=== PATIENT | female | born 1955 | race Two or more races ===

== ENCOUNTER 2017-09-07 16:00 | Inpatient (IN) | payer MEDICAID ==
[~2017-09-07] VITALS: Ht 165.1 cm; Wt 98.7 kg
[~2017-09-07 16:00] MED LIST: ALPR0.5T PO; ATOR20TA PO; FLUO10TA PO; FURO20TA PO; GABA300C PO; LEVE500T22 PO; LORA5SYP23 PO; MIRT45TA3 PO; MORP1TAB12 PO; OMEP20CA74 PO; OXYC10TA44 PO; PROP60CA8 PO; SPIR25TA88 PO
[2017-09-07 18:18] LABS: Basophils # (auto) 0.1 uL; Basophils % (auto) 1.1 % (0.0-2.0); Eosinophils # (auto) 0.1 uL; Eosinophils % (auto) 1.3 % (0.0-7.0); Hematocrit 41.8 % (36.0-46.0); Hemoglobin 14.4 g/dL (12.2-16.2); Lymphocytes # (auto) 1.6 uL; Lymphocytes % (auto) 29.2 % (10.0-50.0); Mean Corpuscular Hemoglobin 31.3 pg (28.0-32.0); Mean Corpuscular Hgb Conc. 34.5 g/dL (32.0-36.0); Mean Corpuscular Volume 90.6 fL (80.0-100.0); Monocytes # (auto) 0.4 uL; Neutrophils # (auto) 3.3 uL; Neutrophils % (auto) 60.4 % (37.0-80.0); Nucleated Red Blood Cells % 0.9 %; Platelet Count (auto) 67 10^3/uL (140-450); Red Blood Cells 4.61 10^6/uL (4.0-5.20); Red Cell Distribution Width 14.3 % (11.8-14.3); White Blood Cell 5.4 10^3/uL (4.4-10.8)
[2017-09-07 18:47] LABS: Alanine Aminotransferase 29 U/L (13-56); Albumin 3.7 g/dL (3.4-5.0); Alkaline Phosphatase 131 U/L (45-117); Anion Gap 9 (5-15); Aspartate Aminotransferase 47 U/L (15-37); BUN/Creatinine Ratio 11.3; Bilirubin, Total 1.6 mg/dL (0.2-1.0); Blood Urea Nitrogen 11 mg/dL (7-18); Calcium 8.7 mg/dL (8.5-10.1); Carbon Dioxide 28 mmol/L (21-32); Chloride 107 mmol/L (98-107); GFR African American 75 mL/min; GFR Non-African American 62 mL/min; Glucose 167 mg/dL (74-106); Potassium 3.8 mmol/L (3.5-5.1); Sodium 144 mmol/L (136-145); Total Protein 7.6 g/dL (6.4-8.2)
[2017-09-07] MEDS ORDERED: DEXTROSE (50%) 50ML SYRG IV PRN (21:30)
[2017-09-07] MEDS: InsuLIN REG 1unit/0.01ml Soln (100units/ml) SC SCH (22:00)
[2017-09-07] MEDS: GABAPENTIN 300 MG CAP PO SCH (22:00)
[2017-09-07] MEDS: ACCU-CHEK COMFORT CURVE STRIP VI SCH (22:00)
[2017-09-07 23:35] VITALS: BP 130/63
[2017-09-08] VITALS (8 sets, daily range): BP systolic 110–118; BP diastolic 63–75
[2017-09-08] MEDS: IPRATROPIUM BROM 0.5 MG/2.5ML INH SOL NEB SCH ×4 (00:27→19:15)
[2017-09-08] MEDS: ALBUTEROL SULF 2.5 MG/0.5ML(0.5%) NEB SOLN NEB SCH ×4 (00:27→19:15)
[2017-09-08] MEDS: MORPHINE SULFATE 10 MG/ML INJ 1ML SDV IV PRN ×6 (00:47→22:46)
[2017-09-08] MEDS: LORazepam 0.5 MG TAB PO PRN ×2 (01:44→16:07)
[2017-09-08] MEDS: ACCU-CHEK COMFORT CURVE STRIP VI SCH ×4 (06:16→22:04)
[2017-09-08] MEDS: InsuLIN REG 1unit/0.01ml Soln (100units/ml) SC SCH ×4 (06:17→22:03)
[2017-09-08 09:39] LABS: Basophils # (auto) 0 uL; Eosinophils # (auto) 0.1 uL; Hemoglobin 12.2 g/dL (12.2-16.2); Lymphocytes # (auto) 1.2 uL; Mean Corpuscular Hgb Conc. 34.9 g/dL (32.0-36.0); Monocytes # (auto) 0.3 uL; Neutrophils # (auto) 1.2 uL; Platelet Count (auto) 54 10^3/uL (140-450); Red Blood Cells 3.89 10^6/uL (4.0-5.20); Red Cell Distribution Width 14.2 % (11.8-14.3); White Blood Cell 2.8 10^3/uL (4.4-10.8)
[2017-09-08 09:43] LABS: Basophils % (auto) 0.5 % (0.0-2.0); Eosinophils % (auto) 2.8 % (0.0-7.0); Hematocrit 35.1 % (36.0-46.0); Lymphocytes % (auto) 43.2 % (10.0-50.0); Mean Corpuscular Hemoglobin 31.5 pg (28.0-32.0); Mean Corpuscular Volume 90.2 fL (80.0-100.0); Monocytes % (auto) 11.6 % (0.0-12.0); Neutrophils % (auto) 41.9 % (37.0-80.0); Nucleated Red Blood Cells % 0.5 %
[2017-09-08] MEDS: FLUoxetine HCL 20 MG CAP PO SCH (09:51)
[2017-09-08] MEDS: GABAPENTIN 300 MG CAP PO SCH ×2 (09:51→21:51)
[2017-09-08] MEDS: AZITHROMYCIN 500MG/ 250ML 250 ML IV SCH (09:52)
[2017-09-08 09:56] LABS: Albumin 2.9 g/dL (3.4-5.0); BUN/Creatinine Ratio 11.1; Calcium 7.8 mg/dL (8.5-10.1); Potassium 3.1 mmol/L (3.5-5.1)
[2017-09-08] MEDS ORDERED: FUROSEMIDE 20 MG TAB PO SCH (10:00)
[2017-09-08] MEDS ORDERED: FUROSEMIDE 40 MG/4 ML VIAL IV ONE (13:30)
[2017-09-08] MEDS ORDERED: POTASSIUM CHLORIDE 40 MEQ, LIDOCAINE 1% (LOCAL ANESTH.) 4 ML in SODIUM CHL 0.9% 100 ML IV ONE (13:30)
[2017-09-08 19:14] LABS: Urine Bacteria NONE SEEN /hpf (None Seen); Urine Blood Negative /uL (Negative); Urine Specific Gravity 1.007 (1.001-1.035); Urine WBC <1 /hpf (0 - 5)
[2017-09-08] MEDS: INSULIN DETEMIR(LEVEMIR) 1unit/0.01ml Soln (100units/ml) SC SCH (22:04)
[2017-09-09] VITALS (8 sets, daily range): BP systolic 111–155; BP diastolic 60–112
[2017-09-09] MEDS: IPRATROPIUM BROM 0.5 MG/2.5ML INH SOL NEB SCH ×4 (00:27→18:41)
[2017-09-09] MEDS: ALBUTEROL SULF 2.5 MG/0.5ML(0.5%) NEB SOLN NEB SCH ×4 (00:27→18:41)
[2017-09-09] MEDS: InsuLIN REG 1unit/0.01ml Soln (100units/ml) SC SCH ×4 (06:21→21:55)
[2017-09-09] MEDS: ACCU-CHEK COMFORT CURVE STRIP VI SCH ×4 (06:21→21:55)
[2017-09-09 09:02] LABS: Albumin 3.2 g/dL (3.4-5.0); BUN/Creatinine Ratio 13.4; Bilirubin, Total 1.1 mg/dL (0.2-1.0); Calcium 8.3 mg/dL (8.5-10.1); Potassium 3.7 mmol/L (3.5-5.1)
[2017-09-09 09:17] LABS: Basophils # (auto) 0.1 uL; Hemoglobin 14.1 g/dL (12.2-16.2); Platelet Count (auto) 64 10^3/uL (140-450); White Blood Cell 3.8 10^3/uL (4.4-10.8)
[2017-09-09 09:20] LABS: Basophils % (auto) 1.6 % (0.0-2.0); Eosinophils # (auto) 0.2 uL; Eosinophils % (auto) 4.5 % (0.0-7.0); Hematocrit 41.7 % (36.0-46.0); Lymphocytes # (auto) 1.2 uL; Lymphocytes % (auto) 30.4 % (10.0-50.0); Mean Corpuscular Hemoglobin 31.1 pg (28.0-32.0); Mean Corpuscular Hgb Conc. 33.9 g/dL (32.0-36.0); Mean Corpuscular Volume 91.7 fL (80.0-100.0); Monocytes # (auto) 0.4 uL; Monocytes % (auto) 9.7 % (0.0-12.0); Neutrophils # (auto) 2.1 uL; Neutrophils % (auto) 53.8 % (37.0-80.0); Nucleated Red Blood Cells % 1.6 %; Red Blood Cells 4.54 10^6/uL (4.0-5.20); Red Cell Distribution Width 14.4 % (11.8-14.3)
[2017-09-09] MEDS: MORPHINE SULFATE 10 MG/ML INJ 1ML SDV IV PRN ×3 (11:00→20:41)
[2017-09-09] MEDS: FLUoxetine HCL 20 MG CAP PO SCH (11:05)
[2017-09-09] MEDS: AZITHROMYCIN 500MG/ 250ML 250 ML IV SCH (11:06)
[2017-09-09] MEDS: GABAPENTIN 300 MG CAP PO SCH ×2 (11:06→21:40)
[2017-09-09] MEDS: FUROSEMIDE 40 MG/4 ML VIAL IV SCH (11:07)
[2017-09-09] MEDS: LORazepam 0.5 MG TAB PO PRN (19:54)
[2017-09-09] MEDS: INSULIN DETEMIR(LEVEMIR) 1unit/0.01ml Soln (100units/ml) SC SCH (21:55)
[2017-09-10] MEDS: IPRATROPIUM BROM 0.5 MG/2.5ML INH SOL NEB SCH ×3 (00:19→11:28)
[2017-09-10] MEDS: ALBUTEROL SULF 2.5 MG/0.5ML(0.5%) NEB SOLN NEB SCH ×3 (00:19→11:28)
[2017-09-10 05:00] VITALS: BP 99/57
[2017-09-10] MEDS: MORPHINE SULFATE 10 MG/ML INJ 1ML SDV IV PRN ×2 (06:30→11:46)
[2017-09-10] MEDS: InsuLIN REG 1unit/0.01ml Soln (100units/ml) SC SCH ×3 (06:53→17:00)
[2017-09-10] MEDS: ACCU-CHEK COMFORT CURVE STRIP VI SCH ×3 (06:54→17:17)
[2017-09-10 08:36] LABS: BUN/Creatinine Ratio 15.7; Calcium 8.6 mg/dL (8.5-10.1); Potassium 3.6 mmol/L (3.5-5.1)
[2017-09-10 09:00] VITALS: BP 119/67
[2017-09-10] MEDS: FLUoxetine HCL 20 MG CAP PO SCH (10:42)
[2017-09-10] MEDS: FUROSEMIDE 40 MG/4 ML VIAL IV SCH (10:42)
[2017-09-10] MEDS: GABAPENTIN 300 MG CAP PO SCH (10:42)
[2017-09-10] MEDS: AZITHROMYCIN 500MG/ 250ML 250 ML IV SCH (10:43)
[2017-09-10 13:00] VITALS: BP 110/71
[2017-09-10] MEDS ORDERED: ACETAMINOPHEN 325 MG TAB PO PRN (14:00)
[2017-09-10 16:39] VITALS: BP 119/67
[2017-09-11] MEDS ORDERED: AZITHROMYCIN 250 MG TAB PO SCH (10:00)
== END 2017-09-10 17:35 | disposition home or self-care (01) | DRG 133 ==
LOC: ER 16:00 → TELE 16:01 → TELE-EAST 23:35
PROVIDERS: ADMIT Nurse Practitioner Family; ATTEND Internal Medicine
PROC: 5A09357 Assistance with Respiratory Ventilation, Less than 24 Consecutive Hours, Continuous Positive Airway Pressure (ICD-10-PCS; principal; 2017-09-09)
DX: J96.21 Acute and chronic respiratory failure with hypoxia (principal); I50.33 Acute on chronic diastolic (congestive) heart failure; J18.9 Pneumonia, unspecified organism; I13.0 Hypertensive heart and chronic kidney disease with heart failure and stage 1 through stage 4 chronic kidney disease, or unspecified chronic kidney disease; E11.22 Type 2 diabetes mellitus with diabetic chronic kidney disease; E11.42 Type 2 diabetes mellitus with diabetic polyneuropathy; E44.1 Mild protein-calorie malnutrition; B19.20 Unspecified viral hepatitis C without hepatic coma; E66.01 Morbid (severe) obesity due to excess calories; E78.5 Hyperlipidemia, unspecified; G40.909 Epilepsy, unspecified, not intractable, without status epilepticus; J44.0 Chronic obstructive pulmonary disease with (acute) lower respiratory infection; M79.7 Fibromyalgia; N18.9 Chronic kidney disease, unspecified; Z79.899 Other long term (current) drug therapy; Z86.73 Personal history of transient ischemic attack (TIA), and cerebral infarction without residual deficits; Z90.710 Acquired absence of both cervix and uterus; Z68.36 Body mass index [BMI] 36.0-36.9, adult
CPT/HCPCS: 36415; 71046; 80048; 80053; 81001; 82962; 83036; 83735; 83880; 84484; 85025; 87400; 93005; 94640; 94660; 96365; 96367; 96372; 96375; J1642; J1815; J2001

== ENCOUNTER 2017-11-24 14:16 | Emergency (ER) | payer MEDICAID ==
[~2017-11-24] VITALS: Ht 165.1 cm; Wt 88.5 kg
[2017-11-24 14:31] VITALS: BP 142/68
[2017-11-24] MEDS ORDERED: IPRATROPIUM BROM 0.5 MG/2.5ML INH SOL NEB ONE (15:00)
[2017-11-24] MEDS ORDERED: ALBUTEROL SULF 2.5 MG/0.5ML(0.5%) NEB SOLN NEB ONE (15:00)
[2017-11-24] MEDS ORDERED: methylPREDNISolone SOD SUCC 125 MG/2 ML VL IM ONE (15:00)
[2017-11-24 15:19] LABS: Basophils # (auto) 0 uL; Eosinophils # (auto) 0.1 uL; Lymphocytes # (auto) 1.4 uL; Mean Corpuscular Hgb Conc. 34.1 g/dL (32.0-36.0); Monocytes # (auto) 0.4 uL; Neutrophils # (auto) 3.1 uL; Platelet Count (auto) 71 10^3/uL (140-450); Red Blood Cells 4.71 10^6/uL (4.0-5.20); White Blood Cell 5.1 10^3/uL (4.4-10.8)
[2017-11-24 15:27] LABS: Basophils % (auto) 0.9 % (0.0-2.0); Eosinophils % (auto) 2.1 % (0.0-7.0); Hematocrit 43.6 % (36.0-46.0); Hemoglobin 14.9 g/dL (12.2-16.2); Mean Corpuscular Hemoglobin 31.6 pg (28.0-32.0); Mean Corpuscular Volume 92.6 fL (80.0-100.0); Monocytes % (auto) 8.5 % (0.0-12.0); Neutrophils % (auto) 60.5 % (37.0-80.0); Nucleated Red Blood Cells % 0.1 %; Red Cell Distribution Width 14.1 % (11.8-14.3)
[2017-11-24 15:42] LABS: Alanine Aminotransferase 36 U/L (13-56); Albumin 3.4 g/dL (3.4-5.0); Alkaline Phosphatase 162 U/L (45-117); Anion Gap 3 (5-15); Aspartate Aminotransferase 54 U/L (15-37); BUN/Creatinine Ratio 13.2; Blood Urea Nitrogen 12 mg/dL (7-18); Calcium 8.7 mg/dL (8.5-10.1); Carbon Dioxide 30 mmol/L (21-32); Chloride 106 mmol/L (98-107); GFR African American 81 mL/min; GFR Non-African American 67 mL/min; Glucose 168 mg/dL (74-106); Potassium 4.1 mmol/L (3.5-5.1); Sodium 139 mmol/L (136-145); Total Protein 7.9 g/dL (6.4-8.2)
== END 2017-11-24 18:32 | disposition home or self-care (01) ==
LOC: ER 14:16
DX: J44.9 Chronic obstructive pulmonary disease, unspecified (principal); I13.0 Hypertensive heart and chronic kidney disease with heart failure and stage 1 through stage 4 chronic kidney disease, or unspecified chronic kidney disease; I50.9 Heart failure, unspecified; N18.9 Chronic kidney disease, unspecified; E11.22 Type 2 diabetes mellitus with diabetic chronic kidney disease; E78.5 Hyperlipidemia, unspecified; Z79.4 Long term (current) use of insulin; Z90.710 Acquired absence of both cervix and uterus; Z45.2 Encounter for adjustment and management of vascular access device; Z87.891 Personal history of nicotine dependence
CPT/HCPCS: 36415; 71046; 80053; 83735; 84484; 85025; 93005; 94640; 96372; 99285; J2930

== ENCOUNTER 2018-07-12 17:30 | Inpatient (IN) | payer MEDICAID ==
[~2018-07-12] VITALS: Ht 165.1 cm; Wt 107.0 kg
[~2018-07-12 17:30] MED LIST changes: -MIRT45TA3 PO; +MIRT45TA6 PO; +PROP60CA34 PO; -PROP60CA8 PO
[2018-07-12 18:04] LABS: Eosinophils # (auto) 0.1 uL; Lymphocytes # (auto) 0.7 uL; Lymphocytes % (auto) 2.8 % (10.0-50.0); Mean Corpuscular Volume 92.9 fL (80.0-100.0); Monocytes # (auto) 1.7 uL; Platelet Count (auto) 53 10^3/uL (140-450)
[2018-07-12 18:05] LABS: Basophils # (auto) 0.1 uL; Basophils % (auto) 0.3 % (0.0-2.0); Eosinophils % (auto) 0.5 % (0.0-7.0); Hematocrit 40.8 % (36.0-46.0); Hemoglobin 13.9 g/dL (12.2-16.2); Mean Corpuscular Hemoglobin 31.6 pg (28.0-32.0); Monocytes % (auto) 7.5 % (0.0-12.0); Neutrophils # (auto) 20.4 uL; Neutrophils % (auto) 88.9 % (37.0-80.0); Red Blood Cells 4.39 10^6/uL (4.0-5.20); White Blood Cell 22.9 10^3/uL (4.4-10.8)
[2018-07-12] MEDS ORDERED: DILTIAZEM HCL 25 MG/5 ML VIAL IV ONE (18:30)
[2018-07-12] MEDS ORDERED: LEVOFLOXACIN 750MG 150 ML IV ONE (18:30)
[2018-07-12 18:50] LABS: BUN/Creatinine Ratio 16.8; Calcium 7.8 mg/dL (8.5-10.1); Potassium 3.7 mmol/L (3.5-5.1)
[2018-07-12 18:51] LABS: Albumin 2.4 g/dL (3.4-5.0); Bilirubin, Total 4.8 mg/dL (0.2-1.0); Magnesium 1.8 mg/dL (1.6-2.6); Total Protein 6.9 g/dL (6.4-8.2)
[2018-07-12 19:11] LABS: Urine Bacteria MANY /hpf (None Seen); Urine Blood 1+ /uL (Negative); Urine Mucus FEW (None Seen); Urine Specific Gravity 1.017 (1.001-1.035); Urine WBC 140 /hpf (0 - 5)
[2018-07-12 19:19] LABS: Alcohol, Urine < 3.0 mg/dL (0-5); Amphetamine Screen, Urine NEGATIVE (NEGATIVE); Barbiturate Scree,Urine NEGATIVE (NEGATIVE); Benzodiazephine Screen, Urine POSITIVE (NEGATIVE); Cannabinoid Screen, Urine POSITIVE (NEGATIVE); Cocaine Screen, Urine NEGATIVE (NEGATIVE); Opiate Scree,Urine POSITIVE (NEGATIVE); Phencyclidine Screen, Urine NEGATIVE (NEGATIVE)
[2018-07-12 19:44] LABS: Lactic Acid w/Reflex 3.9 mmol/L (0.4-2.0)
[2018-07-12] MEDS ORDERED: VANCOMYCIN PER PHARMACY 0 MG IV SCH (21:30)
[2018-07-12] MEDS ORDERED: DEXTROSE (50%) 50ML SYRG IV PRN (21:30)
[2018-07-12] MEDS ORDERED: LORazepam 2MG/ML-1ML VIAL IV PRN (21:30)
[2018-07-12] MEDS ORDERED: VANCOMYCIN 1GM/250ML 250 ML IV ONE (22:45)
[2018-07-13] MEDS ORDERED: ACETAMINOPHEN 650 MG RECT SUPP PR ONE (04:30)
[2018-07-13] MEDS ORDERED: DIGOXIN (250MCG/ML) 2 ML AMPULE IV ONE (04:30)
[2018-07-13] MEDS ORDERED: ADENOSINE 6 MG/2 ML INJ IV ONE ×2 (05:00→06:15)
[2018-07-13] MEDS ORDERED: NOREPINEPHRINE 8 MG/250ML KIT 250 ML IV SCH (05:15)
[2018-07-13] MEDS ORDERED: LORazepam 2MG/ML-1ML VIAL IM ONE (05:30)
[2018-07-13 05:39] LABS: Anion Gap 13 (5-15); BUN/Creatinine Ratio 17.5; Blood Urea Nitrogen 29 mg/dL (7-18); Calcium 7.7 mg/dL (8.5-10.1); Carbon Dioxide 24 mmol/L (21-32); Chloride 99 mmol/L (98-107); GFR African American 40 mL/min; GFR Non-African American 33 mL/min; Glucose 166 mg/dL (74-106); Potassium 4.5 mmol/L (3.5-5.1); Sodium 136 mmol/L (136-145)
[2018-07-13 05:42] LABS: Lactic Acid w/Reflex 3.9 mmol/L (0.4-2.0)
[2018-07-13] MEDS: ACCU-CHEK COMFORT CURVE STRIP VI SCH ×5 (06:10→23:52)
[2018-07-13] MEDS: InsuLIN REG 1unit/0.01ml Soln (100units/ml) SC SCH ×5 (07:00→23:52)
[2018-07-13 07:01] LABS: Hemoglobin 13.7 g/dL (12.2-16.2); Mean Corpuscular Hemoglobin 32.6 pg (28.0-32.0)
[2018-07-13 07:03] LABS: Hematocrit 39.1 % (36.0-46.0); Mean Corpuscular Hgb Conc. 35.2 g/dL (32.0-36.0); Mean Corpuscular Volume 92.6 fL (80.0-100.0); Platelet Count (auto) 50 10^3/uL (140-450); Red Blood Cells 4.22 10^6/uL (4.0-5.20); White Blood Cell 20.4 10^3/uL (4.4-10.8)
[2018-07-13 07:16] LABS: Band Neutrophils % (manual) 0; Basophils % (manual) 0 (0.0-2.0); Eosinophils % (manual) 0 (0-7); Metamyelocytes % 0; Promyelocytes % 0; Reactive Lymphocytes 0
[2018-07-13] MEDS ORDERED: AMIODARONE HCL 150 MG in D5W 5% 100 ML IV ONE (08:15)
[2018-07-13] MEDS ORDERED: AMIODARONE HCL 900 MG in DEXTROSE 500 ML IV SCH (08:20)
[2018-07-13] MEDS ORDERED: cefTRIAXone 1GM/50ML D5W 50 ML IV SCH (09:00)
[2018-07-13] MEDS: FUROSEMIDE 40 MG/4 ML VIAL IV SCH (10:00)
[2018-07-13] MEDS ORDERED: LEVETIRACETAM 500 MG TAB PO SCH (10:00)
[2018-07-13] MEDS ORDERED: LACTULOSE 20Gm/30ML SOLN PO ONE (10:00)
[2018-07-13] MEDS ORDERED: cefTRIAXone 1GM/50ML D5W 50 ML IV ONE (10:45)
[2018-07-13] MEDS: LEVETIRACETAM INJ 500 MG in D5W 5% 100 ML IV SCH ×2 (11:47→22:05)
[2018-07-13] MEDS: PIPERACILLIN-TAZOB 2.25GM 50 ML IV SCH ×3 (12:09→23:52)
[2018-07-13] MEDS: VANCOMYCIN 1GM/250ML 250 ML IV SCH (13:00)
[2018-07-13 13:06] VITALS: BP 123/74
[2018-07-13] MEDS: AMIODARONE HCL 900 MG in DEXTROSE 500 ML IV SCH (14:20)
[2018-07-13 14:23] LABS: Blast Cells 1; Lymphocytes % (manual) 2 (10.0-50.0); Monocytes % (manual) 6 (0-12); Myelocytes % 1
[2018-07-13 15:54] VITALS: BP 118/70
[2018-07-13] MEDS ORDERED: LORazepam 2MG/ML-1ML VIAL IV PRN (19:30)
[2018-07-13 20:00] VITALS: BP 124/73
[2018-07-13] MEDS: ATORVASTATIN 20 MG TAB PO SCH (21:20)
[2018-07-13 21:38] VITALS: BP 124/73
[2018-07-14] VITALS: BP 138/82
[2018-07-14] MEDS: VANCOMYCIN 1GM/250ML 250 ML IV SCH (01:12)
[2018-07-14 04:00] VITALS: BP 119/74
[2018-07-14 05:39] LABS: Mean Corpuscular Hemoglobin 32.2 pg (28.0-32.0); Mean Corpuscular Hgb Conc. 34.8 g/dL (32.0-36.0)
[2018-07-14 05:42] LABS: Hematocrit 36.3 % (36.0-46.0); Hemoglobin 12.6 g/dL (12.2-16.2); Mean Corpuscular Volume 92.6 fL (80.0-100.0); Platelet Count (auto) 56 10^3/uL (140-450); Red Blood Cells 3.92 10^6/uL (4.0-5.20); White Blood Cell 18.4 10^3/uL (4.4-10.8)
[2018-07-14] MEDS: ACCU-CHEK COMFORT CURVE STRIP VI SCH ×4 (05:45→23:56)
[2018-07-14 05:51] LABS: Basophils % (manual) 0 (0.0-2.0); Blast Cells 0; Eosinophils % (manual) 0 (0-7); Metamyelocytes % 0; Myelocytes % 0; Promyelocytes % 0; Reactive Lymphocytes 0
[2018-07-14 05:55] LABS: Albumin 2.2 g/dL (3.4-5.0); Calcium 7.7 mg/dL (8.5-10.1); Potassium 3.5 mmol/L (3.5-5.1)
[2018-07-14 05:57] LABS: BUN/Creatinine Ratio 20.5; Total Protein 6.1 g/dL (6.4-8.2)
[2018-07-14] MEDS: InsuLIN REG 1unit/0.01ml Soln (100units/ml) SC SCH ×4 (06:13→23:56)
[2018-07-14] MEDS: PIPERACILLIN-TAZOB 2.25GM 50 ML IV SCH ×3 (06:14→18:24)
[2018-07-14 08:00] VITALS: BP 138/73
[2018-07-14 08:02] LABS: Band Neutrophils % (manual) 2; Lymphocytes % (manual) 7 (10.0-50.0); Monocytes % (manual) 8 (0-12)
[2018-07-14] MEDS: cefTRIAXone 1GM/50ML D5W 50 ML IV SCH (09:41)
[2018-07-14] MEDS ORDERED: CLOPIDOGREL BISULFATE 75 MG TAB PO SCH (10:00)
[2018-07-14] MEDS: LEVETIRACETAM INJ 500 MG in D5W 5% 100 ML IV SCH ×2 (10:29→22:54)
[2018-07-14] MEDS: FUROSEMIDE 40 MG/4 ML VIAL IV SCH (10:29)
[2018-07-14 11:50] VITALS: BP 131/78
[2018-07-14] MEDS: AMIODARONE HCL 900 MG in DEXTROSE 500 ML IV SCH (14:20)
[2018-07-14 15:51] VITALS: BP 139/81
[2018-07-14 19:51] VITALS: BP 121/76
[2018-07-14] MEDS: VANCOMYCIN 750 MG in SODIUM CHL 0.9% 250 ML IV SCH (21:01)
[2018-07-14] MEDS: CARVEDILOL 3.125 MG TAB PO SCH (21:22)
[2018-07-14] MEDS: ATORVASTATIN 20 MG TAB PO SCH (21:22)
[2018-07-14] MEDS: BUDESONIDE (INHALATION) 0.5 MG/2 ML NEB NEB SCH (22:40)
[2018-07-15] VITALS: BP 119/57
[2018-07-15] MEDS: PIPERACILLIN-TAZOB 2.25GM 50 ML IV SCH ×2 (00:09→05:15)
[2018-07-15 04:00] VITALS: BP 125/66
[2018-07-15] MEDS: InsuLIN REG 1unit/0.01ml Soln (100units/ml) SC SCH ×4 (05:16→23:43)
[2018-07-15] MEDS: ACCU-CHEK COMFORT CURVE STRIP VI SCH ×4 (05:16→23:44)
[2018-07-15 05:33] LABS: Hematocrit 38.3 % (36.0-46.0); Hemoglobin 13.4 g/dL (12.2-16.2); Mean Corpuscular Hgb Conc. 34.8 g/dL (32.0-36.0); Platelet Count (auto) 84 10^3/uL (140-450); Red Blood Cells 4.17 10^6/uL (4.0-5.20); White Blood Cell 18.9 10^3/uL (4.4-10.8)
[2018-07-15 05:59] LABS: Albumin 2.1 g/dL (3.4-5.0); BUN/Creatinine Ratio 17.6; Basophils % (manual) 0 (0.0-2.0); Blast Cells 0; Calcium 7.4 mg/dL (8.5-10.1); Eosinophils % (manual) 0 (0-7); Metamyelocytes % 0; Myelocytes % 0; Potassium 3.2 mmol/L (3.5-5.1); Promyelocytes % 0; Reactive Lymphocytes 0
[2018-07-15 06:03] LABS: Bilirubin, Total 2.9 mg/dL (0.2-1.0); Total Protein 6.1 g/dL (6.4-8.2)
[2018-07-15] MEDS: ALBUTEROL SULF 2.5 MG/0.5ML(0.5%) NEB SOLN NEB PRN ×2 (07:00→18:08)
[2018-07-15] MEDS: BUDESONIDE (INHALATION) 0.5 MG/2 ML NEB NEB SCH ×2 (07:00→18:09)
[2018-07-15 07:16] LABS: Band Neutrophils % (manual) 4; Lymphocytes % (manual) 8 (10.0-50.0); Monocytes % (manual) 5 (0-12)
[2018-07-15] MEDS ORDERED: HALOPERIDOL LACTATE 5 MG/ML INJ VIAL IM PRN (07:45)
[2018-07-15] MEDS: VANCOMYCIN 750 MG in SODIUM CHL 0.9% 250 ML IV SCH (08:55)
[2018-07-15] MEDS: cefTRIAXone 1GM/50ML D5W 50 ML IV SCH (09:56)
[2018-07-15] MEDS: CARVEDILOL 3.125 MG TAB PO SCH ×2 (10:00→22:20)
[2018-07-15] MEDS: FUROSEMIDE 40 MG/4 ML VIAL IV SCH (10:00)
[2018-07-15] MEDS ORDERED: POTASSIUM CHLORIDE 40 MEQ, LIDOCAINE 1% (LOCAL ANESTH.) 4 ML in SODIUM CHL 0.9% 100 ML IV ONE (10:15)
[2018-07-15] MEDS: LEVETIRACETAM INJ 500 MG in D5W 5% 100 ML IV SCH ×2 (11:47→22:18)
[2018-07-15 12:00] VITALS: BP 108/63
[2018-07-15 15:53] VITALS: BP 111/81
[2018-07-15] MEDS: ONDANSETRON HCL 4 MG/2 ML VIAL IV PRN (17:14)
[2018-07-15 19:59] VITALS: BP 122/72
[2018-07-15] MEDS: VANCOMYCIN 750 MG in D5W 5% 250 ML IV SCH (20:32)
[2018-07-15] MEDS: ATORVASTATIN 20 MG TAB PO SCH (22:18)
[2018-07-15] MEDS: APIXABAN 2.5 MG TAB PO SCH (22:19)
[2018-07-15] MEDS: DRONEDARONE HCL 400 MG TAB PO SCH (22:19)
[2018-07-16] VITALS (7 sets, daily range): BP systolic 96–124; BP diastolic 55–73
[2018-07-16] MEDS: BUDESONIDE (INHALATION) 0.5 MG/2 ML NEB NEB SCH ×2 (05:54→19:04)
[2018-07-16 06:16] LABS: Hemoglobin 13.5 g/dL (12.2-16.2); Mean Corpuscular Hemoglobin 31.9 pg (28.0-32.0); Mean Corpuscular Hgb Conc. 34.5 g/dL (32.0-36.0); Mean Corpuscular Volume 92.4 fL (80.0-100.0); Platelet Count (auto) 98 10^3/uL (140-450); Red Blood Cells 4.23 10^6/uL (4.0-5.20); Red Cell Distribution Width 14.4 % (11.8-14.3); White Blood Cell 22.2 10^3/uL (4.4-10.8)
[2018-07-16] MEDS: ACCU-CHEK COMFORT CURVE STRIP VI SCH ×4 (06:21→23:37)
[2018-07-16] MEDS: InsuLIN REG 1unit/0.01ml Soln (100units/ml) SC SCH ×4 (06:22→23:37)
[2018-07-16 06:38] LABS: Calcium 7.5 mg/dL (8.5-10.1); Potassium 3.9 mmol/L (3.5-5.1)
[2018-07-16 06:41] LABS: BUN/Creatinine Ratio 18.3; Bilirubin, Total 2.5 mg/dL (0.2-1.0)
[2018-07-16 06:42] LABS: Basophils % (manual) 0 (0.0-2.0); Blast Cells 0; Eosinophils % (manual) 0 (0-7); Myelocytes % 0; Promyelocytes % 0; Reactive Lymphocytes 0
[2018-07-16 07:45] LABS: Band Neutrophils % (manual) 3; Lymphocytes % (manual) 7 (10.0-50.0); Metamyelocytes % 2; Monocytes % (manual) 3 (0-12)
[2018-07-16] MEDS ORDERED: ADENOSINE 85 MG in GIVE UN-DILUTED 0 ML IV STA (08:14)
[2018-07-16] MEDS: cefTRIAXone 1GM/50ML D5W 50 ML IV SCH (10:15)
[2018-07-16] MEDS: FUROSEMIDE 40 MG/4 ML VIAL IV SCH (10:16)
[2018-07-16] MEDS: CARVEDILOL 3.125 MG TAB PO SCH ×2 (10:17→21:34)
[2018-07-16] MEDS: APIXABAN 2.5 MG TAB PO SCH ×2 (10:18→21:35)
[2018-07-16] MEDS ORDERED: cefTRIAXone 1GM/50ML D5W 50 ML IV ONE (10:30)
[2018-07-16] MEDS: VANCOMYCIN 750 MG in D5W 5% 250 ML IV SCH ×2 (12:03→20:16)
[2018-07-16] MEDS: LEVETIRACETAM INJ 500 MG in D5W 5% 100 ML IV SCH (12:03)
[2018-07-16] MEDS: DRONEDARONE HCL 400 MG TAB PO SCH ×2 (12:03→21:35)
[2018-07-16] MEDS: ACETAMINOPHEN 500 MG TAB PO PRN (13:13)
[2018-07-16] MEDS: LEVETIRACETAM 500 MG TAB PO SCH (21:35)
[2018-07-16] MEDS: ATORVASTATIN 20 MG TAB PO SCH (21:35)
[2018-07-17 05:02] VITALS: BP 97/53
[2018-07-17] MEDS: ACETAMINOPHEN 500 MG TAB PO PRN (05:12)
[2018-07-17] MEDS: InsuLIN REG 1unit/0.01ml Soln (100units/ml) SC SCH ×3 (05:36→18:00)
[2018-07-17] MEDS: ACCU-CHEK COMFORT CURVE STRIP VI SCH ×3 (05:37→18:16)
[2018-07-17 05:42] LABS: Hematocrit 39.4 % (36.0-46.0); Hemoglobin 13.7 g/dL (12.2-16.2); Mean Corpuscular Hemoglobin 31.8 pg (28.0-32.0); Mean Corpuscular Hgb Conc. 34.8 g/dL (32.0-36.0); Mean Corpuscular Volume 91.5 fL (80.0-100.0); Platelet Count (auto) 111 10^3/uL (140-450); Red Cell Distribution Width 14.5 % (11.8-14.3); White Blood Cell 24.4 10^3/uL (4.4-10.8)
[2018-07-17 05:49] LABS: Basophils % (manual) 0 (0.0-2.0); Blast Cells 0; Promyelocytes % 0; Reactive Lymphocytes 0
[2018-07-17] MEDS: BUDESONIDE (INHALATION) 0.5 MG/2 ML NEB NEB SCH ×2 (05:58→19:38)
[2018-07-17 06:01] LABS: Albumin 2.3 g/dL (3.4-5.0); Calcium 7.7 mg/dL (8.5-10.1)
[2018-07-17 06:05] LABS: Total Protein 6.5 g/dL (6.4-8.2)
[2018-07-17 06:06] LABS: BUN/Creatinine Ratio 18.3; Potassium 2.8 mmol/L (3.5-5.1)
[2018-07-17] MEDS ORDERED: POTASSIUM CHL 20 Meq TABLET PO ONE (08:00)
[2018-07-17 08:19] VITALS: BP 115/64
[2018-07-17] MEDS: cefTRIAXone 1GM/50ML D5W 50 ML IV SCH (08:19)
[2018-07-17] MEDS: VANCOMYCIN 750 MG in D5W 5% 250 ML IV SCH ×2 (08:19→20:10)
[2018-07-17 08:31] LABS: Band Neutrophils % (manual) 7; Eosinophils % (manual) 1 (0-7); Lymphocytes % (manual) 4 (10.0-50.0); Metamyelocytes % 2; Monocytes % (manual) 1 (0-12); Myelocytes % 2
[2018-07-17] MEDS ORDERED: cefTRIAXone 1GM/50ML D5W 50 ML IV SCH (09:30)
[2018-07-17] MEDS: LEVETIRACETAM 500 MG TAB PO SCH ×2 (10:00→21:49)
[2018-07-17] MEDS: DRONEDARONE HCL 400 MG TAB PO SCH ×2 (10:00→21:51)
[2018-07-17] MEDS ORDERED: ZOLPIDEM TARTRATE 5 MG TAB PO PRN (10:30)
[2018-07-17] MEDS ORDERED: cefTRIAXone 1GM/50ML D5W 50 ML IV ONE (10:30)
[2018-07-17] MEDS ORDERED: POTASSIUM CHLORIDE 40 MEQ, LIDOCAINE 1% (LOCAL ANESTH.) 4 ML in SODIUM CHL 0.9% 100 ML IV ONE (10:30)
[2018-07-17] MEDS: FUROSEMIDE 40 MG/4 ML VIAL IV SCH (11:10)
[2018-07-17] MEDS: APIXABAN 2.5 MG TAB PO SCH ×2 (11:10→21:49)
[2018-07-17] MEDS: metroNIDAZOLE 500 MG TAB PO SCH ×3 (12:44→23:47)
[2018-07-17 12:47] VITALS: BP 113/69
[2018-07-17] MEDS ORDERED: HYDROcodone-ACET 5/325MG TAB PO PRN (13:00)
[2018-07-17] MEDS: HYDROcodone-ACET 5/325MG TAB PO PRN ×2 (13:32→20:47)
[2018-07-17] MEDS ORDERED: metroNIDAZOLE 500MG/100ML 100 ML IV SCH (14:00)
[2018-07-17 16:19] VITALS: BP 98/58
[2018-07-17] MEDS: ONDANSETRON HCL 4 MG/2 ML VIAL IV PRN (16:24)
[2018-07-17] MEDS: CARVEDILOL 3.125 MG TAB PO SCH (21:49)
[2018-07-17] MEDS: ATORVASTATIN 20 MG TAB PO SCH (21:50)
[2018-07-17 21:54] VITALS: BP 129/71
[2018-07-18] MEDS: ACCU-CHEK COMFORT CURVE STRIP VI SCH ×4 (00:29→18:19)
[2018-07-18] MEDS: HYDROcodone-ACET 5/325MG TAB PO PRN ×4 (02:55→21:28)
[2018-07-18 04:32] VITALS: BP 91/52
[2018-07-18 05:58] LABS: Hematocrit 37.7 % (36.0-46.0); Hemoglobin 13.1 g/dL (12.2-16.2); Mean Corpuscular Hgb Conc. 34.8 g/dL (32.0-36.0); Mean Corpuscular Volume 91.8 fL (80.0-100.0); Platelet Count (auto) 98 10^3/uL (140-450); Red Cell Distribution Width 14.3 % (11.8-14.3); White Blood Cell 17.6 10^3/uL (4.4-10.8)
[2018-07-18] MEDS: InsuLIN REG 1unit/0.01ml Soln (100units/ml) SC SCH ×4 (06:00→18:19)
[2018-07-18 06:10] LABS: Albumin 2.1 g/dL (3.4-5.0); Calcium 7.3 mg/dL (8.5-10.1); Potassium 3.5 mmol/L (3.5-5.1)
[2018-07-18 06:13] LABS: Bilirubin, Total 2.6 mg/dL (0.2-1.0); Total Protein 6.4 g/dL (6.4-8.2)
[2018-07-18 06:14] LABS: Band Neutrophils % (manual) 0; Basophils % (manual) 0 (0.0-2.0); Blast Cells 0; Metamyelocytes % 0; Myelocytes % 0; Promyelocytes % 0; Reactive Lymphocytes 0
[2018-07-18] MEDS: metroNIDAZOLE 500 MG TAB PO SCH ×3 (06:44→18:19)
[2018-07-18 07:22] LABS: Eosinophils % (manual) 1 (0-7); Lymphocytes % (manual) 5 (10.0-50.0); Monocytes % (manual) 6 (0-12)
[2018-07-18] MEDS: VANCOMYCIN 750 MG in D5W 5% 250 ML IV SCH ×2 (08:00→21:34)
[2018-07-18 09:00] VITALS: BP 110/54
[2018-07-18] MEDS: CEFTRIAXONE SODIUM 2 GM in D5W 5% 50 ML IV SCH (10:00)
[2018-07-18] MEDS: BUDESONIDE (INHALATION) 0.5 MG/2 ML NEB NEB SCH ×2 (10:13→22:25)
[2018-07-18] MEDS: LEVETIRACETAM 500 MG TAB PO SCH (11:18)
[2018-07-18] MEDS: DRONEDARONE HCL 400 MG TAB PO SCH ×2 (11:18→22:02)
[2018-07-18] MEDS: FUROSEMIDE 40 MG/4 ML VIAL IV SCH (11:18)
[2018-07-18] MEDS: CARVEDILOL 3.125 MG TAB PO SCH ×2 (11:19→22:00)
[2018-07-18] MEDS: APIXABAN 2.5 MG TAB PO SCH ×2 (11:19→22:01)
[2018-07-18 13:00] VITALS: BP 116/58
[2018-07-18 17:00] VITALS: BP 120/61
[2018-07-18] MEDS: ONDANSETRON HCL 4 MG/2 ML VIAL IV PRN (18:32)
[2018-07-18 21:45] VITALS: BP 98/60
[2018-07-18] MEDS: ATORVASTATIN 20 MG TAB PO SCH (22:01)
[2018-07-18] MEDS: MIRTAZAPINE 30 MG TAB PO SCH (22:02)
[2018-07-19] MEDS: HYDROcodone-ACET 5/325MG TAB PO PRN ×4 (04:50→22:40)
[2018-07-19 05:38] VITALS: BP 114/73
[2018-07-19] MEDS: InsuLIN REG 1unit/0.01ml Soln (100units/ml) SC SCH ×4 (06:00→18:00)
[2018-07-19] MEDS: ACCU-CHEK COMFORT CURVE STRIP VI SCH ×5 (06:00→23:52)
[2018-07-19 06:31] LABS: Hematocrit 36.5 % (36.0-46.0); Mean Corpuscular Hemoglobin 32.5 pg (28.0-32.0); Mean Corpuscular Hgb Conc. 35.6 g/dL (32.0-36.0); Mean Corpuscular Volume 91.4 fL (80.0-100.0); Platelet Count (auto) 108 10^3/uL (140-450); Red Blood Cells 3.99 10^6/uL (4.0-5.20); Red Cell Distribution Width 14.5 % (11.8-14.3); White Blood Cell 17.4 10^3/uL (4.4-10.8)
[2018-07-19] MEDS: metroNIDAZOLE 500 MG TAB PO SCH ×5 (06:42→22:34)
[2018-07-19 07:00] LABS: Albumin 2.3 g/dL (3.4-5.0); Bilirubin, Total 2.5 mg/dL (0.2-1.0); Calcium 7.6 mg/dL (8.5-10.1); Total Protein 6.3 g/dL (6.4-8.2)
[2018-07-19 07:35] LABS: Basophils % (manual) 0 (0.0-2.0); Blast Cells 0; Metamyelocytes % 0; Myelocytes % 0; Promyelocytes % 0; Reactive Lymphocytes 0
[2018-07-19] MEDS: VANCOMYCIN 750 MG in D5W 5% 250 ML IV SCH ×2 (08:00→21:14)
[2018-07-19 08:51] LABS: Band Neutrophils % (manual) 3; Eosinophils % (manual) 5 (0-7); Lymphocytes % (manual) 4 (10.0-50.0); Monocytes % (manual) 1 (0-12)
[2018-07-19 09:19] VITALS: BP 105/48
[2018-07-19] MEDS ORDERED: POTASSIUM CHLORIDE 40 MEQ, LIDOCAINE 1% (LOCAL ANESTH.) 4 ML in SODIUM CHL 0.9% 100 ML IV ONE (09:30)
[2018-07-19] MEDS: CEFTRIAXONE SODIUM 2 GM in D5W 5% 50 ML IV SCH (10:00)
[2018-07-19] MEDS: ONDANSETRON HCL 4 MG/2 ML VIAL IV PRN ×2 (10:03→18:33)
[2018-07-19] MEDS: LEVETIRACETAM 500 MG TAB PO SCH (10:05)
[2018-07-19] MEDS: APIXABAN 2.5 MG TAB PO SCH ×2 (10:05→22:33)
[2018-07-19] MEDS: DRONEDARONE HCL 400 MG TAB PO SCH ×2 (10:05→22:34)
[2018-07-19] MEDS: CARVEDILOL 3.125 MG TAB PO SCH ×2 (10:05→22:00)
[2018-07-19] MEDS: FUROSEMIDE 40 MG/4 ML VIAL IV SCH (10:05)
[2018-07-19] MEDS: BUDESONIDE (INHALATION) 0.5 MG/2 ML NEB NEB SCH ×2 (10:30→22:00)
[2018-07-19] MEDS ORDERED: ADENOSINE 85 MG in GIVE UN-DILUTED 0 ML IV STA (11:56)
[2018-07-19 13:16] VITALS: BP 107/53
[2018-07-19] MEDS: FLUoxetine HCL 20 MG CAP PO SCH (15:44)
[2018-07-19 17:31] VITALS: BP 99/73
[2018-07-19 22:00] VITALS: BP 109/50
[2018-07-19] MEDS: MIRTAZAPINE 30 MG TAB PO SCH (22:25)
[2018-07-19] MEDS: ATORVASTATIN 20 MG TAB PO SCH (22:34)
[2018-07-20 03:16] VITALS: BP 109/50
[2018-07-20] MEDS: HYDROcodone-ACET 5/325MG TAB PO PRN (04:47)
[2018-07-20] MEDS: ONDANSETRON HCL 4 MG/2 ML VIAL IV PRN ×3 (04:47→20:38)
[2018-07-20 05:21] VITALS: BP 109/53
[2018-07-20] MEDS: metroNIDAZOLE 500 MG TAB PO SCH ×4 (05:41→23:23)
[2018-07-20] MEDS: InsuLIN REG 1unit/0.01ml Soln (100units/ml) SC SCH ×5 (06:00→23:06)
[2018-07-20] MEDS: ACCU-CHEK COMFORT CURVE STRIP VI SCH ×4 (06:24→23:06)
[2018-07-20 06:39] LABS: Hematocrit 36.4 % (36.0-46.0); Hemoglobin 12.8 g/dL (12.2-16.2); Mean Corpuscular Hemoglobin 32.1 pg (28.0-32.0); Mean Corpuscular Hgb Conc. 35.1 g/dL (32.0-36.0); Mean Corpuscular Volume 91.4 fL (80.0-100.0); Platelet Count (auto) 121 10^3/uL (140-450); Red Blood Cells 3.98 10^6/uL (4.0-5.20); White Blood Cell 15.8 10^3/uL (4.4-10.8)
[2018-07-20 06:47] LABS: Basophils % (manual) 0 (0.0-2.0); Blast Cells 0; Metamyelocytes % 0; Myelocytes % 0; Promyelocytes % 0; Reactive Lymphocytes 0
[2018-07-20 06:56] LABS: Albumin 2.3 g/dL (3.4-5.0); BUN/Creatinine Ratio 12.4; Calcium 7.6 mg/dL (8.5-10.1); Potassium 3.2 mmol/L (3.5-5.1)
[2018-07-20 07:00] LABS: Bilirubin, Total 2.5 mg/dL (0.2-1.0); Total Protein 6.7 g/dL (6.4-8.2)
[2018-07-20 07:38] LABS: Band Neutrophils % (manual) 1; Eosinophils % (manual) 2 (0-7); Lymphocytes % (manual) 9 (10.0-50.0); Monocytes % (manual) 9 (0-12)
[2018-07-20 08:00] VITALS: BP 118/53
[2018-07-20] MEDS ORDERED: OXYCODONE W/ ACETAMINOPHEN 5/325MG TABLET PO PRN (08:15)
[2018-07-20] MEDS: CARVEDILOL 3.125 MG TAB PO SCH ×2 (08:41→21:28)
[2018-07-20] MEDS: VANCOMYCIN 750 MG in D5W 5% 250 ML IV SCH ×2 (08:41→20:34)
[2018-07-20] MEDS: FLUoxetine HCL 20 MG CAP PO SCH (08:41)
[2018-07-20] MEDS: OXYCODONE W/ ACETAMINOPHEN 5/325MG TABLET PO PRN ×3 (08:42→21:29)
[2018-07-20] MEDS: APIXABAN 2.5 MG TAB PO SCH ×2 (08:49→21:28)
[2018-07-20] MEDS: BUDESONIDE (INHALATION) 0.5 MG/2 ML NEB NEB SCH ×2 (09:25→23:23)
[2018-07-20] MEDS: DRONEDARONE HCL 400 MG TAB PO SCH ×2 (10:00→21:29)
[2018-07-20] MEDS: FUROSEMIDE 40 MG/4 ML VIAL IV SCH (10:00)
[2018-07-20] MEDS: CEFTRIAXONE SODIUM 2 GM in D5W 5% 50 ML IV SCH (10:19)
[2018-07-20] MEDS ORDERED: POTASSIUM CHLORIDE 40 MEQ, LIDOCAINE 1% (LOCAL ANESTH.) 4 ML in SODIUM CHL 0.9% 100 ML IV ONE (10:45)
[2018-07-20] MEDS ORDERED: ZOLPIDEM TARTRATE 5 MG TAB PO PRN (11:15)
[2018-07-20 12:15] VITALS: BP 121/86
[2018-07-20 16:30] VITALS: BP 109/58
[2018-07-20] MEDS: ATORVASTATIN 20 MG TAB PO SCH (21:27)
[2018-07-20 21:53] VITALS: BP 130/71
[2018-07-20] MEDS: MIRTAZAPINE 30 MG TAB PO SCH (22:00)
[2018-07-21] MEDS: ONDANSETRON HCL 4 MG/2 ML VIAL IV PRN ×3 (02:53→15:56)
[2018-07-21] MEDS: OXYCODONE W/ ACETAMINOPHEN 5/325MG TABLET PO PRN ×2 (03:31→11:34)
[2018-07-21 04:57] VITALS: BP 95/48
[2018-07-21] MEDS: metroNIDAZOLE 500 MG TAB PO SCH ×2 (05:50→11:48)
[2018-07-21] MEDS: ACCU-CHEK COMFORT CURVE STRIP VI SCH ×2 (05:52→11:48)
[2018-07-21] MEDS: InsuLIN REG 1unit/0.01ml Soln (100units/ml) SC SCH ×2 (05:52→11:49)
[2018-07-21] MEDS: BUDESONIDE (INHALATION) 0.5 MG/2 ML NEB NEB SCH (06:28)
[2018-07-21 07:25] LABS: Basophils # (auto) 0.1 uL; Eosinophils # (auto) 0.1 uL; Eosinophils % (auto) 1.2 % (0.0-7.0); Hematocrit 34.5 % (36.0-46.0); Lymphocytes # (auto) 1.3 uL; Lymphocytes % (auto) 11.3 % (10.0-50.0); Mean Corpuscular Hgb Conc. 34.8 g/dL (32.0-36.0); Monocytes # (auto) 0.7 uL; Monocytes % (auto) 6.2 % (0.0-12.0); Neutrophils # (auto) 9.2 uL; Neutrophils % (auto) 80.3 % (37.0-80.0); Platelet Count (auto) 94 10^3/uL (140-450); Red Blood Cells 3.75 10^6/uL (4.0-5.20); Red Cell Distribution Width 14.3 % (11.8-14.3); White Blood Cell 11.5 10^3/uL (4.4-10.8)
[2018-07-21 07:38] LABS: Albumin 2.2 g/dL (3.4-5.0); BUN/Creatinine Ratio 13.3; Calcium 7.7 mg/dL (8.5-10.1); Potassium 3.6 mmol/L (3.5-5.1)
[2018-07-21 07:41] LABS: Bilirubin, Total 1.9 mg/dL (0.2-1.0); Total Protein 6.3 g/dL (6.4-8.2)
[2018-07-21] MEDS: APIXABAN 2.5 MG TAB PO SCH (07:49)
[2018-07-21] MEDS: VANCOMYCIN 750 MG in D5W 5% 250 ML IV SCH (08:06)
[2018-07-21 09:00] VITALS: BP 91/49
[2018-07-21] MEDS: FLUoxetine HCL 20 MG CAP PO SCH (10:00)
[2018-07-21] MEDS: FUROSEMIDE 40 MG/4 ML VIAL IV SCH (10:00)
[2018-07-21] MEDS: CARVEDILOL 3.125 MG TAB PO SCH (10:00)
[2018-07-21] MEDS: DRONEDARONE HCL 400 MG TAB PO SCH (10:00)
[2018-07-21] MEDS: CEFTRIAXONE SODIUM 2 GM in D5W 5% 50 ML IV SCH (10:28)
[2018-07-21 12:51] VITALS: BP 105/41
[2018-07-21 13:00] VITALS: BP 110/51
== END 2018-07-21 16:42 | disposition home or self-care (01) | DRG 720 ==
LOC: EDUNIT# 17:30 → ER 17:33 → TELE 21:40 → DOU IN ICU 07-13 09:48 → TELE-EAST 07-16 00:53
PROVIDERS: ADMIT Nurse Practitioner Family; ATTEND Internal Medicine
PROC: 02HV33Z Insertion of Infusion Device into Superior Vena Cava, Percutaneous Approach (ICD-10-PCS; principal; 2018-07-12)
DX: A41.9 Sepsis, unspecified organism (principal); G93.41 Metabolic encephalopathy; I50.23 Acute on chronic systolic (congestive) heart failure; E43 Unspecified severe protein-calorie malnutrition; E11.22 Type 2 diabetes mellitus with diabetic chronic kidney disease; I48.92 Unspecified atrial flutter; E66.01 Morbid (severe) obesity due to excess calories; J43.9 Emphysema, unspecified; M32.9 Systemic lupus erythematosus, unspecified; N30.00 Acute cystitis without hematuria; E78.5 Hyperlipidemia, unspecified; G40.909 Epilepsy, unspecified, not intractable, without status epilepticus; G47.33 Obstructive sleep apnea (adult) (pediatric); I44.7 Left bundle-branch block, unspecified; M79.7 Fibromyalgia; N18.9 Chronic kidney disease, unspecified; I13.0 Hypertensive heart and chronic kidney disease with heart failure and stage 1 through stage 4 chronic kidney disease, or unspecified chronic kidney disease; E87.6 Hypokalemia; F31.9 Bipolar disorder, unspecified; F40.240 Claustrophobia; G47.00 Insomnia, unspecified; G89.4 Chronic pain syndrome; I44.0 Atrioventricular block, first degree; Z79.899 Other long term (current) drug therapy; Z82.49 Family history of ischemic heart disease and other diseases of the circulatory system; Z83.3 Family history of diabetes mellitus; Z79.82 Long term (current) use of aspirin; Z86.73 Personal history of transient ischemic attack (TIA), and cerebral infarction without residual deficits; Z90.710 Acquired absence of both cervix and uterus; Z91.19 Patient's noncompliance with other medical treatment and regimen; Z88.5 Allergy status to narcotic agent; Z88.8 Allergy status to other drugs, medicaments and biological substances; Z68.39 Body mass index [BMI] 39.0-39.9, adult
CPT/HCPCS: 36415; 36600; 70450; 71045; 80048; 80053; 80202; 80307; 80320; 81001; 82140; 82805; 82962; 83036; 83605; 83735; 83880; 84484; 85007; 85025; 85027; 87040; 87077; 87081; 87086; 87088; 87186; 87493; 93005; 93306; 94640; 95819; 96365; 96372; 96375; 97110; 97116; 97163; 97530; A6257; G0378; J0153; J0696; J1815; J1956; J2001; J2405; J2543; J7060

== ENCOUNTER 2018-09-01 01:51 | Inpatient (IN) | payer MEDICAID ==
[~2018-09-01] VITALS: Ht 165.1 cm; Wt 91.1 kg
[2018-09-01] MEDS ORDERED: ONDANSETRON HCL 4 MG/2 ML VIAL ONE (02:41)
[2018-09-01] MEDS ORDERED: methylPREDNISolone SOD SUCC 125 MG/2 ML VL ONE (02:42)
[2018-09-01 02:49] LABS: Basophils # (auto) 0 uL; Eosinophils # (auto) 0 uL; Eosinophils % (auto) 0.8 % (0.0-7.0); Hematocrit 37.1 % (36.0-46.0); Hemoglobin 12.6 g/dL (12.2-16.2); Lymphocytes # (auto) 0.9 uL; Lymphocytes % (auto) 23.7 % (10.0-50.0); Mean Corpuscular Hemoglobin 32.5 pg (28.0-32.0); Mean Corpuscular Hgb Conc. 33.9 g/dL (32.0-36.0); Mean Corpuscular Volume 95.8 fL (80.0-100.0); Monocytes # (auto) 0.3 uL; Monocytes % (auto) 7.4 % (0.0-12.0); Neutrophils # (auto) 2.7 uL; Neutrophils % (auto) 67.1 % (37.0-80.0); Nucleated Red Blood Cells % 0.1 %; Platelet Count (auto) 54 10^3/uL (140-450); Red Blood Cells 3.88 10^6/uL (4.0-5.20); Red Cell Distribution Width 15.1 % (11.8-14.3)
[2018-09-01] MEDS ORDERED: ONDANSETRON HCL 4 MG/2 ML VIAL IV ONE (03:00)
[2018-09-01] MEDS ORDERED: SODIUM CHLORIDE 0.9% 250 ML IV ONE (03:00)
[2018-09-01] MEDS ORDERED: methylPREDNISolone SOD SUCC 125 MG/2 ML VL IV ONE (03:00)
[2018-09-01 03:10] LABS: Alanine Aminotransferase 17 U/L (13-56); Albumin 2.8 g/dL (3.4-5.0); Anion Gap 11 (5-15); Aspartate Aminotransferase 38 U/L (15-37); Blood Urea Nitrogen 5 mg/dL (7-18); Calcium 7.8 mg/dL (8.5-10.1); Carbon Dioxide 28 mmol/L (21-32); Chloride 103 mmol/L (98-107); GFR African American > 60 mL/min; GFR Non-African American 60 mL/min; Glucose 145 mg/dL (74-106); INR 1.38 (0.9-1.15); Magnesium 1.5 mg/dL (1.6-2.6); Partial Thromboplastin Time 28.2 sec (23.78-33.04); Prothrombin Time 14.5 sec (9.27-12.13); Sodium 142 mmol/L (136-145)
[2018-09-01 03:15] LABS: Alkaline Phosphatase 80 U/L (45-117); Bilirubin, Total 2.9 mg/dL (0.2-1.0); Potassium 2.4 mmol/L (3.5-5.1); Total Protein 7.5 g/dL (6.4-8.2)
[2018-09-01] MEDS ORDERED: POTASSIUM CHL 20MEQ/100ML 100 ML IV ONE (03:30)
[2018-09-01] MEDS ORDERED: POTASSIUM CHL 20 Meq TABLET PO ONE (03:30)
[2018-09-01] MEDS ORDERED: IOHEXOL 350 MG/ML 100ML IJ ONE (04:48)
[2018-09-01] MEDS: MAGNESIUM SULFATE 1GM/100ML 100 ML IV SCH ×2 (05:45→06:45)
[2018-09-01] MEDS ORDERED: ACETAMINOPHEN 325 MG TAB PO PRN (05:45)
[2018-09-01] MEDS ORDERED: TEMAZEPAM 15 MG CAP PO PRN (05:45)
[2018-09-01] MEDS ORDERED: HYDROcodone-ACET 5/325MG TAB PO PRN (05:45)
[2018-09-01] MEDS ORDERED: DEXTROSE (50%) 50ML SYRG IV PRN (05:45)
[2018-09-01] MEDS: InsuLIN REG 1unit/0.01ml Soln (100units/ml) SC SCH ×3 (06:00→18:00)
[2018-09-01] MEDS: ACCU-CHEK COMFORT CURVE STRIP VI SCH ×3 (06:00→18:01)
[2018-09-01] MEDS: MORPHINE SULFATE 10 MG/ML INJ 1ML SDV IV PRN (06:42)
[2018-09-01] MEDS: ONDANSETRON HCL 4 MG/2 ML VIAL IV PRN ×2 (06:43→20:35)
--- NOTE | 2018-09-01 09:00 | NUR ---
Telemetry admit from [facility] admitted to Telemetry unit after SBAR received. Patient oriented to Jennifer Bucio primary RN, unit, room, bed, and unit policies regarding patient care and visiting hours. Patient now on continuous telemetry monitoring, tele box # 45 and telemetry reading on arrival to unit is SR 66. Patient placed on bedside oxygen, weighed by bedscale and encouraged to call if they need something. All questions and concerns addressed, patient verbalized understanding.
[2018-09-01] MEDS: SPIRONOLACTONE 25 MG TAB PO SCH (09:58)
[2018-09-01] MEDS: LEVETIRACETAM 500 MG TAB PO SCH ×3 (09:58→22:00)
[2018-09-01] MEDS: FAMOTIDINE 20 MG TAB PO SCH ×2 (09:58→22:01)
[2018-09-01] MEDS: APIXABAN 2.5 MG TAB PO SCH ×2 (09:58→22:02)
[2018-09-01] MEDS: POTASSIUM CHL 10 Meq TABLET PO SCH (09:58)
[2018-09-01] MEDS: PROPRANOLOL HCL 20 MG TAB PO SCH (10:00)
[2018-09-01] MEDS ORDERED: POTASSIUM CHLORIDE 40 MEQ, LIDOCAINE 1% (LOCAL ANESTH.) 4 ML in SODIUM CHL 0.9% 100 ML IV ONE (10:00)
[2018-09-01] MEDS: FUROSEMIDE 40 MG TAB PO SCH (10:36)
[2018-09-01] MEDS ORDERED: MAGNESIUM SULFATE 1GM/100ML 100 ML IV SCH (11:00)
--- NOTE | 2018-09-01 11:30 | NUR ---
PAIN/ANXIETY PATIENT REQUESTING PAIN AND ANXIETY MEDICATION AND STATES SHE CANNOT TAKE NORCO. DR. CHAVARRIA PAGED. MESSAGE LEFT WITH OFFICE. WAITING FOR CALL BACK.
--- NOTE | 2018-09-01 12:15 | NUR ---
MD RETURNED CALL DR. CHAVARRIA RETURNED CALL REGARDING PATIENT'S PAIN AND ANXIETY. PER MD, PATIENT TO GET PERCOCET 5/325 PO Q6H, XANAX 0.25 PO Q6H, DC NORCO, AND OKAY TO ACCESS PORT-A-CATH. ORDERS READ BACK AND VERIFIED.
--- NOTE | 2018-09-01 12:30 | NUR ---
Telly Cath Insertion 22 gauge Telly Cath inserted using sterile technique in the left upper chest with occlusive dressing over menendez needle. Patient tolerated procedure well.
[2018-09-01] MEDS: OXYCODONE W/ ACETAMINOPHEN 5/325MG TABLET PO PRN ×2 (12:33→18:30)
[2018-09-01] MEDS: ALPRAZolam 0.25 MG TAB PO PRN (12:33)
[2018-09-01 16:50] VITALS: BP 107/41
--- NOTE | 2018-09-01 18:33 | NUR ---
END OF SHIFT PATIENT RESTING IN BED. NO S/S OF DISTRESS. INSTRUCTED PATIENT TO CALL PRN. BED IN LOWEST LOCKED POSITION, CALL LIGHT WITHIN REACH. ENDORSED CARE TO BOOM VENEGAS.
--- NOTE | 2018-09-01 19:18 | NUR ---
Opening Shift Note Assumed care of patient, awake and alert x4. No S/S of distress/SOB noted. Patient complains of pain (pain scale 10/10) on her back, legs, and hip. Will medicate patient as ordered. Instructed on plan of care and to call for assistance as needed. Bed is locked in lowest position, side rails x 2 are up, call light is within reach, and bed alarm is on. Seizure precaution in place.
--- NOTE | 2018-09-01 19:59 | NUR ---
PAGED ADELAIDA RE: PAIN MEDS Pageleidy Escalanteod regarding pain medications. Awaiting for call back.
--- NOTE | 2018-09-01 20:03 | NUR ---
MD CHAVARRIA RETURNED CALL RE: PAIN MEDS MD Chavarria returned call regarding pain medications. Received a one time order for Morphine IV 2mg PRN for tonight. MD Chavarria is requesting patient to bring bottles of pain medications she is taking at home. Will inform patient. Orders read back and verified. Will carry out orders as ordered.
[2018-09-01] MEDS ORDERED: MORPHINE SULFATE 10 MG/ML INJ 1ML SDV IV ONE (20:30)
[2018-09-01 22:00] VITALS: BP 104/56
[2018-09-01] MEDS: MIRTAZAPINE 30 MG TAB PO SCH (22:00)
[2018-09-01] MEDS: ATORVASTATIN 20 MG TAB PO SCH (22:01)
[2018-09-02] MEDS: ONDANSETRON HCL 4 MG/2 ML VIAL IV PRN ×2 (00:48→06:26)
[2018-09-02] MEDS: OXYCODONE W/ ACETAMINOPHEN 5/325MG TABLET PO PRN ×4 (00:48→19:54)
[2018-09-02] MEDS: NITROGLYCERIN 0.4 MG SL TAB SL PRN ×2 (01:34→01:51)
[2018-09-02] MEDS: ALPRAZolam 0.25 MG TAB PO PRN ×3 (02:06→18:00)
--- NOTE | 2018-09-02 02:11 | NUR ---
PATIENT COMPLAINS OF CHEST PAIN Patient complained of chest pain. Vital signs were performed: BP: 115/55, HR: 79, RR:18, O2: 95% on 3L nasal cannula. EKG was performed which showed normal sinus rhythm. Patient was given 2 doses of nitroglycerine sublingual. After the second dose of nitroglycerine sublingual patient stated her chest pain was subsiding. After the second nitroglycerine sublingual, patient stated that she thought it was "bad anxiety" versus true chest pain. Patient was given Xanax. Patient is laying in bed with symmetrical chest rise and fall. No signs/symptoms of distress/shortness of breath noted. Cardiology consult is in place. Will continue to monitor patient. Bed is locked in lowest position, side rails x 2 are up, call light is within reach, and bed alarm is on.
--- NOTE | 2018-09-02 02:22 | NUR ---
FOLLOW UP ON CHEST PAIN Upon walking into room, observed patient having a conversation with patient in B bed. Patient states she's "feeling a lot better." Bed is locked in lowest position, side rails x 2 are up, call light is within reach, and bed alarm is on.
--- NOTE | 2018-09-02 03:13 | NUR ---
ROUNDS Patient is sleeping in bed with symmetrical chest rise and fall. No signs/symptoms of distress/shortness of breath or pain noted. Patient is on 3L nasal cannula. Bed is locked in lowest position, side rails x 2 are up, call light is within reach, and bed alarm is on.
--- NOTE | 2018-09-02 04:12 | NUR ---
ROUNDS Patient sleeping with symmetrical chest rise and fall. No s/s of distress/shortness of breath or pain noted. Bed is locked in lowest position, side rails x 2 are up, call light is within reach, and bed alarm is on.
[2018-09-02 06:00] VITALS: BP 104/63
[2018-09-02] MEDS: InsuLIN REG 1unit/0.01ml Soln (100units/ml) SC SCH ×4 (06:00→18:00)
[2018-09-02] MEDS: ACCU-CHEK COMFORT CURVE STRIP VI SCH ×4 (06:27→18:00)
--- NOTE | 2018-09-02 06:34 | NUR ---
ROUNDS Patient is laying in bed with symmetrical chest rise and fall. No s/s of distress or shortness of breath noted. Patient does complain of pain on her left leg and back (pain scale 10/10). Patient denies chest pain at this time (pain scale 0/10). Will medicate patient as ordered. Bed is locked in lowest position, side rails x 2 are up, call light is within reach, and bed alarm is on.
[2018-09-02 06:46] LABS: Basophils # (auto) 0 uL; Eosinophils # (auto) 0 uL; Lymphocytes # (auto) 0.9 uL; White Blood Cell 6.6 10^3/uL (4.4-10.8)
[2018-09-02 06:51] LABS: Hematocrit 31.7 % (36.0-46.0); Hemoglobin 11.1 g/dL (12.2-16.2); Lymphocytes % (auto) 13.3 % (10.0-50.0); Mean Corpuscular Hemoglobin 33.4 pg (28.0-32.0); Mean Corpuscular Volume 95.4 fL (80.0-100.0); Monocytes # (auto) 0.3 uL; Monocytes % (auto) 5.2 % (0.0-12.0); Neutrophils # (auto) 5.4 uL; Neutrophils % (auto) 81.5 % (37.0-80.0); Platelet Count (auto) 51 10^3/uL (140-450); Red Blood Cells 3.33 10^6/uL (4.0-5.20); Red Cell Distribution Width 15.6 % (11.8-14.3)
--- NOTE | 2018-09-02 07:20 | NUR ---
CLOSING SHIFT NOTE Endorsed patient care to BOOM Mijares.
[2018-09-02 07:23] LABS: Chloride 105 mmol/L (98-107); Potassium 3.4 mmol/L (3.5-5.1); Sodium 142 mmol/L (136-145)
[2018-09-02 07:31] LABS: Alanine Aminotransferase 15 U/L (13-56); Albumin 2.7 g/dL (3.4-5.0); Alkaline Phosphatase 67 U/L (45-117); Anion Gap 4 (5-15); Aspartate Aminotransferase 28 U/L (15-37); BUN/Creatinine Ratio 7.5; Bilirubin, Total 1.9 mg/dL (0.2-1.0); Blood Urea Nitrogen 8 mg/dL (7-18); Calcium 7.7 mg/dL (8.5-10.1); Carbon Dioxide 33 mmol/L (21-32); GFR Non-African American 55 mL/min; Glucose 119 mg/dL (74-106); Total Protein 6.9 g/dL (6.4-8.2)
[2018-09-02 07:34] LABS: GFR African American > 60 mL/min
[2018-09-02 07:49] VITALS: BP 101/39
[2018-09-02] MEDS: PROPRANOLOL HCL 20 MG TAB PO SCH (10:00)
[2018-09-02] MEDS: LEVETIRACETAM 500 MG TAB PO SCH ×2 (10:00→21:44)
[2018-09-02] MEDS: APIXABAN 2.5 MG TAB PO SCH ×2 (10:28→21:42)
[2018-09-02] MEDS: FUROSEMIDE 40 MG TAB PO SCH (10:28)
[2018-09-02] MEDS: FAMOTIDINE 20 MG TAB PO SCH ×2 (10:28→21:43)
[2018-09-02] MEDS: POTASSIUM CHL 10 Meq TABLET PO SCH (10:28)
[2018-09-02] MEDS: SPIRONOLACTONE 25 MG TAB PO SCH (10:29)
[2018-09-02] MEDS ORDERED: POTASSIUM CHL 20 Meq TABLET PO ONE (11:00)
[2018-09-02 12:14] VITALS: BP 117/52
--- NOTE | 2018-09-02 14:59 | NUR ---
PAGED DR NELSON FOR 3 BEATS OF V TACH. PATIENT DENIES ANY CHEST PAIN OR SHORTNESS OF BREATH.
[2018-09-02 17:04] VITALS: BP 107/63
--- NOTE | 2018-09-02 20:00 | NUR ---
open note assumed care of pt, upon entering room for handoff, pt awake and alert. pt report pain 9/0-10 scale, of a generalized nature. pt denied any chest pain at this time. pt updated on plan of care. no s/s distress noted or expressed. will medicate pt per MD orders. call light in reach, no additional questions or concerns by patient at this time. will continue to monitor.
--- NOTE | 2018-09-02 20:15 | NUR ---
CONSTANZA called report run of [employer]. tele monitor at this time shows NSR 72bpm. upon entering room. pt awake and alert, sitting up in bed, denies any chest pain. no s/s distress expressed by pt or noted by nurse. will continue to monitor. Addendum: 09/03/18 at 0656 by MICHELLE HIGHTOWER RN RN pt o2 saturation 98% on room air.
[2018-09-02] MEDS: ATORVASTATIN 20 MG TAB PO SCH (21:42)
[2018-09-02] MEDS: MIRTAZAPINE 30 MG TAB PO SCH (21:44)
--- NOTE | 2018-09-02 21:49 | NUR ---
pt refused remeron stating "my doctor took me off of that, and put me on restoril instead". pt also refused Jordy stating "my doctor took me off of that a year ago". pt says she had only had seizures at the time of her stroke "2 years ago" and denied having any issue with seizures before her stroke or since her stroke. bed rails padded will continue to monitor.
[2018-09-02 22:00] VITALS: BP 116/72
[2018-09-03] MEDS: ACCU-CHEK COMFORT CURVE STRIP VI SCH ×5 (00:26→23:54)
[2018-09-03] MEDS: ALPRAZolam 0.25 MG TAB PO PRN ×3 (00:39→18:17)
--- NOTE | 2018-09-03 00:57 | NUR ---
pt refused to let nurse attempt IV start. pt educated on purpose behind need for IV as she has cardiolite stress test scheduled in the AM. however, pt refused. will attempt to educated pt further at later time.
[2018-09-03] MEDS: MORPHINE SULFATE 10 MG/ML INJ 1ML SDV IV PRN ×2 (01:49)
[2018-09-03 05:34] VITALS: BP 114/63
[2018-09-03] MEDS: InsuLIN REG 1unit/0.01ml Soln (100units/ml) SC SCH ×5 (06:00→23:54)
--- NOTE | 2018-09-03 06:41 | NUR ---
pt refused IV start. will endorse to day nurse
[2018-09-03 06:52] LABS: Anion Gap 1 (5-15); BUN/Creatinine Ratio 9.6; Blood Urea Nitrogen 11 mg/dL (7-18); Calcium 7.5 mg/dL (8.5-10.1); Carbon Dioxide 35 mmol/L (21-32); Chloride 105 mmol/L (98-107); GFR African American > 60 mL/min; GFR Non-African American 51 mL/min; Glucose 90 mg/dL (74-106); Sodium 141 mmol/L (136-145)
--- NOTE | 2018-09-03 07:38 | NUR ---
OPENING SHIFT NOTE ASSUMED CARE OF PATIENT. PATIENT RESTING COMFORTABLY IN BED AT THIS TIME. NO S/S OF DISTRESS OR SOB NOTED. RESPIRATIONS EVEN AND UNLABORED. BED IN LOWEST LOCKED POSITION, CALL LIGHT WITHIN REACH. CONTINUING TO MONITOR.
--- NOTE | 2018-09-03 08:01 | NUR ---
STRESS TEST REFUSAL ERLIN FROM STRESS LAB, CAME TO TALK TO PATIENT REGARDING STRESS TEST. PATIENT REFUSING AT THIS TIME. REINFORCED TEACHING, PATIENT CONTINUES TO REFUSE. WILL NOTIFY MD. CONTINUING TO MONITOR.
[2018-09-03 08:47] VITALS: BP 105/49
[2018-09-03] MEDS: OXYCODONE W/ ACETAMINOPHEN 5/325MG TABLET PO PRN ×3 (08:52→21:10)
--- NOTE | 2018-09-03 09:53 | NUR ---
STRESS TEST: PT refused cardiolite stress test.
[2018-09-03] MEDS: PROPRANOLOL HCL 20 MG TAB PO SCH (10:00)
[2018-09-03] MEDS: APIXABAN 2.5 MG TAB PO SCH ×2 (10:00→22:00)
[2018-09-03] MEDS: LEVETIRACETAM 500 MG TAB PO SCH ×2 (10:00→22:00)
[2018-09-03] MEDS: ONDANSETRON HCL 4 MG/2 ML VIAL IV PRN (10:39)
[2018-09-03] MEDS: POTASSIUM CHL 10 Meq TABLET PO SCH (10:40)
[2018-09-03] MEDS: FAMOTIDINE 20 MG TAB PO SCH ×2 (10:40→22:38)
[2018-09-03] MEDS: SPIRONOLACTONE 25 MG TAB PO SCH (10:40)
[2018-09-03] MEDS: FUROSEMIDE 40 MG TAB PO SCH (10:40)
[2018-09-03 11:47] VITALS: BP 106/60
[2018-09-03] MEDS ORDERED: POTASSIUM CHLORIDE 60 MEQ, LIDOCAINE 1% (LOCAL ANESTH.) 6 ML in SODIUM CHL 0.9% 500 ML IV ONE (14:00)
--- NOTE | 2018-09-03 14:19 | NUR ---
Nutrition Assessment Notes please see attached link for complete assessment Est. Needs ABW [id number] kcal (20-23 kcal/kgBW), 60-74 gms pro (0.8-1.0 gms/kgBW r/t elev RFT). Will continue to monitor pertinent labs and reassess nutrient need prn Addendum: 09/03/18 at [address] Amended: Links added.
[2018-09-03 16:34] VITALS: BP 116/54
--- NOTE | 2018-09-03 18:48 | NUR ---
END OF SHIFT NOTE PATIENT AWAKE AND ALERT SITTING UP IN BED. NO S/S OF DISTRESS OR SOB NOTED. BED IN LOWEST LOCKED POSITION, CALL LIGHT WITHIN REACH. WILL ENDORSE CARE TO NOC RN.
[2018-09-03 22:00] VITALS: BP 118/65
[2018-09-03] MEDS: MIRTAZAPINE 30 MG TAB PO SCH (22:00)
[2018-09-03] MEDS: ATORVASTATIN 20 MG TAB PO SCH (22:38)
[2018-09-04 05:00] VITALS: BP 105/69
[2018-09-04] MEDS: InsuLIN REG 1unit/0.01ml Soln (100units/ml) SC SCH ×4 (06:00→23:52)
[2018-09-04] MEDS: ACCU-CHEK COMFORT CURVE STRIP VI SCH ×4 (06:55→23:52)
--- NOTE | 2018-09-04 07:30 | NUR ---
OPENING SHIFT NOTE ASSUMED CARE OF PATIENT. PATIENT RESTING COMFORTABLY IN BED AT THIS TIME. NO S/S OF DISTRESS OR SOB NOTED. BED IN LOWEST LOCKED POSITION, CALL LIGHT WITHIN REACH. WILL CONTINUE TO MONITOR.
[2018-09-04] MEDS: OXYCODONE W/ ACETAMINOPHEN 5/325MG TABLET PO PRN ×3 (08:20→22:24)
[2018-09-04 08:55] LABS: Anion Gap 2 (5-15); BUN/Creatinine Ratio 8.5; Blood Urea Nitrogen 9 mg/dL (7-18); Calcium 7.4 mg/dL (8.5-10.1); Carbon Dioxide 34 mmol/L (21-32); Chloride 106 mmol/L (98-107); GFR Non-African American 56 mL/min; Glucose 93 mg/dL (74-106); Potassium 3.1 mmol/L (3.5-5.1); Sodium 142 mmol/L (136-145)
[2018-09-04 08:56] LABS: GFR African American > 60 mL/min
[2018-09-04 09:00] VITALS: BP 109/54
[2018-09-04] MEDS: ONDANSETRON HCL 4 MG/2 ML VIAL IV PRN (09:09)
[2018-09-04] MEDS: SPIRONOLACTONE 25 MG TAB PO SCH (09:11)
[2018-09-04] MEDS: APIXABAN 2.5 MG TAB PO SCH ×2 (09:11→22:00)
[2018-09-04] MEDS: PROPRANOLOL HCL 20 MG TAB PO SCH (09:11)
[2018-09-04] MEDS: LEVETIRACETAM 500 MG TAB PO SCH ×2 (09:12→22:00)
[2018-09-04] MEDS: FAMOTIDINE 20 MG TAB PO SCH ×2 (09:12→22:21)
[2018-09-04] MEDS: POTASSIUM CHL 10 Meq TABLET PO SCH (09:12)
[2018-09-04] MEDS ORDERED: POTASSIUM CHLORIDE 40 MEQ, LIDOCAINE 1% (LOCAL ANESTH.) 4 ML in SODIUM CHL 0.9% 100 ML IV ONE (10:00)
--- NOTE | 2018-09-04 10:00 | NUR ---
AT BEDSIDE DR CHAVARRIA AT BEDSIDE AT THIS TIME. NEW ORDERS RECEIVED. CONTINUING TO MONITOR.
[2018-09-04] MEDS: ALPRAZolam 0.25 MG TAB PO PRN ×2 (12:38→19:14)
[2018-09-04] MEDS: FUROSEMIDE 40 MG TAB PO SCH (12:39)
[2018-09-04 13:00] VITALS: BP 106/51
[2018-09-04 17:00] VITALS: BP 145/75
--- NOTE | 2018-09-04 19:45 | NUR ---
Opening Shift Note Assumed care of patient, awake and alert. No S/S of distress/SOB or pain. Instructed on POC and to call for assist PRN, will continue to monitor for changes Q1hr and PRN.
[2018-09-04 22:00] VITALS: BP 106/65
[2018-09-04] MEDS: MIRTAZAPINE 30 MG TAB PO SCH (22:00)
[2018-09-04] MEDS: ATORVASTATIN 20 MG TAB PO SCH (22:21)
[2018-09-04] MEDS: MORPHINE SULFATE 10 MG/ML INJ 1ML SDV IV PRN (23:51)
[2018-09-05 05:00] VITALS: BP 117/64
[2018-09-05] MEDS: InsuLIN REG 1unit/0.01ml Soln (100units/ml) SC SCH ×2 (06:00→12:00)
[2018-09-05] MEDS: ACCU-CHEK COMFORT CURVE STRIP VI SCH ×2 (06:22→12:26)
[2018-09-05] MEDS: OXYCODONE W/ ACETAMINOPHEN 5/325MG TABLET PO PRN (06:24)
--- NOTE | 2018-09-05 07:35 | NUR ---
OPENING SHIFT NOTE PATIENT RESTING COMFORTABLY IN BED AT THIS TIME, WITH EYES CLOSED. NO S/S OF DISTRESS OR SOB NOTED, RESPIRATIONS EVEN AND UNLABORED. BED IN LOWEST LOCKED POSITION, CALL LIGHT WITHIN REACH. CONTINUING TO MONITOR.
[2018-09-05 07:53] LABS: Anion Gap 3 (5-15); BUN/Creatinine Ratio 8.3; Blood Urea Nitrogen 9 mg/dL (7-18); Calcium 7.8 mg/dL (8.5-10.1); Carbon Dioxide 34 mmol/L (21-32); Chloride 103 mmol/L (98-107); GFR Non-African American 54 mL/min; Glucose 106 mg/dL (74-106); Potassium 3.6 mmol/L (3.5-5.1); Sodium 140 mmol/L (136-145)
[2018-09-05 07:59] LABS: GFR African American > 60 mL/min
[2018-09-05 09:00] VITALS: BP 121/70
[2018-09-05] MEDS: SPIRONOLACTONE 25 MG TAB PO SCH (09:22)
[2018-09-05] MEDS: FAMOTIDINE 20 MG TAB PO SCH (09:23)
[2018-09-05] MEDS: ALPRAZolam 0.25 MG TAB PO PRN (09:23)
[2018-09-05] MEDS: FUROSEMIDE 40 MG TAB PO SCH (09:23)
[2018-09-05] MEDS: LEVETIRACETAM 500 MG TAB PO SCH (09:24)
[2018-09-05] MEDS: PROPRANOLOL HCL 20 MG TAB PO SCH (09:24)
[2018-09-05] MEDS: APIXABAN 2.5 MG TAB PO SCH (09:24)
[2018-09-05] MEDS ORDERED: POTASSIUM CHL 10 Meq TABLET PO SCH (10:00)
--- NOTE | 2018-09-05 11:10 | NUR ---
AT BEDSIDE DR CHAVARRIA AT BEDSIDE AT THIS TIME. NEW ORDERS FOR DISCHARGE. WILL CARRY OUT ORDERS RECEIVED. CONTINUING TO MONITOR.
[2018-09-05 13:00] VITALS: BP 138/62
[2018-09-05 13:12] VITALS: BP 121/70
--- NOTE | 2018-09-05 15:00 | NUR ---
DISCHARGED PATIENT DISCHARGED HOME VIA WHEELCHAIR TO PRIVATE VEHICLE AFTER ALL DISCHARGE INSTRUCTIONS GIVEN AND ALL QUESTIONS AND CONCERNS ADDRESSED. TELE REMOVED, CLEANED AND RETURNED TO CONSTANZA. LOUISE CATH FLUSHED WITH NS AND HEPARIN AND REMOVED. PLACED GAUZE AND TEGADERM AT THIS TIME. PATIENT SHOWED NO S/S OF DISTRESS OR SOB NOTED UPON DISCHARGE.
== END 2018-09-05 15:00 | disposition home or self-care (01) | DRG 190 ==
LOC: EDBD 01:51 → ER 01:57 → TELE 05:49 → TELE-CENTR 08:42
PROVIDERS: ADMIT Nurse Practitioner; ATTEND Internal Medicine
DX: I21.9 Acute myocardial infarction, unspecified (principal); D68.9 Coagulation defect, unspecified; E11.65 Type 2 diabetes mellitus with hyperglycemia; E44.1 Mild protein-calorie malnutrition; E66.01 Morbid (severe) obesity due to excess calories; I25.10 Atherosclerotic heart disease of native coronary artery without angina pectoris; I50.9 Heart failure, unspecified; I11.0 Hypertensive heart disease with heart failure; E83.42 Hypomagnesemia; R18.8 Other ascites; E87.6 Hypokalemia; Z68.33 Body mass index [BMI] 33.0-33.9, adult; E78.00 Pure hypercholesterolemia, unspecified; E78.5 Hyperlipidemia, unspecified; F11.20 Opioid dependence, uncomplicated; F41.9 Anxiety disorder, unspecified; G40.909 Epilepsy, unspecified, not intractable, without status epilepticus; G47.33 Obstructive sleep apnea (adult) (pediatric); G89.4 Chronic pain syndrome; I08.0 Rheumatic disorders of both mitral and aortic valves; J44.9 Chronic obstructive pulmonary disease, unspecified; K82.8 Other specified diseases of gallbladder; Z82.49 Family history of ischemic heart disease and other diseases of the circulatory system; Z83.3 Family history of diabetes mellitus; Z86.73 Personal history of transient ischemic attack (TIA), and cerebral infarction without residual deficits; Z90.710 Acquired absence of both cervix and uterus; Z91.19 Patient's noncompliance with other medical treatment and regimen; Z88.8 Allergy status to other drugs, medicaments and biological substances; Z88.5 Allergy status to narcotic agent
CPT/HCPCS: 36415; 71045; 71275; 76705; 80048; 80053; 82962; 83735; 83880; 84443; 84484; 85025; 85379; 85610; 85730; 87081; 93005; 96361; 96374; 96375; A6257; G0378; J1642; J1815; J2001; J2405; J3480

== ENCOUNTER 2019-03-24 07:28 | Inpatient (IN) | payer MEDICAID ==
[~2019-03-24] VITALS: Ht 165.1 cm; Wt 76.4 kg
[~2019-03-24 07:28] MED LIST changes: +FURO1TAB33 PO; -FURO20TA PO; -LEVE500T22 PO; +MIRT1TAB40 PO; -MIRT45TA6 PO
[2019-03-24 09:20] LABS: Basophils # (auto) 0 uL; Eosinophils # (auto) 0 uL; Eosinophils % (auto) 0.1 % (0.0-7.0); Hemoglobin 12.9 g/dL (12.2-16.2); Lymphocytes # (auto) 1.1 uL
[2019-03-24 09:22] LABS: Basophils % (auto) 0.9 % (0.0-2.0); Hematocrit 36.6 % (36.0-46.0); Mean Corpuscular Hgb Conc. 35.2 g/dL (32.0-36.0); Mean Corpuscular Volume 96.7 fL (80.0-100.0); Monocytes # (auto) 0.5 uL; Monocytes % (auto) 8.4 % (0.0-12.0); Neutrophils # (auto) 3.8 uL; Neutrophils % (auto) 70.6 % (37.0-80.0); Nucleated Red Blood Cells % 0.1 %; Red Blood Cells 3.78 10^6/uL (4.0-5.20); White Blood Cell 5.4 10^3/uL (4.4-10.8)
[2019-03-24 09:35] LABS: Alanine Aminotransferase 24 U/L (13-56); Albumin 3.4 g/dL (3.4-5.0); Anion Gap 9 (5-15); Aspartate Aminotransferase 34 U/L (15-37); BUN/Creatinine Ratio 15.4; Blood Urea Nitrogen 14 mg/dL (7-18); Calcium 8.7 mg/dL (8.5-10.1); Carbon Dioxide 28 mmol/L (21-32); Chloride 105 mmol/L (98-107); GFR African American 81 mL/min; GFR Non-African American 67 mL/min; Glucose 117 mg/dL (74-106); Potassium 3.5 mmol/L (3.5-5.1); Sodium 142 mmol/L (136-145)
[2019-03-24 09:42] LABS: Alkaline Phosphatase 72 U/L (45-117); Bilirubin, Total 2.9 mg/dL (0.2-1.0); Total Protein 6.7 g/dL (6.4-8.2)
[2019-03-24 10:29] LABS: Platelet Count (auto) 60 10^3/uL (140-450)
[2019-03-24 14:17] LABS: Urine WBC None Seen /hpf (0 - 5)
[2019-03-24 14:41] LABS: Urine Bacteria NONE SEEN /hpf (None Seen); Urine Blood Negative /uL (Negative); Urine Specific Gravity 1.005 (1.001-1.035)
[2019-03-24 14:50] LABS: Alcohol, Urine < 3.0 mg/dL (0-5); Amphetamine Screen, Urine NEGATIVE (NEGATIVE); Barbiturate Scree,Urine NEGATIVE (NEGATIVE); Benzodiazephine Screen, Urine POSITIVE (NEGATIVE); Cocaine Screen, Urine NEGATIVE (NEGATIVE); Opiate Scree,Urine POSITIVE (NEGATIVE)
[2019-03-24 14:57] LABS: Cannabinoid Screen, Urine NEGATIVE (NEGATIVE); Phencyclidine Screen, Urine NEGATIVE (NEGATIVE)
[2019-03-24] MEDS ORDERED: LACTULOSE 20Gm/30ML SOLN PO ONE (18:15)
[2019-03-24] MEDS ORDERED: LABETALOL HCL 5 MG/ML ML 20ML VIAL IV PRN (19:15)
[2019-03-24] MEDS ORDERED: MORPHINE SULF INJ 2 MG/ML SYRINGE 1ML IV PRN (19:15)
[2019-03-24] MEDS ORDERED: traMADol HCL 50 MG TAB PO PRN (19:15)
[2019-03-24] MEDS ORDERED: LACTULOSE 20Gm/30ML SOLN PO PRN (19:15)
[2019-03-24] MEDS ORDERED: PROMETHAZINE HCL 25 MG/ML 1ML IV PRN (19:15)
[2019-03-24] MEDS ORDERED: DEXTROSE (50%) 50ML SYRG IV PRN (19:15)
[2019-03-24] MEDS ORDERED: NITROGLYCERIN 0.4 MG SL TAB SL PRN (19:15)
[2019-03-24] MEDS ORDERED: ACETAMINOPHEN 500 MG TAB PO PRN (19:15)
[2019-03-24] MEDS ORDERED: TEMAZEPAM 15 MG CAP PO PRN (19:15)
[2019-03-24 20:09] LABS: Amylase 45 U/L (25-115); Lipase 85 U/L (73-393)
[2019-03-24 20:12] LABS: Creatine Kinase IFCC 149 U/L (26-192)
[2019-03-24 20:22] VITALS: BP 139/89
[2019-03-24] MEDS ORDERED: OXYCODONE W/ ACETAMINOPHEN 5/325MG TABLET PO PRN (21:00)
[2019-03-24 21:14] VITALS: BP 139/89
[2019-03-24] MEDS: InsuLIN REG 1unit/0.01ml Soln (100units/ml) SC SCH (22:00)
[2019-03-24] MEDS: MIRTAZAPINE 30 MG TAB PO SCH (22:20)
[2019-03-24] MEDS: GABAPENTIN 300 MG CAP PO SCH (22:21)
[2019-03-24] MEDS: PROPRANOLOL HCL 20 MG TAB PO SCH (22:21)
[2019-03-24] MEDS: ALPRAZolam 0.5 MG TAB PO SCH (22:21)
[2019-03-24] MEDS: ATORVASTATIN 20 MG TAB PO SCH (22:21)
[2019-03-24] MEDS: MORPHINE SULF 15mg ER tab PO SCH (22:22)
[2019-03-24] MEDS: SODIUM CHLORIDE 0.9% 1,000 ML IV SCH (22:23)
[2019-03-25] VITALS (7 sets, daily range): BP systolic 116–136; BP diastolic 31–78
[2019-03-25] MEDS: ACCU-CHEK COMFORT CURVE STRIP VI SCH ×5 (00:27→22:28)
[2019-03-25] MEDS: PROPRANOLOL HCL 20 MG TAB PO SCH ×2 (06:00→22:00)
[2019-03-25] MEDS: ALPRAZolam 0.5 MG TAB PO SCH ×3 (06:00→22:00)
[2019-03-25] MEDS: GABAPENTIN 300 MG CAP PO SCH ×4 (06:00→22:49)
[2019-03-25] MEDS: InsuLIN REG 1unit/0.01ml Soln (100units/ml) SC SCH ×4 (07:00→22:00)
[2019-03-25 07:27] LABS: Basophils # (auto) 0 uL; Basophils % (auto) 0.7 % (0.0-2.0); Eosinophils # (auto) 0 uL; Eosinophils % (auto) 0.2 % (0.0-7.0); Hematocrit 33.6 % (36.0-46.0); Hemoglobin 12.1 g/dL (12.2-16.2); Lymphocytes # (auto) 1.4 uL; Lymphocytes % (auto) 32.3 % (10.0-50.0); Mean Corpuscular Hemoglobin 35.1 pg (28.0-32.0); Mean Corpuscular Hgb Conc. 35.9 g/dL (32.0-36.0); Mean Corpuscular Volume 97.8 fL (80.0-100.0); Monocytes # (auto) 0.4 uL; Monocytes % (auto) 8.8 % (0.0-12.0); Neutrophils # (auto) 2.5 uL; Nucleated Red Blood Cells % 0.1 %; Red Blood Cells 3.44 10^6/uL (4.0-5.20); Red Cell Distribution Width 15.1 % (11.8-14.3); White Blood Cell 4.2 10^3/uL (4.4-10.8)
[2019-03-25 07:46] LABS: Calcium 8.5 mg/dL (8.5-10.1); Potassium 3.5 mmol/L (3.5-5.1)
[2019-03-25 07:49] LABS: Bilirubin, Total 2.8 mg/dL (0.2-1.0); Total Protein 6.1 g/dL (6.4-8.2)
[2019-03-25] MEDS: SODIUM CHLORIDE 0.9% 1,000 ML IV SCH ×2 (07:51→20:06)
[2019-03-25 08:08] LABS: Platelet Count (auto) 40 10^3/uL (140-450)
[2019-03-25] MEDS: MORPHINE SULF 15mg ER tab PO SCH ×3 (10:00→22:49)
[2019-03-25] MEDS: PANTOPRAZOLE 40 MG TAB PO SCH (10:00)
[2019-03-25] MEDS: FLUoxetine HCL 10 MG CAP PO SCH (10:00)
[2019-03-25] MEDS: ASPirin 81 mg TAB PO SCH (10:00)
[2019-03-25] MEDS ORDERED: ASPirin 81 mg TAB PO SCH (10:00)
[2019-03-25] MEDS: ENOXAPARIN SOD 40 MG/0.4 ML SYRINGE SC SCH (10:00)
[2019-03-25] MEDS: MIRTAZAPINE 30 MG TAB PO SCH (22:00)
[2019-03-25] MEDS: ATORVASTATIN 20 MG TAB PO SCH (22:49)
[2019-03-26 05:17] VITALS: BP 91/33
[2019-03-26] MEDS: GABAPENTIN 300 MG CAP PO SCH (06:00)
[2019-03-26 06:07] LABS: Basophils # (auto) 0 uL; Basophils % (auto) 0.6 % (0.0-2.0); Eosinophils # (auto) 0 uL; Lymphocytes # (auto) 1.3 uL; Neutrophils % (auto) 54.8 % (37.0-80.0)
[2019-03-26 06:09] LABS: Eosinophils % (auto) 1.1 % (0.0-7.0); Hematocrit 33.2 % (36.0-46.0); Lymphocytes % (auto) 34.2 % (10.0-50.0); Mean Corpuscular Hemoglobin 35.2 pg (28.0-32.0); Mean Corpuscular Hgb Conc. 36.2 g/dL (32.0-36.0); Mean Corpuscular Volume 97.2 fL (80.0-100.0); Monocytes # (auto) 0.4 uL; Monocytes % (auto) 9.3 % (0.0-12.0); Neutrophils # (auto) 2.1 uL; Nucleated Red Blood Cells % 0.1 %; Red Blood Cells 3.42 10^6/uL (4.0-5.20); Red Cell Distribution Width 14.9 % (11.8-14.3); White Blood Cell 3.8 10^3/uL (4.4-10.8)
[2019-03-26 06:27] LABS: Albumin 2.9 g/dL (3.4-5.0); BUN/Creatinine Ratio 14.4; Calcium 8.5 mg/dL (8.5-10.1); Potassium 3.4 mmol/L (3.5-5.1)
[2019-03-26 06:30] LABS: Bilirubin, Total 2.3 mg/dL (0.2-1.0); Total Protein 5.9 g/dL (6.4-8.2)
[2019-03-26] MEDS: ALPRAZolam 0.5 MG TAB PO SCH (06:40)
[2019-03-26] MEDS: ACCU-CHEK COMFORT CURVE STRIP VI SCH ×2 (06:50→11:30)
[2019-03-26] MEDS: InsuLIN REG 1unit/0.01ml Soln (100units/ml) SC SCH ×2 (06:51→11:30)
[2019-03-26] MEDS: SODIUM CHLORIDE 0.9% 1,000 ML IV SCH (08:36)
[2019-03-26 08:44] LABS: Platelet Count (auto) 41 10^3/uL (140-450)
[2019-03-26 08:48] VITALS: BP 112/66
[2019-03-26] MEDS: PROPRANOLOL HCL 20 MG TAB PO SCH (10:00)
[2019-03-26] MEDS ORDERED: POTASSIUM CHL 20 Meq TABLET PO ONE (10:15)
[2019-03-26] MEDS: ASPirin 81 mg TAB PO SCH (10:40)
[2019-03-26] MEDS: FLUoxetine HCL 10 MG CAP PO SCH (10:40)
[2019-03-26] MEDS: PANTOPRAZOLE 40 MG TAB PO SCH (10:40)
[2019-03-26] MEDS: MORPHINE SULF 15mg ER tab PO SCH (10:41)
[2019-03-26] MEDS: ENOXAPARIN SOD 40 MG/0.4 ML SYRINGE SC SCH (10:42)
[2019-03-26 12:03] VITALS: BP 112/66
== END 2019-03-26 14:12 | disposition home or self-care (01) | DRG 279 ==
LOC: EDBD 07:28 → ER 07:30 → TELE 07:31 → TELE-WESTW 20:25
PROVIDERS: ADMIT Internal Medicine; ATTEND Internal Medicine
DX: K72.90 Hepatic failure, unspecified without coma (principal); D69.59 Other secondary thrombocytopenia; E11.22 Type 2 diabetes mellitus with diabetic chronic kidney disease; E44.0 Moderate protein-calorie malnutrition; E72.20 Disorder of urea cycle metabolism, unspecified; F20.9 Schizophrenia, unspecified; D69.6 Thrombocytopenia, unspecified; I50.9 Heart failure, unspecified; I13.0 Hypertensive heart and chronic kidney disease with heart failure and stage 1 through stage 4 chronic kidney disease, or unspecified chronic kidney disease; D64.9 Anemia, unspecified; M32.9 Systemic lupus erythematosus, unspecified; E87.6 Hypokalemia; I25.10 Atherosclerotic heart disease of native coronary artery without angina pectoris; J44.9 Chronic obstructive pulmonary disease, unspecified; N18.9 Chronic kidney disease, unspecified; B19.20 Unspecified viral hepatitis C without hepatic coma; D72.819 Decreased white blood cell count, unspecified; E78.00 Pure hypercholesterolemia, unspecified; K74.60 Unspecified cirrhosis of liver; E78.5 Hyperlipidemia, unspecified; R00.1 Bradycardia, unspecified; F31.9 Bipolar disorder, unspecified; F41.9 Anxiety disorder, unspecified; G40.909 Epilepsy, unspecified, not intractable, without status epilepticus; G89.4 Chronic pain syndrome; I25.2 Old myocardial infarction; Z90.710 Acquired absence of both cervix and uterus; Z86.73 Personal history of transient ischemic attack (TIA), and cerebral infarction without residual deficits; Z90.89 Acquired absence of other organs; Z81.1 Family history of alcohol abuse and dependence; Z82.49 Family history of ischemic heart disease and other diseases of the circulatory system; Z81.8 Family history of other mental and behavioral disorders; Z83.3 Family history of diabetes mellitus; Z84.89 Family history of other specified conditions; Z88.8 Allergy status to other drugs, medicaments and biological substances
CPT/HCPCS: 36415; 51702; 70450; 71045; 76705; 80053; 80307; 81001; 82140; 82150; 82550; 82962; 83036; 83690; 84484; 85025; 93005; 94761; G0378

== ENCOUNTER 2019-06-24 14:53 | Inpatient (IN) | payer MEDICAID ==
[~2019-06-24] VITALS: Ht 165.1 cm; Wt 72.9 kg
[2019-06-24 16:33] LABS: Basophils # (auto) 0.1 uL; Basophils % (auto) 0.7 % (0.0-2.0); Eosinophils # (auto) 0 uL; Eosinophils % (auto) 0.2 % (0.0-7.0); Hematocrit 37.8 % (36.0-46.0); Hemoglobin 13.3 g/dL (12.2-16.2); Lymphocytes # (auto) 0.9 uL; Lymphocytes % (auto) 10.5 % (10.0-50.0); Mean Corpuscular Hemoglobin 34.6 pg (28.0-32.0); Mean Corpuscular Hgb Conc. 35.2 g/dL (32.0-36.0); Mean Corpuscular Volume 98.3 fL (80.0-100.0); Monocytes # (auto) 0.5 uL; Monocytes % (auto) 6.1 % (0.0-12.0); Neutrophils # (auto) 6.7 uL; Neutrophils % (auto) 82.5 % (37.0-80.0); Nucleated Red Blood Cells % 0.1 %; Platelet Count (auto) 73 10^3/uL (140-450); Red Blood Cells 3.85 10^6/uL (4.0-5.20); Red Cell Distribution Width 18.4 % (11.8-14.3); White Blood Cell 8.1 10^3/uL (4.4-10.8)
[2019-06-24 16:41] LABS: INR 1.21 (0.9-1.15); Partial Thromboplastin Time 27.8 sec (23.64-32.05)
[2019-06-24 16:43] LABS: Albumin 2.8 g/dL (3.4-5.0); Anion Gap 10 (5-15); Blood Alcohol < 3.0 mg/dL (0-5); Blood Urea Nitrogen 6 mg/dL (7-18); Calcium 8.4 mg/dL (8.5-10.1); Carbon Dioxide 27 mmol/L (21-32); Chloride 106 mmol/L (98-107); Glucose 144 mg/dL (74-106); Sodium 143 mmol/L (136-145)
[2019-06-24 16:49] LABS: Alanine Aminotransferase 16 U/L (13-56); Alkaline Phosphatase 90 U/L (45-117); Aspartate Aminotransferase 21 U/L (15-37); BUN/Creatinine Ratio 7.1; Bilirubin, Total 3.9 mg/dL (0.2-1.0); GFR African American 87 mL/min; GFR Non-African American 72 mL/min; Total Protein 6.8 g/dL (6.4-8.2)
[2019-06-24 16:57] LABS: Potassium 2.3 mmol/L (3.5-5.1)
[2019-06-24] MEDS ORDERED: POTASSIUM CHLORIDE 40 MEQ, LIDOCAINE 1% (LOCAL ANESTH.) 4 ML in SODIUM CHL 0.9% 100 ML IV ONE (17:00)
[2019-06-24 17:05] LABS: Lactic Acid w/Reflex 3.8 mmol/L (0.4-2.0)
[2019-06-24] MEDS ORDERED: LACTULOSE 20Gm/30ML SOLN PO ONE (17:45)
[2019-06-24] MEDS ORDERED: PROMETHAZINE HCL 25 MG/ML 1ML IV ONE (17:45)
[2019-06-24] MEDS ORDERED: SODIUM CHLORIDE 0.9% 1,000 ML IV ONE (20:15)
[2019-06-24 20:57] LABS: Urine WBC None Seen /hpf (0 - 5)
[2019-06-24 21:10] LABS: Urine Bacteria FEW /hpf (None Seen); Urine Blood TRACE /uL (Negative); Urine Specific Gravity 1.009 (1.001-1.035)
[2019-06-24 21:21] LABS: Alcohol, Urine < 3.0 mg/dL (0-5); Amphetamine Screen, Urine NEGATIVE (NEGATIVE); Barbiturate Scree,Urine NEGATIVE (NEGATIVE); Benzodiazephine Screen, Urine POSITIVE (NEGATIVE); Cocaine Screen, Urine NEGATIVE (NEGATIVE); Phencyclidine Screen, Urine NEGATIVE (NEGATIVE)
[2019-06-24 21:29] LABS: Cannabinoid Screen, Urine POSITIVE (NEGATIVE); Opiate Scree,Urine POSITIVE (NEGATIVE)
[2019-06-24] MEDS ORDERED: VANCOMYCIN PER PHARMACY 1,000 MG IV SCH (21:30)
[2019-06-24] MEDS ORDERED: NITROGLYCERIN 0.4 MG SL TAB SL PRN (21:30)
[2019-06-24] MEDS ORDERED: SODIUM CHLORIDE 0.9% 2,450 ML IV ONE (21:30)
[2019-06-24] MEDS ORDERED: ACETAMINOPHEN 325 MG TAB PO PRN (21:30)
[2019-06-24] MEDS: VANCOMYCIN 1GM/250ML 250 ML IV SCH ×2 (23:00)
[2019-06-25] MEDS: PIPERACILLIN-TAZO 4.5GM 100 ML IV SCH ×3 (00:34→14:16)
[2019-06-25 00:36] LABS: Lactic Acid w/Reflex 2.8 mmol/L (0.4-2.0)
[2019-06-25 08:00] VITALS: BP 112/71
--- NOTE | 2019-06-25 08:00 | NUR ---
ASSESS- PT. LYING ON GURNEY IN ER CONSTANZA OVERFLOW, FATIGUED, AROUSABLE TO NAME. UNABLE TO STATE PLACE AND YEAR. DENIES ANY PAIN OR DISCOMFORT. LUNGS CLEAR ARABELLA. INSPIRATORY AND EXPIRATORY. NO SOB. O2 2L N/C. ABD. SOFT, LG., NON-TENDER. NO N/V. BOWEL SOUNDS ALL FOUR QUADRANTS. F/C TO GRAVITY WITH CLEAR LT. CHARAN URINE. RADIAL PULSES STRONG, PALPABLE ARABELLA. DORSALIS PEDAL PULSES STRONG, PALPABLE ARABELLA. NO EDEMA. MOVES ALL EXTREMITIES WITHOUT DIFFICULTY. ABLE TO TURN SELF IN BED. SKIN INTACT. PORTACATH LT. UPPER CHEST INTACT.
--- NOTE | 2019-06-25 10:45 | NUR ---
VISITOR AT THE BS.
--- NOTE | 2019-06-25 11:00 | NUR ---
PT. MORE AWAKE NOW, ALERT AND ORIENTED TIMES THREE NOW. FOLLOWS COMMANDS.
[2019-06-25 12:00] VITALS: BP 121/78
[2019-06-25] MEDS: MORPHINE SULF INJ 2 MG/ML SYRINGE 1ML IV PRN ×2 (12:17→17:51)
--- NOTE | 2019-06-25 12:17 | NUR ---
PT. REPORTING GENERALIZED PAIN AND CHEST SORENESS 10 ON A SCALE OF 0-10. MED. PT. WITH MORPHINE 2MG. IVP. SBP 120'S.
--- NOTE | 2019-06-25 12:30 | NUR ---
PT. HAD MOD. SIZE BROWN/YELLOW LIQUID STOOL. CHOLO CARE DONE AND LINENS CHANGED.
[2019-06-25] MEDS: VANCOMYCIN 1GM/250ML 250 ML IV SCH (12:39)
--- NOTE | 2019-06-25 12:45 | NUR ---
PAIN HAS DECREASED TO A 3, PT. SAID SHE IS MORE COMFORTABLE NOW.
--- NOTE | 2019-06-25 14:43 | NUR ---
Called/paged Dr. WESTBROOK, MACHINE PAINT MIXER called re:. Waiting for call back. Continue care.
--- NOTE | 2019-06-25 14:45 | NUR ---
returned call PIETRO,CHRISTINE returned call, updated on patient status and reason for call, orders received. Continue care.
[2019-06-25] MEDS: ALPRAZolam 0.25 MG TAB PO PRN ×2 (14:53→22:18)
--- NOTE | 2019-06-25 14:55 | NUR ---
PT. STATED SHE FEELS ANXIOUS, TAKES XANAX AT . ORDER RECEIVED AND MED. PT. WITH XANAX 0.25 MG. PO. PT. ALERT AND ORIENTED TIMES THREE. VSS.
[2019-06-25] MEDS ORDERED: PANTOPRAZOLE 40 MG TAB PO ONE (15:15)
--- NOTE | 2019-06-25 15:20 | NUR ---
CHRISTINE WESTBROKO Provider/Hospitalist at bedside. GAVE UPDATE ON PT. NEW ORDERS RECEIVED.
[2019-06-25] MEDS ORDERED: VANCOMYCIN PER PHARMACY 0 MG IV SCH (15:30)
[2019-06-25] MEDS ORDERED: DEXTROSE (50%) 50ML SYRG IV PRN (15:30)
--- NOTE | 2019-06-25 15:50 | NUR ---
PT. SAID SHE IS A LITTLE LESS ANXIOUS AFTER XANAX.
[2019-06-25 16:00] VITALS: BP 124/73
[2019-06-25 16:35] LABS: Basophils # (auto) 0.1 uL; Basophils % (auto) 0.6 % (0.0-2.0); Eosinophils # (auto) 0 uL; Eosinophils % (auto) 0.3 % (0.0-7.0); Hemoglobin 11.7 g/dL (12.2-16.2); Mean Corpuscular Hemoglobin 34.8 pg (28.0-32.0); Mean Corpuscular Hgb Conc. 35.3 g/dL (32.0-36.0); Mean Corpuscular Volume 98.6 fL (80.0-100.0); Monocytes # (auto) 0.7 uL; Monocytes % (auto) 5.4 % (0.0-12.0); Neutrophils # (auto) 10.7 uL; Neutrophils % (auto) 85.7 % (37.0-80.0); Platelet Count (auto) 52 10^3/uL (140-450); Red Blood Cells 3.35 10^6/uL (4.0-5.20); Red Cell Distribution Width 19.6 % (11.8-14.3); White Blood Cell 12.5 10^3/uL (4.4-10.8)
[2019-06-25 16:46] LABS: BUN/Creatinine Ratio 7.8
[2019-06-25] MEDS: ACCU-CHEK COMFORT CURVE STRIP VI SCH ×2 (16:57→22:19)
[2019-06-25] MEDS: InsuLIN REG 1unit/0.01ml Soln (100units/ml) SC SCH ×2 (16:57→22:19)
[2019-06-25 17:02] LABS: Potassium 2.5 mmol/L (3.5-5.1)
--- NOTE | 2019-06-25 17:05 | NUR ---
Called/paged CHRISTINE WESTBROOK called re:. Waiting for call back. Continue care.
--- NOTE | 2019-06-25 17:06 | NUR ---
returned call PIETRO, CHRISTINE returned call, updated on patient status and reason for call, orders received. Continue care.
[2019-06-25] MEDS ORDERED: POTASSIUM EFFERVESENT TAB 25 MEQ PO ONE (17:15)
--- NOTE | 2019-06-25 17:51 | NUR ---
PT. REPORTING CHEST SORENESS 10 ON A SCALE OF 0-10, NON-RADIATING. MED. PT. WITH MORPHINE 2MG. IVP.
[2019-06-25] MEDS ORDERED: LACTULOSE 20Gm/30ML SOLN PO SCH (18:00)
--- NOTE | 2019-06-25 18:20 | NUR ---
PT. NO LONGER HAVING ANY CHEST SORENESS OR DISCOMFORT.
[2019-06-25 20:00] VITALS: BP 134/69
[2019-06-25] MEDS ORDERED: cefTRIAXone 1GM/50ML D5W 50 ML IV SCH (20:00)
[2019-06-25] MEDS: PIPERACILLIN-TAZOB 3.375GM 100 ML IV SCH (20:23)
[2019-06-25 21:00] VITALS: BP 134/69
[2019-06-25] MEDS: GABAPENTIN 300 MG CAP PO SCH (22:00)
[2019-06-25] MEDS: ATORVASTATIN 20 MG TAB PO SCH (22:18)
--- NOTE | 2019-06-25 22:32 | NUR ---
Dr Connolly paged and new orders received for Morphine 15mg PO once.
[2019-06-25] MEDS ORDERED: MORPHINE SULF 15mg ER tab PO ONE (22:45)
[2019-06-26] MEDS ORDERED: VANCOMYCIN 1GM/250ML 250 ML IV ONE (01:13)
[2019-06-26] MEDS: PIPERACILLIN-TAZOB 3.375GM 100 ML IV SCH ×4 (01:16→20:31)
[2019-06-26] MEDS: VANCOMYCIN 1GM/250ML 250 ML IV SCH ×2 (01:16→15:52)
[2019-06-26 05:39] VITALS: BP 103/54
[2019-06-26] MEDS: GABAPENTIN 300 MG CAP PO SCH ×3 (06:21→22:20)
[2019-06-26] MEDS: InsuLIN REG 1unit/0.01ml Soln (100units/ml) SC SCH ×4 (06:22→22:00)
[2019-06-26] MEDS: ACCU-CHEK COMFORT CURVE STRIP VI SCH ×4 (06:22→22:20)
[2019-06-26 08:00] LABS: Basophils # (auto) 0 uL; Eosinophils # (auto) 0.1 uL; Hemoglobin 10.5 g/dL (12.2-16.2); Neutrophils # (auto) 5.9 uL; Nucleated Red Blood Cells % 0.1 %; White Blood Cell 7.9 10^3/uL (4.4-10.8)
[2019-06-26 08:03] LABS: Basophils % (auto) 0.4 % (0.0-2.0); Eosinophils % (auto) 1.4 % (0.0-7.0); Hematocrit 29.3 % (36.0-46.0); Lymphocytes # (auto) 1.4 uL; Lymphocytes % (auto) 17.4 % (10.0-50.0); Mean Corpuscular Hemoglobin 35.5 pg (28.0-32.0); Mean Corpuscular Volume 98.6 fL (80.0-100.0); Monocytes # (auto) 0.5 uL; Monocytes % (auto) 6.9 % (0.0-12.0); Neutrophils % (auto) 73.9 % (37.0-80.0); Red Blood Cells 2.97 10^6/uL (4.0-5.20); Red Cell Distribution Width 19.4 % (11.8-14.3)
[2019-06-26 08:13] LABS: Platelet Count (auto) 50 10^3/uL (140-450)
[2019-06-26 08:24] LABS: Calcium 7.7 mg/dL (8.5-10.1)
[2019-06-26 08:26] LABS: Potassium 2.6 mmol/L (3.5-5.1)
--- NOTE | 2019-06-26 08:33 | NUR ---
RECEIVED CRITICAL LAB VALUE PAGED HOSPITALIST
--- NOTE | 2019-06-26 08:35 | NUR ---
HOSPITALIST CALLED BACK FOR CRITICAL LAB VALUE JC GAVE TELEPHONE ORDERS FOR PO 40 MEQ POTASSIUM AND 40 MEQ K RIDER WELL 2G MAG AND STAT MAG LAB DRAW. ORDERED FOR MAG TO BE GIVEN FIRST. WILL CARRY OUT ORDERS ACCORDINGLY
[2019-06-26] MEDS ORDERED: POTASSIUM CHL 20 Meq TABLET PO ONE (08:45)
[2019-06-26] MEDS: PANTOPRAZOLE 40 MG TAB PO SCH (08:47)
[2019-06-26] MEDS: LACTULOSE 20Gm/30ML SOLN PO SCH (08:48)
[2019-06-26] MEDS: SPIRONOLACTONE 25 MG TAB PO SCH (08:48)
[2019-06-26 09:00] VITALS: BP 133/77
[2019-06-26] MEDS: MAGNESIUM SULFATE 1GM/100ML 100 ML IV SCH ×2 (09:57→11:14)
[2019-06-26] MEDS: FUROSEMIDE 20 MG TAB PO SCH (10:00)
[2019-06-26] MEDS ORDERED: OMEPRAZOLE 20MG/10ML ORAL SUSP PO SCH (10:00)
[2019-06-26] MEDS: POTASSIUM CHL 20MEQ/100ML 100 ML IV SCH ×2 (11:51→13:54)
[2019-06-26 13:00] VITALS: BP 137/76
[2019-06-26] MEDS ORDERED: POTASSIUM CHLORIDE 40 MEQ, LIDOCAINE 1% (LOCAL ANESTH.) 4 ML in SODIUM CHL 0.9% 100 ML IV ONE (14:00)
[2019-06-26] MEDS: ALPRAZolam 0.25 MG TAB PO PRN (14:19)
[2019-06-26 16:30] VITALS: BP 105/71
--- NOTE | 2019-06-26 18:50 | NUR ---
PATIENT BEGINNING TO GET MORE ANXIETY AND TRYING TO GET OUT OF BED. ASSISTED PATIENT BACK TO BED AND PUT ON BED ALARM. PATIENT ABLE TO VERBALIZED WHO SHE IS WHERE SHE IS AND THE SITUATION BUT CONFUSED ON DAY OF WEEK. WILL CONTINUE TO MONITOR
--- NOTE | 2019-06-26 19:15 | NUR ---
Opening Shift Note Assumed care of patient, awake and alert. No S/S of distress/SOB or pain. Safety measures in place bed in lowest position, side rails x2 up, and call light within reach. Instructed on POC and to call for assist PRN, will continue to monitor for changes Q1hr and PRN.
--- NOTE | 2019-06-26 20:00 | NUR ---
Patient unable to verify home medications.
[2019-06-26 21:39] VITALS: BP 108/64
[2019-06-26] MEDS: ATORVASTATIN 20 MG TAB PO SCH (22:20)
[2019-06-27] MEDS: VANCOMYCIN 1GM/250ML 250 ML IV SCH ×2 (01:00→13:10)
[2019-06-27] MEDS: PIPERACILLIN-TAZOB 3.375GM 100 ML IV SCH ×4 (02:00→20:10)
[2019-06-27 05:33] VITALS: BP 129/65
[2019-06-27] MEDS: GABAPENTIN 300 MG CAP PO SCH ×3 (06:00→22:22)
[2019-06-27] MEDS: ACCU-CHEK COMFORT CURVE STRIP VI SCH ×4 (06:36→22:00)
[2019-06-27] MEDS: InsuLIN REG 1unit/0.01ml Soln (100units/ml) SC SCH ×4 (06:36→22:00)
--- NOTE | 2019-06-27 07:35 | NUR ---
PT AWAKE, ORIENTED TO PERSON, PLACE, YEAR. PT MAKE RANDOM STATEMENTS, FOLLOWS SIMPLE COMMANDS BUT RETURNS TO RANDOM STATEMENTS. EFFORTLESS BREATHING ON ROOM AIR. HARRISON CATHETER IN PLACE, 100ML YELLOW URINE IN COLLECTING BAG. PORT A CATH PRESENT TO LEFT UPPER CHEST. IV PRESENT TO RIGHT HAND #20. BED ALARM ON, BED LOCKED AND IN LOWEST POSITION, CALL LIGHT WITHIN REACH/ PT RE-ORIENTED TO ROOM ENVIRONMENT. WILL CONTINUE TO MONITOR.
[2019-06-27 07:44] LABS: Basophils # (auto) 0 uL; Eosinophils # (auto) 0.1 uL; Monocytes # (auto) 0.3 uL; Neutrophils # (auto) 3.5 uL
[2019-06-27 07:46] LABS: Basophils % (auto) 0.4 % (0.0-2.0); Eosinophils % (auto) 2.7 % (0.0-7.0); Hematocrit 30.6 % (36.0-46.0); Lymphocytes % (auto) 19.9 % (10.0-50.0); Mean Corpuscular Hemoglobin 35.8 pg (28.0-32.0); Mean Corpuscular Hgb Conc. 36.1 g/dL (32.0-36.0); Mean Corpuscular Volume 99.1 fL (80.0-100.0); Monocytes % (auto) 6.7 % (0.0-12.0); Neutrophils % (auto) 70.3 % (37.0-80.0); Nucleated Red Blood Cells % 0.3 %; Platelet Count (auto) 54 10^3/uL (140-450); Red Blood Cells 3.09 10^6/uL (4.0-5.20)
[2019-06-27 08:07] LABS: Red Cell Distribution Width 20.5 % (11.8-14.3)
[2019-06-27 08:26] LABS: Albumin 2.3 g/dL (3.4-5.0); Calcium 7.9 mg/dL (8.5-10.1); Magnesium 1.9 mg/dL (1.6-2.6); Potassium 3.2 mmol/L (3.5-5.1)
[2019-06-27 08:29] LABS: BUN/Creatinine Ratio 5.8; Bilirubin, Total 2.7 mg/dL (0.2-1.0); Total Protein 5.6 g/dL (6.4-8.2)
[2019-06-27 09:00] VITALS: BP 133/71
[2019-06-27] MEDS: FUROSEMIDE 20 MG TAB PO SCH (10:16)
[2019-06-27] MEDS: SPIRONOLACTONE 25 MG TAB PO SCH (10:16)
[2019-06-27] MEDS: PANTOPRAZOLE 40 MG TAB PO SCH (10:16)
[2019-06-27] MEDS: LACTULOSE 20Gm/30ML SOLN PO SCH (10:16)
[2019-06-27] MEDS ORDERED: LORazepam 2MG/ML-1ML VIAL IV PRN (12:15)
[2019-06-27] MEDS ORDERED: POTASSIUM CHLORIDE 60 MEQ, LIDOCAINE 1% (LOCAL ANESTH.) 6 ML in SODIUM CHL 0.9% 500 ML IV ONE (12:15)
[2019-06-27 13:00] VITALS: BP 128/79
[2019-06-27] MEDS: LORazepam 2MG/ML-1ML VIAL IV PRN ×2 (13:11→21:02)
[2019-06-27 17:00] VITALS: BP 128/82
--- NOTE | 2019-06-27 19:32 | NUR ---
OPENING SHIFT NOTE PATIENT AROUSABLE TO NAME AND ORIENTED TO PLACE, UNABLE TO STATE SITUATION. DENIES ANY PAIN OR DISCOMFORT. LUNGS CLEAR ARABELLA. INSPIRATORY AND EXPIRATORY. NO SOB. O2 2L N/C. ABD. SOFT, LG., NON-TENDER. NO N/V. BOWEL SOUNDS ALL FOUR QUADRANTS. F/C TO GRAVITY WITH CLEAR LT. CHARAN URINE. MOVES ALL EXTREMITIES WITHOUT DIFFICULTY. ABLE TO TURN SELF IN BED. SKIN INTACT. BLANCHABLE REDNESS TO BUTTOCKS/SACRAL AREA. ZGUARD APPLIED, AND WILL TURN PATIENT Q2H PREVENTATIVE MEASURE. PORTACATH LT. UPPER CHEST INTACT. BED ALARM ON FOR SAFETY, CALL LIGHT WITHIN REACH.
--- NOTE | 2019-06-27 22:00 | NUR ---
PATIENT INCONTINENT OF BOWEL SEMI SOLID YELLOW/GREEN BOWEL MOVEMENT PATIENT PROMPTLY CLEANED AND COMPLETE GOWN AND LINEN CHANGE DONE. Z GUARD APPLIED
[2019-06-27] MEDS: ATORVASTATIN 20 MG TAB PO SCH (22:20)
[2019-06-27 22:34] VITALS: BP 109/72
--- NOTE | 2019-06-28 | NUR ---
PATIENT INCONTINENT OF BOWEL PATIENT PROMPTLY CLEANED AND LINEN CHANGE DONE. Z GUARD APPLIED
[2019-06-28] MEDS: VANCOMYCIN 1GM/250ML 250 ML IV SCH (01:04)
[2019-06-28] MEDS: PIPERACILLIN-TAZOB 3.375GM 100 ML IV SCH ×4 (02:20→20:56)
--- NOTE | 2019-06-28 04:06 | NUR ---
PATIENT INCONTINENT OF BOWEL PATIENT PROMPTLY CLEANED AND LINEN CHANGE DONE. Z GUARD APPLIED
[2019-06-28 05:03] VITALS: BP 114/87
--- NOTE | 2019-06-28 05:33 | NUR ---
A/OX2 PATIENT ORIENTED TO SELF AND PLACE, HOWEVER CONTINUES TO BE CONFUSED REGARDING SITUATION. PATIENT VERBALIZES UNDERSTANDING WHEN RE ORIENTED, HOWEVER GOES BACK TO SAME TOPIC, SUCH "I ALREADY AND WENT TO HELL, NOW IM BACK TO SAVE YOUR SOUL" "I NEED HELP, YOU NEED TO TELL ME WHY I AM HERE IN THIS LIFE?" "SOMEONE HAS BEEN TURNING OFF MY OXYGEN AND TRYING TO MESS WITH ME." WILL CONTINUE TO REORIENT
--- NOTE | 2019-06-28 06:04 | NUR ---
PATIENT INCONTINENT OF BOWEL PATIENT PROMPTLY CLEANED AND LINEN CHANGE DONE. Z GUARD APPLIED
[2019-06-28] MEDS: ACCU-CHEK COMFORT CURVE STRIP VI SCH ×4 (06:33→22:33)
[2019-06-28] MEDS: InsuLIN REG 1unit/0.01ml Soln (100units/ml) SC SCH ×4 (06:33→22:00)
[2019-06-28] MEDS: GABAPENTIN 300 MG CAP PO SCH ×3 (06:33→22:32)
--- NOTE | 2019-06-28 07:10 | NUR ---
Opening Shift Note Report received ,assumed care of patient, awake and alert. No S/S of distress/SOB,patient stated had generalized back pain. Instructed on POC and nursing routines,call light within reach reminded instructed to call for assistance.verbalized understanding. Pt noted to have flight of ideas, rambling speech, and delusions of grandeur.
[2019-06-28 08:39] LABS: Hemoglobin 13.5 g/dL (12.2-16.2); Mean Corpuscular Hemoglobin 35.3 pg (28.0-32.0); Red Cell Distribution Width 19.9 % (11.8-14.3)
[2019-06-28 08:40] LABS: Mean Corpuscular Hgb Conc. 35.5 g/dL (32.0-36.0); Mean Corpuscular Volume 99.4 fL (80.0-100.0); Platelet Count (auto) 86 10^3/uL (140-450); Red Blood Cells 3.82 10^6/uL (4.0-5.20); White Blood Cell 10.3 10^3/uL (4.4-10.8)
[2019-06-28 08:47] LABS: Basophils % (manual) 0 (0.0-2.0); Blast Cells 0; Metamyelocytes % 0; Myelocytes % 0; Promyelocytes % 0; Reactive Lymphocytes 0
[2019-06-28 08:49] LABS: Albumin 2.7 g/dL (3.4-5.0); Calcium 8.1 mg/dL (8.5-10.1)
[2019-06-28 08:53] LABS: BUN/Creatinine Ratio 6.1; Total Protein 6.2 g/dL (6.4-8.2)
[2019-06-28 09:05] LABS: Band Neutrophils % (manual) 2; Eosinophils % (manual) 2 (0-7); Lymphocytes % (manual) 12 (10.0-50.0); Monocytes % (manual) 4 (0-12)
[2019-06-28 09:30] VITALS: BP 145/82
--- NOTE | 2019-06-28 10:10 | NUR ---
AT BEDSIDE DR. CHAVARRIA AT BEDSIDE TO EXAMINE PT. NEW ORDERS RECEIVED, ORDERS NOTED IN THE CHART.
[2019-06-28] MEDS ORDERED: POTASSIUM CHLORIDE 40 MEQ, LIDOCAINE 1% (LOCAL ANESTH.) 4 ML in SODIUM CHL 0.9% 100 ML IV ONE (10:15)
[2019-06-28] MEDS: PANTOPRAZOLE 40 MG TAB PO SCH (10:34)
[2019-06-28] MEDS: ALPRAZolam 0.25 MG TAB PO PRN ×2 (10:34→22:35)
[2019-06-28] MEDS: LACTULOSE 20Gm/30ML SOLN PO SCH (10:34)
[2019-06-28] MEDS: SPIRONOLACTONE 25 MG TAB PO SCH (10:35)
[2019-06-28] MEDS: FUROSEMIDE 20 MG TAB PO SCH (10:35)
[2019-06-28] MEDS: MORPHINE SULF INJ 2 MG/ML SYRINGE 1ML IV PRN ×4 (11:29→21:03)
--- NOTE | 2019-06-28 12:58 | NUR ---
Nutrition Assessment Notes please see attached link for complete assessment Est. Needs BW 76 [id number] kcal (23-25kcal/kgBW), 45-61 gms pro (0.6-0.8 gms/kgBW d/t elev ammonia). Will continue to monitor pertinent labs and reassess nutrient need prn Addendum: 06/28/19 at [address] Amended: Links added.
--- NOTE | 2019-06-28 13:00 | NUR ---
FAMILY AT BEDSIDE SIGNIFICANT OTHER AT BEDSIDE WITH PATIENT.
[2019-06-28 13:04] VITALS: BP 133/86
--- NOTE | 2019-06-28 14:00 | NUR ---
PHYSICAL THERAPY AT BEDSIDE PT AMBULATED PATIENT THROUGH HALLWAY AND AROUND NURSES STATION. PT HEART RATE ELEVATED IN THE 150'S, NO SIGNS OR SYMPTOMS OF DISTRESS NOTED. BACK TO ROOM, TOLERATED ACTIVITY AND HEART RATE DECREASED UPON GETTING BACK INTO BED.
--- NOTE | 2019-06-28 15:53 | NUR ---
assessment Patient is a 63 year old female who is confused. Patients sea Jaimes is at bedside. Nirmal Jaimes patient lives home with him and family and patients tarun Flores is her caregiver. Sandra [phone]. Patients PCP is Dr Corona. Patient has a fww, 02, cane, and wheelchair for home use. Nirmal Jaimes patient does not have an advanced directive. Patient may benefit from home health for Safety on discharge. Theodore verbalized understanding and agreed to discharge plan home. Addendum: 06/28/19 at 1556 by Jalyn PICHARDO Amended: Links added.
[2019-06-28 16:35] VITALS: BP 117/86
--- NOTE | 2019-06-28 19:21 | NUR ---
Report given to incoming NOC shift RN,status unchanged,no distress, no discomfort.
--- NOTE | 2019-06-28 19:25 | NUR ---
Opening Shift Note Assumed care of patient, awake and alert. No S/S of distress/SOB. Patient states that she is in constant chronic pain. Patient rambles and is noted to have flight of ideas. Instructed on POC and to call for assist PRN, will continue to monitor for changes Q1hr and PRN.
--- NOTE | 2019-06-28 21:30 | NUR ---
PATIENT INCONTINENT OF BOWEL Patient had a bowel movement of semi solid yellow stool. Patient has been cleaned, given a new gown, and bed sheets have been changed.
[2019-06-28 21:49] VITALS: BP 138/89
--- NOTE | 2019-06-28 22:30 | NUR ---
MEDICATION REFUSAL The patient's glucose level is 137 but the patient refused insulin. She states that it is "okay" that she does not receive insulin at 137. Patient has been educated about the risks of refusing medication. The patient verbalized her understanding.
[2019-06-28] MEDS: ATORVASTATIN 20 MG TAB PO SCH (22:32)
[2019-06-28] MEDS: POTASSIUM CHL 20 Meq TABLET PO SCH (22:32)
[2019-06-29] MEDS: PIPERACILLIN-TAZOB 3.375GM 100 ML IV SCH ×2 (02:00→09:11)
[2019-06-29] MEDS: MORPHINE SULF INJ 2 MG/ML SYRINGE 1ML IV PRN ×2 (04:44→09:13)
[2019-06-29 05:24] LABS: Basophils # (auto) 0.1 uL; Basophils % (auto) 0.6 % (0.0-2.0); Eosinophils # (auto) 0.4 uL; Hemoglobin 11.4 g/dL (12.2-16.2); Lymphocytes # (auto) 2.2 uL; Nucleated Red Blood Cells % 0.2 %
[2019-06-29 05:27] LABS: Eosinophils % (auto) 3.8 % (0.0-7.0); Hematocrit 31.8 % (36.0-46.0); Mean Corpuscular Hemoglobin 35.9 pg (28.0-32.0); Mean Corpuscular Hgb Conc. 35.9 g/dL (32.0-36.0); Mean Corpuscular Volume 99.9 fL (80.0-100.0); Monocytes % (auto) 9.9 % (0.0-12.0); Neutrophils # (auto) 6.1 uL; Neutrophils % (auto) 62.7 % (37.0-80.0); Platelet Count (auto) 76 10^3/uL (140-450); Red Blood Cells 3.19 10^6/uL (4.0-5.20); Red Cell Distribution Width 19.9 % (11.8-14.3); White Blood Cell 9.8 10^3/uL (4.4-10.8)
[2019-06-29 05:46] LABS: Albumin 2.5 g/dL (3.4-5.0); Calcium 8.3 mg/dL (8.5-10.1); Potassium 3.7 mmol/L (3.5-5.1)
[2019-06-29 05:52] LABS: BUN/Creatinine Ratio 6.1; Bilirubin, Total 3.2 mg/dL (0.2-1.0); Total Protein 5.6 g/dL (6.4-8.2)
[2019-06-29 06:18] VITALS: BP 126/78
[2019-06-29] MEDS: ACCU-CHEK COMFORT CURVE STRIP VI SCH ×2 (06:31→11:30)
[2019-06-29] MEDS: InsuLIN REG 1unit/0.01ml Soln (100units/ml) SC SCH ×2 (06:31→12:48)
[2019-06-29] MEDS: GABAPENTIN 300 MG CAP PO SCH (06:31)
--- NOTE | 2019-06-29 07:45 | NUR ---
RECEIVED REPORT AND ASSUMED CARE OF PT. A/OX4. DENIED S/S ACUTE DISTRESS. UPDATE PT WITH POC. BED AT LOWEST POSITION. CALL LIGHT AND BELONGINGS WITHIN REACH. WILL CONT TO MONITOR.
[2019-06-29 08:19] VITALS: BP 126/68
[2019-06-29] MEDS: LACTULOSE 20Gm/30ML SOLN PO SCH (09:16)
[2019-06-29] MEDS: SPIRONOLACTONE 25 MG TAB PO SCH (09:17)
[2019-06-29] MEDS: FUROSEMIDE 20 MG TAB PO SCH (09:17)
[2019-06-29] MEDS: POTASSIUM CHL 20 Meq TABLET PO SCH (09:17)
[2019-06-29] MEDS: PANTOPRAZOLE 40 MG TAB PO SCH (09:18)
[2019-06-29 10:50] VITALS: BP 126/68
[2019-06-29 12:33] VITALS: BP 133/84
--- NOTE | 2019-06-29 14:06 | NUR ---
A/OX4. FAMILY AT BEDSIDE. DC INSTRUCTIONS GIVEN AND PT /FAMILY VERBALIZED UNDERSTANDING. LOUISE CATH DE-ACCESSED AND FLUSHED WITH HEPARIN. PT LEFT UNIT ACCOMPANIED BY FAMILY IN STABLE CONDITION.
== END 2019-06-29 13:32 | disposition home or self-care (01) | DRG 280 ==
LOC: ER 14:53 → TELE 14:54 → TELE-WESTW 06-25 20:50
PROVIDERS: ADMIT Hospitalist; ATTEND Internal Medicine
DX: K70.40 Alcoholic hepatic failure without coma (principal); E43 Unspecified severe protein-calorie malnutrition; D69.6 Thrombocytopenia, unspecified; I50.9 Heart failure, unspecified; I11.0 Hypertensive heart disease with heart failure; K74.60 Unspecified cirrhosis of liver; E87.6 Hypokalemia; E11.9 Type 2 diabetes mellitus without complications; I25.10 Atherosclerotic heart disease of native coronary artery without angina pectoris; E78.5 Hyperlipidemia, unspecified; G40.909 Epilepsy, unspecified, not intractable, without status epilepticus; Z86.73 Personal history of transient ischemic attack (TIA), and cerebral infarction without residual deficits; F41.9 Anxiety disorder, unspecified; F10.10 Alcohol abuse, uncomplicated; Z91.14 Patient's other noncompliance with medication regimen; Z91.19 Patient's noncompliance with other medical treatment and regimen; I25.2 Old myocardial infarction; Z90.710 Acquired absence of both cervix and uterus; Z79.899 Other long term (current) drug therapy; Z90.89 Acquired absence of other organs; Z68.26 Body mass index [BMI] 26.0-26.9, adult; Z83.3 Family history of diabetes mellitus; Z79.84 Long term (current) use of oral hypoglycemic drugs
CPT/HCPCS: 36415; 51702; 70450; 71045; 76705; 80048; 80053; 80202; 80307; 80320; 81001; 82140; 82565; 82962; 83036; 83605; 83735; 83880; 84484; 85007; 85025; 85027; 85610; 85730; 87040; 87077; 87186; 93971; 96365; 96366; 96375; 97110; 97116; 97530; 99291; G0378; J1642; J1815; J2001; J2543; J3480

== ENCOUNTER 2019-09-29 10:59 | Inpatient (IN) | payer SELFPAY ==
[~2019-09-29] VITALS: Ht 167.6 cm; Wt 69.6 kg
[2019-09-29 13:39] LABS: Basophils # (auto) 0 uL; Basophils % (auto) 0.7 % (0.0-2.0); Eosinophils # (auto) 0 uL; Lymphocytes # (auto) 1.7 uL; Monocytes # (auto) 0.4 uL; Nucleated Red Blood Cells % 0.3 %; Red Blood Cells 3.81 10^6/uL (4.0-5.20)
[2019-09-29 13:40] LABS: Eosinophils % (auto) 0.5 % (0.0-7.0); Hematocrit 36.1 % (36.0-46.0); Hemoglobin 12.7 g/dL (12.2-16.2); Lymphocytes % (auto) 30.5 % (10.0-50.0); Mean Corpuscular Hemoglobin 33.2 pg (28.0-32.0); Mean Corpuscular Hgb Conc. 35.1 g/dL (32.0-36.0); Mean Corpuscular Volume 94.7 fL (80.0-100.0); Monocytes % (auto) 7.7 % (0.0-12.0); Neutrophils # (auto) 3.3 uL; Neutrophils % (auto) 60.6 % (37.0-80.0); Platelet Count (auto) 64 10^3/uL (140-450); Red Cell Distribution Width 14.6 % (11.8-14.3); White Blood Cell 5.5 10^3/uL (4.4-10.8)
[2019-09-29 13:46] LABS: Urine Bacteria NONE SEEN /hpf (None Seen); Urine Blood Negative /uL (Negative); Urine Mucus FEW (None Seen); Urine Specific Gravity 1.021 (1.001-1.035); Urine WBC 6 /hpf (0 - 5)
[2019-09-29 13:51] LABS: Albumin 2.8 g/dL (3.4-5.0); Anion Gap 8 (5-15); Blood Alcohol < 3.0 mg/dL (0-5); Blood Urea Nitrogen 12 mg/dL (7-18); Calcium 8.3 mg/dL (8.5-10.1); Carbon Dioxide 26 mmol/L (21-32); Chloride 108 mmol/L (98-107); Glucose 113 mg/dL (74-106); Sodium 142 mmol/L (136-145)
[2019-09-29 13:56] LABS: Alanine Aminotransferase 24 U/L (13-56); Alkaline Phosphatase 120 U/L (45-117); Aspartate Aminotransferase 40 U/L (15-37); BUN/Creatinine Ratio 12.5; Bilirubin, Total 3.2 mg/dL (0.2-1.0); GFR African American 76 mL/min; GFR Non-African American 63 mL/min; Total Protein 6.4 g/dL (6.4-8.2)
[2019-09-29 14:00] LABS: Amphetamine Screen, Urine NEGATIVE (NEGATIVE); Barbiturate Scree,Urine NEGATIVE (NEGATIVE); Benzodiazephine Screen, Urine NEGATIVE (NEGATIVE); Cannabinoid Screen, Urine POSITIVE (NEGATIVE); Cocaine Screen, Urine NEGATIVE (NEGATIVE); Phencyclidine Screen, Urine NEGATIVE (NEGATIVE)
[2019-09-29 14:07] LABS: Opiate Scree,Urine POSITIVE (NEGATIVE)
[2019-09-29] MEDS ORDERED: SODIUM CHLORIDE 0.9% 1,000 ML IV SCH (15:33)
[2019-09-29] MEDS ORDERED: NITROGLYCERIN 0.4 MG SL TAB SL PRN (15:45)
[2019-09-29] MEDS ORDERED: POTASSIUM CHL 20MEQ/100ML 100 ML IV ONE (15:45)
[2019-09-29] MEDS ORDERED: ACETAMINOPHEN 500 MG TAB PO PRN (15:45)
[2019-09-29] MEDS ORDERED: cefTRIAXone 1GM/50ML D5W 50 ML IV ONE ×2 (15:45)
[2019-09-29] MEDS ORDERED: LACTULOSE 20Gm/30ML SOLN PO PRN (15:45)
[2019-09-29] MEDS ORDERED: DEXTROSE (50%) 50ML SYRG IV PRN (15:45)
[2019-09-29] MEDS ORDERED: MORPHINE SULF INJ 2 MG/ML SYRINGE 1ML IV PRN (15:45)
[2019-09-29] MEDS ORDERED: POTASSIUM EFFERVESENT TAB 25 MEQ PO ONE (16:00)
[2019-09-29] MEDS: SOD CHL 0.9%/ KCL 40MEQ 1,000 ML IV SCH (16:40)
[2019-09-29] MEDS: InsuLIN REG 1unit/0.01ml Soln (100units/ml) SC SCH ×2 (17:00→22:00)
[2019-09-29] MEDS: ACCU-CHEK COMFORT CURVE STRIP VI SCH ×2 (17:00→22:00)
[2019-09-29 18:15] VITALS: BP 125/68
[2019-09-29] MEDS: MIRTAZAPINE 30 MG TAB PO SCH (21:57)
[2019-09-29] MEDS: FAMOTIDINE 20 MG TAB PO SCH (21:59)
[2019-09-29] MEDS: ATORVASTATIN 20 MG TAB PO SCH (21:59)
[2019-09-29] MEDS: ALPRAZolam 0.5 MG TAB PO SCH (21:59)
[2019-09-29] MEDS: GABAPENTIN 300 MG CAP PO SCH (22:00)
[2019-09-29] MEDS ORDERED: MIRTAZAPINE 45 MG PO SCH (22:00)
[2019-09-29 22:04] VITALS: BP 136/79
[2019-09-30 05:11] VITALS: BP 131/63
[2019-09-30] MEDS: SOD CHL 0.9%/ KCL 40MEQ 1,000 ML IV SCH ×2 (05:25→18:19)
[2019-09-30] MEDS: GABAPENTIN 300 MG CAP PO SCH ×3 (06:00→21:46)
[2019-09-30] MEDS: ACCU-CHEK COMFORT CURVE STRIP VI SCH ×4 (06:10→22:06)
[2019-09-30] MEDS: ALPRAZolam 0.5 MG TAB PO SCH (06:10)
[2019-09-30] MEDS: InsuLIN REG 1unit/0.01ml Soln (100units/ml) SC SCH ×4 (06:10→22:00)
[2019-09-30 06:18] LABS: Basophils # (auto) 0 uL; Eosinophils # (auto) 0.1 uL; Hematocrit 31.9 % (36.0-46.0); Hemoglobin 11.3 g/dL (12.2-16.2); Monocytes # (auto) 0.2 uL; Neutrophils # (auto) 1.1 uL; Red Cell Distribution Width 14.5 % (11.8-14.3); White Blood Cell 2.5 10^3/uL (4.4-10.8)
[2019-09-30 06:20] LABS: Basophils % (auto) 1.3 % (0.0-2.0); Eosinophils % (auto) 2.3 % (0.0-7.0); Lymphocytes # (auto) 1.1 uL; Mean Corpuscular Hemoglobin 33.9 pg (28.0-32.0); Mean Corpuscular Hgb Conc. 35.5 g/dL (32.0-36.0); Mean Corpuscular Volume 95.5 fL (80.0-100.0); Monocytes % (auto) 8.1 % (0.0-12.0); Neutrophils % (auto) 43.3 % (37.0-80.0); Nucleated Red Blood Cells % 0.2 %; Platelet Count (auto) 40 10^3/uL (140-450); Red Blood Cells 3.34 10^6/uL (4.0-5.20)
[2019-09-30 06:34] LABS: Albumin 2.3 g/dL (3.4-5.0); Potassium 3.5 mmol/L (3.5-5.1)
[2019-09-30 06:37] LABS: BUN/Creatinine Ratio 12.5; Bilirubin, Total 2.4 mg/dL (0.2-1.0); Total Protein 5.5 g/dL (6.4-8.2)
[2019-09-30] MEDS: cefTRIAXone 1GM/50ML D5W 50 ML IV SCH (08:40)
[2019-09-30 09:00] VITALS: BP 108/51
[2019-09-30] MEDS: FAMOTIDINE 20 MG TAB PO SCH ×3 (09:41→21:47)
[2019-09-30] MEDS: SPIRONOLACTONE 25 MG TAB PO SCH ×2 (09:41→10:00)
[2019-09-30] MEDS: FLUoxetine HCL 10 MG CAP PO SCH ×2 (09:41→10:00)
[2019-09-30] MEDS: FUROSEMIDE 40 MG TAB PO SCH ×2 (09:41→10:00)
[2019-09-30 12:00] VITALS: BP 98/60
[2019-09-30] MEDS: LACTULOSE 20Gm/30ML SOLN PO SCH ×3 (15:20→21:46)
[2019-09-30 15:25] LABS: Folate (Folic Acid) 4.8 ng/mL (5.38-24)
[2019-09-30 16:32] LABS: INR 1.23 (0.9-1.15); Partial Thromboplastin Time 27.8 sec (23.64-32.05)
[2019-09-30 17:00] VITALS: BP 111/69
[2019-09-30 21:23] VITALS: BP 129/77
[2019-09-30] MEDS: ATORVASTATIN 20 MG TAB PO SCH (21:46)
[2019-09-30] MEDS: MIRTAZAPINE 30 MG TAB PO SCH (21:47)
[2019-09-30] MEDS: rifAXIMin 550 MG TAB PO SCH (22:05)
[2019-09-30] MEDS: PROMETHAZINE HCL 25 MG/ML 1ML IV PRN (22:06)
[2019-09-30] MEDS: LORazepam 0.5 MG TAB PO PRN (22:07)
[2019-09-30] MEDS: traMADol HCL 50 MG TAB PO PRN (22:58)
[2019-10-01] MEDS: LORazepam 2MG/ML-1ML VIAL IV PRN ×2 (00:01→10:32)
[2019-10-01] MEDS ORDERED: LORazepam 2MG/ML-1ML VIAL ONE (00:07)
[2019-10-01] MEDS: LACTULOSE 20Gm/30ML SOLN PO SCH ×6 (01:00→21:53)
[2019-10-01] MEDS ORDERED: LORazepam 2MG/ML-1ML VIAL IV PRN (01:00)
[2019-10-01 04:36] VITALS: BP 124/76
[2019-10-01] MEDS: GABAPENTIN 300 MG CAP PO SCH ×3 (05:54→21:53)
[2019-10-01] MEDS: ACCU-CHEK COMFORT CURVE STRIP VI SCH ×4 (06:24→22:36)
[2019-10-01] MEDS: InsuLIN REG 1unit/0.01ml Soln (100units/ml) SC SCH ×5 (06:24→22:00)
[2019-10-01 07:46] LABS: Hematocrit 36.4 % (36.0-46.0); Hemoglobin 12.6 g/dL (12.2-16.2); Mean Corpuscular Hemoglobin 33.2 pg (28.0-32.0); Mean Corpuscular Hgb Conc. 34.6 g/dL (32.0-36.0); Platelet Count (auto) 37 10^3/uL (140-450); Red Blood Cells 3.79 10^6/uL (4.0-5.20); Red Cell Distribution Width 14.9 % (11.8-14.3); White Blood Cell 5.3 10^3/uL (4.4-10.8)
[2019-10-01 07:50] LABS: Band Neutrophils % (manual) 0; Basophils % (manual) 0 (0.0-2.0); Blast Cells 0; Myelocytes % 0; Promyelocytes % 0; Reactive Lymphocytes 0
[2019-10-01 07:51] LABS: Alanine Aminotransferase 23 U/L (13-56); Albumin 2.4 g/dL (3.4-5.0); Anion Gap 6 (5-15); Aspartate Aminotransferase 43 U/L (15-37); BUN/Creatinine Ratio 7.7; Blood Urea Nitrogen 8 mg/dL (7-18); Calcium 7.8 mg/dL (8.5-10.1); Carbon Dioxide 23 mmol/L (21-32); Chloride 121 mmol/L (98-107); GFR African American 69 mL/min; GFR Non-African American 57 mL/min; Glucose 79 mg/dL (74-106); Sodium 150 mmol/L (136-145)
[2019-10-01 07:54] LABS: Alkaline Phosphatase 98 U/L (45-117); Bilirubin, Total 2.1 mg/dL (0.2-1.0); Total Protein 5.9 g/dL (6.4-8.2)
[2019-10-01] MEDS: SOD CHL 0.9%/ KCL 40MEQ 1,000 ML IV SCH (08:41)
[2019-10-01] MEDS: cefTRIAXone 1GM/50ML D5W 50 ML IV SCH (09:23)
[2019-10-01] MEDS: FAMOTIDINE 20 MG TAB PO SCH ×2 (10:00→21:53)
[2019-10-01] MEDS: rifAXIMin 550 MG TAB PO SCH ×2 (10:00→21:52)
[2019-10-01] MEDS ORDERED: MULTIPLE VITAMINS W/ MINERALS TAB PO ONE (10:15)
[2019-10-01] MEDS ORDERED: CYANOCOBALAMIN 500 MCG TAB PO ONE (10:15)
[2019-10-01] MEDS ORDERED: FOLIC ACID 1 MG TAB PO ONE (10:15)
[2019-10-01] MEDS: FLUoxetine HCL 10 MG CAP PO SCH (10:30)
[2019-10-01] MEDS: FUROSEMIDE 40 MG TAB PO SCH (10:31)
[2019-10-01] MEDS: SPIRONOLACTONE 25 MG TAB PO SCH (10:32)
[2019-10-01 13:00] VITALS: BP 138/81
[2019-10-01 13:09] LABS: Eosinophils % (manual) 2 (0-7); Lymphocytes % (manual) 22 (10.0-50.0); Monocytes % (manual) 10 (0-12)
[2019-10-01 13:10] LABS: Metamyelocytes % 3
[2019-10-01] MEDS: FREE WATER GT SCH ×3 (14:00→22:33)
[2019-10-01] MEDS: Propranolol 20 MG TAB PO SCH ×2 (14:00→21:52)
[2019-10-01 17:00] VITALS: BP 148/89
[2019-10-01] MEDS: PROMETHAZINE HCL 25 MG/ML 1ML IV PRN (19:52)
[2019-10-01] MEDS: traMADol HCL 50 MG TAB PO PRN (20:50)
[2019-10-01] MEDS: ATORVASTATIN 20 MG TAB PO SCH (21:52)
[2019-10-01] MEDS: MIRTAZAPINE 30 MG TAB PO SCH (21:53)
[2019-10-01 22:00] VITALS: BP 144/87
[2019-10-01] MEDS: LORazepam 0.5 MG TAB PO PRN (23:26)
[2019-10-02] VITALS (7 sets, daily range): BP systolic 117–155; BP diastolic 56–85
[2019-10-02] MEDS: LORazepam 2MG/ML-1ML VIAL IV PRN (01:52)
[2019-10-02] MEDS: FREE WATER GT SCH ×5 (02:00→17:46)
[2019-10-02] MEDS: LACTULOSE 20Gm/30ML SOLN PO SCH ×7 (02:00→21:14)
[2019-10-02] MEDS: Propranolol 20 MG TAB PO SCH ×4 (06:00→21:13)
[2019-10-02] MEDS: GABAPENTIN 300 MG CAP PO SCH ×4 (06:00→21:13)
[2019-10-02] MEDS: InsuLIN REG 1unit/0.01ml Soln (100units/ml) SC SCH ×4 (06:42→22:00)
[2019-10-02] MEDS: ACCU-CHEK COMFORT CURVE STRIP VI SCH ×3 (06:42→17:43)
[2019-10-02 06:58] LABS: Basophils # (auto) 0 uL; Basophils % (auto) 0.5 % (0.0-2.0); Eosinophils # (auto) 0 uL; Eosinophils % (auto) 0.1 % (0.0-7.0); Hemoglobin 13.6 g/dL (12.2-16.2); Lymphocytes # (auto) 1.1 uL; Lymphocytes % (auto) 12.2 % (10.0-50.0); Mean Corpuscular Hemoglobin 32.8 pg (28.0-32.0); Mean Corpuscular Hgb Conc. 34.1 g/dL (32.0-36.0); Mean Corpuscular Volume 96.3 fL (80.0-100.0); Monocytes # (auto) 0.4 uL; Monocytes % (auto) 4.5 % (0.0-12.0); Neutrophils # (auto) 7.5 uL; Neutrophils % (auto) 82.7 % (37.0-80.0); Nucleated Red Blood Cells % 0.2 %; Platelet Count (auto) 80 10^3/uL (140-450); Red Blood Cells 4.15 10^6/uL (4.0-5.20); Red Cell Distribution Width 15.2 % (11.8-14.3)
[2019-10-02 07:34] LABS: Potassium 3.5 mmol/L (3.5-5.1)
[2019-10-02 07:44] LABS: Albumin 2.8 g/dL (3.4-5.0); BUN/Creatinine Ratio 11.8; Bilirubin, Total 2.8 mg/dL (0.2-1.0); Calcium 8.6 mg/dL (8.5-10.1); Magnesium 2.2 mg/dL (1.6-2.6); Total Protein 6.6 g/dL (6.4-8.2)
[2019-10-02] MEDS ORDERED: D5W/SOD CHL 0.45% 1,000 ML IV ONE (09:15)
[2019-10-02] MEDS: FOLIC ACID 1 MG TAB PO SCH (10:00)
[2019-10-02] MEDS: FLUoxetine HCL 10 MG CAP PO SCH (10:00)
[2019-10-02] MEDS: SPIRONOLACTONE 25 MG TAB PO SCH (10:00)
[2019-10-02] MEDS: FUROSEMIDE 40 MG TAB PO SCH (10:00)
[2019-10-02] MEDS: CYANOCOBALAMIN 500 MCG TAB PO SCH (10:00)
[2019-10-02] MEDS: MULTIPLE VITAMINS W/ MINERALS TAB PO SCH (10:00)
[2019-10-02] MEDS: rifAXIMin 550 MG TAB PO SCH ×2 (10:00→21:12)
[2019-10-02] MEDS: cefTRIAXone 1GM/50ML D5W 50 ML IV SCH (11:36)
[2019-10-02] MEDS: FAMOTIDINE 20 MG TAB PO SCH ×2 (11:37→21:14)
[2019-10-02] MEDS ORDERED: HALOPERIDOL LACTATE 5 MG/ML INJ VIAL IM PRN (14:30)
[2019-10-02] MEDS: traMADol HCL 50 MG TAB PO PRN ×2 (15:28→21:13)
[2019-10-02] MEDS: MIRTAZAPINE 30 MG TAB PO SCH (21:12)
[2019-10-02] MEDS: ATORVASTATIN 20 MG TAB PO SCH (21:13)
[2019-10-03] MEDS: FREE WATER GT SCH ×7 (00:50→21:49)
[2019-10-03] MEDS: ACCU-CHEK COMFORT CURVE STRIP VI SCH ×5 (00:50→22:00)
[2019-10-03] MEDS: LACTULOSE 20Gm/30ML SOLN PO SCH ×6 (02:00→21:48)
[2019-10-03 06:00] VITALS: BP 83/48
[2019-10-03] MEDS: Propranolol 20 MG TAB PO SCH ×3 (06:00→22:39)
[2019-10-03 06:15] VITALS: BP 107/69
[2019-10-03] MEDS: GABAPENTIN 300 MG CAP PO SCH ×3 (06:27→22:40)
[2019-10-03] MEDS: traMADol HCL 50 MG TAB PO PRN ×2 (06:28→14:14)
[2019-10-03] MEDS: InsuLIN REG 1unit/0.01ml Soln (100units/ml) SC SCH ×4 (06:52→22:00)
[2019-10-03 07:05] LABS: INR 1.52 (0.9-1.15)
[2019-10-03 07:10] LABS: Calcium 6.7 mg/dL (8.5-10.1); Potassium 3.3 mmol/L (3.5-5.1)
[2019-10-03 07:16] LABS: BUN/Creatinine Ratio 12.7; Bilirubin, Total 2.4 mg/dL (0.2-1.0); Magnesium 1.6 mg/dL (1.6-2.6)
[2019-10-03] MEDS: cefTRIAXone 1GM/50ML D5W 50 ML IV SCH (08:37)
[2019-10-03 09:00] VITALS: BP 118/59
[2019-10-03] MEDS ORDERED: POTASSIUM CHLORIDE 60 MEQ, LIDOCAINE 1% (LOCAL ANESTH.) 6 ML in SODIUM CHL 0.9% 500 ML IV ONE (10:00)
[2019-10-03 10:18] LABS: Hepatitis B Surface Antibody Positive
[2019-10-03 10:50] LABS: Hepatitis A Total Antibody Positive
[2019-10-03] MEDS: D5W 5% 1,000 ML IV SCH (10:57)
[2019-10-03] MEDS: CYANOCOBALAMIN 500 MCG TAB PO SCH (10:59)
[2019-10-03] MEDS: rifAXIMin 550 MG TAB PO SCH ×2 (10:59→22:40)
[2019-10-03] MEDS: SPIRONOLACTONE 25 MG TAB PO SCH (11:00)
[2019-10-03] MEDS: FUROSEMIDE 40 MG TAB PO SCH (11:00)
[2019-10-03] MEDS: MULTIPLE VITAMINS W/ MINERALS TAB PO SCH (11:01)
[2019-10-03] MEDS: FAMOTIDINE 20 MG TAB PO SCH ×2 (11:01→22:40)
[2019-10-03] MEDS: FOLIC ACID 1 MG TAB PO SCH (11:09)
[2019-10-03] MEDS: FLUoxetine HCL 10 MG CAP PO SCH (11:09)
[2019-10-03 12:10] LABS: Hepatitis B Core Total AB Negative; Hepatitis B Surface Antigen Negative (Negative)
[2019-10-03 12:55] LABS: Hepatitis C Antibody Positive (Negative)
[2019-10-03 17:00] VITALS: BP 123/50
[2019-10-03 20:10] VITALS: BP 118/90
[2019-10-03 21:16] VITALS: BP 118/90
[2019-10-03] MEDS: ATORVASTATIN 20 MG TAB PO SCH (22:39)
[2019-10-03] MEDS: MIRTAZAPINE 30 MG TAB PO SCH (22:40)
[2019-10-04] MEDS: LACTULOSE 20Gm/30ML SOLN PO SCH ×4 (01:39→18:32)
[2019-10-04] MEDS: FREE WATER GT SCH ×6 (01:39→21:33)
[2019-10-04 05:22] VITALS: BP 110/67
[2019-10-04] MEDS: D5W 5% 1,000 ML IV SCH (06:03)
[2019-10-04] MEDS: Propranolol 20 MG TAB PO SCH ×3 (06:04→21:33)
[2019-10-04] MEDS: InsuLIN REG 1unit/0.01ml Soln (100units/ml) SC SCH ×4 (06:04→21:41)
[2019-10-04] MEDS: GABAPENTIN 300 MG CAP PO SCH ×3 (06:04→21:29)
[2019-10-04] MEDS: ACCU-CHEK COMFORT CURVE STRIP VI SCH ×4 (06:05→21:40)
[2019-10-04 07:24] LABS: Basophils # (auto) 0.1 uL; Basophils % (auto) 1.1 % (0.0-2.0); Eosinophils # (auto) 0.2 uL; Eosinophils % (auto) 2.2 % (0.0-7.0); Hematocrit 42.7 % (36.0-46.0); Lymphocytes # (auto) 2.8 uL; Lymphocytes % (auto) 26.9 % (10.0-50.0); Mean Corpuscular Hemoglobin 33.6 pg (28.0-32.0); Monocytes # (auto) 0.8 uL; Monocytes % (auto) 7.4 % (0.0-12.0); Neutrophils # (auto) 6.6 uL; Neutrophils % (auto) 62.4 % (37.0-80.0); Nucleated Red Blood Cells % 0.1 %; Platelet Count (auto) 96 10^3/uL (140-450); Red Blood Cells 4.45 10^6/uL (4.0-5.20); Red Cell Distribution Width 15.4 % (11.8-14.3); White Blood Cell 10.5 10^3/uL (4.4-10.8)
[2019-10-04 07:44] LABS: Albumin 2.8 g/dL (3.4-5.0); BUN/Creatinine Ratio 7.2; Calcium 8.2 mg/dL (8.5-10.1); Potassium 3.2 mmol/L (3.5-5.1)
[2019-10-04 07:47] LABS: Total Protein 6.8 g/dL (6.4-8.2)
[2019-10-04 09:00] VITALS: BP 105/68
[2019-10-04] MEDS ORDERED: POTASSIUM CHLORIDE 20 MEQ, LIDOCAINE 1% (LOCAL ANESTH.) 2 ML in SODIUM CHL 0.9% 100 ML IV ONE (09:45)
[2019-10-04] MEDS ORDERED: POTASSIUM EFFERVESENT TAB 25 MEQ PO ONE (09:45)
[2019-10-04] MEDS: cefTRIAXone 1GM/50ML D5W 50 ML IV SCH (10:02)
[2019-10-04] MEDS: CYANOCOBALAMIN 500 MCG TAB PO SCH (11:19)
[2019-10-04] MEDS: FAMOTIDINE 20 MG TAB PO SCH ×2 (11:25→21:33)
[2019-10-04] MEDS: rifAXIMin 550 MG TAB PO SCH ×2 (11:25→21:28)
[2019-10-04] MEDS: FLUoxetine HCL 10 MG CAP PO SCH (11:25)
[2019-10-04] MEDS: SPIRONOLACTONE 25 MG TAB PO SCH (11:25)
[2019-10-04] MEDS: FOLIC ACID 1 MG TAB PO SCH (11:25)
[2019-10-04] MEDS: MULTIPLE VITAMINS W/ MINERALS TAB PO SCH (11:25)
[2019-10-04] MEDS: FUROSEMIDE 40 MG TAB PO SCH (11:26)
[2019-10-04] MEDS: MAGNESIUM SULFATE 1GM/100ML 100 ML IV SCH ×3 (11:27→12:33)
[2019-10-04 13:00] VITALS: BP 93/55
[2019-10-04] MEDS: traMADol HCL 50 MG TAB PO PRN ×2 (15:30→21:29)
[2019-10-04] MEDS ORDERED: MAGNESIUM SULFATE 1GM/100ML 100 ML IV SCH (16:07)
[2019-10-04 17:00] VITALS: BP 110/59
[2019-10-04] MEDS: ATORVASTATIN 20 MG TAB PO SCH (21:29)
[2019-10-04 22:00] VITALS: BP 120/76
[2019-10-05] MEDS ORDERED: TEMAZEPAM 15 MG CAP PO ONE ×2 (00:30→22:45)
[2019-10-05] MEDS: FREE WATER GT SCH ×6 (02:00→21:49)
[2019-10-05 05:00] VITALS: BP 90/63
[2019-10-05] MEDS: Propranolol 20 MG TAB PO SCH ×3 (06:00→21:50)
[2019-10-05] MEDS: InsuLIN REG 1unit/0.01ml Soln (100units/ml) SC SCH ×4 (06:30→22:00)
[2019-10-05] MEDS: ACCU-CHEK COMFORT CURVE STRIP VI SCH ×4 (06:30→22:00)
[2019-10-05 07:05] LABS: BUN/Creatinine Ratio 8.2; Calcium 7.8 mg/dL (8.5-10.1); Magnesium 2.6 mg/dL (1.6-2.6); Potassium 3.5 mmol/L (3.5-5.1)
[2019-10-05] MEDS: LACTULOSE 20Gm/30ML SOLN PO SCH ×4 (07:17→18:00)
[2019-10-05] MEDS: traMADol HCL 50 MG TAB PO PRN (07:18)
[2019-10-05] MEDS: GABAPENTIN 300 MG CAP PO SCH ×3 (07:18→21:49)
[2019-10-05 08:26] VITALS: BP 120/73
[2019-10-05] MEDS: cefTRIAXone 1GM/50ML D5W 50 ML IV SCH (09:09)
[2019-10-05] MEDS: FOLIC ACID 1 MG TAB PO SCH (09:58)
[2019-10-05] MEDS: CYANOCOBALAMIN 500 MCG TAB PO SCH (09:59)
[2019-10-05] MEDS: FAMOTIDINE 20 MG TAB PO SCH ×2 (09:59→21:49)
[2019-10-05] MEDS: rifAXIMin 550 MG TAB PO SCH ×2 (09:59→21:50)
[2019-10-05] MEDS: FLUoxetine HCL 10 MG CAP PO SCH (09:59)
[2019-10-05] MEDS: MULTIPLE VITAMINS W/ MINERALS TAB PO SCH (09:59)
[2019-10-05] MEDS: FUROSEMIDE 40 MG TAB PO SCH (10:00)
[2019-10-05] MEDS: SPIRONOLACTONE 25 MG TAB PO SCH (10:00)
[2019-10-05 13:00] VITALS: BP 120/75
[2019-10-05] MEDS ORDERED: HYDROcodone-ACET 7.5/325MG TAB PO ONE (14:30)
[2019-10-05 17:00] VITALS: BP 120/72
[2019-10-05] MEDS: OXYCODONE W/ ACETAMINOPHEN 5/325MG TABLET PO PRN (18:09)
[2019-10-05 20:00] VITALS: BP 120/75
[2019-10-05] MEDS: ATORVASTATIN 20 MG TAB PO SCH (21:49)
[2019-10-05 22:00] VITALS: BP 108/73
[2019-10-06] MEDS: LACTULOSE 20Gm/30ML SOLN PO SCH ×4 (00:21→17:57)
[2019-10-06] MEDS: FREE WATER GT SCH ×5 (02:19→17:36)
[2019-10-06 05:16] VITALS: BP 95/74
[2019-10-06] MEDS: Propranolol 20 MG TAB PO SCH ×2 (05:46→14:54)
[2019-10-06] MEDS: GABAPENTIN 300 MG CAP PO SCH ×2 (05:51→14:53)
[2019-10-06] MEDS: ACCU-CHEK COMFORT CURVE STRIP VI SCH ×3 (05:52→17:57)
[2019-10-06] MEDS: InsuLIN REG 1unit/0.01ml Soln (100units/ml) SC SCH ×3 (06:08→17:00)
[2019-10-06] MEDS: OXYCODONE W/ ACETAMINOPHEN 5/325MG TABLET PO PRN ×3 (06:12→16:32)
[2019-10-06 08:35] VITALS: BP 122/73
[2019-10-06] MEDS: rifAXIMin 550 MG TAB PO SCH (10:00)
[2019-10-06] MEDS: FOLIC ACID 1 MG TAB PO SCH (10:21)
[2019-10-06] MEDS: MULTIPLE VITAMINS W/ MINERALS TAB PO SCH (10:21)
[2019-10-06] MEDS: FLUoxetine HCL 10 MG CAP PO SCH (10:21)
[2019-10-06] MEDS: FAMOTIDINE 20 MG TAB PO SCH (10:21)
[2019-10-06] MEDS: SPIRONOLACTONE 25 MG TAB PO SCH (10:24)
[2019-10-06] MEDS: FUROSEMIDE 40 MG TAB PO SCH (10:24)
[2019-10-06] MEDS: cefTRIAXone 1GM/50ML D5W 50 ML IV SCH (10:30)
[2019-10-06 13:01] VITALS: BP 113/65
[2019-10-06] MEDS: CYANOCOBALAMIN 500 MCG TAB PO SCH (14:54)
[2019-10-06 16:54] VITALS: BP 140/66
== END 2019-10-06 19:53 | disposition left against medical advice (07) | DRG 442 ==
LOC: ER 10:59 → TELE 11:00 → TELE-WESTW 18:00
PROVIDERS: ADMIT Internal Medicine; ATTEND Internal Medicine
DX: K72.90 Hepatic failure, unspecified without coma (principal); E87.0 Hyperosmolality and hypernatremia; I50.32 Chronic diastolic (congestive) heart failure; I13.0 Hypertensive heart and chronic kidney disease with heart failure and stage 1 through stage 4 chronic kidney disease, or unspecified chronic kidney disease; J96.10 Chronic respiratory failure, unspecified whether with hypoxia or hypercapnia; N39.0 Urinary tract infection, site not specified; D69.6 Thrombocytopenia, unspecified; E11.22 Type 2 diabetes mellitus with diabetic chronic kidney disease; E78.5 Hyperlipidemia, unspecified; E87.6 Hypokalemia; F41.9 Anxiety disorder, unspecified; F17.210 Nicotine dependence, cigarettes, uncomplicated; B19.20 Unspecified viral hepatitis C without hepatic coma; J44.9 Chronic obstructive pulmonary disease, unspecified; F32.9 Major depressive disorder, single episode, unspecified; K70.30 Alcoholic cirrhosis of liver without ascites; M79.7 Fibromyalgia; R56.9 Unspecified convulsions; N18.9 Chronic kidney disease, unspecified; Z80.9 Family history of malignant neoplasm, unspecified; Z82.49 Family history of ischemic heart disease and other diseases of the circulatory system; Z83.3 Family history of diabetes mellitus; Z86.73 Personal history of transient ischemic attack (TIA), and cerebral infarction without residual deficits; Z99.81 Dependence on supplemental oxygen; Z90.710 Acquired absence of both cervix and uterus; Z88.8 Allergy status to other drugs, medicaments and biological substances; Z53.29 Procedure and treatment not carried out because of patient's decision for other reasons
CPT/HCPCS: 36415; 71045; 80048; 80053; 80307; 80320; 81001; 82140; 82550; 82607; 82746; 82962; 83036; 83735; 83880; 84443; 84484; 85007; 85025; 85027; 85379; 85610; 85730; 86704; 86706; 86708; 86803; 87086; 87340; 93005; 93306; 96365; 96366; 96367; 99291; G0378; J0696; J2001; J3480; J7042

== ENCOUNTER → 2019-10-12 | Emergency (ER) | payer SELFPAY ==
[~2019-10-12] VITALS: Ht 165.1 cm; Wt 68.0 kg
[~2019-10-12] MED LIST changes: +MORPHINE SULFATE 4 MG/ML SYR/VIAL IV ONE; +ONDANSETRON HCL 4 MG/2 ML VIAL IV ONE; +metroNIDAZOLE 500MG/100ML 100 ML IV ONE
[2019-10-12 13:29] LABS: Basophils # (auto) 0 uL; Basophils % (auto) 0.6 % (0.0-2.0); Eosinophils # (auto) 0 uL; Eosinophils % (auto) 0.3 % (0.0-7.0); Hemoglobin 12.7 g/dL (12.2-16.2); Lymphocytes # (auto) 0.7 uL; Lymphocytes % (auto) 11.5 % (10.0-50.0); Mean Corpuscular Hgb Conc. 33.3 g/dL (32.0-36.0); Monocytes # (auto) 0.3 uL; Monocytes % (auto) 4.1 % (0.0-12.0); Neutrophils # (auto) 5.3 uL; Neutrophils % (auto) 83.5 % (37.0-80.0); Nucleated Red Blood Cells % 0.1 %; Platelet Count (auto) 71 10^3/uL (140-450); Red Blood Cells 3.84 10^6/uL (4.0-5.20); Red Cell Distribution Width 16.8 % (11.8-14.3); White Blood Cell 6.3 10^3/uL (4.4-10.8)
[2019-10-12 13:43] LABS: Albumin 2.8 g/dL (3.4-5.0); Calcium 9.5 mg/dL (8.5-10.1); Potassium 3.6 mmol/L (3.5-5.1)
[2019-10-12 13:47] LABS: Bilirubin, Total 2.3 mg/dL (0.2-1.0); Total Protein 6.6 g/dL (6.4-8.2)
[2019-10-12 14:16] LABS: Urine WBC None Seen /hpf (0 - 5)
[2019-10-12 14:27] LABS: Urine Bacteria NONE SEEN /hpf (None Seen); Urine Blood Negative /uL (Negative); Urine Mucus FEW (None Seen); Urine Specific Gravity 1.024 (1.001-1.035)
[2019-10-12 21:12] VITALS: BP 140/63
== END | disposition short-term general hospital (02) ==
LOC: ER 11:58
DX: K80.20 Calculus of gallbladder without cholecystitis without obstruction (principal); R74.8 Abnormal levels of other serum enzymes; I48.91 Unspecified atrial fibrillation; I13.0 Hypertensive heart and chronic kidney disease with heart failure and stage 1 through stage 4 chronic kidney disease, or unspecified chronic kidney disease; E11.22 Type 2 diabetes mellitus with diabetic chronic kidney disease; N18.9 Chronic kidney disease, unspecified; I50.9 Heart failure, unspecified; E78.5 Hyperlipidemia, unspecified; J44.9 Chronic obstructive pulmonary disease, unspecified; Z90.710 Acquired absence of both cervix and uterus; Z90.89 Acquired absence of other organs; Z79.899 Other long term (current) drug therapy; Z87.891 Personal history of nicotine dependence
CPT/HCPCS: 36415; 74176; 80053; 81001; 82140; 82150; 83690; 85025; 93005; 96365; 96375; 96376; 99285; J2270; J2405; J3490

== ENCOUNTER 2019-12-05 18:31 | Inpatient (IN) | payer MEDICAID ==
[~2019-12-05] VITALS: Ht 165.1 cm; Wt 65.1 kg
[~2019-12-05 18:31] MED LIST changes: +LACTULOSE 20Gm/30ML SOLN PO PRN; -MORPHINE SULFATE 4 MG/ML SYR/VIAL IV ONE; -ONDANSETRON HCL 4 MG/2 ML VIAL IV ONE; -metroNIDAZOLE 500MG/100ML 100 ML IV ONE
[2019-12-05 19:26] LABS: Basophils # (auto) 0.1 10 ^3/uL (0-0.2); Basophils % (auto) 1.2 % (0.0-2.0); Eosinophils # (auto) 0.2 10 ^3/uL (0-0.8); Hematocrit 40.5 % (36.0-46.0); Lymphocytes % (auto) 22.6 % (10.0-50.0); Mean Corpuscular Hemoglobin 31.5 pg (28.0-32.0); Mean Corpuscular Hgb Conc. 34.5 g/dL (32.0-36.0); Mean Corpuscular Volume 91.2 fL (80.0-100.0); Monocytes # (auto) 0.8 10 ^3/uL (0-1.3); Monocytes % (auto) 9.3 % (0.0-12.0); Neutrophils # (auto) 5.6 10 ^3/uL (1.6-8.6); Neutrophils % (auto) 64.9 % (37.0-80.0); Nucleated Red Blood Cells % 0.3 %; Platelet Count (auto) 74 10^3/uL (140-450); Red Blood Cells 4.44 10^6/uL (4.0-5.20); Red Cell Distribution Width 15.7 % (11.8-14.3); White Blood Cell 8.7 10^3/uL (4.4-10.8)
[2019-12-05 19:38] LABS: Albumin 2.7 g/dL (3.4-5.0); Calcium 8.2 mg/dL (8.5-10.1)
[2019-12-05 19:42] LABS: Bilirubin, Total 3.9 mg/dL (0.2-1.0); Total Protein 7.5 g/dL (6.4-8.2)
[2019-12-05 19:44] LABS: Potassium 2.5 mmol/L (3.5-5.1)
[2019-12-05] MEDS ORDERED: POTASSIUM CHL 20MEQ/100ML 100 ML IV ONE (19:45)
[2019-12-05] MEDS ORDERED: POTASSIUM EFFERVESENT TAB 25 MEQ PO ONE (19:45)
[2019-12-05] MEDS ORDERED: SODIUM CHLORIDE 0.9% 1,000 ML IV ONE (19:45)
[2019-12-05] MEDS ORDERED: NITROGLYCERIN 0.4 MG SL TAB SL PRN (20:15)
[2019-12-05] MEDS ORDERED: MAGNESIUM SULFATE 1GM/100ML 100 ML IV ONE (20:15)
[2019-12-05] MEDS: POTASSIUM CHL 20MEQ/100ML 100 ML IV SCH (20:15)
[2019-12-05] MEDS ORDERED: MORPHINE SULF INJ 2 MG/ML SYRINGE 1ML IV PRN (20:15)
[2019-12-05] MEDS ORDERED: LACTULOSE 20Gm/30ML SOLN PO PRN (20:30)
[2019-12-05] MEDS ORDERED: LACTULOSE 20Gm/30ML SOLN PR ONE (20:30)
[2019-12-05] MEDS ORDERED: LACTULOSE 20Gm/30ML SOLN PO ONE (20:30)
[2019-12-05] MEDS ORDERED: ZOLPIDEM TARTRATE 5 MG TAB PO PRN (20:45)
[2019-12-05 21:16] LABS: Urine Bacteria NONE SEEN /hpf (None Seen); Urine Blood 1+ /uL (Negative); Urine Specific Gravity 1.017 (1.001-1.035); Urine WBC 8 /hpf (0 - 5)
[2019-12-05 21:23] VITALS: BP 122/77
[2019-12-05] MEDS: ATORVASTATIN 20 MG TAB PO SCH (22:08)
[2019-12-05] MEDS: PROPRANOLOL HCL 20 MG TAB PO SCH (22:09)
[2019-12-05] MEDS: MIRTAZAPINE 30 MG TAB PO SCH (22:10)
[2019-12-05] MEDS: GABAPENTIN 300 MG CAP PO SCH (22:11)
[2019-12-06] MEDS: POTASSIUM CHL 20MEQ/100ML 100 ML IV SCH ×6 (02:54→21:12)
[2019-12-06 05:31] VITALS: BP 123/63
[2019-12-06] MEDS ORDERED: POTASSIUM CHL 20MEQ/100ML 100 ML IV ONE (05:55)
[2019-12-06] MEDS: GABAPENTIN 300 MG CAP PO SCH ×4 (06:48→21:25)
[2019-12-06 07:01] LABS: Basophils # (auto) 0 10 ^3/uL (0-0.2); Basophils % (auto) 0.8 % (0.0-2.0); Eosinophils # (auto) 0.1 10 ^3/uL (0-0.8); Hemoglobin 11.9 g/dL (12.2-16.2); Lymphocytes # (auto) 1.1 10 ^3/uL (0.4-5.4)
[2019-12-06 07:04] LABS: Eosinophils % (auto) 1.6 % (0.0-7.0); Hematocrit 34.5 % (36.0-46.0); Lymphocytes % (auto) 18.6 % (10.0-50.0); Mean Corpuscular Hemoglobin 32.1 pg (28.0-32.0); Mean Corpuscular Hgb Conc. 34.5 g/dL (32.0-36.0); Monocytes # (auto) 0.5 10 ^3/uL (0-1.3); Neutrophils # (auto) 4.2 10 ^3/uL (1.6-8.6); Nucleated Red Blood Cells % 0.2 %; Platelet Count (auto) 35 10^3/uL (140-450); Red Blood Cells 3.71 10^6/uL (4.0-5.20); Red Cell Distribution Width 15.4 % (11.8-14.3)
[2019-12-06 07:07] LABS: INR 1.33 (0.9-1.15); Partial Thromboplastin Time 28.5 sec (23.64-32.05)
[2019-12-06 07:26] LABS: Albumin 2.4 g/dL (3.4-5.0); Calcium 7.8 mg/dL (8.5-10.1); Magnesium 1.9 mg/dL (1.6-2.6); Uric Acid 4.7 mg/dL (2.6-6.0)
[2019-12-06 07:30] VITALS: BP 122/77
[2019-12-06 07:31] LABS: BUN/Creatinine Ratio 5.4; Bilirubin, Total 3.3 mg/dL (0.2-1.0); Phosphorus 2.9 mg/dL (2.5-4.90); Total Protein 6.1 g/dL (6.4-8.2)
[2019-12-06 07:42] LABS: Potassium 2.8 mmol/L (3.5-5.1)
[2019-12-06 08:00] VITALS: BP 110/59
[2019-12-06 08:25] LABS: Amphetamine Screen, Urine NEGATIVE (NEGATIVE); Barbiturate Scree,Urine NEGATIVE (NEGATIVE); Benzodiazephine Screen, Urine POSITIVE (NEGATIVE); Cannabinoid Screen, Urine POSITIVE (NEGATIVE); Cocaine Screen, Urine NEGATIVE (NEGATIVE); Opiate Scree,Urine POSITIVE (NEGATIVE); Phencyclidine Screen, Urine NEGATIVE (NEGATIVE)
[2019-12-06 09:28] LABS: Ferritin 160.8 ng/mL (10-322)
[2019-12-06] MEDS: SPIRONOLACTONE 25 MG TAB PO SCH (09:28)
[2019-12-06] MEDS: cefTRIAXone 1GM/50ML D5W 50 ML IV SCH (09:28)
[2019-12-06 09:29] LABS: Folate (Folic Acid) 4.98 ng/mL (5.38-24)
[2019-12-06] MEDS: DOCUSATE SOD 100 MG CAP PO SCH (09:29)
[2019-12-06] MEDS: FLUoxetine HCL 10 MG CAP PO SCH (09:30)
[2019-12-06] MEDS: PROPRANOLOL HCL 20 MG TAB PO SCH ×2 (09:30→21:25)
[2019-12-06] MEDS: AZITHROMYCIN 500MG/ 250ML 250 ML IV SCH (11:34)
[2019-12-06] MEDS: LACTULOSE 20Gm/30ML SOLN PO SCH ×3 (11:40→18:45)
[2019-12-06 12:00] VITALS: BP 150/78
[2019-12-06 16:41] VITALS: BP 138/71
[2019-12-06] MEDS: MIRTAZAPINE 30 MG TAB PO SCH (21:25)
[2019-12-06] MEDS: ATORVASTATIN 20 MG TAB PO SCH (21:25)
[2019-12-06 22:00] VITALS: BP 94/24
[2019-12-07 02:00] VITALS: BP 123/86
[2019-12-07 05:00] VITALS: BP 144/75
[2019-12-07] MEDS: LACTULOSE 20Gm/30ML SOLN PO SCH ×5 (05:24→23:51)
[2019-12-07] MEDS: GABAPENTIN 300 MG CAP PO SCH ×3 (05:24→21:40)
[2019-12-07 07:17] LABS: Albumin 2.8 g/dL (3.4-5.0); Calcium 8.3 mg/dL (8.5-10.1); Magnesium 1.9 mg/dL (1.6-2.6); Potassium 3.1 mmol/L (3.5-5.1)
[2019-12-07 07:21] LABS: BUN/Creatinine Ratio 4.3; Bilirubin, Total 3.6 mg/dL (0.2-1.0)
[2019-12-07 09:00] VITALS: BP 130/55
[2019-12-07] MEDS: cefTRIAXone 1GM/50ML D5W 50 ML IV SCH (09:52)
[2019-12-07] MEDS: AZITHROMYCIN 500MG/ 250ML 250 ML IV SCH (09:52)
[2019-12-07] MEDS ORDERED: VANCOMYCIN PER PHARMACY 0 MG IV SCH (10:30)
[2019-12-07] MEDS ORDERED: POTASSIUM CHLORIDE 60 MEQ, LIDOCAINE 1% (LOCAL ANESTH.) 6 ML in SODIUM CHL 0.9% 500 ML IV ONE (10:30)
[2019-12-07] MEDS: SPIRONOLACTONE 25 MG TAB PO SCH (11:01)
[2019-12-07] MEDS: FLUoxetine HCL 10 MG CAP PO SCH (11:02)
[2019-12-07] MEDS: DOCUSATE SOD 100 MG CAP PO SCH (11:03)
[2019-12-07] MEDS: PROPRANOLOL HCL 20 MG TAB PO SCH ×2 (11:03→21:40)
[2019-12-07] MEDS ORDERED: VANCOMYCIN 1GM/250ML 250 ML IV ONE (12:00)
[2019-12-07 12:53] LABS: Eosinophils # (auto) 0 10 ^3/uL (0-0.8); Eosinophils % (auto) 0.4 % (0.0-7.0); Monocytes # (auto) 0.5 10 ^3/uL (0-1.3); Red Blood Cells 3.89 10^6/uL (4.0-5.20)
[2019-12-07 12:54] LABS: Basophils # (auto) 0 10 ^3/uL (0-0.2); Basophils % (auto) 0.7 % (0.0-2.0); Hematocrit 36.2 % (36.0-46.0); Hemoglobin 12.5 g/dL (12.2-16.2); Lymphocytes # (auto) 1.1 10 ^3/uL (0.4-5.4); Lymphocytes % (auto) 18.8 % (10.0-50.0); Mean Corpuscular Hemoglobin 32.2 pg (28.0-32.0); Mean Corpuscular Hgb Conc. 34.6 g/dL (32.0-36.0); Mean Corpuscular Volume 93.2 fL (80.0-100.0); Neutrophils # (auto) 4.3 10 ^3/uL (1.6-8.6); Neutrophils % (auto) 72.1 % (37.0-80.0); Nucleated Red Blood Cells % 0.1 %; Platelet Count (auto) 44 10^3/uL (140-450); Red Cell Distribution Width 15.7 % (11.8-14.3)
[2019-12-07 17:40] VITALS: BP 134/65
[2019-12-07] MEDS: FAMOTIDINE (10MG/ML) 2ML VL IV SCH (21:38)
[2019-12-07] MEDS: ONDANSETRON HCL 4 MG/2 ML VIAL IV PRN (21:38)
[2019-12-07] MEDS: ATORVASTATIN 20 MG TAB PO SCH (21:39)
[2019-12-07] MEDS: MIRTAZAPINE 30 MG TAB PO SCH (21:40)
[2019-12-07] MEDS: MORPHINE SULF INJ 2 MG/ML SYRINGE 1ML IV PRN (21:47)
[2019-12-07 22:00] VITALS: BP 147/67
[2019-12-08] MEDS: ONDANSETRON HCL 4 MG/2 ML VIAL IV PRN ×3 (01:51→23:08)
[2019-12-08] MEDS: MORPHINE SULF INJ 2 MG/ML SYRINGE 1ML IV PRN ×3 (01:51→23:08)
[2019-12-08] MEDS: VANCOMYCIN 1GM/250ML 250 ML IV SCH ×2 (03:59→19:29)
[2019-12-08 06:00] VITALS: BP_SYST 137; BP_SYST 147; BP_DIAS 61; BP_DIAS 67
[2019-12-08] MEDS: GABAPENTIN 300 MG CAP PO SCH ×3 (06:26→21:35)
[2019-12-08] MEDS: LACTULOSE 20Gm/30ML SOLN PO SCH ×3 (06:26→21:35)
[2019-12-08 06:51] LABS: Eosinophils # (auto) 0 10 ^3/uL (0-0.8); Hemoglobin 13.3 g/dL (12.2-16.2); White Blood Cell 10.8 10^3/uL (4.4-10.8)
[2019-12-08 06:54] LABS: Basophils # (auto) 0 10 ^3/uL (0-0.2); Basophils % (auto) 0.4 % (0.0-2.0); Eosinophils % (auto) 0.1 % (0.0-7.0); Hematocrit 38.3 % (36.0-46.0); Lymphocytes # (auto) 1.9 10 ^3/uL (0.4-5.4); Lymphocytes % (auto) 17.5 % (10.0-50.0); Mean Corpuscular Hemoglobin 32.4 pg (28.0-32.0); Mean Corpuscular Hgb Conc. 34.7 g/dL (32.0-36.0); Mean Corpuscular Volume 93.6 fL (80.0-100.0); Monocytes # (auto) 0.9 10 ^3/uL (0-1.3); Monocytes % (auto) 8.4 % (0.0-12.0); Neutrophils % (auto) 73.6 % (37.0-80.0); Nucleated Red Blood Cells % 0.4 %; Platelet Count (auto) 55 10^3/uL (140-450); Red Blood Cells 4.09 10^6/uL (4.0-5.20); Red Cell Distribution Width 16.5 % (11.8-14.3)
[2019-12-08 07:09] LABS: Calcium 8.5 mg/dL (8.5-10.1); Potassium 3.1 mmol/L (3.5-5.1)
[2019-12-08 07:15] LABS: Albumin 2.6 g/dL (3.4-5.0); BUN/Creatinine Ratio 8.3; Bilirubin, Total 3.3 mg/dL (0.2-1.0); Total Protein 6.6 g/dL (6.4-8.2)
[2019-12-08 09:12] VITALS: BP 135/66
[2019-12-08] MEDS: DOCUSATE SOD 100 MG CAP PO SCH (09:25)
[2019-12-08] MEDS: FAMOTIDINE (10MG/ML) 2ML VL IV SCH ×2 (09:25→21:35)
[2019-12-08] MEDS: levoFLOXacin 500MG 100 ML IV SCH (09:25)
[2019-12-08] MEDS ORDERED: POTASSIUM CHLORIDE 60 MEQ, LIDOCAINE 1% (LOCAL ANESTH.) 6 ML in SODIUM CHL 0.9% 500 ML IV ONE (09:30)
[2019-12-08] MEDS: FLUoxetine HCL 10 MG CAP PO SCH (09:31)
[2019-12-08] MEDS: PROPRANOLOL HCL 20 MG TAB PO SCH ×2 (09:32→21:36)
[2019-12-08] MEDS: SPIRONOLACTONE 25 MG TAB PO SCH (09:32)
[2019-12-08] MEDS: POTASSIUM CHL 20 Meq TABLET PO SCH ×2 (10:56→21:35)
[2019-12-08 13:59] VITALS: BP 136/91
[2019-12-08 17:02] VITALS: BP 141/77
[2019-12-08] MEDS: MIRTAZAPINE 30 MG TAB PO SCH (21:36)
[2019-12-08] MEDS: ATORVASTATIN 20 MG TAB PO SCH (21:36)
[2019-12-08 22:08] VITALS: BP 124/72
[2019-12-09] MEDS: ONDANSETRON HCL 4 MG/2 ML VIAL IV PRN (03:48)
[2019-12-09] MEDS: MORPHINE SULF INJ 2 MG/ML SYRINGE 1ML IV PRN (03:49)
[2019-12-09 05:54] VITALS: BP 107/75
[2019-12-09] MEDS: GABAPENTIN 300 MG CAP PO SCH ×4 (06:11→22:03)
[2019-12-09 07:53] LABS: Mean Corpuscular Hgb Conc. 33.9 g/dL (32.0-36.0); Monocytes # (auto) 0.8 10 ^3/uL (0-1.3)
[2019-12-09 07:55] LABS: Basophils # (auto) 0.1 10 ^3/uL (0-0.2); Basophils % (auto) 0.7 % (0.0-2.0); Eosinophils # (auto) 0.1 10 ^3/uL (0-0.8); Eosinophils % (auto) 0.7 % (0.0-7.0); Hematocrit 39.3 % (36.0-46.0); Hemoglobin 13.3 g/dL (12.2-16.2); Lymphocytes # (auto) 1.9 10 ^3/uL (0.4-5.4); Lymphocytes % (auto) 21.5 % (10.0-50.0); Mean Corpuscular Volume 94.3 fL (80.0-100.0); Monocytes % (auto) 9.2 % (0.0-12.0); Neutrophils # (auto) 6.1 10 ^3/uL (1.6-8.6); Neutrophils % (auto) 67.9 % (37.0-80.0); Nucleated Red Blood Cells % 0.5 %; Platelet Count (auto) 55 10^3/uL (140-450); Red Blood Cells 4.17 10^6/uL (4.0-5.20); Red Cell Distribution Width 17.7 % (11.8-14.3)
[2019-12-09 08:15] LABS: Potassium 3.7 mmol/L (3.5-5.1)
[2019-12-09 08:21] LABS: Albumin 2.6 g/dL (3.4-5.0); BUN/Creatinine Ratio 9.1; Bilirubin, Total 2.9 mg/dL (0.2-1.0); Calcium 8.6 mg/dL (8.5-10.1); Magnesium 2.1 mg/dL (1.6-2.6); Total Protein 6.9 g/dL (6.4-8.2)
[2019-12-09 08:38] VITALS: BP 121/52
[2019-12-09] MEDS: PROPRANOLOL HCL 20 MG TAB PO SCH ×2 (10:00→22:03)
[2019-12-09] MEDS: levoFLOXacin 500MG 100 ML IV SCH (10:29)
[2019-12-09] MEDS: POTASSIUM CHL 20 Meq TABLET PO SCH ×2 (10:29→22:04)
[2019-12-09] MEDS: DOCUSATE SOD 100 MG CAP PO SCH (10:29)
[2019-12-09] MEDS: FLUoxetine HCL 10 MG CAP PO SCH (10:29)
[2019-12-09] MEDS: LACTULOSE 20Gm/30ML SOLN PO SCH ×2 (10:29→22:02)
[2019-12-09] MEDS: FAMOTIDINE (10MG/ML) 2ML VL IV SCH ×2 (10:31→22:02)
[2019-12-09] MEDS: SPIRONOLACTONE 25 MG TAB PO SCH (10:31)
[2019-12-09] MEDS: VANCOMYCIN 1GM/250ML 250 ML IV SCH (12:20)
[2019-12-09 13:00] VITALS: BP 130/70
[2019-12-09 17:39] VITALS: BP 146/62
[2019-12-09 22:00] VITALS: BP 142/73
[2019-12-09] MEDS: ATORVASTATIN 20 MG TAB PO SCH (22:03)
[2019-12-09] MEDS: MIRTAZAPINE 30 MG TAB PO SCH (22:04)
[2019-12-10] MEDS: MORPHINE SULF INJ 2 MG/ML SYRINGE 1ML IV PRN ×3 (01:31→10:01)
[2019-12-10] MEDS: VANCOMYCIN 1GM/250ML 250 ML IV SCH ×2 (01:31→16:00)
[2019-12-10 04:44] VITALS: BP 143/76
[2019-12-10] MEDS: GABAPENTIN 300 MG CAP PO SCH ×2 (05:56→14:00)
[2019-12-10 09:00] VITALS: BP 125/75
[2019-12-10] MEDS: SPIRONOLACTONE 25 MG TAB PO SCH (09:59)
[2019-12-10] MEDS: DOCUSATE SOD 100 MG CAP PO SCH (10:00)
[2019-12-10] MEDS: levoFLOXacin 500MG 100 ML IV SCH (10:00)
[2019-12-10] MEDS: FLUoxetine HCL 10 MG CAP PO SCH (10:00)
[2019-12-10] MEDS: PROPRANOLOL HCL 20 MG TAB PO SCH (10:00)
[2019-12-10] MEDS: LACTULOSE 20Gm/30ML SOLN PO SCH (10:00)
[2019-12-10] MEDS: FAMOTIDINE (10MG/ML) 2ML VL IV SCH (10:00)
[2019-12-10] MEDS: POTASSIUM CHL 20 Meq TABLET PO SCH (10:00)
[2019-12-10 11:26] LABS: Albumin 2.8 g/dL (3.4-5.0); Calcium 8.7 mg/dL (8.5-10.1); Magnesium 2.1 mg/dL (1.6-2.6); Potassium 4.7 mmol/L (3.5-5.1)
[2019-12-10 11:29] LABS: BUN/Creatinine Ratio 9.9; Bilirubin, Total 2.5 mg/dL (0.2-1.0); Total Protein 7.4 g/dL (6.4-8.2)
[2019-12-10 14:00] VITALS: BP 114/60
[2019-12-10 14:49] VITALS: BP 125/75
== END 2019-12-10 16:35 | disposition home or self-care (01) | DRG 279 ==
LOC: ER 18:31 → TELE 18:32 → TELE-WESTW 21:23
PROVIDERS: ADMIT Hospitalist; ATTEND Internal Medicine
DX: K72.90 Hepatic failure, unspecified without coma (principal); E43 Unspecified severe protein-calorie malnutrition; J18.9 Pneumonia, unspecified organism; D69.59 Other secondary thrombocytopenia; E11.22 Type 2 diabetes mellitus with diabetic chronic kidney disease; I13.0 Hypertensive heart and chronic kidney disease with heart failure and stage 1 through stage 4 chronic kidney disease, or unspecified chronic kidney disease; N20.9 Urinary calculus, unspecified; K74.60 Unspecified cirrhosis of liver; K76.6 Portal hypertension; I50.42 Chronic combined systolic (congestive) and diastolic (congestive) heart failure; E87.6 Hypokalemia; N39.0 Urinary tract infection, site not specified; K80.20 Calculus of gallbladder without cholecystitis without obstruction; F32.9 Major depressive disorder, single episode, unspecified; F41.9 Anxiety disorder, unspecified; M54.5 Low back pain; B19.20 Unspecified viral hepatitis C without hepatic coma; N18.9 Chronic kidney disease, unspecified; E86.0 Dehydration; E78.5 Hyperlipidemia, unspecified; Z90.710 Acquired absence of both cervix and uterus; Z80.8 Family history of malignant neoplasm of other organs or systems; Z91.19 Patient's noncompliance with other medical treatment and regimen; Z87.891 Personal history of nicotine dependence; Z79.899 Other long term (current) drug therapy; Z81.1 Family history of alcohol abuse and dependence; Z82.49 Family history of ischemic heart disease and other diseases of the circulatory system; Z81.8 Family history of other mental and behavioral disorders; Z83.42 Family history of familial hypercholesterolemia; Z86.73 Personal history of transient ischemic attack (TIA), and cerebral infarction without residual deficits; Z68.23 Body mass index [BMI] 23.0-23.9, adult
CPT/HCPCS: 36415; 70450; 71045; 74176; 80053; 80061; 80202; 80307; 81001; 82140; 82550; 82607; 82728; 82746; 82962; 83036; 83605; 83735; 83880; 84100; 84443; 84484; 84550; 85025; 85045; 85610; 85730; 87040; 87077; 87081; 87186; 93005; 99291; G0378; J0696; J1642; J1956; J2001; J2405; J3480; J3490

== ENCOUNTER 2020-01-06 17:48 | Inpatient (IN) | payer MEDICAID ==
[~2020-01-06] VITALS: Ht 165.1 cm; Wt 73.9 kg
[~2020-01-06 17:48] MED LIST changes: -LACTULOSE 20Gm/30ML SOLN PO PRN
[2020-01-06 19:35] LABS: Basophils # (auto) 0 10 ^3/uL (0-0.2); Basophils % (auto) 0.7 % (0.0-2.0); Eosinophils # (auto) 0.1 10 ^3/uL (0-0.8); Eosinophils % (auto) 0.9 % (0.0-7.0); Hematocrit 38.5 % (36.0-46.0); Hemoglobin 12.9 g/dL (12.2-16.2); Lymphocytes # (auto) 1.2 10 ^3/uL (0.4-5.4); Lymphocytes % (auto) 18.4 % (10.0-50.0); Mean Corpuscular Hemoglobin 31.9 pg (28.0-32.0); Mean Corpuscular Hgb Conc. 33.5 g/dL (32.0-36.0); Mean Corpuscular Volume 95.1 fL (80.0-100.0); Monocytes # (auto) 0.5 10 ^3/uL (0-1.3); Monocytes % (auto) 7.8 % (0.0-12.0); Neutrophils # (auto) 4.6 10 ^3/uL (1.6-8.6); Neutrophils % (auto) 72.2 % (37.0-80.0); Nucleated Red Blood Cells % 0.1 %; Platelet Count (auto) 91 10^3/uL (140-450); Red Blood Cells 4.05 10^6/uL (4.0-5.20); White Blood Cell 6.4 10^3/uL (4.4-10.8)
[2020-01-06 19:59] LABS: INR 1.2 (0.9-1.15); Partial Thromboplastin Time 26.9 sec (23.64-32.05)
[2020-01-06 20:02] LABS: Albumin 2.6 g/dL (3.4-5.0); Anion Gap 5 (5-15); Blood Urea Nitrogen 11 mg/dL (7-18); Calcium 8.5 mg/dL (8.5-10.1); Carbon Dioxide 26 mmol/L (21-32); Chloride 111 mmol/L (98-107); Glucose 172 mg/dL (74-106); Potassium 3.2 mmol/L (3.5-5.1); Sodium 142 mmol/L (136-145)
[2020-01-06 20:18] LABS: Alanine Aminotransferase 29 U/L (13-56); Alkaline Phosphatase 140 U/L (45-117); Aspartate Aminotransferase 36 U/L (15-37); BUN/Creatinine Ratio 11.7; Bilirubin, Total 1.9 mg/dL (0.2-1.0); Blood Alcohol < 3.0 mg/dL (0-5); GFR African American 77 mL/min; GFR Non-African American 64 mL/min; Total Protein 7.1 g/dL (6.4-8.2)
[2020-01-06] MEDS ORDERED: SODIUM CHLORIDE 0.9% 500 ML IV ONE (20:30)
[2020-01-06] MEDS ORDERED: LACTULOSE 20Gm/30ML SOLN PO ONE (20:30)
[2020-01-06] MEDS ORDERED: ONDANSETRON HCL 4 MG/2 ML VIAL IV PRN (22:45)
[2020-01-06] MEDS ORDERED: NITROGLYCERIN 0.4 MG SL TAB SL PRN (22:45)
[2020-01-06] MEDS ORDERED: hydrALAZINE HCL 20 MG/ML VL IV PRN (23:33)
[2020-01-07] VITALS (7 sets, daily range): BP systolic 136–158; BP diastolic 60–98
[2020-01-07] MEDS ORDERED: ACETAMINOPHEN 500 MG TAB PO PRN
[2020-01-07] MEDS: FLUoxetine HCL 20 MG CAP PO SCH ×2 (02:10→10:52)
[2020-01-07] MEDS: ATORVASTATIN 20 MG TAB PO SCH ×2 (02:10→10:50)
[2020-01-07] MEDS: PROPRANOLOL HCL 20 MG TAB PO SCH ×2 (02:11→10:52)
[2020-01-07] MEDS: SPIRONOLACTONE 25 MG TAB PO SCH ×2 (02:12→10:50)
[2020-01-07] MEDS: MIRTAZAPINE 30 MG TAB PO SCH ×3 (02:12→23:29)
[2020-01-07 06:11] LABS: Eosinophils # (auto) 0.1 10 ^3/uL (0-0.8); Hematocrit 35.7 % (36.0-46.0); Lymphocytes # (auto) 1.1 10 ^3/uL (0.4-5.4); White Blood Cell 6.4 10^3/uL (4.4-10.8)
[2020-01-07 06:13] LABS: Basophils # (auto) 0.1 10 ^3/uL (0-0.2); Basophils % (auto) 1.1 % (0.0-2.0); Eosinophils % (auto) 1.4 % (0.0-7.0); Lymphocytes % (auto) 17.9 % (10.0-50.0); Mean Corpuscular Hemoglobin 32.1 pg (28.0-32.0); Mean Corpuscular Hgb Conc. 33.6 g/dL (32.0-36.0); Mean Corpuscular Volume 95.8 fL (80.0-100.0); Monocytes # (auto) 0.5 10 ^3/uL (0-1.3); Monocytes % (auto) 8.6 % (0.0-12.0); Neutrophils # (auto) 4.5 10 ^3/uL (1.6-8.6); Nucleated Red Blood Cells % 0.1 %; Platelet Count (auto) 57 10^3/uL (140-450); Red Blood Cells 3.72 10^6/uL (4.0-5.20); Red Cell Distribution Width 16.1 % (11.8-14.3)
[2020-01-07 06:24] LABS: Albumin 2.4 g/dL (3.4-5.0); Calcium 7.9 mg/dL (8.5-10.1); Potassium 3.2 mmol/L (3.5-5.1)
[2020-01-07 06:28] LABS: BUN/Creatinine Ratio 14.8; Bilirubin, Total 1.6 mg/dL (0.2-1.0); Total Protein 6.6 g/dL (6.4-8.2)
[2020-01-07] MEDS: MORPHINE SULF INJ 2 MG/ML SYRINGE 1ML IV PRN ×3 (11:36→22:28)
[2020-01-07] MEDS ORDERED: LORazepam 2MG/ML-1ML VIAL IV PRN ×2 (16:45)
[2020-01-07] MEDS ORDERED: VANCOMYCIN PER PHARMACY 0 MG IV SCH (17:15)
[2020-01-07] MEDS: VANCOMYCIN 1GM/250ML 250 ML IV SCH (17:58)
[2020-01-08 05:00] VITALS: BP 138/78
[2020-01-08] MEDS: VANCOMYCIN 1GM/250ML 250 ML IV SCH ×2 (06:18→17:50)
[2020-01-08 08:44] VITALS: BP 154/60
[2020-01-08] MEDS: ATORVASTATIN 20 MG TAB PO SCH (09:32)
[2020-01-08] MEDS: SPIRONOLACTONE 25 MG TAB PO SCH (09:32)
[2020-01-08] MEDS: PROPRANOLOL HCL 20 MG TAB PO SCH (09:32)
[2020-01-08] MEDS: FLUoxetine HCL 20 MG CAP PO SCH (09:33)
[2020-01-08] MEDS: MORPHINE SULF INJ 2 MG/ML SYRINGE 1ML IV PRN ×3 (12:35→21:41)
[2020-01-08 12:37] VITALS: BP 147/63
[2020-01-08 16:54] VITALS: BP 147/70
[2020-01-08] MEDS: MIRTAZAPINE 30 MG TAB PO SCH (21:27)
[2020-01-08 21:48] VITALS: BP 129/64
[2020-01-09] MEDS: MORPHINE SULF INJ 2 MG/ML SYRINGE 1ML IV PRN ×5 (04:54→23:41)
[2020-01-09 05:00] VITALS: BP 136/58
[2020-01-09 05:37] LABS: Basophils # (auto) 0 10 ^3/uL (0-0.2); Basophils % (auto) 0.5 % (0.0-2.0); Eosinophils # (auto) 0.1 10 ^3/uL (0-0.8); Eosinophils % (auto) 1.7 % (0.0-7.0); Hematocrit 38.9 % (36.0-46.0); Lymphocytes # (auto) 1.6 10 ^3/uL (0.4-5.4); Lymphocytes % (auto) 21.3 % (10.0-50.0); Mean Corpuscular Hemoglobin 32.3 pg (28.0-32.0); Mean Corpuscular Hgb Conc. 33.5 g/dL (32.0-36.0); Mean Corpuscular Volume 96.4 fL (80.0-100.0); Monocytes # (auto) 0.8 10 ^3/uL (0-1.3); Monocytes % (auto) 10.3 % (0.0-12.0); Neutrophils # (auto) 4.9 10 ^3/uL (1.6-8.6); Neutrophils % (auto) 66.2 % (37.0-80.0); Nucleated Red Blood Cells % 0.1 %; Platelet Count (auto) 75 10^3/uL (140-450); Red Blood Cells 4.04 10^6/uL (4.0-5.20); Red Cell Distribution Width 15.8 % (11.8-14.3); White Blood Cell 7.4 10^3/uL (4.4-10.8)
[2020-01-09] MEDS: VANCOMYCIN 1GM/250ML 250 ML IV SCH ×2 (06:33→17:43)
[2020-01-09 07:36] LABS: Anion Gap 6 (5-15); BUN/Creatinine Ratio 14.4; Blood Urea Nitrogen 14 mg/dL (7-18); Carbon Dioxide 23 mmol/L (21-32); Chloride 116 mmol/L (98-107); GFR African American 75 mL/min; GFR Non-African American 62 mL/min; Glucose 128 mg/dL (74-106); Potassium 3.3 mmol/L (3.5-5.1); Sodium 145 mmol/L (136-145)
[2020-01-09 07:38] LABS: Calcium 8.3 mg/dL (8.5-10.1)
[2020-01-09 09:00] VITALS: BP 140/73
[2020-01-09] MEDS: ATORVASTATIN 20 MG TAB PO SCH (10:23)
[2020-01-09] MEDS: FLUoxetine HCL 20 MG CAP PO SCH (10:23)
[2020-01-09] MEDS: PROPRANOLOL HCL 20 MG TAB PO SCH (10:23)
[2020-01-09] MEDS: SPIRONOLACTONE 25 MG TAB PO SCH (10:23)
[2020-01-09 13:00] VITALS: BP 143/77
[2020-01-09 16:51] VITALS: BP 152/84
[2020-01-09 20:00] VITALS: BP 127/57
[2020-01-09] MEDS: MIRTAZAPINE 30 MG TAB PO SCH (21:43)
[2020-01-09 22:00] VITALS: BP 127/57
[2020-01-09] MEDS: LORazepam 0.5 MG TAB PO PRN (22:32)
[2020-01-10 05:00] VITALS: BP 137/60
[2020-01-10] MEDS: MORPHINE SULF INJ 2 MG/ML SYRINGE 1ML IV PRN ×3 (06:01→15:34)
[2020-01-10] MEDS: VANCOMYCIN 1GM/250ML 250 ML IV SCH ×2 (06:01→17:44)
[2020-01-10 08:49] VITALS: BP 153/76
[2020-01-10] MEDS: FLUoxetine HCL 20 MG CAP PO SCH (09:46)
[2020-01-10] MEDS: SPIRONOLACTONE 25 MG TAB PO SCH (09:46)
[2020-01-10] MEDS: ATORVASTATIN 20 MG TAB PO SCH (09:46)
[2020-01-10] MEDS: PROPRANOLOL HCL 20 MG TAB PO SCH (09:47)
[2020-01-10 12:38] VITALS: BP 143/75
[2020-01-10] MEDS: LORazepam 0.5 MG TAB PO PRN (15:34)
[2020-01-10 16:40] VITALS: BP 143/74
[2020-01-10 18:03] VITALS: BP 153/76
== END 2020-01-10 20:12 | disposition home or self-care (01) | DRG 45 ==
LOC: ER 17:48 → TELE-WESTW 17:49
PROVIDERS: ADMIT Internal Medicine; ATTEND Internal Medicine
DX: I63.9 Cerebral infarction, unspecified (principal); G93.41 Metabolic encephalopathy; E11.22 Type 2 diabetes mellitus with diabetic chronic kidney disease; I13.0 Hypertensive heart and chronic kidney disease with heart failure and stage 1 through stage 4 chronic kidney disease, or unspecified chronic kidney disease; I50.22 Chronic systolic (congestive) heart failure; Z99.81 Dependence on supplemental oxygen; H57.02 Anisocoria; G40.909 Epilepsy, unspecified, not intractable, without status epilepticus; J44.9 Chronic obstructive pulmonary disease, unspecified; K74.60 Unspecified cirrhosis of liver; B19.20 Unspecified viral hepatitis C without hepatic coma; N18.9 Chronic kidney disease, unspecified; E78.5 Hyperlipidemia, unspecified; F41.9 Anxiety disorder, unspecified; F32.9 Major depressive disorder, single episode, unspecified; G47.30 Sleep apnea, unspecified; E78.00 Pure hypercholesterolemia, unspecified; F17.200 Nicotine dependence, unspecified, uncomplicated; G83.84 Todd's paralysis (postepileptic); H54.3 Unqualified visual loss, both eyes; I25.10 Atherosclerotic heart disease of native coronary artery without angina pectoris; K72.90 Hepatic failure, unspecified without coma; E66.9 Obesity, unspecified; M79.7 Fibromyalgia; Z79.899 Other long term (current) drug therapy; Z80.9 Family history of malignant neoplasm, unspecified; Z83.3 Family history of diabetes mellitus; Z82.49 Family history of ischemic heart disease and other diseases of the circulatory system; Z90.710 Acquired absence of both cervix and uterus; Z88.8 Allergy status to other drugs, medicaments and biological substances; Z68.26 Body mass index [BMI] 26.0-26.9, adult
CPT/HCPCS: 36415; 70450; 70551; 71045; 80048; 80053; 80202; 80320; 82140; 83605; 83735; 83880; 84443; 84484; 85025; 85610; 85730; 87040; 87077; 87186; 93005; 95819; 96360; 97110; 97116; 97163; 97530; 99291; G0378; J1642

== ENCOUNTER 2020-01-14 14:24 | Inpatient (IN) | payer MEDICAID ==
[~2020-01-14] VITALS: Ht 160 cm; Wt 72.4 kg
[2020-01-14 16:10] LABS: Basophils # (auto) 0 10 ^3/uL (0-0.2); Basophils % (auto) 0.3 % (0.0-2.0); Eosinophils # (auto) 0 10 ^3/uL (0-0.8); Eosinophils % (auto) 0.1 % (0.0-7.0); Hematocrit 36.7 % (36.0-46.0); Hemoglobin 12.5 g/dL (12.2-16.2); Lymphocytes # (auto) 1.2 10 ^3/uL (0.4-5.4); Lymphocytes % (auto) 12.6 % (10.0-50.0); Mean Corpuscular Hemoglobin 32.2 pg (28.0-32.0); Mean Corpuscular Volume 94.8 fL (80.0-100.0); Monocytes # (auto) 0.7 10 ^3/uL (0-1.3); Monocytes % (auto) 7.2 % (0.0-12.0); Neutrophils # (auto) 7.7 10 ^3/uL (1.6-8.6); Neutrophils % (auto) 79.8 % (37.0-80.0); Nucleated Red Blood Cells % 0.1 %; Platelet Count (auto) 68 10^3/uL (140-450); Red Blood Cells 3.87 10^6/uL (4.0-5.20); Red Cell Distribution Width 15.6 % (11.8-14.3); White Blood Cell 9.7 10^3/uL (4.4-10.8)
[2020-01-14 16:22] LABS: Chloride 114 mmol/L (98-107); Potassium 3.4 mmol/L (3.5-5.1); Sodium 147 mmol/L (136-145)
[2020-01-14 16:25] LABS: Lactic Acid w/Reflex 4.1 mmol/L (0.4-2.0)
[2020-01-14 16:25] LABS: Urine Bacteria NONE SEEN /hpf (None Seen); Urine Blood TRACE /uL (Negative); Urine Mucus FEW (None Seen); Urine Specific Gravity 1.021 (1.001-1.035); Urine WBC 3 /hpf (0 - 5)
[2020-01-14 16:31] LABS: Alanine Aminotransferase 29 U/L (13-56); Albumin 2.6 g/dL (3.4-5.0); Alkaline Phosphatase 107 U/L (45-117); Anion Gap 9 (5-15); Aspartate Aminotransferase 53 U/L (15-37); BUN/Creatinine Ratio 23.8; Bilirubin, Total 1.9 mg/dL (0.2-1.0); Blood Alcohol < 3.0 mg/dL (0-5); Blood Urea Nitrogen 24 mg/dL (7-18); Calcium 8.6 mg/dL (8.5-10.1); Carbon Dioxide 24 mmol/L (21-32); GFR African American 71 mL/min; GFR Non-African American 59 mL/min; Glucose 120 mg/dL (74-106); Magnesium 2.2 mg/dL (1.6-2.6); Total Protein 7.1 g/dL (6.4-8.2)
[2020-01-14 16:38] LABS: Alcohol, Urine < 3.0 mg/dL (0-10); Amphetamine Screen, Urine NEGATIVE (NEGATIVE); Barbiturate Scree,Urine NEGATIVE (NEGATIVE); Benzodiazephine Screen, Urine NEGATIVE (NEGATIVE); Cannabinoid Screen, Urine POSITIVE (NEGATIVE); Cocaine Screen, Urine NEGATIVE (NEGATIVE); Opiate Scree,Urine POSITIVE (NEGATIVE); Phencyclidine Screen, Urine NEGATIVE (NEGATIVE)
[2020-01-14 16:39] LABS: INR 1.17 (0.9-1.15); Partial Thromboplastin Time 26.9 sec (23.64-32.05)
[2020-01-14] MEDS ORDERED: LACTULOSE 20Gm/30ML SOLN PO ONE ×2 (19:15→20:00)
[2020-01-14] MEDS ORDERED: NITROGLYCERIN 0.4 MG SL TAB SL PRN (20:00)
[2020-01-14] MEDS ORDERED: ONDANSETRON HCL 4 MG/2 ML VIAL IV PRN (20:00)
[2020-01-14 22:28] LABS: Basophils # (auto) 0 10 ^3/uL (0-0.2); Basophils % (auto) 0.2 % (0.0-2.0); Eosinophils # (auto) 0 10 ^3/uL (0-0.8); Eosinophils % (auto) 0.4 % (0.0-7.0); Hematocrit 37.5 % (36.0-46.0); Hemoglobin 12.4 g/dL (12.2-16.2); Lymphocytes % (auto) 12.9 % (10.0-50.0); Mean Corpuscular Hgb Conc. 33.2 g/dL (32.0-36.0); Mean Corpuscular Volume 96.5 fL (80.0-100.0); Monocytes # (auto) 0.7 10 ^3/uL (0-1.3); Monocytes % (auto) 8.7 % (0.0-12.0); Neutrophils # (auto) 6.2 10 ^3/uL (1.6-8.6); Neutrophils % (auto) 77.8 % (37.0-80.0); Nucleated Red Blood Cells % 0.1 %; Platelet Count (auto) 71 10^3/uL (140-450); Red Blood Cells 3.89 10^6/uL (4.0-5.20); Red Cell Distribution Width 15.6 % (11.8-14.3)
[2020-01-14 22:37] LABS: BUN/Creatinine Ratio 16.7; Calcium 8.9 mg/dL (8.5-10.1); Potassium 3.3 mmol/L (3.5-5.1)
[2020-01-14] MEDS ORDERED: LORazepam 0.5 MG TAB PO ONE (22:45)
[2020-01-15] MEDS ORDERED: LORazepam 2MG/ML-1ML VIAL IV STA (00:18)
[2020-01-15 01:26] VITALS: BP 101/70
[2020-01-15 05:00] VITALS: BP 145/71
[2020-01-15] MEDS ORDERED: MORP30TA PO (06:04)
[2020-01-15] MEDS ORDERED: FLUO60TA7 PO (06:04)
[2020-01-15] MEDS ORDERED: MIRT30TA PO (06:04)
[2020-01-15 09:00] VITALS: BP 138/74
[2020-01-15] MEDS: PROPRANOLOL HCL 20 MG TAB PO SCH (10:00)
[2020-01-15] MEDS: FUROSEMIDE 40 MG TAB PO SCH (10:00)
[2020-01-15] MEDS: OMEPRAZOLE 20MG/10ML ORAL SUSP PO SCH (10:00)
[2020-01-15] MEDS: FLUoxetine HCL 10 MG CAP PO SCH (10:38)
[2020-01-15] MEDS: SPIRONOLACTONE 25 MG TAB PO SCH (10:38)
[2020-01-15 14:39] VITALS: BP 139/84
[2020-01-15] MEDS: ALPRAZolam 0.25 MG TAB PO PRN (15:45)
[2020-01-15 16:40] VITALS: BP 131/64
[2020-01-15 22:00] VITALS: BP 113/86
[2020-01-15] MEDS ORDERED: MORP1TAB12 PO (23:20)
[2020-01-15] MEDS: MIRTAZAPINE 30 MG TAB PO SCH (23:56)
[2020-01-15] MEDS: MORPHINE SULF 15mg ER tab PO SCH (23:56)
[2020-01-16] MEDS ORDERED: LORazepam 2MG/ML-1ML VIAL IV ONE (01:45)
[2020-01-16 05:00] VITALS: BP 124/71
[2020-01-16 09:00] VITALS: BP 118/59
[2020-01-16] MEDS ORDERED: MORPHINE SULF 15mg ER tab PO SCH (10:00)
[2020-01-16] MEDS: OMEPRAZOLE 20MG/10ML ORAL SUSP PO SCH (10:00)
[2020-01-16] MEDS: SPIRONOLACTONE 25 MG TAB PO SCH (10:16)
[2020-01-16] MEDS: FUROSEMIDE 40 MG TAB PO SCH (10:17)
[2020-01-16] MEDS: PROPRANOLOL HCL 20 MG TAB PO SCH (10:18)
[2020-01-16] MEDS: MORPHINE SULF 15mg ER tab PO SCH ×2 (10:19→21:38)
[2020-01-16] MEDS: FLUoxetine HCL 10 MG CAP PO SCH (10:19)
[2020-01-16 13:00] VITALS: BP 122/74
[2020-01-16] MEDS: ALPRAZolam 0.25 MG TAB PO PRN (13:53)
[2020-01-16 16:33] VITALS: BP 120/66
[2020-01-16] MEDS ORDERED: MIRTAZAPINE 30 MG TAB PO SCH (18:00)
[2020-01-16 20:33] VITALS: BP 115/62
[2020-01-16] MEDS: MIRTAZAPINE 30 MG TAB PO SCH (21:38)
[2020-01-17] MEDS: ALPRAZolam 0.25 MG TAB PO PRN (03:16)
[2020-01-17 05:08] VITALS: BP 111/62
[2020-01-17] MEDS ORDERED: LACTULOSE 20Gm/30ML SOLN PO ONE (09:00)
[2020-01-17] MEDS ORDERED: MIRTAZAPINE 30 MG TAB PO SCH ×2 (09:00→22:00)
[2020-01-17] MEDS ORDERED: FLUoxetine HCL 20 MG CAP PO SCH ×2 (09:15)
[2020-01-17] MEDS ORDERED: FLUoxetine HCL 20 MG CAP PO ONE (09:15)
[2020-01-17] MEDS: LACTULOSE 20Gm/30ML SOLN PO SCH ×4 (09:34→21:31)
[2020-01-17] MEDS: PANTOPRAZOLE 40 MG TAB PO SCH (09:34)
[2020-01-17] MEDS: SPIRONOLACTONE 25 MG TAB PO SCH (09:34)
[2020-01-17] MEDS: FUROSEMIDE 40 MG TAB PO SCH (09:35)
[2020-01-17] MEDS: PROPRANOLOL HCL 20 MG TAB PO SCH (09:36)
[2020-01-17] MEDS: MORPHINE SULF 15mg ER tab PO SCH ×2 (09:36→21:30)
[2020-01-17 09:45] VITALS: BP 106/59
[2020-01-17 12:44] VITALS: BP 118/67
[2020-01-17 17:23] VITALS: BP 122/66
[2020-01-17] MEDS: hydrOXYzine 25 MG TAB or CAP PO PRN (20:09)
[2020-01-17 21:52] VITALS: BP 102/50
[2020-01-18] MEDS: LACTULOSE 20Gm/30ML SOLN PO SCH ×6 (02:00→21:34)
[2020-01-18 05:00] VITALS: BP_SYST 102; BP_SYST 125; BP_DIAS 50; BP_DIAS 66
[2020-01-18] MEDS: hydrOXYzine 25 MG TAB or CAP PO PRN (05:54)
[2020-01-18 09:00] VITALS: BP 116/62
[2020-01-18] MEDS: MIRTAZAPINE 30 MG TAB PO SCH ×2 (09:00→21:34)
[2020-01-18] MEDS ORDERED: FLUoxetine HCL 20 MG CAP PO SCH (10:00)
[2020-01-18] MEDS: MORPHINE SULF 15mg ER tab PO SCH ×2 (10:24→21:34)
[2020-01-18] MEDS: FUROSEMIDE 40 MG TAB PO SCH (10:25)
[2020-01-18] MEDS: SPIRONOLACTONE 25 MG TAB PO SCH (10:25)
[2020-01-18] MEDS: PANTOPRAZOLE 40 MG TAB PO SCH (10:25)
[2020-01-18] MEDS: FLUoxetine HCL 20 MG CAP PO SCH (10:25)
[2020-01-18] MEDS: PROPRANOLOL HCL 20 MG TAB PO SCH (10:26)
[2020-01-18 13:00] VITALS: BP 107/59
[2020-01-18 17:00] VITALS: BP 115/65
[2020-01-18 22:00] VITALS: BP 100/60
[2020-01-18] MEDS: ALPRAZolam 0.25 MG TAB PO PRN (23:13)
[2020-01-19] MEDS: LACTULOSE 20Gm/30ML SOLN PO SCH ×4 (02:00→14:00)
[2020-01-19 05:00] VITALS: BP 121/68
[2020-01-19 09:00] VITALS: BP 127/88
[2020-01-19] MEDS: SPIRONOLACTONE 25 MG TAB PO SCH (09:45)
[2020-01-19] MEDS: PROPRANOLOL HCL 20 MG TAB PO SCH (09:46)
[2020-01-19] MEDS: FUROSEMIDE 40 MG TAB PO SCH (09:46)
[2020-01-19] MEDS: MORPHINE SULF 15mg ER tab PO SCH (09:46)
[2020-01-19] MEDS: PANTOPRAZOLE 40 MG TAB PO SCH (09:47)
[2020-01-19] MEDS: FLUoxetine HCL 20 MG CAP PO SCH (09:47)
[2020-01-19 11:02] VITALS: BP 121/52
[2020-01-19 13:00] VITALS: BP 142/68
== END 2020-01-19 15:30 | disposition home or self-care (01) | DRG 279 ==
LOC: EDBD 14:24 → ER 14:24 → TELE 14:25 → TELE-WESTW 01-15 00:47
PROVIDERS: ADMIT Internal Medicine; ATTEND Internal Medicine
DX: K72.90 Hepatic failure, unspecified without coma (principal); G93.41 Metabolic encephalopathy; D69.6 Thrombocytopenia, unspecified; E11.22 Type 2 diabetes mellitus with diabetic chronic kidney disease; I50.9 Heart failure, unspecified; F11.20 Opioid dependence, uncomplicated; I13.0 Hypertensive heart and chronic kidney disease with heart failure and stage 1 through stage 4 chronic kidney disease, or unspecified chronic kidney disease; N39.0 Urinary tract infection, site not specified; K74.60 Unspecified cirrhosis of liver; B19.20 Unspecified viral hepatitis C without hepatic coma; F10.20 Alcohol dependence, uncomplicated; F19.10 Other psychoactive substance abuse, uncomplicated; G47.00 Insomnia, unspecified; F32.9 Major depressive disorder, single episode, unspecified; F41.9 Anxiety disorder, unspecified; N18.9 Chronic kidney disease, unspecified; J44.9 Chronic obstructive pulmonary disease, unspecified; E78.5 Hyperlipidemia, unspecified; Z86.73 Personal history of transient ischemic attack (TIA), and cerebral infarction without residual deficits; Z88.8 Allergy status to other drugs, medicaments and biological substances; Z79.899 Other long term (current) drug therapy; Z90.710 Acquired absence of both cervix and uterus; Z81.1 Family history of alcohol abuse and dependence; Z81.8 Family history of other mental and behavioral disorders; Z82.49 Family history of ischemic heart disease and other diseases of the circulatory system; Z83.3 Family history of diabetes mellitus; Z83.42 Family history of familial hypercholesterolemia; Z87.891 Personal history of nicotine dependence; Z11.59 Encounter for screening for other viral diseases
CPT/HCPCS: 36415; 51702; 70450; 71045; 80048; 80053; 80307; 80320; 81001; 82140; 83605; 83735; 84484; 85025; 85610; 85730; 87040; 87081; 93005; 95819; 96374; 97163; G0378; J2405

== ENCOUNTER 2020-04-07 21:28 | Inpatient (IN) | payer MEDICAID ==
[~2020-04-07] VITALS: Ht 165.1 cm; Wt 75.5 kg
[~2020-04-07 21:28] MED LIST changes: -ALPR0.5T PO; -FLUO10TA PO; +FLUO60TA7 PO; -FURO1TAB33 PO; -GABA300C PO; -MIRT1TAB40 PO; +MIRT30TA PO; -OXYC10TA44 PO
[2020-04-07 22:20] LABS: Basophils # (auto) 0.1 10 ^3/uL (0-0.2); Basophils % (auto) 0.9 % (0.0-2.0); Eosinophils # (auto) 0.1 10 ^3/uL (0-0.8); Eosinophils % (auto) 1.3 % (0.0-7.0); Hematocrit 33.7 % (36.0-46.0); Hemoglobin 11.4 g/dL (12.2-16.2); Lymphocytes # (auto) 0.7 10 ^3/uL (0.4-5.4); Lymphocytes % (auto) 9.3 % (10.0-50.0); Mean Corpuscular Hemoglobin 31.2 pg (28.0-32.0); Mean Corpuscular Hgb Conc. 33.7 g/dL (32.0-36.0); Mean Corpuscular Volume 92.5 fL (80.0-100.0); Monocytes # (auto) 0.5 10 ^3/uL (0-1.3); Monocytes % (auto) 6.5 % (0.0-12.0); Neutrophils # (auto) 6.1 10 ^3/uL (1.6-8.6); Platelet Count (auto) 87 10^3/uL (140-450); Red Blood Cells 3.65 10^6/uL (4.0-5.20); Red Cell Distribution Width 16.1 % (11.8-14.3); White Blood Cell 7.4 10^3/uL (4.4-10.8)
[2020-04-07 22:41] LABS: Alanine Aminotransferase 17 U/L (13-56); Albumin 2.1 g/dL (3.4-5.0); Anion Gap 3 (5-15); Blood Urea Nitrogen 11 mg/dL (7-18); Calcium 7.5 mg/dL (8.5-10.1); Carbon Dioxide 29 mmol/L (21-32); Chloride 106 mmol/L (98-107); Glucose 133 mg/dL (74-106); Magnesium 1.7 mg/dL (1.6-2.6); Potassium 3.6 mmol/L (3.5-5.1); Sodium 138 mmol/L (136-145)
[2020-04-07 22:45] LABS: INR 1.16 (0.9-1.15)
[2020-04-07 22:46] LABS: Alkaline Phosphatase 183 U/L (45-117); Aspartate Aminotransferase 28 U/L (15-37); BUN/Creatinine Ratio 12.9; Bilirubin, Total 1.2 mg/dL (0.2-1.0); GFR African American 87 mL/min; GFR Non-African American 72 mL/min; Total Protein 6.7 g/dL (6.4-8.2)
[2020-04-07 23:00] LABS: Partial Thromboplastin Time 73.7 sec (23.0-31.2)
[2020-04-07 23:25] LABS: Urine Bacteria FEW /hpf (None Seen); Urine Blood Negative /uL (Negative); Urine Specific Gravity 1.013 (1.001-1.035); Urine WBC 1 /hpf (0 - 5)
[2020-04-07 23:52] LABS: Alcohol, Urine < 3.0 mg/dL (0-10); Amphetamine Screen, Urine NEGATIVE (NEGATIVE); Barbiturate Scree,Urine NEGATIVE (NEGATIVE); Benzodiazephine Screen, Urine NEGATIVE (NEGATIVE); Cannabinoid Screen, Urine NEGATIVE (NEGATIVE); Cocaine Screen, Urine NEGATIVE (NEGATIVE); Opiate Scree,Urine POSITIVE (NEGATIVE); Phencyclidine Screen, Urine NEGATIVE (NEGATIVE)
[2020-04-08] MEDS ORDERED: ACETAMINOPHEN 325 MG TAB PO ONE (03:00)
[2020-04-08] MEDS ORDERED: MORPHINE SULF INJ 2 MG/ML SYRINGE 1ML IV ONE (09:30)
[2020-04-08] MEDS ORDERED: ONDANSETRON HCL 4 MG/2 ML VIAL IV ONE (09:30)
[2020-04-08] MEDS ORDERED: OXYCODONE W/ ACETAMINOPHEN 5/325MG TABLET PO ONE (15:30)
[2020-04-08] MEDS ORDERED: cefTRIAXone 1GM/50ML D5W 50 ML IV ONE (17:00)
[2020-04-08] MEDS ORDERED: MORPHINE SULF INJ 2 MG/ML SYRINGE 1ML IV PRN (17:15)
[2020-04-08] MEDS ORDERED: NITROGLYCERIN 0.4 MG SL TAB SL PRN (17:15)
[2020-04-08] MEDS ORDERED: ONDANSETRON HCL 4 MG/2 ML VIAL IV PRN (17:15)
[2020-04-08] MEDS: AZITHROMYCIN 500MG/ 250ML 250 ML IV SCH (17:54)
[2020-04-08] MEDS: MORPHINE SULF INJ 2 MG/ML SYRINGE 1ML IV PRN (20:00)
[2020-04-08] MEDS: methylPREDNISolone SOD SUCC 40 MG/ML VL IV SCH (22:08)
[2020-04-08] MEDS: ATORVASTATIN 20 MG TAB PO SCH (22:08)
[2020-04-08 23:16] VITALS: BP 105/45
--- NOTE | 2020-04-08 23:16 | NUR ---
Telemetry admit from [facility] admitted to Telemetry unit. Patient oriented to FRAN WILLOUGHBY RN primary RN, unit, room, bed, and unit policies regarding patient care and visiting hours. Patient now on continuous telemetry monitoring, tele box #19 and telemetry reading on arrival to unit is 67. Patient placed on bedside oxygen 3L via nasal cannula and encouraged to call if they need something. All questions and concerns addressed, patient verbalized understanding. Will continue to monitor.
[2020-04-09 05:00] VITALS: BP 93/43
[2020-04-09] MEDS: MORPHINE SULF INJ 2 MG/ML SYRINGE 1ML IV PRN ×2 (06:52→21:30)
--- NOTE | 2020-04-09 06:52 | NUR ---
Pain Medication Administration Patient complaining of generalized pain 10/10. Will administer pain medication per MD order. Will continue to monitor and will endorse pain level reassessment to AM nurse.
[2020-04-09 07:20] LABS: Hemoglobin 11.4 g/dL (12.2-16.2); Mean Corpuscular Volume 93.3 fL (80.0-100.0); Platelet Count (auto) 42 10^3/uL (140-450); White Blood Cell 6.3 10^3/uL (4.4-10.8)
[2020-04-09 07:22] LABS: Hematocrit 34.5 % (36.0-46.0); Mean Corpuscular Hemoglobin 30.8 pg (28.0-32.0); Mean Corpuscular Hgb Conc. 33.1 g/dL (32.0-36.0); Red Blood Cells 3.69 10^6/uL (4.0-5.20); Red Cell Distribution Width 15.9 % (11.8-14.3)
[2020-04-09 07:31] LABS: Band Neutrophils % (manual) 0; Basophils % (manual) 0 (0.0-2.0); Blast Cells 0; Metamyelocytes % 0; Myelocytes % 0; Promyelocytes % 0; Reactive Lymphocytes 0
[2020-04-09 07:39] LABS: BUN/Creatinine Ratio 18.5; Calcium 8.3 mg/dL (8.5-10.1); Potassium 4.3 mmol/L (3.5-5.1)
[2020-04-09 08:06] LABS: Eosinophils % (manual) 1 (0-7); Lymphocytes % (manual) 6 (10.0-50.0); Monocytes % (manual) 1 (0-12)
[2020-04-09 09:00] VITALS: BP 123/59
[2020-04-09] MEDS: LACTULOSE 20Gm/30ML SOLN PO SCH (10:00)
[2020-04-09] MEDS: LORATADINE 10 MG TAB PO SCH (11:30)
[2020-04-09] MEDS: cefTRIAXone 1GM/50ML D5W 50 ML IV SCH (12:17)
[2020-04-09] MEDS: methylPREDNISolone SOD SUCC 40 MG/ML VL IV SCH ×2 (12:17→21:30)
[2020-04-09] MEDS: AZITHROMYCIN 500MG/ 250ML 250 ML IV SCH (12:18)
[2020-04-09] MEDS: OMEPRAZOLE 20MG/10ML ORAL SUSP PO SCH (12:18)
[2020-04-09] MEDS: SPIRONOLACTONE 25 MG TAB PO SCH (12:18)
[2020-04-09 13:00] VITALS: BP 106/54
[2020-04-09 17:00] VITALS: BP 125/73
--- NOTE | 2020-04-09 19:55 | NUR ---
Opening Shift Note Assumed care of patient, awake and alert. No S/S of distress/SOB or pain. Instructed on POC and to call for assist PRN, will continue to monitor for changes Q1hr and PRN.
[2020-04-09 20:00] VITALS: BP 100/57
[2020-04-09 21:00] VITALS: BP 100/57
[2020-04-09] MEDS: ATORVASTATIN 20 MG TAB PO SCH (21:30)
--- NOTE | 2020-04-10 02:50 | NUR ---
Report Given Report/SBAR given to NOC BOOM Brownlee.
--- NOTE | 2020-04-10 02:52 | NUR ---
Received report from Cathleen, patient is to be transferred from room 244-6 to room 289 bed A.
--- NOTE | 2020-04-10 03:15 | NUR ---
Transferred Patient transferred via wheelchair. No pain or sign of distress. Patient transferred to room 289A. NOC BOOM Brownlee.
--- NOTE | 2020-04-10 03:18 | NUR ---
Patient is now resting in bed. No S/S of pain, SOB, or distress. Call light is within reach, bed alarm is on, instructed patient to call if she needs to use the restroom, will continue to monitor.
[2020-04-10 03:50] VITALS: BP 115/71
--- NOTE | 2020-04-10 08:35 | NUR ---
Material called regarding a brace, will deliver soon.
[2020-04-10 08:56] VITALS: BP 125/72
[2020-04-10] MEDS: MORPHINE SULF INJ 2 MG/ML SYRINGE 1ML IV PRN (09:04)
[2020-04-10] MEDS: LORATADINE 10 MG TAB PO SCH (09:20)
[2020-04-10] MEDS: SPIRONOLACTONE 25 MG TAB PO SCH (09:20)
[2020-04-10] MEDS: FLUoxetine HCL 20 MG CAP PO SCH ×2 (09:20→10:00)
[2020-04-10] MEDS: methylPREDNISolone SOD SUCC 40 MG/ML VL IV SCH (09:20)
[2020-04-10] MEDS: cefTRIAXone 1GM/50ML D5W 50 ML IV SCH (09:21)
[2020-04-10] MEDS: LACTULOSE 20Gm/30ML SOLN PO SCH (09:23)
[2020-04-10] MEDS: AZITHROMYCIN 500MG/ 250ML 250 ML IV SCH (10:06)
[2020-04-10] MEDS: OMEPRAZOLE 20MG/10ML ORAL SUSP PO SCH (10:06)
--- NOTE | 2020-04-10 11:18 | NUR ---
assessment Patient is a 64 year old female who is alert and oriented. Patients cognitive abilities are intact. Prior to admission patient lived home alone and functioned with assistance. Per patient she will return home to her prior living arrangements post discharge and will need transport home. Patient informed me she has a fww, bedside commode, and home oxygen for home use. Patients PCP is Dr Corona. Patient informed me her nirashaun Flores is still her caregiver. Patient informed me she feels safe returning home on discharge. Patient has no post discharge needs identified at this time. I informed patient she has a right to speak to a social science manager regarding all care. I informed patient she has a right to participate in any and all discharge planning. Patient does not have a POA and advanced directive. I have offered patient information on POA and advanced directives. I informed the patient the advantages and benefits of having an Advanced Directive. Patient verbalized understanding and agreed to discharge plan. Addendum: 04/10/20 at 1137 by Jalyn PICHARDO Amended: Links added.
--- NOTE | 2020-04-10 11:23 | NUR ---
Attempted to call [phone] regarding no one deliver a brace, nobody grape picker the phone, will try later.
[2020-04-10 11:47] VITALS: BP 125/72
--- NOTE | 2020-04-10 11:50 | NUR ---
Brace delivered at beside.
[2020-04-10 12:46] VITALS: BP 108/59
--- NOTE | 2020-04-10 13:00 | NUR ---
Brace placed to the right hand.
--- NOTE | 2020-04-10 14:38 | NUR ---
D/C Planning Regarding social service consult for transportation. Faxed clinical information to [facility] requesting for a 15:30 via gurney with oxygen. Per Anabel with [facility] the next available time [employer] transportation is able to transport patient is at 19:00 via gurney with oxygen . Informed BOOM Larsen.
--- NOTE | 2020-04-10 15:57 | NUR ---
Patient requires oxygen while transport home. However, transportation was set up at 7 PM. Patient refused to wait and willing to go home without oxygen. Risks and benefits explained, patient verbalized understanding. CN notified. Taxi Voucher given.
--- NOTE | 2020-04-10 16:35 | NUR ---
Discharge instructions given as ordered. Encourage to follow up with PMD (Follow up with Dr. Corona in 05/02/20 At 12.00 Address : [address], [phone]) as instructed. All questions and concerns addressed. Patient verbalized understanding. Medication reconciliation form completed and copy given to patient. IV removed with catheter intact, pressure dressing applied. Telemetry unit returned to ICU. Patient taken to vehicle via wheelchair with all personal belongings, accompanied by staff and family member. No distress noted at time of departure.
[2020-04-10 16:51] VITALS: BP 107/62
== END 2020-04-10 16:35 | disposition home or self-care (01) | DRG 139 ==
LOC: EDBD 21:28 → ER 21:28 → TELE 21:29 → TELE-E-ADS 04-08 23:21 → TELE-WESTW 04-10 03:10
PROVIDERS: ADMIT Internal Medicine; ATTEND Internal Medicine
DX: J18.9 Pneumonia, unspecified organism (principal); J96.01 Acute respiratory failure with hypoxia; J44.1 Chronic obstructive pulmonary disease with (acute) exacerbation; E11.9 Type 2 diabetes mellitus without complications; G89.29 Other chronic pain; I10 Essential (primary) hypertension; J44.0 Chronic obstructive pulmonary disease with (acute) lower respiratory infection; S62.390A Other fracture of second metacarpal bone, right hand, initial encounter for closed fracture; F17.210 Nicotine dependence, cigarettes, uncomplicated; K74.60 Unspecified cirrhosis of liver; K76.6 Portal hypertension; Z20.828 Contact with and (suspected) exposure to other viral communicable diseases; Z79.4 Long term (current) use of insulin; Z79.899 Other long term (current) drug therapy; Z82.49 Family history of ischemic heart disease and other diseases of the circulatory system; Z83.3 Family history of diabetes mellitus; Z90.710 Acquired absence of both cervix and uterus; Z81.8 Family history of other mental and behavioral disorders; W18.30XA Fall on same level, unspecified, initial encounter; Y93.89 Activity, other specified; Y92.89 Other specified places as the place of occurrence of the external cause; Y99.0 Civilian activity done for income or pay; Z71.6 Tobacco abuse counseling; K80.20 Calculus of gallbladder without cholecystitis without obstruction; E78.5 Hyperlipidemia, unspecified; Z99.81 Dependence on supplemental oxygen; Z90.89 Acquired absence of other organs; Z88.5 Allergy status to narcotic agent; Z88.8 Allergy status to other drugs, medicaments and biological substances
CPT/HCPCS: 36415; 71045; 71275; 73130; 80048; 80053; 80307; 80320; 81001; 82140; 83735; 83880; 84484; 85007; 85025; 85027; 85379; 85610; 85730; 87040; 87077; 87186; 87426; 94762; 96365; 96375; G0378; J0696; J2405

== ENCOUNTER 2020-07-11 19:44 | Emergency (ER) | payer MEDICAID ==
[~2020-07-11] VITALS: Ht 165.1 cm; Wt 68.0 kg
[2020-07-11 23:00] LABS: Basophils # (auto) 0 10 ^3/uL (0-0.2); Basophils % (auto) 0.2 % (0.0-2.0); Eosinophils # (auto) 0 10 ^3/uL (0-0.8); Eosinophils % (auto) 0.1 % (0.0-7.0); Mean Corpuscular Volume 90.5 fL (80.0-100.0)
[2020-07-11 23:03] LABS: Hematocrit 36.3 % (36.0-46.0); Hemoglobin 12.2 g/dL (12.2-16.2); Lymphocytes # (auto) 0.5 10 ^3/uL (0.4-5.4); Lymphocytes % (auto) 5.7 % (10.0-50.0); Mean Corpuscular Hemoglobin 30.5 pg (28.0-32.0); Mean Corpuscular Hgb Conc. 33.7 g/dL (32.0-36.0); Monocytes # (auto) 0.4 10 ^3/uL (0-1.3); Monocytes % (auto) 3.8 % (0.0-12.0); Neutrophils # (auto) 8.6 10 ^3/uL (1.6-8.6); Neutrophils % (auto) 90.2 % (37.0-80.0); Platelet Count (auto) 62 10^3/uL (140-450); Red Blood Cells 4.01 10^6/uL (4.0-5.20); Red Cell Distribution Width 15.2 % (11.8-14.3); White Blood Cell 9.6 10^3/uL (4.4-10.8)
[2020-07-11 23:23] LABS: Albumin 2.2 g/dL (3.4-5.0); Anion Gap 4 (5-15); Blood Urea Nitrogen 10 mg/dL (7-18); Calcium 7.9 mg/dL (8.5-10.1); Carbon Dioxide 28 mmol/L (21-32); Chloride 104 mmol/L (98-107); Glucose 148 mg/dL (74-106); Potassium 3.2 mmol/L (3.5-5.1); Sodium 136 mmol/L (136-145)
[2020-07-11 23:26] LABS: Alanine Aminotransferase 25 U/L (13-56); BUN/Creatinine Ratio 9.5; Blood Alcohol < 3.0 mg/dL (0-5); GFR African American 68 mL/min; GFR Non-African American 56 mL/min
[2020-07-11 23:40] LABS: Alkaline Phosphatase 127 U/L (45-117); Aspartate Aminotransferase 41 U/L (15-37); Bilirubin, Total 2.8 mg/dL (0.2-1.0); Total Protein 7.2 g/dL (6.4-8.2)
[2020-07-12 04:06] VITALS: BP 109/64
== END 2020-07-12 05:24 | disposition home or self-care (01) ==
LOC: EDBD 19:44 → EDUNIT# 19:44 → ER 19:44
DX: R41.82 Altered mental status, unspecified (principal); F41.9 Anxiety disorder, unspecified; I12.9 Hypertensive chronic kidney disease with stage 1 through stage 4 chronic kidney disease, or unspecified chronic kidney disease; N18.9 Chronic kidney disease, unspecified; J44.9 Chronic obstructive pulmonary disease, unspecified; E78.5 Hyperlipidemia, unspecified; Z90.710 Acquired absence of both cervix and uterus; Z79.899 Other long term (current) drug therapy; Z88.8 Allergy status to other drugs, medicaments and biological substances
CPT/HCPCS: 36415; 71045; 80053; 80320; 84484; 85025; 93005; 99285; J7030

== ENCOUNTER 2020-07-16 04:16 | Observation (INO) | payer MEDICAID ==
[~2020-07-16] VITALS: Ht 165.1 cm; Wt 80.7 kg
[~2020-07-16 04:16] MED LIST changes: +MIRT-66 PO; -MIRT30TA PO; +SPIR25TA PO; -SPIR25TA88 PO
[2020-07-16 08:14] LABS: Urine Amorphous Crystal FEW /hpf (None Seen); Urine Bacteria FEW /hpf (None Seen); Urine Blood 3+ /uL (Negative); Urine Specific Gravity 1.008 (1.001-1.035); Urine WBC 2 /hpf (0 - 5)
[2020-07-16 09:01] LABS: Basophils # (auto) 0.1 10 ^3/uL (0-0.2); Basophils % (auto) 0.8 % (0.0-2.0); Eosinophils # (auto) 0.1 10 ^3/uL (0-0.8); Eosinophils % (auto) 1.8 % (0.0-7.0); Hematocrit 37.4 % (36.0-46.0); Hemoglobin 12.2 g/dL (12.2-16.2); Lymphocytes # (auto) 0.5 10 ^3/uL (0.4-5.4); Lymphocytes % (auto) 7.7 % (10.0-50.0); Mean Corpuscular Hemoglobin 30.3 pg (28.0-32.0); Mean Corpuscular Hgb Conc. 32.8 g/dL (32.0-36.0); Mean Corpuscular Volume 92.3 fL (80.0-100.0); Monocytes # (auto) 0.4 10 ^3/uL (0-1.3); Monocytes % (auto) 5.3 % (0.0-12.0); Neutrophils # (auto) 5.8 10 ^3/uL (1.6-8.6); Neutrophils % (auto) 84.4 % (37.0-80.0); Nucleated Red Blood Cells % 0.2 %; Platelet Count (auto) 74 10^3/uL (140-450); Red Blood Cells 4.05 10^6/uL (4.0-5.20); Red Cell Distribution Width 15.7 % (11.8-14.3); White Blood Cell 6.8 10^3/uL (4.4-10.8)
[2020-07-16 09:20] LABS: Alanine Aminotransferase 28 U/L (13-56); Albumin 2.2 g/dL (3.4-5.0); Anion Gap 5 (5-15); Aspartate Aminotransferase 37 U/L (15-37); BUN/Creatinine Ratio 5.6; Blood Urea Nitrogen 6 mg/dL (7-18); Calcium 7.8 mg/dL (8.5-10.1); Carbon Dioxide 29 mmol/L (21-32); Chloride 107 mmol/L (98-107); GFR African American 66 mL/min; GFR Non-African American 54 mL/min; Glucose 99 mg/dL (74-106); Potassium 3.3 mmol/L (3.5-5.1); Sodium 141 mmol/L (136-145)
[2020-07-16 09:25] LABS: Alkaline Phosphatase 128 U/L (45-117); Bilirubin, Total 2.6 mg/dL (0.2-1.0); Total Protein 7.3 g/dL (6.4-8.2)
[2020-07-16] MEDS ORDERED: MORPHINE SULF INJ 2 MG/ML SYRINGE 1ML IV PRN (11:45)
[2020-07-16] MEDS ORDERED: IPRATROPIUM BROM 0.5 MG/2.5ML INH SOL NEB ONE (11:45)
[2020-07-16] MEDS ORDERED: NITROGLYCERIN 0.4 MG SL TAB SL PRN (11:45)
[2020-07-16] MEDS ORDERED: ALBUTEROL SULF 2.5 MG/0.5ML(0.5%) NEB SOLN NEB ONE (11:45)
[2020-07-16] MEDS ORDERED: ACETAMINOPHEN 325 MG TAB PO ONE (12:23)
[2020-07-16] MEDS ORDERED: ACETAMINOPHEN 325 MG TAB PO PRN (12:30)
[2020-07-16] MEDS: AZITHROMYCIN 500MG/ 250ML 250 ML IV SCH (12:31)
[2020-07-16] MEDS: MIRTAZAPINE 30 MG TAB PO SCH (19:45)
[2020-07-16] MEDS: cefTRIAXone 1GM/50ML D5W 50 ML IV SCH (21:30)
[2020-07-16] MEDS ORDERED: SODIUM CHLORIDE 0.9% 500 ML IV ONE (21:30)
[2020-07-16] MEDS ORDERED: ALBUMIN 25% 50 ML IV ONE (21:30)
[2020-07-16] MEDS: PROPRANOLOL HCL 20 MG TAB PO SCH (22:15)
[2020-07-16] MEDS: ATORVASTATIN 20 MG TAB PO SCH (22:15)
[2020-07-16] MEDS: MORPHINE SULF 15mg ER tab PO SCH (22:15)
[2020-07-17] MEDS ORDERED: ALBUMIN 5% 250 ML IV ONE (01:15)
[2020-07-17 09:13] LABS: Basophils # (auto) 0 10 ^3/uL (0-0.2); Eosinophils # (auto) 0.1 10 ^3/uL (0-0.8); Lymphocytes # (auto) 0.9 10 ^3/uL (0.4-5.4); Neutrophils # (auto) 5.2 10 ^3/uL (1.6-8.6); Nucleated Red Blood Cells % 0.1 %; Platelet Count (auto) 37 10^3/uL (140-450)
[2020-07-17 09:16] LABS: Basophils % (auto) 0.3 % (0.0-2.0); Eosinophils % (auto) 1.1 % (0.0-7.0); Hematocrit 29.4 % (36.0-46.0); Lymphocytes % (auto) 14.3 % (10.0-50.0); Mean Corpuscular Hemoglobin 30.8 pg (28.0-32.0); Mean Corpuscular Volume 90.5 fL (80.0-100.0); Monocytes # (auto) 0.4 10 ^3/uL (0-1.3); Monocytes % (auto) 6.6 % (0.0-12.0); Neutrophils % (auto) 77.7 % (37.0-80.0); Red Blood Cells 3.25 10^6/uL (4.0-5.20); Red Cell Distribution Width 15.6 % (11.8-14.3); White Blood Cell 6.6 10^3/uL (4.4-10.8)
[2020-07-17 09:33] LABS: Potassium 3.4 mmol/L (3.5-5.1)
[2020-07-17 09:40] LABS: Albumin 2.1 g/dL (3.4-5.0); BUN/Creatinine Ratio 12.4; Bilirubin, Total 1.3 mg/dL (0.2-1.0); Calcium 7.8 mg/dL (8.5-10.1)
[2020-07-17] MEDS: methylPREDNISolone SOD SUCC 40 MG/ML VL IV SCH ×2 (09:41→21:43)
[2020-07-17] MEDS: AZITHROMYCIN 500MG/ 250ML 250 ML IV SCH (09:41)
[2020-07-17] MEDS: ALBUMIN 25% 100 ML IV SCH ×3 (09:41→23:53)
[2020-07-17] MEDS: cefTRIAXone 1GM/50ML D5W 50 ML IV SCH (09:41)
[2020-07-17] MEDS: POTASSIUM CHL 20 Meq TABLET PO SCH (09:42)
[2020-07-17] MEDS: LORATADINE 10 MG TAB PO SCH (09:42)
[2020-07-17] MEDS: PROPRANOLOL HCL 20 MG TAB PO SCH ×2 (09:42→22:00)
[2020-07-17] MEDS: SPIRONOLACTONE 25 MG TAB PO SCH (09:42)
[2020-07-17] MEDS: MORPHINE SULF 15mg ER tab PO SCH ×2 (09:43→22:00)
[2020-07-17] MEDS: FLUoxetine HCL 20 MG CAP PO SCH ×2 (09:43→21:43)
[2020-07-17] MEDS: PANTOPRAZOLE 40 MG TAB PO SCH (09:43)
[2020-07-17] MEDS: ALBUTEROL SULF 2.5 MG/0.5ML(0.5%) NEB SOLN NEB SCH ×2 (12:00→19:51)
[2020-07-17] MEDS: IPRATROPIUM BROM 0.5 MG/2.5ML INH SOL NEB SCH ×2 (12:00→19:51)
[2020-07-17] MEDS: MORPHINE SULF INJ 2 MG/ML SYRINGE 1ML IV PRN ×3 (12:29→21:44)
[2020-07-17 16:25] VITALS: BP 117/65
[2020-07-17] MEDS: MIRTAZAPINE 30 MG TAB PO SCH (16:56)
[2020-07-17 17:30] VITALS: BP 117/65
[2020-07-17 21:00] VITALS: BP 130/75
[2020-07-17] MEDS: ATORVASTATIN 20 MG TAB PO SCH (21:43)
[2020-07-18 05:00] VITALS: BP 112/95
[2020-07-18] MEDS: MORPHINE SULF INJ 2 MG/ML SYRINGE 1ML IV PRN (05:29)
[2020-07-18] MEDS: ALBUTEROL SULF 2.5 MG/0.5ML(0.5%) NEB SOLN NEB SCH ×2 (07:15→13:42)
[2020-07-18] MEDS: IPRATROPIUM BROM 0.5 MG/2.5ML INH SOL NEB SCH ×2 (07:15→13:42)
[2020-07-18 09:00] VITALS: BP 146/78
[2020-07-18] MEDS: methylPREDNISolone SOD SUCC 40 MG/ML VL IV SCH (09:22)
[2020-07-18] MEDS: cefTRIAXone 1GM/50ML D5W 50 ML IV SCH (09:23)
[2020-07-18] MEDS: AZITHROMYCIN 500MG/ 250ML 250 ML IV SCH (09:23)
[2020-07-18] MEDS: PANTOPRAZOLE 40 MG TAB PO SCH (09:23)
[2020-07-18] MEDS: POTASSIUM CHL 20 Meq TABLET PO SCH (09:23)
[2020-07-18] MEDS: MORPHINE SULF 15mg ER tab PO SCH (09:23)
[2020-07-18] MEDS: PROPRANOLOL HCL 20 MG TAB PO SCH (09:24)
[2020-07-18] MEDS: FLUoxetine HCL 20 MG CAP PO SCH (09:24)
[2020-07-18] MEDS: LORATADINE 10 MG TAB PO SCH (09:24)
[2020-07-18] MEDS: SPIRONOLACTONE 25 MG TAB PO SCH (10:00)
[2020-07-18 12:32] VITALS: BP 147/78
== END 2020-07-18 15:34 | disposition home or self-care (01) ==
LOC: EDBD 04:16 → EDUNIT# 04:16 → ER 04:23 → TELE 04:24 → TELE-WESTW 07-17 15:40
PROVIDERS: ADMIT Nurse Practitioner; ATTEND Nurse Practitioner
DX: J44.1 Chronic obstructive pulmonary disease with (acute) exacerbation (principal); Z20.828 Contact with and (suspected) exposure to other viral communicable diseases; J96.11 Chronic respiratory failure with hypoxia; I50.43 Acute on chronic combined systolic (congestive) and diastolic (congestive) heart failure; J44.9 Chronic obstructive pulmonary disease, unspecified; K74.60 Unspecified cirrhosis of liver; E78.5 Hyperlipidemia, unspecified; E11.22 Type 2 diabetes mellitus with diabetic chronic kidney disease; E66.9 Obesity, unspecified; E87.6 Hypokalemia; F17.210 Nicotine dependence, cigarettes, uncomplicated; F41.9 Anxiety disorder, unspecified; M79.7 Fibromyalgia; N18.9 Chronic kidney disease, unspecified; Z68.30 Body mass index [BMI] 30.0-30.9, adult; Z79.899 Other long term (current) drug therapy
CPT/HCPCS: 36415; 71045; 80053; 81001; 83735; 83880; 84100; 84484; 85025; 85379; 87040; 87086; 87426; 94640; 96365; 96366; 96367; 96368; 96375; 96376; 97110; 97116; 97163; 97530; 99291; G0378; J0456; J0696; J1642; J2270; J2920; J7644; P9045; P9047; U0003

== ENCOUNTER 2020-10-02 17:24 | Emergency (ER) | payer MEDICAID ==
[~2020-10-02] VITALS: Ht 152.4 cm; Wt 63.5 kg
[2020-10-02 19:10] VITALS: BP 126/69
== END 2020-10-02 20:04 | disposition home or self-care (01) ==
LOC: EDBD 17:24 → ER 17:24
DX: T20.00XA Burn of unspecified degree of head, face, and neck, unspecified site, initial encounter (principal); J44.9 Chronic obstructive pulmonary disease, unspecified; F41.9 Anxiety disorder, unspecified; I12.9 Hypertensive chronic kidney disease with stage 1 through stage 4 chronic kidney disease, or unspecified chronic kidney disease; N18.9 Chronic kidney disease, unspecified; E78.5 Hyperlipidemia, unspecified; F17.210 Nicotine dependence, cigarettes, uncomplicated; Z79.899 Other long term (current) drug therapy; Z88.8 Allergy status to other drugs, medicaments and biological substances; X08.8XXA Exposure to other specified smoke, fire and flames, initial encounter; Y93.89 Activity, other specified; Y92.89 Other specified places as the place of occurrence of the external cause; Y99.8 Other external cause status
CPT/HCPCS: 71045; 93005

== ENCOUNTER 2021-01-24 13:27 | Inpatient (IN) | payer MEDICAID ==
[~2021-01-24] VITALS: Ht 165.1 cm; Wt 67.2 kg
[2021-01-24] MEDS ORDERED: MORPHINE SULFATE 4 MG/ML SYR/VIAL IV ONE (14:00)
[2021-01-24] MEDS ORDERED: ONDANSETRON HCL 4 MG/2 ML VIAL IV ONE (14:00)
[2021-01-24 16:04] LABS: Urine Bacteria MANY /hpf (None Seen); Urine Blood Negative /uL (Negative); Urine WBC 3 /hpf (0 - 5)
[2021-01-24 16:47] LABS: Basophils # (auto) 0.1 10 ^3/uL (0-0.2); Basophils % (auto) 1.3 % (0.0-2.0); Eosinophils # (auto) 0.1 10 ^3/uL (0-0.8); Eosinophils % (auto) 1.9 % (0.0-7.0); Hematocrit 33.1 % (36.0-46.0); Hemoglobin 11.8 g/dL (12.2-16.2); Mean Corpuscular Hemoglobin 33.8 pg (28.0-32.0); Mean Corpuscular Hgb Conc. 35.6 g/dL (32.0-36.0); Mean Corpuscular Volume 94.9 fL (80.0-100.0); Monocytes # (auto) 0.3 10 ^3/uL (0-1.3); Monocytes % (auto) 7.1 % (0.0-12.0); Neutrophils % (auto) 66.7 % (37.0-80.0); Nucleated Red Blood Cells % 0.1 %; Red Blood Cells 3.49 10^6/uL (4.0-5.20); Red Cell Distribution Width 13.2 % (11.8-14.3); White Blood Cell 4.5 10^3/uL (4.4-10.8)
[2021-01-24 17:04] LABS: Alanine Aminotransferase 22 U/L (13-56); Albumin 2.7 g/dL (3.4-5.0); Anion Gap 5 (5-15); Aspartate Aminotransferase 28 U/L (15-37); Blood Urea Nitrogen 13 mg/dL (7-18); Calcium 8.2 mg/dL (8.5-10.1); Carbon Dioxide 31 mmol/L (21-32); Chloride 107 mmol/L (98-107); GFR African American 92 mL/min; GFR Non-African American 76 mL/min; Glucose 113 mg/dL (74-106); Magnesium 1.6 mg/dL (1.6-2.6); Sodium 143 mmol/L (136-145)
[2021-01-24 17:09] LABS: Alkaline Phosphatase 90 U/L (45-117); Bilirubin, Total 2.4 mg/dL (0.2-1.0); Total Protein 6.2 g/dL (6.4-8.2)
[2021-01-24 17:25] LABS: Potassium 2.7 mmol/L (3.5-5.1)
[2021-01-24] MEDS ORDERED: NITROGLYCERIN 0.4 MG SL TAB SL PRN (18:30)
[2021-01-24] MEDS ORDERED: POTASSIUM CHLORIDE 20 MEQ, LIDOCAINE 1% (LOCAL ANESTH.) 2 ML in SODIUM CHL 0.9% 100 ML IV ONE (18:30)
[2021-01-24] MEDS ORDERED: hydrALAZINE HCL 20 MG/ML VL IV PRN (18:30)
[2021-01-24] MEDS ORDERED: MORPHINE SULFATE INJECTION 2 MG/ML SYRG IV PRN (18:30)
[2021-01-24] MEDS: POTASSIUM CHL 20 Meq TABLET PO SCH ×2 (21:07→22:48)
[2021-01-24] MEDS ORDERED: TEMA30CA5 PO (22:32)
[2021-01-24 23:01] VITALS: BP 156/77
[2021-01-24] MEDS ORDERED: TEMA15CA PO (23:04)
[2021-01-24] MEDS: TEMAZEPAM 15 MG CAP PO PRN (23:16)
[2021-01-24 23:22] VITALS: BP 156/77
[2021-01-25] MEDS: POTASSIUM CHL 20 Meq TABLET PO SCH ×4 (02:00→13:58)
[2021-01-25] MEDS: MORPHINE SULFATE INJECTION 2 MG/ML SYRG IV PRN ×4 (04:41→20:09)
[2021-01-25 05:17] VITALS: BP 127/78
[2021-01-25 06:28] LABS: Basophils # (auto) 0 10 ^3/uL (0-0.2); Eosinophils # (auto) 0.1 10 ^3/uL (0-0.8); Eosinophils % (auto) 2.3 % (0.0-7.0); Lymphocytes # (auto) 0.4 10 ^3/uL (0.4-5.4); Mean Corpuscular Hgb Conc. 36.1 g/dL (32.0-36.0); Monocytes # (auto) 0.3 10 ^3/uL (0-1.3); Neutrophils # (auto) 2.5 10 ^3/uL (1.6-8.6); Neutrophils % (auto) 76.7 % (37.0-80.0); White Blood Cell 3.3 10^3/uL (4.4-10.8)
[2021-01-25 06:31] LABS: Basophils % (auto) 0.2 % (0.0-2.0); Hemoglobin 11.5 g/dL (12.2-16.2); Lymphocytes % (auto) 12.1 % (10.0-50.0); Mean Corpuscular Hemoglobin 34.4 pg (28.0-32.0); Mean Corpuscular Volume 95.4 fL (80.0-100.0); Monocytes % (auto) 8.7 % (0.0-12.0); Nucleated Red Blood Cells % 0.5 %; Red Blood Cells 3.35 10^6/uL (4.0-5.20); Red Cell Distribution Width 13.5 % (11.8-14.3)
[2021-01-25 06:44] LABS: Potassium 3.9 mmol/L (3.5-5.1)
[2021-01-25 06:51] LABS: Albumin 2.6 g/dL (3.4-5.0); Bilirubin, Total 2.2 mg/dL (0.2-1.0); Calcium 7.8 mg/dL (8.5-10.1)
[2021-01-25 09:00] VITALS: BP 114/62
[2021-01-25] MEDS ORDERED: ADENOSINE 55 MG in GIVE UN-DILUTED 0 ML IV STA (10:16)
[2021-01-25 13:00] VITALS: BP 136/90
[2021-01-25 17:00] VITALS: BP 148/89
[2021-01-25] MEDS: LACTULOSE 20Gm/30ML SOLN PO SCH (18:01)
[2021-01-25 22:00] VITALS: BP 123/78
[2021-01-25] MEDS: TEMAZEPAM 15 MG CAP PO PRN (22:10)
[2021-01-26] MEDS: LACTULOSE 20Gm/30ML SOLN PO SCH ×3 (00:05→10:44)
[2021-01-26] MEDS: MORPHINE SULFATE INJECTION 2 MG/ML SYRG IV PRN ×3 (00:06→21:04)
[2021-01-26 05:00] VITALS: BP 141/86
[2021-01-26] MEDS ORDERED: OMNIPAQUE ORAL SOLN 500ml 12mg/ml PO ONE (07:23)
[2021-01-26 08:08] LABS: Basophils # (auto) 0 10 ^3/uL (0-0.2); Eosinophils # (auto) 0.1 10 ^3/uL (0-0.8); Lymphocytes # (auto) 0.7 10 ^3/uL (0.4-5.4); Monocytes # (auto) 0.4 10 ^3/uL (0-1.3); Red Cell Distribution Width 13.4 % (11.8-14.3)
[2021-01-26 08:12] LABS: Basophils % (auto) 0.9 % (0.0-2.0); Eosinophils % (auto) 4.2 % (0.0-7.0); Hematocrit 32.5 % (36.0-46.0); Hemoglobin 11.5 g/dL (12.2-16.2); Lymphocytes % (auto) 21.4 % (10.0-50.0); Mean Corpuscular Hemoglobin 33.9 pg (28.0-32.0); Mean Corpuscular Hgb Conc. 35.4 g/dL (32.0-36.0); Mean Corpuscular Volume 95.6 fL (80.0-100.0); Monocytes % (auto) 11.6 % (0.0-12.0); Neutrophils % (auto) 61.9 % (37.0-80.0); Nucleated Red Blood Cells % 0.4 %; White Blood Cell 3.2 10^3/uL (4.4-10.8)
[2021-01-26 08:45] LABS: Albumin 2.7 g/dL (3.4-5.0); Calcium 8.3 mg/dL (8.5-10.1); INR 1.15 (0.9-1.15); Potassium 3.9 mmol/L (3.5-5.1)
[2021-01-26] MEDS ORDERED: LORazepam 2MG/ML-1ML VIAL IV ONE (08:45)
[2021-01-26 08:48] LABS: BUN/Creatinine Ratio 11.1; Bilirubin, Total 1.8 mg/dL (0.2-1.0); Total Protein 6.2 g/dL (6.4-8.2)
[2021-01-26 09:00] VITALS: BP 148/74
[2021-01-26 13:00] VITALS: BP 132/67
[2021-01-26 16:42] VITALS: BP 129/73
[2021-01-26] MEDS: VANCOMYCIN HCL 125MG/5ML ORAL SOL PO SCH (17:46)
[2021-01-26] MEDS: ONDANSETRON HCL 4 MG/2 ML VIAL IV PRN (21:15)
[2021-01-26 22:00] VITALS: BP 144/73
[2021-01-27] MEDS: TEMAZEPAM 15 MG CAP PO PRN ×2 (00:04→21:05)
[2021-01-27] MEDS: VANCOMYCIN HCL 125MG/5ML ORAL SOL PO SCH ×5 (00:04→23:54)
[2021-01-27 05:00] VITALS: BP 149/80
[2021-01-27] MEDS: MORPHINE SULFATE INJECTION 2 MG/ML SYRG IV PRN ×4 (05:04→23:05)
[2021-01-27] MEDS: ONDANSETRON HCL 4 MG/2 ML VIAL IV PRN ×3 (05:05→17:29)
[2021-01-27 05:56] LABS: Basophils # (auto) 0 10 ^3/uL (0-0.2); Eosinophils # (auto) 0.1 10 ^3/uL (0-0.8); Hemoglobin 11.4 g/dL (12.2-16.2); Lymphocytes # (auto) 0.8 10 ^3/uL (0.4-5.4); Monocytes # (auto) 0.4 10 ^3/uL (0-1.3); Nucleated Red Blood Cells % 0.1 %; White Blood Cell 3.5 10^3/uL (4.4-10.8)
[2021-01-27 05:59] LABS: Basophils % (auto) 0.7 % (0.0-2.0); Eosinophils % (auto) 3.6 % (0.0-7.0); Hematocrit 31.6 % (36.0-46.0); Lymphocytes % (auto) 22.7 % (10.0-50.0); Mean Corpuscular Hemoglobin 34.5 pg (28.0-32.0); Mean Corpuscular Hgb Conc. 36.1 g/dL (32.0-36.0); Mean Corpuscular Volume 95.6 fL (80.0-100.0); Monocytes % (auto) 11.9 % (0.0-12.0); Neutrophils # (auto) 2.1 10 ^3/uL (1.6-8.6); Neutrophils % (auto) 61.1 % (37.0-80.0); Red Blood Cells 3.31 10^6/uL (4.0-5.20); Red Cell Distribution Width 13.3 % (11.8-14.3)
[2021-01-27 06:09] LABS: Albumin 2.5 g/dL (3.4-5.0); Calcium 7.9 mg/dL (8.5-10.1); Potassium 3.6 mmol/L (3.5-5.1)
[2021-01-27 06:13] LABS: BUN/Creatinine Ratio 8.6; Bilirubin, Total 1.4 mg/dL (0.2-1.0); Total Protein 5.8 g/dL (6.4-8.2)
[2021-01-27 09:00] VITALS: BP 124/78
[2021-01-27] MEDS: LACTULOSE 20Gm/30ML SOLN PO SCH (09:34)
[2021-01-27] MEDS ORDERED: LISINOPRIL 20 MG TAB PO ONE (11:15)
[2021-01-27 13:00] VITALS: BP 132/55
[2021-01-27] MEDS: FLORASTOR (S. BOULARDII) 250 MG CAP PO SCH (14:09)
[2021-01-27 17:00] VITALS: BP 124/62
[2021-01-27 22:00] VITALS: BP 130/75
[2021-01-28 05:00] VITALS: BP 118/65
[2021-01-28 05:29] LABS: Basophils # (auto) 0 10 ^3/uL (0-0.2); Basophils % (auto) 0.9 % (0.0-2.0); Eosinophils # (auto) 0.1 10 ^3/uL (0-0.8); Eosinophils % (auto) 4.1 % (0.0-7.0); Hemoglobin 11.5 g/dL (12.2-16.2); Monocytes # (auto) 0.3 10 ^3/uL (0-1.3)
[2021-01-28 05:31] LABS: Hematocrit 32.5 % (36.0-46.0); Lymphocytes # (auto) 0.7 10 ^3/uL (0.4-5.4); Lymphocytes % (auto) 22.6 % (10.0-50.0); Mean Corpuscular Hemoglobin 34.1 pg (28.0-32.0); Mean Corpuscular Hgb Conc. 35.4 g/dL (32.0-36.0); Mean Corpuscular Volume 96.5 fL (80.0-100.0); Monocytes % (auto) 9.6 % (0.0-12.0); Neutrophils % (auto) 62.8 % (37.0-80.0); Nucleated Red Blood Cells % 0.2 %; Red Blood Cells 3.37 10^6/uL (4.0-5.20); Red Cell Distribution Width 13.4 % (11.8-14.3); White Blood Cell 3.2 10^3/uL (4.4-10.8)
[2021-01-28 05:45] LABS: Albumin 2.5 g/dL (3.4-5.0); Calcium 7.8 mg/dL (8.5-10.1); Potassium 4.1 mmol/L (3.5-5.1)
[2021-01-28 05:50] LABS: BUN/Creatinine Ratio 12.3; Bilirubin, Total 1.1 mg/dL (0.2-1.0); Total Protein 5.8 g/dL (6.4-8.2)
[2021-01-28] MEDS: VANCOMYCIN HCL 125MG/5ML ORAL SOL PO SCH ×2 (06:01→11:40)
[2021-01-28] MEDS: MORPHINE SULFATE INJECTION 2 MG/ML SYRG IV PRN (06:13)
[2021-01-28 09:00] VITALS: BP 139/87
[2021-01-28] MEDS ORDERED: LISINOPRIL 20 MG TAB PO SCH (10:00)
[2021-01-28] MEDS: FLORASTOR (S. BOULARDII) 250 MG CAP PO SCH (10:15)
[2021-01-28 11:36] VITALS: BP 139/87
[2021-01-28 13:08] VITALS: BP 131/82
== END 2021-01-28 17:25 | disposition home or self-care (01) | DRG 199 ==
LOC: ER 13:27 → EDBD 13:27 → TELE 18:30 → TELE-CENTR 21:50
PROVIDERS: ADMIT Internal Medicine; ATTEND Internal Medicine
DX: I16.9 Hypertensive crisis, unspecified (principal); J96.20 Acute and chronic respiratory failure, unspecified whether with hypoxia or hypercapnia; A04.72 Enterocolitis due to Clostridium difficile, not specified as recurrent; E44.0 Moderate protein-calorie malnutrition; I50.32 Chronic diastolic (congestive) heart failure; I11.0 Hypertensive heart disease with heart failure; M32.9 Systemic lupus erythematosus, unspecified; K72.90 Hepatic failure, unspecified without coma; E11.9 Type 2 diabetes mellitus without complications; E78.00 Pure hypercholesterolemia, unspecified; E78.5 Hyperlipidemia, unspecified; F17.210 Nicotine dependence, cigarettes, uncomplicated; F41.9 Anxiety disorder, unspecified; K43.9 Ventral hernia without obstruction or gangrene; K74.60 Unspecified cirrhosis of liver; I25.10 Atherosclerotic heart disease of native coronary artery without angina pectoris; E87.6 Hypokalemia; J98.11 Atelectasis; K21.9 Gastro-esophageal reflux disease without esophagitis; K80.20 Calculus of gallbladder without cholecystitis without obstruction; M79.7 Fibromyalgia; Z68.24 Body mass index [BMI] 24.0-24.9, adult; Z88.8 Allergy status to other drugs, medicaments and biological substances; Z86.73 Personal history of transient ischemic attack (TIA), and cerebral infarction without residual deficits; Z90.710 Acquired absence of both cervix and uterus; J44.9 Chronic obstructive pulmonary disease, unspecified; Z95.5 Presence of coronary angioplasty implant and graft; Z99.81 Dependence on supplemental oxygen
CPT/HCPCS: 36415; 71045; 74176; 78452; 80053; 81001; 82105; 82140; 82270; 82962; 83735; 83880; 84484; 85025; 85048; 85610; 87045; 87426; 87427; 87493; 93017; 93306; G0378; J0153; J1642; J2001; J2405

== ENCOUNTER 2021-09-21 09:48 | Inpatient (IN) | payer MEDICAID ==
[~2021-09-21] VITALS: Ht 165.1 cm; Wt 66.8 kg
[~2021-09-21 09:48] MED LIST changes: -ATOR20TA PO; -LORA5SYP23 PO; -SPIR25TA PO; +TEMA15CA PO
[2021-09-21 11:25] LABS: Hematocrit 29.2 % (36.0-46.0); Hemoglobin 9.9 g/dL (12.2-16.2); Mean Corpuscular Hemoglobin 31.7 pg (28.0-32.0); Mean Corpuscular Hgb Conc. 34.1 g/dL (32.0-36.0); Mean Corpuscular Volume 92.9 fL (80.0-100.0); Red Blood Cells 3.14 10^6/uL (4.0-5.20); Red Cell Distribution Width 15.2 % (11.8-14.3); White Blood Cell 14.7 10^3/uL (4.4-10.8)
[2021-09-21 11:38] LABS: Albumin 2.3 g/dL (3.4-5.0); BUN/Creatinine Ratio 10.2; Calcium 8.3 mg/dL (8.5-10.1)
[2021-09-21 11:41] LABS: Bilirubin, Total 1.9 mg/dL (0.2-1.0); Total Protein 6.6 g/dL (6.4-8.2)
[2021-09-21] MEDS ORDERED: SODIUM CHLORIDE 0.9% 500 ML IVB ONE (11:45)
[2021-09-21] MEDS ORDERED: ONDANSETRON HCL 4 MG/2 ML VIAL IV ONE (11:45)
[2021-09-21] MEDS ORDERED: MORPHINE SULFATE 4 MG/ML SYR/VIAL IV ONE (11:45)
[2021-09-21] MEDS ORDERED: FAMOTIDINE (10MG/ML) 2ML VL IV ONE (11:45)
[2021-09-21 11:52] LABS: Potassium 2.9 mmol/L (3.5-5.1)
[2021-09-21 11:56] LABS: Basophils % (manual) 0 (0.0-2.0); Blast Cells 0; Eosinophils % (manual) 0 (0-7); Myelocytes % 0; Promyelocytes % 0; Reactive Lymphocytes 0
[2021-09-21] MEDS ORDERED: IOHEXOL 300 MG/ML 100ML BOTTLE IJ ONE (12:15)
[2021-09-21] MEDS: POTASSIUM CHL 10MEQ/50ML 50 ML IV SCH ×4 (12:23→16:34)
[2021-09-21 13:46] LABS: Alcohol, Urine < 3.0 mg/dL (0-10); Amphetamine Screen, Urine NEGATIVE (NEGATIVE); Barbiturate Scree,Urine NEGATIVE (NEGATIVE); Cannabinoid Screen, Urine POSITIVE (NEGATIVE); Cocaine Screen, Urine NEGATIVE (NEGATIVE); Opiate Scree,Urine NEGATIVE (NEGATIVE); Phencyclidine Screen, Urine NEGATIVE (NEGATIVE)
[2021-09-21 13:54] LABS: Benzodiazephine Screen, Urine NEGATIVE (NEGATIVE)
[2021-09-21 13:58] LABS: Band Neutrophils % (manual) 2; Lymphocytes % (manual) 6 (10.0-50.0); Metamyelocytes % 1; Monocytes % (manual) 3 (0-12)
[2021-09-21 14:10] LABS: Urine Bacteria FEW /hpf (None Seen); Urine Blood 3+ /uL (Negative); Urine Specific Gravity 1.008 (1.001-1.035); Urine WBC 73 /hpf (0 - 5)
[2021-09-21] MEDS ORDERED: MORPHINE SULFATE INJECTION 2 MG/ML SYRG IV PRN (17:15)
[2021-09-21] MEDS ORDERED: DOCUSATE SOD 100 MG CAP PO PRN (17:15)
[2021-09-21] MEDS ORDERED: NITROGLYCERIN 0.4 MG SL TAB SL PRN (17:15)
[2021-09-21] MEDS: MORPHINE SULFATE INJECTION 2 MG/ML SYRG IV PRN (18:12)
[2021-09-21 22:00] VITALS: BP 115/60
[2021-09-21 23:54] VITALS: BP 115/60
[2021-09-22] MEDS ORDERED: MONT-8 PO (01:34)
[2021-09-22] MEDS ORDERED: MAGN241.4 PO (01:34)
[2021-09-22] MEDS ORDERED: ATOR20TA50 PO (01:34)
[2021-09-22] MEDS ORDERED: CHOL1CAP21 PO (01:34)
[2021-09-22] MEDS: HYDROcodone-ACET 5/325MG TAB PO PRN ×3 (02:40→20:31)
[2021-09-22] MEDS ORDERED: ASPI1TAB20 PO (05:03)
[2021-09-22 05:28] VITALS: BP 109/58
[2021-09-22 07:53] LABS: Basophils # (auto) 0 10 ^3/uL (0-0.2); Eosinophils # (auto) 0.1 10 ^3/uL (0-0.8); Hemoglobin 8.8 g/dL (12.2-16.2); Lymphocytes # (auto) 0.6 10 ^3/uL (0.4-5.4); Lymphocytes % (auto) 6.5 % (10.0-50.0); Monocytes # (auto) 0.7 10 ^3/uL (0-1.3)
[2021-09-22 08:00] LABS: Basophils % (auto) 0.4 % (0.0-2.0); Eosinophils % (auto) 1.2 % (0.0-7.0); Hematocrit 25.1 % (36.0-46.0); Mean Corpuscular Hemoglobin 32.6 pg (28.0-32.0); Mean Corpuscular Volume 93.1 fL (80.0-100.0); Monocytes % (auto) 7.3 % (0.0-12.0); Neutrophils # (auto) 7.9 10 ^3/uL (1.6-8.6); Neutrophils % (auto) 84.6 % (37.0-80.0); Nucleated Red Blood Cells % 0.1 %; White Blood Cell 9.3 10^3/uL (4.4-10.8)
[2021-09-22 08:09] LABS: Potassium 3.6 mmol/L (3.5-5.1)
[2021-09-22 08:31] LABS: Albumin 2.1 g/dL (3.4-5.0); BUN/Creatinine Ratio 9.8; Bilirubin, Total 1.7 mg/dL (0.2-1.0); Calcium 8.2 mg/dL (8.5-10.1); Total Protein 6.2 g/dL (6.4-8.2)
[2021-09-22 09:00] VITALS: BP 103/56
[2021-09-22 13:00] VITALS: BP 101/64
[2021-09-22] MEDS: metroNIDAZOLE 500MG/100ML 100 ML IV SCH ×2 (14:29→20:32)
[2021-09-22 17:00] VITALS: BP 100/56
[2021-09-22 20:20] VITALS: BP 117/66
[2021-09-22] MEDS: TEMAZEPAM 15 MG CAP PO PRN (20:31)
[2021-09-22 22:00] VITALS: BP 102/49
[2021-09-23 05:00] VITALS: BP 102/52
[2021-09-23] MEDS: metroNIDAZOLE 500MG/100ML 100 ML IV SCH ×3 (05:17→21:01)
[2021-09-23 06:08] LABS: Basophils # (auto) 0 10 ^3/uL (0-0.2); Basophils % (auto) 0.8 % (0.0-2.0); Eosinophils # (auto) 0.1 10 ^3/uL (0-0.8); Lymphocytes # (auto) 0.5 10 ^3/uL (0.4-5.4); Mean Corpuscular Hgb Conc. 34.5 g/dL (32.0-36.0); Monocytes # (auto) 0.4 10 ^3/uL (0-1.3); Neutrophils # (auto) 3.7 10 ^3/uL (1.6-8.6); Red Cell Distribution Width 16.3 % (11.8-14.3)
[2021-09-23 06:10] LABS: Eosinophils % (auto) 2.7 % (0.0-7.0); Hemoglobin 8.6 g/dL (12.2-16.2); Lymphocytes % (auto) 10.1 % (10.0-50.0); Mean Corpuscular Hemoglobin 32.3 pg (28.0-32.0); Mean Corpuscular Volume 93.6 fL (80.0-100.0); Monocytes % (auto) 7.6 % (0.0-12.0); Neutrophils % (auto) 78.8 % (37.0-80.0); Nucleated Red Blood Cells % 0.1 %; Red Blood Cells 2.67 10^6/uL (4.0-5.20); White Blood Cell 4.7 10^3/uL (4.4-10.8)
[2021-09-23 06:17] LABS: INR 1.21 (0.9-1.15)
[2021-09-23 06:27] LABS: Albumin 1.9 g/dL (3.4-5.0); BUN/Creatinine Ratio 10.6; Calcium 8.5 mg/dL (8.5-10.1); Potassium 3.5 mmol/L (3.5-5.1)
[2021-09-23 06:30] LABS: Bilirubin, Total 1.3 mg/dL (0.2-1.0); Total Protein 5.8 g/dL (6.4-8.2)
[2021-09-23 09:00] VITALS: BP 121/58
[2021-09-23] MEDS: PANTOPRAZOLE 40 MG TAB PO SCH (10:00)
[2021-09-23] MEDS: levoFLOXacin 250MG 50 ML IV SCH (10:00)
[2021-09-23] MEDS: MORPHINE SULFATE INJECTION 2 MG/ML SYRG IV PRN ×2 (11:01→16:15)
[2021-09-23 11:13] LABS: Hepatitis B Surface Antibody Positive (Negative)
[2021-09-23 11:41] LABS: Hepatitis A Total Antibody Positive (Negative)
[2021-09-23 13:00] VITALS: BP 129/68
[2021-09-23] MEDS: HYDROcodone-ACET 5/325MG TAB PO PRN ×2 (13:33→19:47)
[2021-09-23 13:49] LABS: Hepatitis C Antibody Positive (Negative)
[2021-09-23 17:00] VITALS: BP 134/63
[2021-09-23] MEDS ORDERED: MORPHINE SULFATE 4 MG/ML SYR/VIAL IV PRN (19:15)
[2021-09-23 20:00] VITALS: BP 136/70
[2021-09-23] MEDS: TEMAZEPAM 15 MG CAP PO PRN (21:01)
[2021-09-24] VITALS (9 sets, daily range): BP systolic 108–127; BP diastolic 49–73
[2021-09-24] MEDS: metroNIDAZOLE 500MG/100ML 100 ML IV SCH ×3 (05:18→21:13)
[2021-09-24 05:54] LABS: INR 1.25 (0.9-1.15); Partial Thromboplastin Time 29.1 sec (23.6-33.0)
[2021-09-24 05:55] LABS: Basophils # (auto) 0 10 ^3/uL (0-0.2); Eosinophils # (auto) 0.1 10 ^3/uL (0-0.8); Lymphocytes # (auto) 0.4 10 ^3/uL (0.4-5.4); Monocytes # (auto) 0.3 10 ^3/uL (0-1.3); Neutrophils # (auto) 2.6 10 ^3/uL (1.6-8.6); White Blood Cell 3.4 10^3/uL (4.4-10.8)
[2021-09-24 05:58] LABS: Basophils % (auto) 0.6 % (0.0-2.0); Eosinophils % (auto) 3.6 % (0.0-7.0); Hematocrit 24.5 % (36.0-46.0); Hemoglobin 8.5 g/dL (12.2-16.2); Lymphocytes % (auto) 11.3 % (10.0-50.0); Mean Corpuscular Hemoglobin 32.4 pg (28.0-32.0); Mean Corpuscular Hgb Conc. 34.9 g/dL (32.0-36.0); Monocytes % (auto) 8.4 % (0.0-12.0); Neutrophils % (auto) 76.1 % (37.0-80.0); Nucleated Red Blood Cells % 0.8 %; Red Blood Cells 2.63 10^6/uL (4.0-5.20); Red Cell Distribution Width 15.8 % (11.8-14.3)
[2021-09-24 06:05] LABS: Calcium 8.7 mg/dL (8.5-10.1); Potassium 3.4 mmol/L (3.5-5.1)
[2021-09-24 06:09] LABS: BUN/Creatinine Ratio 9.1
[2021-09-24 06:11] LABS: Bilirubin, Total 1.2 mg/dL (0.2-1.0); Total Protein 5.9 g/dL (6.4-8.2)
[2021-09-24] MEDS: HYDROcodone-ACET 5/325MG TAB PO PRN ×2 (11:00→21:15)
[2021-09-24] MEDS: PANTOPRAZOLE 40 MG TAB PO SCH (11:00)
[2021-09-24] MEDS: levoFLOXacin 250MG 50 ML IV SCH (11:00)
[2021-09-24] MEDS: TEMAZEPAM 15 MG CAP PO PRN (21:15)
[2021-09-25 05:07] VITALS: BP 134/69
[2021-09-25] MEDS: metroNIDAZOLE 500MG/100ML 100 ML IV SCH ×2 (05:11→14:00)
[2021-09-25 09:00] VITALS: BP 122/57
[2021-09-25] MEDS: PANTOPRAZOLE 40 MG TAB PO SCH (12:07)
[2021-09-25] MEDS: HYDROcodone-ACET 5/325MG TAB PO PRN (12:08)
[2021-09-25] MEDS: levoFLOXacin 250MG 50 ML IV SCH (12:08)
[2021-09-25] MEDS ORDERED: LEVO500T31 PO (12:29)
[2021-09-25] MEDS ORDERED: METR500T PO (12:29)
[2021-09-25] MEDS ORDERED: FURO1TAB33 PO (12:29)
[2021-09-25 12:45] VITALS: BP 147/67
[2021-09-25 16:50] VITALS: BP 130/59
[2021-09-25 21:00] VITALS: BP 137/68
== END 2021-09-25 21:20 | disposition home health service (06) ==
LOC: ER 09:48 → EDBD 09:48 → TELE 17:10 → TELE-WESTW 22:35
PROVIDERS: ADMIT Internal Medicine; ATTEND Internal Medicine
PROC: 0W9G3ZZ Drainage of Peritoneal Cavity, Percutaneous Approach (ICD-10-PCS; principal; 2021-09-24)
PROC: 30233R1 Transfusion of Nonautologous Platelets into Peripheral Vein, Percutaneous Approach (ICD-10-PCS; 2021-09-24)
DX: K74.69 Other cirrhosis of liver (principal); K72.90 Hepatic failure, unspecified without coma; E43 Unspecified severe protein-calorie malnutrition; D69.6 Thrombocytopenia, unspecified; K76.6 Portal hypertension; R18.8 Other ascites; K80.20 Calculus of gallbladder without cholecystitis without obstruction; K43.9 Ventral hernia without obstruction or gangrene; J44.9 Chronic obstructive pulmonary disease, unspecified; K52.9 Noninfective gastroenteritis and colitis, unspecified; F17.210 Nicotine dependence, cigarettes, uncomplicated; F41.9 Anxiety disorder, unspecified; I50.9 Heart failure, unspecified; I11.0 Hypertensive heart disease with heart failure; K29.70 Gastritis, unspecified, without bleeding; K50.90 Crohn's disease, unspecified, without complications; F41.8 Other specified anxiety disorders; Z20.822 Contact with and (suspected) exposure to COVID-19; M54.16 Radiculopathy, lumbar region; K57.30 Diverticulosis of large intestine without perforation or abscess without bleeding; R53.81 Other malaise; G47.30 Sleep apnea, unspecified; Z82.49 Family history of ischemic heart disease and other diseases of the circulatory system; Z83.3 Family history of diabetes mellitus; Z86.73 Personal history of transient ischemic attack (TIA), and cerebral infarction without residual deficits; Z90.710 Acquired absence of both cervix and uterus; Z68.24 Body mass index [BMI] 24.0-24.9, adult
CPT/HCPCS: 36415; 74176; 76705; 76942; 80053; 80307; 81001; 82140; 83605; 83690; 85007; 85025; 85027; 85048; 85610; 85730; 86704; 86706; 86708; 86803; 86850; 86900; 86901; 87205; 87340; 87426; 89051; 93005; 96361; 96374; 96375; G0378; J1642; J2405; J3490

== ENCOUNTER 2021-10-06 16:35 | Emergency (ER) | payer MEDICAID ==
[~2021-10-06] VITALS: Ht 165.1 cm; Wt 64.4 kg
[2021-10-06 16:35] VITALS: BP 147/74
[~2021-10-06 16:35] MED LIST changes: +ASPI1TAB20 PO; +ATOR20TA50 PO; +CHOL1CAP21 PO; +FURO1TAB33 PO; +LEVO500T31 PO; +MAGN241.4 PO; +METR500T PO; +MONT-8 PO; -MORP1TAB12 PO
== END 2021-10-06 17:17 | disposition left against medical advice (07) ==
LOC: ER 16:35 → EDBD 16:35 → ER 17:17
DX: R41.9 Unspecified symptoms and signs involving cognitive functions and awareness (principal); K74.60 Unspecified cirrhosis of liver; F17.210 Nicotine dependence, cigarettes, uncomplicated; F12.10 Cannabis abuse, uncomplicated; I12.9 Hypertensive chronic kidney disease with stage 1 through stage 4 chronic kidney disease, or unspecified chronic kidney disease; N18.9 Chronic kidney disease, unspecified; J44.9 Chronic obstructive pulmonary disease, unspecified; E78.5 Hyperlipidemia, unspecified; Z90.710 Acquired absence of both cervix and uterus

== ENCOUNTER 2021-10-07 18:52 | Emergency (ER) | payer MEDICAID ==
[~2021-10-07] VITALS: Ht 157.5 cm; Wt 77.1 kg
[2021-10-07] MEDS ORDERED: diphenhdrAMINE HCL 50 MG/1 ML VL IM ONE (20:00)
[2021-10-07] MEDS ORDERED: HALOPERIDOL LACTATE 5 MG/ML INJ VIAL IM ONE (20:00)
[2021-10-07] MEDS ORDERED: LORazepam 2MG/ML-1ML VIAL IM ONE (20:00)
[2021-10-07 20:40] LABS: Acetaminophen < 2.0 ug/mL (10-30); Salicylate < 1.7 mg/dL (2.8-20.0)
[2021-10-07 20:42] LABS: Albumin 2.6 g/dL (3.4-5.0); Calcium 8.6 mg/dL (8.5-10.1)
[2021-10-07 20:46] LABS: BUN/Creatinine Ratio 9.3; Total Protein 7.4 g/dL (6.4-8.2)
[2021-10-07 21:58] LABS: Basophils # (auto) 0.1 10 ^3/uL (0-0.2); Basophils % (auto) 0.9 % (0.0-2.0); Eosinophils # (auto) 0.1 10 ^3/uL (0-0.8); Eosinophils % (auto) 0.7 % (0.0-7.0); Hematocrit 34.4 % (36.0-46.0); Hemoglobin 11.7 g/dL (12.2-16.2); Lymphocytes # (auto) 0.9 10 ^3/uL (0.4-5.4); Lymphocytes % (auto) 10.6 % (10.0-50.0); Mean Corpuscular Hemoglobin 32.4 pg (28.0-32.0); Mean Corpuscular Volume 95.2 fL (80.0-100.0); Monocytes # (auto) 0.6 10 ^3/uL (0-1.3); Monocytes % (auto) 7.1 % (0.0-12.0); Neutrophils % (auto) 80.7 % (37.0-80.0); Nucleated Red Blood Cells % 0.4 %; Red Blood Cells 3.62 10^6/uL (4.0-5.20); Red Cell Distribution Width 17.6 % (11.8-14.3); White Blood Cell 8.7 10^3/uL (4.4-10.8)
[2021-10-08] MEDS ORDERED: LACTULOSE 20Gm/30ML SOLN PO ONE (06:15)
[2021-10-08 06:47] LABS: Urine Bacteria NONE SEEN /hpf (None Seen); Urine Blood 3+ /uL (Negative); Urine Hyaline Cast FEW /lpf (0 - 2); Urine Specific Gravity 1.007 (1.001-1.035); Urine WBC 2 /hpf (0 - 5)
[2021-10-08 07:18] LABS: Alcohol, Urine < 3.0 mg/dL (0-10); Amphetamine Screen, Urine NEGATIVE (NEGATIVE); Barbiturate Scree,Urine NEGATIVE (NEGATIVE); Benzodiazephine Screen, Urine NEGATIVE (NEGATIVE); Cannabinoid Screen, Urine POSITIVE (NEGATIVE); Cocaine Screen, Urine NEGATIVE (NEGATIVE); Opiate Scree,Urine NEGATIVE (NEGATIVE); Phencyclidine Screen, Urine NEGATIVE (NEGATIVE)
[2021-10-08 07:49] VITALS: BP 100/56
== END 2021-10-08 09:17 | disposition home or self-care (01) ==
LOC: EDBD 18:52 → ER 18:54
DX: F29 Unspecified psychosis not due to a substance or known physiological condition (principal); F20.9 Schizophrenia, unspecified; J44.9 Chronic obstructive pulmonary disease, unspecified; I25.2 Old myocardial infarction; E78.5 Hyperlipidemia, unspecified; I12.9 Hypertensive chronic kidney disease with stage 1 through stage 4 chronic kidney disease, or unspecified chronic kidney disease; N18.9 Chronic kidney disease, unspecified; F17.210 Nicotine dependence, cigarettes, uncomplicated; Z90.710 Acquired absence of both cervix and uterus; Z90.89 Acquired absence of other organs; Z20.822 Contact with and (suspected) exposure to COVID-19
CPT/HCPCS: 36415; 80053; 80307; 80329; 81001; 82140; 87426; 96372; 99285; J1200; J1630; J2060

== ENCOUNTER 2021-10-20 10:06 | Inpatient (IN) | payer MEDICAID ==
[~2021-10-20] VITALS: Ht 165.1 cm; Wt 66.7 kg
[2021-10-20] MEDS ORDERED: LORazepam 2MG/ML-1ML VIAL IV ONE (10:30)
[2021-10-20] MEDS ORDERED: ONDANSETRON HCL 4 MG/2 ML VIAL IV ONE (10:30)
[2021-10-20] MEDS ORDERED: SODIUM CHLORIDE 0.9% 1,000 ML IV ONE (10:30)
[2021-10-20 11:05] LABS: Basophils # (auto) 0 10 ^3/uL (0-0.2); Basophils % (auto) 0.7 % (0.0-2.0); Eosinophils # (auto) 0.1 10 ^3/uL (0-0.8); Hemoglobin 10.6 g/dL (12.2-16.2); Lymphocytes # (auto) 0.7 10 ^3/uL (0.4-5.4)
[2021-10-20 11:08] LABS: Urine Bacteria NONE SEEN /hpf (None Seen); Urine Blood 2+ /uL (Negative); Urine Specific Gravity 1.005 (1.001-1.035); Urine WBC 2 /hpf (0 - 5)
[2021-10-20 11:08] LABS: Hematocrit 31.2 % (36.0-46.0); Lymphocytes % (auto) 11.4 % (10.0-50.0); Mean Corpuscular Hemoglobin 33.3 pg (28.0-32.0); Monocytes % (auto) 15.8 % (0.0-12.0); Neutrophils # (auto) 4.5 10 ^3/uL (1.6-8.6); Neutrophils % (auto) 71.1 % (37.0-80.0); Red Blood Cells 3.19 10^6/uL (4.0-5.20); Red Cell Distribution Width 16.4 % (11.8-14.3); White Blood Cell 6.4 10^3/uL (4.4-10.8)
[2021-10-20 11:18] LABS: Potassium 3.7 mmol/L (3.5-5.1)
[2021-10-20 11:23] LABS: Albumin 2.4 g/dL (3.4-5.0); BUN/Creatinine Ratio 14.9
[2021-10-20 11:28] LABS: Bilirubin, Total 1.4 mg/dL (0.2-1.0); Total Protein 6.9 g/dL (6.4-8.2)
[2021-10-20] MEDS ORDERED: ONDANSETRON HCL 4 MG/2 ML VIAL IV PRN (15:45)
[2021-10-20] MEDS ORDERED: MORPHINE SULFATE INJECTION 2 MG/ML SYRG IV PRN (16:00)
[2021-10-20 20:50] VITALS: BP 100/42
[2021-10-20 21:59] VITALS: BP 100/42
[2021-10-20] MEDS: ASCORBIC ACID 500 MG TAB PO SCH (22:30)
[2021-10-20] MEDS: TEMAZEPAM 15 MG CAP PO PRN (22:56)
[2021-10-21] VITALS (7 sets, daily range): BP systolic 85–131; BP diastolic 35–60
[2021-10-21 05:59] LABS: Basophils # (auto) 0 10 ^3/uL (0-0.2); Eosinophils # (auto) 0 10 ^3/uL (0-0.8); Eosinophils % (auto) 0.5 % (0.0-7.0); Monocytes # (auto) 0.8 10 ^3/uL (0-1.3); Neutrophils # (auto) 3.6 10 ^3/uL (1.6-8.6); Red Cell Distribution Width 16.9 % (11.8-14.3); White Blood Cell 5.1 10^3/uL (4.4-10.8)
[2021-10-21 06:01] LABS: Basophils % (auto) 0.6 % (0.0-2.0); Hematocrit 28.8 % (36.0-46.0); Hemoglobin 10.1 g/dL (12.2-16.2); Lymphocytes # (auto) 0.7 10 ^3/uL (0.4-5.4); Lymphocytes % (auto) 12.7 % (10.0-50.0); Mean Corpuscular Hemoglobin 34.3 pg (28.0-32.0); Mean Corpuscular Hgb Conc. 34.9 g/dL (32.0-36.0); Mean Corpuscular Volume 98.2 fL (80.0-100.0); Monocytes % (auto) 15.9 % (0.0-12.0); Neutrophils % (auto) 70.3 % (37.0-80.0); Nucleated Red Blood Cells % 0.1 %; Red Blood Cells 2.94 10^6/uL (4.0-5.20)
[2021-10-21 06:07] LABS: Albumin 2.2 g/dL (3.4-5.0); BUN/Creatinine Ratio 13.6; Calcium 8.9 mg/dL (8.5-10.1); Potassium 3.8 mmol/L (3.5-5.1)
[2021-10-21 06:17] LABS: Bilirubin, Total 1.6 mg/dL (0.2-1.0); Total Protein 6.2 g/dL (6.4-8.2)
[2021-10-21] MEDS: PANTOPRAZOLE 40 MG/10 ML VIAL INJ IV SCH (09:53)
[2021-10-21] MEDS: ASCORBIC ACID 500 MG TAB PO SCH ×2 (09:54→21:29)
[2021-10-21] MEDS: MULTIPLE VITAMIN TAB PO SCH (09:55)
[2021-10-21] MEDS: MONTELUKAST SODIUM 10 MG TAB PO SCH (09:55)
[2021-10-21] MEDS: FLUoxetine HCL 20 MG CAP PO SCH (09:57)
[2021-10-21] MEDS: ZINC SULFATE 220mg CAP or TAB PO SCH (09:58)
[2021-10-21 10:45] LABS: Hepatitis B Surface Antibody Positive (Negative)
[2021-10-21] MEDS: LACTULOSE 20Gm/30ML SOLN PO SCH ×2 (14:00→21:29)
[2021-10-21 15:02] LABS: Hepatitis C Antibody Positive (Negative)
[2021-10-21] MEDS ORDERED: MORPHINE SULFATE INJECTION 2 MG/ML SYRG IV PRN (16:00)
[2021-10-21] MEDS ORDERED: NITROGLYCERIN 0.4 MG SL TAB SL PRN (16:00)
[2021-10-21] MEDS ORDERED: MIRTAZAPINE 30 MG TAB PO SCH (18:00)
[2021-10-21] MEDS: MIRTAZAPINE 30 MG TAB PO SCH (18:00)
[2021-10-21] MEDS: TEMAZEPAM 15 MG CAP PO PRN (21:29)
[2021-10-21] MEDS: ATORVASTATIN 20 MG TAB PO SCH (21:29)
[2021-10-22 05:00] VITALS: BP 120/45
[2021-10-22 06:28] LABS: Hemoglobin 10.2 g/dL (12.2-16.2); White Blood Cell 5.3 10^3/uL (4.4-10.8)
[2021-10-22 06:31] LABS: Hematocrit 29.1 % (36.0-46.0); Mean Corpuscular Hemoglobin 34.5 pg (28.0-32.0); Mean Corpuscular Hgb Conc. 35.1 g/dL (32.0-36.0); Mean Corpuscular Volume 98.1 fL (80.0-100.0); Red Blood Cells 2.96 10^6/uL (4.0-5.20); Red Cell Distribution Width 16.7 % (11.8-14.3)
[2021-10-22 06:36] LABS: INR 1.22 (0.9-1.15)
[2021-10-22 06:38] LABS: Albumin 2.1 g/dL (3.4-5.0); Calcium 8.6 mg/dL (8.5-10.1)
[2021-10-22 06:40] LABS: BUN/Creatinine Ratio 12.5
[2021-10-22 06:43] LABS: Bilirubin, Total 1.7 mg/dL (0.2-1.0); Total Protein 6.1 g/dL (6.4-8.2)
[2021-10-22] MEDS: LACTULOSE 20Gm/30ML SOLN PO SCH ×3 (06:50→21:17)
[2021-10-22 07:13] LABS: Band Neutrophils % (manual) 0; Basophils % (manual) 0 (0.0-2.0); Blast Cells 0; Eosinophils % (manual) 0 (0-7); Myelocytes % 0; Promyelocytes % 0; Reactive Lymphocytes 0
[2021-10-22 07:21] LABS: Potassium 3.6 mmol/L (3.5-5.1)
[2021-10-22 08:51] LABS: Lymphocytes % (manual) 13 (10.0-50.0)
[2021-10-22 08:52] LABS: Metamyelocytes % 6; Monocytes % (manual) 19 (0-12)
[2021-10-22 09:00] VITALS: BP 120/49
[2021-10-22] MEDS ORDERED: PROP20TA73 PO (10:13)
[2021-10-22] MEDS ORDERED: OMEP-434 PO (10:13)
[2021-10-22] MEDS ORDERED: ASPI1TAB20 PO (10:13)
[2021-10-22] MEDS ORDERED: ARIP10TA29 PO (10:13)
[2021-10-22] MEDS ORDERED: MAGN241.4 PO (10:13)
[2021-10-22] MEDS ORDERED: SPIR50TA5 PO ×2 (10:13→10:16)
[2021-10-22] MEDS ORDERED: MONT-8 PO (10:13)
[2021-10-22] MEDS ORDERED: FLUO1TAB12 PO (10:13)
[2021-10-22] MEDS ORDERED: ATOR20TA50 PO (10:13)
[2021-10-22] MEDS ORDERED: CHOL1CAP21 PO (10:13)
[2021-10-22] MEDS ORDERED: HYDR50TA69 PO (10:16)
[2021-10-22] MEDS ORDERED: QUET200T45 PO (10:16)
[2021-10-22] MEDS ORDERED: METO25TA5 PO (10:16)
[2021-10-22] MEDS ORDERED: RIFA550T PO (10:16)
[2021-10-22] MEDS ORDERED: DIVA500T13 PO (10:16)
[2021-10-22] MEDS: ZINC SULFATE 220mg CAP or TAB PO SCH (10:21)
[2021-10-22] MEDS: MULTIPLE VITAMIN TAB PO SCH (10:21)
[2021-10-22] MEDS: PANTOPRAZOLE 40 MG/10 ML VIAL INJ IV SCH (10:21)
[2021-10-22] MEDS: MONTELUKAST SODIUM 10 MG TAB PO SCH (10:21)
[2021-10-22] MEDS: ASCORBIC ACID 500 MG TAB PO SCH ×2 (10:21→21:17)
[2021-10-22] MEDS: FLUoxetine HCL 20 MG CAP PO SCH (10:22)
[2021-10-22 13:00] VITALS: BP 129/65
[2021-10-22 16:29] VITALS: BP 140/42
[2021-10-22] MEDS: MIRTAZAPINE 30 MG TAB PO SCH (17:05)
[2021-10-22 20:00] VITALS: BP 131/40
[2021-10-22] MEDS: ATORVASTATIN 20 MG TAB PO SCH (21:17)
[2021-10-22] MEDS: rifAXIMin 550 MG TAB PO SCH (21:17)
[2021-10-22 22:00] VITALS: BP 104/49
[2021-10-22] MEDS ORDERED: QUEtiapine FUMARATE 100 MG TAB PO SCH (22:00)
[2021-10-22] MEDS: TEMAZEPAM 15 MG CAP PO PRN (22:03)
[2021-10-23 05:00] VITALS: BP 112/58
[2021-10-23] MEDS: LACTULOSE 20Gm/30ML SOLN PO SCH ×2 (07:11→13:52)
[2021-10-23 09:23] VITALS: BP 117/68
[2021-10-23] MEDS: PANTOPRAZOLE 40 MG/10 ML VIAL INJ IV SCH (09:25)
[2021-10-23] MEDS: MONTELUKAST SODIUM 10 MG TAB PO SCH (09:26)
[2021-10-23] MEDS: ZINC SULFATE 220mg CAP or TAB PO SCH (09:26)
[2021-10-23] MEDS: ASCORBIC ACID 500 MG TAB PO SCH (09:26)
[2021-10-23] MEDS: rifAXIMin 550 MG TAB PO SCH (09:32)
[2021-10-23] MEDS: MULTIPLE VITAMIN TAB PO SCH (09:32)
[2021-10-23] MEDS ORDERED: FUROSEMIDE 20 MG TAB PO SCH (10:00)
[2021-10-23] MEDS ORDERED: MAGNESIUM OXIDE 400 MG TAB PO SCH (10:00)
[2021-10-23] MEDS ORDERED: FLUoxetine HCL 10 MG CAP PO SCH (10:00)
[2021-10-23] MEDS ORDERED: ARIPIPRAZOLE 10 MG PO SCH (10:00)
[2021-10-23] MEDS ORDERED: SPIRONOLACTONE 25 MG TAB PO SCH (10:00)
[2021-10-23] MEDS ORDERED: LACT10SO3 PO (11:18)
[2021-10-23 13:13] VITALS: BP 126/70
[2021-10-23 16:07] VITALS: BP 117/68
[2021-10-23 16:41] VITALS: BP 112/53
== END 2021-10-23 17:08 | disposition home health service (06) | DRG 280 ==
LOC: ER 10:06 → EDBD 10:06 → TELE 15:43 → OBSVTOIN 16:09 → TELE-WESTW 20:49
PROVIDERS: ADMIT Internal Medicine; ATTEND Internal Medicine
DX: K70.31 Alcoholic cirrhosis of liver with ascites (principal); G93.41 Metabolic encephalopathy; K72.90 Hepatic failure, unspecified without coma; D69.6 Thrombocytopenia, unspecified; I50.22 Chronic systolic (congestive) heart failure; I13.0 Hypertensive heart and chronic kidney disease with heart failure and stage 1 through stage 4 chronic kidney disease, or unspecified chronic kidney disease; E11.22 Type 2 diabetes mellitus with diabetic chronic kidney disease; F20.9 Schizophrenia, unspecified; J44.9 Chronic obstructive pulmonary disease, unspecified; F41.9 Anxiety disorder, unspecified; Z20.822 Contact with and (suspected) exposure to COVID-19; N18.9 Chronic kidney disease, unspecified; F32.A Depression, unspecified; F17.210 Nicotine dependence, cigarettes, uncomplicated; E78.5 Hyperlipidemia, unspecified; K92.1 Melena; I25.10 Atherosclerotic heart disease of native coronary artery without angina pectoris; K43.9 Ventral hernia without obstruction or gangrene; Z82.49 Family history of ischemic heart disease and other diseases of the circulatory system; Z83.3 Family history of diabetes mellitus; Z86.73 Personal history of transient ischemic attack (TIA), and cerebral infarction without residual deficits; Z90.710 Acquired absence of both cervix and uterus; Z88.8 Allergy status to other drugs, medicaments and biological substances; I25.2 Old myocardial infarction
CPT/HCPCS: 36415; 74176; 74181; 80053; 81001; 82105; 82140; 83690; 84484; 85007; 85025; 85027; 85610; 86706; 86803; 87081; 87340; 93005; 96361; 96374; 96375; C9113; G0378; J2405

== ENCOUNTER 2021-12-19 15:28 | Inpatient (IN) | payer MEDICARE, MEDICAID ==
[~2021-12-19] VITALS: Ht 165.1 cm; Wt 81.5 kg
[~2021-12-19 15:28] MED LIST changes: +ARIP10TA29 PO; -ASPI1TAB20 PO; +DIVA500T13 PO; +FLUO1TAB12 PO; -FLUO60TA7 PO; +HYDR50TA69 PO; +LACT10SO3 PO; -LEVO500T31 PO; +METO25TA5 PO; -METR500T PO; -MIRT-66 PO; +OMEP-434 PO; -OMEP20CA74 PO; +PROP20TA73 PO; -PROP60CA34 PO; +QUET200T45 PO; +RIFA550T PO; +SPIR50TA5 PO; -TEMA15CA PO
[2021-12-19 19:59] LABS: Basophils # (auto) 0.3 10 ^3/uL (0-0.2); Basophils % (auto) 2.2 % (0.0-2.0); Eosinophils # (auto) 0 10 ^3/uL (0-0.8); Eosinophils % (auto) 0.1 % (0.0-7.0); Hematocrit 30.1 % (36.0-46.0); Hemoglobin 10.3 g/dL (12.2-16.2); Lymphocytes # (auto) 0.8 10 ^3/uL (0.4-5.4); Lymphocytes % (auto) 5.8 % (10.0-50.0); Mean Corpuscular Hemoglobin 32.2 pg (28.0-32.0); Mean Corpuscular Hgb Conc. 34.2 g/dL (32.0-36.0); Mean Corpuscular Volume 94.3 fL (80.0-100.0); Monocytes # (auto) 0.8 10 ^3/uL (0-1.3); Monocytes % (auto) 6.3 % (0.0-12.0); Neutrophils % (auto) 85.6 % (37.0-80.0); Nucleated Red Blood Cells % 0.1 %; Red Blood Cells 3.19 10^6/uL (4.0-5.20); Red Cell Distribution Width 14.7 % (11.8-14.3); White Blood Cell 12.9 10^3/uL (4.4-10.8)
[2021-12-19 20:07] LABS: INR 1.23 (0.9-1.15); Partial Thromboplastin Time 28.4 sec (23.6-33.0)
[2021-12-19 20:09] LABS: Alanine Aminotransferase 23 U/L (13-56); Albumin 2.2 g/dL (3.4-5.0); Anion Gap 8 (5-15); Aspartate Aminotransferase 40 U/L (15-37); BUN/Creatinine Ratio 13.8; Blood Urea Nitrogen 26 mg/dL (7-18); Calcium 9.1 mg/dL (8.5-10.1); Carbon Dioxide 26 mmol/L (21-32); Chloride 102 mmol/L (98-107); GFR African American 34 mL/min; GFR Non-African American 28 mL/min; Glucose 115 mg/dL (74-106); Lipase 156 U/L (73-393); Magnesium 1.9 mg/dL (1.6-2.6); Potassium 3.4 mmol/L (3.5-5.1); Sodium 136 mmol/L (136-145)
[2021-12-19 20:12] LABS: Alkaline Phosphatase 102 U/L (45-117); Bilirubin, Total 2.1 mg/dL (0.2-1.0); Total Protein 7.9 g/dL (6.4-8.2)
[2021-12-19 20:31] LABS: Lactic Acid w/Reflex 2.1 mmol/L (0.4-2.0)
[2021-12-19] MEDS ORDERED: LACTULOSE 20Gm/30ML SOLN PO ONE (22:30)
[2021-12-19] MEDS ORDERED: ALBUMIN 5% 250 ML IV ONE (23:00)
[2021-12-19] MEDS ORDERED: DOCUSATE SOD 100 MG CAP PO PRN (23:00)
[2021-12-19] MEDS ORDERED: NITROGLYCERIN 0.4 MG SL TAB SL PRN (23:00)
[2021-12-19] MEDS ORDERED: ACETAMINOPHEN 325 MG TAB PO PRN (23:00)
[2021-12-19] MEDS ORDERED: hydrALAZINE HCL 20 MG/ML VL IV PRN (23:00)
[2021-12-19] MEDS ORDERED: TEMAZEPAM 15 MG CAP PO PRN (23:00)
[2021-12-19] MEDS ORDERED: ONDANSETRON HCL 4 MG/2 ML VIAL IV PRN (23:00)
[2021-12-19] MEDS ORDERED: cefTRIAXone 1GM/50ML D5W 50 ML IV ONE (23:00)
[2021-12-19] MEDS ORDERED: MORPHINE SULFATE INJECTION 2 MG/ML SYRG IV PRN (23:00)
[2021-12-20] MEDS ORDERED: LACTULOSE 20Gm/30ML SOLN PO SCH
[2021-12-20 00:42] LABS: Urine Bacteria NONE SEEN /hpf (None Seen); Urine Blood 3+ /uL (Negative); Urine Specific Gravity 1.012 (1.001-1.035); Urine WBC 4 /hpf (0 - 5)
[2021-12-20] MEDS: LACTULOSE 20Gm/30ML SOLN PO SCH ×6 (02:00→22:04)
[2021-12-20 04:40] VITALS: BP 124/56
[2021-12-20 05:00] VITALS: BP 124/56
[2021-12-20] MEDS: SODIUM CHLOR 0.9% PF (SALINE LOCK) 10ML VIAL/SYR IV SCH ×3 (06:14→22:05)
[2021-12-20 06:27] LABS: Basophils # (auto) 0 10 ^3/uL (0-0.2); Basophils % (auto) 0.3 % (0.0-2.0); Eosinophils # (auto) 0 10 ^3/uL (0-0.8); Hematocrit 26.1 % (36.0-46.0); Monocytes # (auto) 0.5 10 ^3/uL (0-1.3); Neutrophils # (auto) 7.8 10 ^3/uL (1.6-8.6)
[2021-12-20 06:30] LABS: Albumin 2.2 g/dL (3.4-5.0); Calcium 8.8 mg/dL (8.5-10.1); Potassium 3.2 mmol/L (3.5-5.1)
[2021-12-20 06:31] LABS: Hemoglobin 9.3 g/dL (12.2-16.2); Lymphocytes # (auto) 0.3 10 ^3/uL (0.4-5.4); Mean Corpuscular Hemoglobin 33.7 pg (28.0-32.0); Mean Corpuscular Hgb Conc. 35.8 g/dL (32.0-36.0); Mean Corpuscular Volume 94.3 fL (80.0-100.0); Monocytes % (auto) 5.5 % (0.0-12.0); Neutrophils % (auto) 90.2 % (37.0-80.0); Nucleated Red Blood Cells % 0.1 %; Red Blood Cells 2.77 10^6/uL (4.0-5.20); Red Cell Distribution Width 14.7 % (11.8-14.3); White Blood Cell 8.6 10^3/uL (4.4-10.8)
[2021-12-20 06:34] LABS: BUN/Creatinine Ratio 13.9; Bilirubin, Total 1.4 mg/dL (0.2-1.0); Total Protein 7.2 g/dL (6.4-8.2)
[2021-12-20 09:00] VITALS: BP 128/60
[2021-12-20] MEDS: ARIPIPRAZOLE 10 MG PO SCH (10:00)
[2021-12-20] MEDS: ASCORBIC ACID 500 MG TAB PO SCH ×2 (10:23→22:06)
[2021-12-20] MEDS: FAMOTIDINE (10MG/ML) 2ML VL IV SCH ×2 (10:27→22:04)
[2021-12-20] MEDS: MULTIPLE VITAMIN TAB PO SCH (10:27)
[2021-12-20] MEDS: CIPROFLOXACIN 400MG/200ML 200 ML IV SCH ×2 (10:28→22:07)
[2021-12-20] MEDS: ZINC SULFATE 220mg CAP or TAB PO SCH (10:30)
[2021-12-20] MEDS: SODIUM CHLORIDE 0.9% 1,000 ML IV SCH ×2 (10:30→22:22)
[2021-12-20] MEDS: POTASSIUM CHL 20MEQ/100ML 100 ML IV SCH ×3 (10:30→13:22)
[2021-12-20] MEDS: cefTRIAXone 1GM/50ML D5W 50 ML IV SCH (10:31)
[2021-12-20 13:00] VITALS: BP 112/71
[2021-12-20] MEDS: MORPHINE SULFATE INJECTION 2 MG/ML SYRG IV PRN ×2 (13:24→20:25)
[2021-12-20 14:45] LABS: Creatinine, Urine 80 mg/dL (30.0-125.0); Protein, Urine 39.3 mg/dL (0.0-11.9); Sodium Urine 31 mmol/L (40-220)
[2021-12-20] MEDS ORDERED: POTASSIUM CHL 20MEQ/100ML 100 ML IV SCH (16:00)
[2021-12-20 17:00] VITALS: BP 101/55
[2021-12-20 22:00] VITALS: BP 128/65
[2021-12-20] MEDS: hydrOXYzine 25 MG TAB or CAP PO SCH (22:06)
[2021-12-21 05:00] VITALS: BP 116/82
[2021-12-21] MEDS: SODIUM CHLORIDE 0.9% 1,000 ML IV SCH (05:15)
[2021-12-21] MEDS: LACTULOSE 20Gm/30ML SOLN PO SCH ×4 (05:37→21:30)
[2021-12-21] MEDS: SODIUM CHLOR 0.9% PF (SALINE LOCK) 10ML VIAL/SYR IV SCH ×3 (05:43→21:30)
[2021-12-21 07:20] LABS: Mean Corpuscular Hgb Conc. 35.7 g/dL (32.0-36.0); Red Cell Distribution Width 14.7 % (11.8-14.3)
[2021-12-21 07:23] LABS: Albumin 1.9 g/dL (3.4-5.0); BUN/Creatinine Ratio 12.3; Calcium 8.4 mg/dL (8.5-10.1); Hematocrit 24.7 % (36.0-46.0); Hemoglobin 8.8 g/dL (12.2-16.2); Mean Corpuscular Hemoglobin 33.5 pg (28.0-32.0); Mean Corpuscular Volume 93.8 fL (80.0-100.0); Potassium 3.3 mmol/L (3.5-5.1); Red Blood Cells 2.63 10^6/uL (4.0-5.20); White Blood Cell 6.3 10^3/uL (4.4-10.8)
[2021-12-21 07:26] LABS: Bilirubin, Total 1.1 mg/dL (0.2-1.0); Total Protein 6.7 g/dL (6.4-8.2)
[2021-12-21 07:31] LABS: Basophils % (manual) 0 (0.0-2.0); Blast Cells 0; Promyelocytes % 0; Reactive Lymphocytes 0
[2021-12-21 08:00] VITALS: BP 134/77
[2021-12-21 08:09] LABS: Band Neutrophils % (manual) 4; Eosinophils % (manual) 1 (0-7); Lymphocytes % (manual) 14 (10.0-50.0); Metamyelocytes % 1; Monocytes % (manual) 1 (0-12); Myelocytes % 1
[2021-12-21 09:03] VITALS: BP 134/77
[2021-12-21] MEDS: cefTRIAXone 1GM/50ML D5W 50 ML IV SCH (09:34)
[2021-12-21] MEDS: CIPROFLOXACIN 400MG/200ML 200 ML IV SCH ×2 (09:34→21:33)
[2021-12-21] MEDS: ASCORBIC ACID 500 MG TAB PO SCH ×2 (09:35→21:32)
[2021-12-21] MEDS: MULTIPLE VITAMIN TAB PO SCH (09:35)
[2021-12-21] MEDS: MORPHINE SULFATE INJECTION 2 MG/ML SYRG IV PRN ×3 (09:35→18:40)
[2021-12-21] MEDS: ZINC SULFATE 220mg CAP or TAB PO SCH (09:35)
[2021-12-21] MEDS: ATORVASTATIN 20 MG TAB PO SCH (09:36)
[2021-12-21] MEDS: ARIPIPRAZOLE 10 MG PO SCH (10:00)
[2021-12-21] MEDS: FAMOTIDINE (10MG/ML) 2ML VL IV SCH ×2 (11:11→21:29)
[2021-12-21] MEDS ORDERED: POTASSIUM CHL 20 Meq TABLET PO ONE (12:15)
[2021-12-21 12:39] VITALS: BP 136/74
[2021-12-21 16:35] VITALS: BP 128/71
[2021-12-21] MEDS: FERROUS SULFATE 325mg EC TAB PO SCH (17:20)
[2021-12-21] MEDS: hydrOXYzine 25 MG TAB or CAP PO SCH (21:32)
[2021-12-21 22:00] VITALS: BP 123/68
[2021-12-22] MEDS: SODIUM CHLORIDE 0.9% 1,000 ML IV SCH ×4 (02:52→21:15)
[2021-12-22 04:57] VITALS: BP 130/76
[2021-12-22] MEDS: SODIUM CHLOR 0.9% PF (SALINE LOCK) 10ML VIAL/SYR IV SCH ×3 (05:11→22:52)
[2021-12-22] MEDS: LACTULOSE 20Gm/30ML SOLN PO SCH ×2 (05:11→22:53)
[2021-12-22 05:25] LABS: Hemoglobin 9.2 g/dL (12.2-16.2)
[2021-12-22 05:30] LABS: Hematocrit 25.9 % (36.0-46.0); Mean Corpuscular Hemoglobin 33.4 pg (28.0-32.0); Mean Corpuscular Hgb Conc. 35.6 g/dL (32.0-36.0); Mean Corpuscular Volume 93.9 fL (80.0-100.0); Red Blood Cells 2.76 10^6/uL (4.0-5.20); Red Cell Distribution Width 14.7 % (11.8-14.3)
[2021-12-22 05:50] LABS: Potassium 3.6 mmol/L (3.5-5.1)
[2021-12-22 06:02] LABS: Albumin 1.9 g/dL (3.4-5.0); BUN/Creatinine Ratio 10.8; Bilirubin, Total 1.4 mg/dL (0.2-1.0); Calcium 8.6 mg/dL (8.5-10.1); Total Protein 6.9 g/dL (6.4-8.2)
[2021-12-22] MEDS: MORPHINE SULFATE INJECTION 2 MG/ML SYRG IV PRN (06:37)
[2021-12-22 07:23] LABS: Basophils % (manual) 0 (0.0-2.0); Blast Cells 0; Eosinophils % (manual) 0 (0-7); Promyelocytes % 0; Reactive Lymphocytes 0
[2021-12-22 08:00] VITALS: BP 145/74
[2021-12-22] MEDS: CIPROFLOXACIN 400MG/200ML 200 ML IV SCH ×2 (09:39→22:52)
[2021-12-22] MEDS: MULTIPLE VITAMIN TAB PO SCH (09:39)
[2021-12-22] MEDS: ATORVASTATIN 20 MG TAB PO SCH (09:39)
[2021-12-22] MEDS: cefTRIAXone 1GM/50ML D5W 50 ML IV SCH (09:39)
[2021-12-22] MEDS: ASCORBIC ACID 500 MG TAB PO SCH ×2 (09:40→22:53)
[2021-12-22] MEDS: FERROUS SULFATE 325mg EC TAB PO SCH ×2 (09:40→17:19)
[2021-12-22] MEDS: FAMOTIDINE (10MG/ML) 2ML VL IV SCH ×2 (09:40→22:52)
[2021-12-22] MEDS: ZINC SULFATE 220mg CAP or TAB PO SCH (09:40)
[2021-12-22] MEDS: ARIPIPRAZOLE 10 MG PO SCH (09:40)
[2021-12-22 13:00] VITALS: BP 134/78
[2021-12-22 13:46] LABS: Band Neutrophils % (manual) 3; Lymphocytes % (manual) 10 (10.0-50.0); Metamyelocytes % 1; Monocytes % (manual) 9 (0-12); Myelocytes % 2
[2021-12-22 22:03] VITALS: BP 102/66
[2021-12-22] MEDS: hydrOXYzine 25 MG TAB or CAP PO SCH (22:53)
[2021-12-23 05:00] VITALS: BP 120/83
[2021-12-23 08:45] VITALS: BP 136/77
[2021-12-23] MEDS: ARIPIPRAZOLE 10 MG PO SCH (10:00)
[2021-12-23] MEDS: LACTULOSE 20Gm/30ML SOLN PO SCH ×3 (10:00→21:59)
[2021-12-23] MEDS: FAMOTIDINE (10MG/ML) 2ML VL IV SCH ×2 (10:10→21:58)
[2021-12-23] MEDS: cefTRIAXone 1GM/50ML D5W 50 ML IV SCH (10:10)
[2021-12-23] MEDS: ASCORBIC ACID 500 MG TAB PO SCH ×2 (10:11→21:59)
[2021-12-23] MEDS: ATORVASTATIN 20 MG TAB PO SCH (10:11)
[2021-12-23] MEDS: MULTIPLE VITAMIN TAB PO SCH (10:11)
[2021-12-23] MEDS: ZINC SULFATE 220mg CAP or TAB PO SCH (10:11)
[2021-12-23] MEDS: CIPROFLOXACIN 400MG/200ML 200 ML IV SCH (10:12)
[2021-12-23] MEDS: FERROUS SULFATE 325mg EC TAB PO SCH ×2 (10:12→17:58)
[2021-12-23] MEDS: MORPHINE SULFATE INJECTION 2 MG/ML SYRG IV PRN (10:23)
[2021-12-23] MEDS: SODIUM CHLORIDE 0.9% 1,000 ML IV SCH ×2 (10:28→17:15)
[2021-12-23] MEDS ORDERED: FURO40TA4 PO (10:52)
[2021-12-23] MEDS ORDERED: ASPI-543 PO (10:52)
[2021-12-23 12:34] VITALS: BP 132/96
[2021-12-23 13:12] LABS: Basophils # (auto) 0.1 10 ^3/uL (0-0.2); Eosinophils # (auto) 0.1 10 ^3/uL (0-0.8); Lymphocytes # (auto) 0.6 10 ^3/uL (0.4-5.4); Monocytes # (auto) 0.5 10 ^3/uL (0-1.3)
[2021-12-23 13:14] LABS: Basophils % (auto) 2.1 % (0.0-2.0); Eosinophils % (auto) 2.8 % (0.0-7.0); Hematocrit 28.6 % (36.0-46.0); Hemoglobin 9.8 g/dL (12.2-16.2); Lymphocytes % (auto) 12.1 % (10.0-50.0); Mean Corpuscular Hgb Conc. 34.4 g/dL (32.0-36.0); Mean Corpuscular Volume 96.1 fL (80.0-100.0); Monocytes % (auto) 9.4 % (0.0-12.0); Neutrophils # (auto) 3.8 10 ^3/uL (1.6-8.6); Neutrophils % (auto) 73.6 % (37.0-80.0); Nucleated Red Blood Cells % 0.3 %; Red Blood Cells 2.97 10^6/uL (4.0-5.20); White Blood Cell 5.2 10^3/uL (4.4-10.8)
[2021-12-23] MEDS: SODIUM CHLOR 0.9% PF (SALINE LOCK) 10ML VIAL/SYR IV SCH ×2 (14:00→21:59)
[2021-12-23 16:31] VITALS: BP 112/54
[2021-12-23 17:59] LABS: Potassium 3.4 mmol/L (3.5-5.1)
[2021-12-23] MEDS ORDERED: LACTULOSE 20Gm/30ML SOLN PO SCH (18:00)
[2021-12-23 18:01] LABS: Albumin 2.1 g/dL (3.4-5.0); BUN/Creatinine Ratio 8.8; Bilirubin, Total 0.9 mg/dL (0.2-1.0); Calcium 8.6 mg/dL (8.5-10.1); Total Protein 7.5 g/dL (6.4-8.2)
[2021-12-23] MEDS: CIPROFLOXACIN HCL 500 MG TAB PO SCH (21:59)
[2021-12-23] MEDS: hydrOXYzine 25 MG TAB or CAP PO SCH (21:59)
[2021-12-23 22:00] VITALS: BP 126/72
[2021-12-24] MEDS: SODIUM CHLORIDE 0.9% 1,000 ML IV SCH (01:27)
[2021-12-24 05:00] VITALS: BP 131/73
[2021-12-24] MEDS: SODIUM CHLOR 0.9% PF (SALINE LOCK) 10ML VIAL/SYR IV SCH ×2 (06:13→14:00)
[2021-12-24] MEDS ORDERED: FURO1TAB33 PO (07:10)
[2021-12-24 07:40] LABS: Albumin 1.9 g/dL (3.4-5.0); Calcium 8.3 mg/dL (8.5-10.1); Potassium 3.5 mmol/L (3.5-5.1)
[2021-12-24 07:43] LABS: BUN/Creatinine Ratio 8.6; Bilirubin, Total 1.1 mg/dL (0.2-1.0); Total Protein 7.1 g/dL (6.4-8.2)
[2021-12-24 09:00] VITALS: BP 117/62
[2021-12-24] MEDS: ARIPIPRAZOLE 10 MG PO SCH (10:00)
[2021-12-24] MEDS: FERROUS SULFATE 325mg EC TAB PO SCH ×2 (10:14→18:00)
[2021-12-24] MEDS ORDERED: SODIUM CHLORIDE 0.9% 1,000 ML IV SCH (10:15)
[2021-12-24] MEDS: FAMOTIDINE (10MG/ML) 2ML VL IV SCH (10:15)
[2021-12-24] MEDS: LACTULOSE 20Gm/30ML SOLN PO SCH (10:15)
[2021-12-24] MEDS: CIPROFLOXACIN HCL 500 MG TAB PO SCH (10:17)
[2021-12-24] MEDS: ZINC SULFATE 220mg CAP or TAB PO SCH (10:17)
[2021-12-24] MEDS: MULTIPLE VITAMIN TAB PO SCH (10:17)
[2021-12-24] MEDS: ATORVASTATIN 20 MG TAB PO SCH (10:17)
[2021-12-24] MEDS: ASCORBIC ACID 500 MG TAB PO SCH (10:18)
[2021-12-24] MEDS: POTASSIUM CHL 20MEQ/100ML 100 ML IV SCH ×2 (11:00→14:46)
[2021-12-24 13:00] VITALS: BP 130/79
[2021-12-24 16:50] VITALS: BP 122/62
== END 2021-12-24 20:30 | DRG 441 ==
LOC: ER 15:38 → TELE 22:55 → TELE-CENTR 12-20 02:51 → TELE-WESTW 12-20 11:47
PROVIDERS: ADMIT Internal Medicine; ATTEND Internal Medicine
DX: K72.90 Hepatic failure, unspecified without coma (principal); N17.0 Acute kidney failure with tubular necrosis; E43 Unspecified severe protein-calorie malnutrition; D63.1 Anemia in chronic kidney disease; E87.6 Hypokalemia; B19.20 Unspecified viral hepatitis C without hepatic coma; K70.30 Alcoholic cirrhosis of liver without ascites; E11.22 Type 2 diabetes mellitus with diabetic chronic kidney disease; F17.210 Nicotine dependence, cigarettes, uncomplicated; I12.9 Hypertensive chronic kidney disease with stage 1 through stage 4 chronic kidney disease, or unspecified chronic kidney disease; F32.A Depression, unspecified; Z20.822 Contact with and (suspected) exposure to COVID-19; J44.9 Chronic obstructive pulmonary disease, unspecified; N18.32 Chronic kidney disease, stage 3b; M79.7 Fibromyalgia; F41.9 Anxiety disorder, unspecified; D69.6 Thrombocytopenia, unspecified; R19.7 Diarrhea, unspecified; R29.6 Repeated falls; Z88.8 Allergy status to other drugs, medicaments and biological substances; Z82.49 Family history of ischemic heart disease and other diseases of the circulatory system; Z83.3 Family history of diabetes mellitus; Z86.73 Personal history of transient ischemic attack (TIA), and cerebral infarction without residual deficits; Z90.710 Acquired absence of both cervix and uterus; Z99.81 Dependence on supplemental oxygen
CPT/HCPCS: 36415; 71045; 76775; 80053; 81001; 82140; 82306; 82550; 82570; 83036; 83605; 83690; 83735; 83880; 83970; 84100; 84132; 84156; 84300; 84484; 85007; 85025; 85027; 85610; 85730; 87040; 87086; 93005; 93306; 96365; 96368; 97110; 97116; 97163; 97530; G0378; J0696; J3480; J3490

== ENCOUNTER 2022-01-05 09:27 | Inpatient (IN) | payer MEDICARE, MEDICAID ==
[~2022-01-05] VITALS: Ht 167.6 cm; Wt 80.3 kg
[~2022-01-05 09:27] MED LIST changes: +ASPI-543 PO; -HYDR50TA69 PO; -METO25TA5 PO; -QUET200T45 PO; -SPIR50TA5 PO
[2022-01-05] MEDS ORDERED: CLINDAMYCIN 300MG IV 50 ML IV ONE (10:00)
[2022-01-05] MEDS ORDERED: cefTRIAXone 1GM/50ML D5W 50 ML IV ONE (10:00)
[2022-01-05 11:27] LABS: INR 1.53 (0.9-1.15); Partial Thromboplastin Time 36.4 sec (23.6-33.0)
[2022-01-05 11:30] LABS: Albumin 1.9 g/dL (3.4-5.0); Calcium 8.1 mg/dL (8.5-10.1); Potassium 3.1 mmol/L (3.5-5.1)
[2022-01-05 11:34] LABS: BUN/Creatinine Ratio 12.4; Bilirubin, Total 1.1 mg/dL (0.2-1.0); Total Protein 7.2 g/dL (6.4-8.2)
[2022-01-05 11:56] LABS: Basophils # (auto) 0 10 ^3/uL (0-0.2); Eosinophils # (auto) 0 10 ^3/uL (0-0.8); Lymphocytes # (auto) 0.2 10 ^3/uL (0.4-5.4); Monocytes # (auto) 0.6 10 ^3/uL (0-1.3); Neutrophils # (auto) 3.8 10 ^3/uL (1.6-8.6); Red Blood Cells 2.59 10^6/uL (4.0-5.20); White Blood Cell 4.7 10^3/uL (4.4-10.8)
[2022-01-05 11:58] LABS: Basophils % (auto) 0.2 % (0.0-2.0); Eosinophils % (auto) 0.2 % (0.0-7.0); Hematocrit 25.2 % (36.0-46.0); Hemoglobin 8.6 g/dL (12.2-16.2); Lymphocytes % (auto) 4.6 % (10.0-50.0); Mean Corpuscular Hemoglobin 33.1 pg (28.0-32.0); Mean Corpuscular Volume 97.3 fL (80.0-100.0); Monocytes % (auto) 13.4 % (0.0-12.0); Neutrophils % (auto) 81.6 % (37.0-80.0)
[2022-01-05 12:19] LABS: Red Cell Distribution Width 20.1 % (11.8-14.3)
[2022-01-05] MEDS ORDERED: NITROGLYCERIN 0.4 MG SL TAB SL PRN (12:30)
[2022-01-05] MEDS ORDERED: MORPHINE SULFATE INJ 2 MG/ml SYRG IV PRN (12:30)
[2022-01-05] MEDS ORDERED: ONDANSETRON HCL 4 MG/2 ML VIAL IV PRN (12:30)
[2022-01-05] MEDS: POTASSIUM CHL 20MEQ/100ML 100 ML IV SCH ×2 (13:14→15:14)
[2022-01-05] MEDS: LACTULOSE 20Gm/30ML SOLN PO SCH ×2 (15:15→21:29)
[2022-01-05 17:39] VITALS: BP 98/44
[2022-01-05] MEDS ORDERED: FLUO1TAB12 PO (19:06)
[2022-01-05] MEDS ORDERED: ARIP1TAB5 PO (19:06)
[2022-01-05] MEDS ORDERED: QUET200T4 PO (19:06)
[2022-01-05 21:51] VITALS: BP 94/45
[2022-01-06 05:00] VITALS: BP 112/48
[2022-01-06] MEDS: LACTULOSE 20Gm/30ML SOLN PO SCH ×3 (05:30→20:30)
[2022-01-06 06:15] LABS: Albumin 1.7 g/dL (3.4-5.0); Calcium 8.1 mg/dL (8.5-10.1); Potassium 3.3 mmol/L (3.5-5.1)
[2022-01-06 06:19] LABS: BUN/Creatinine Ratio 12.3; Bilirubin, Total 1.2 mg/dL (0.2-1.0); Total Protein 6.9 g/dL (6.4-8.2)
[2022-01-06 09:00] VITALS: BP 128/70
[2022-01-06] MEDS: PANTOPRAZOLE 40 MG/10 ML VIAL INJ IV SCH (09:21)
[2022-01-06 13:00] VITALS: BP 126/66
[2022-01-06] MEDS ORDERED: PATIENTS OWN MEDICATION (Cholecalciferol (Vitamin D3) 1 CAP) PO SCH (14:45)
[2022-01-06 16:48] VITALS: BP 124/69
[2022-01-06] MEDS ORDERED: LORazepam 2MG/ML-1ML VIAL IV PRN (20:45)
[2022-01-06 21:00] LABS: Cholesterol 56 mg/dL (< 200)
[2022-01-06 21:03] LABS: HDL Cholesterol 24 mg/dL (40-59); LDL Cholesterol 27 mg/dL (< 100); Triglycerides 50 mg/dL (< 150)
[2022-01-06] MEDS: CIPROFLOXACIN 400MG/200ML 200 ML IV SCH ×2 (22:01)
[2022-01-06] MEDS: rifAXIMin 550 MG TAB PO SCH (22:02)
[2022-01-06] MEDS: PROPRANOLOL HCL 20 MG TAB PO SCH (22:03)
[2022-01-06 22:06] LABS: Basophils # (auto) 0 10 ^3/uL (0-0.2); Basophils % (auto) 0.1 % (0.0-2.0); Eosinophils # (auto) 0 10 ^3/uL (0-0.8); Hemoglobin 9.1 g/dL (12.2-16.2); Lymphocytes # (auto) 0.6 10 ^3/uL (0.4-5.4)
[2022-01-06 22:08] LABS: Eosinophils % (auto) 0.4 % (0.0-7.0); Hematocrit 26.7 % (36.0-46.0); Lymphocytes % (auto) 6.8 % (10.0-50.0); Mean Corpuscular Hemoglobin 33.4 pg (28.0-32.0); Mean Corpuscular Hgb Conc. 34.1 g/dL (32.0-36.0); Monocytes # (auto) 1.5 10 ^3/uL (0-1.3); Monocytes % (auto) 17.7 % (0.0-12.0); Neutrophils # (auto) 6.2 10 ^3/uL (1.6-8.6); Nucleated Red Blood Cells % 0.1 %; Red Blood Cells 2.72 10^6/uL (4.0-5.20); White Blood Cell 8.2 10^3/uL (4.4-10.8)
[2022-01-06 22:32] LABS: Folate (Folic Acid) 14.91 ng/mL (5.38-24)
[2022-01-06 23:19] LABS: Red Cell Distribution Width 20.2 % (11.8-14.3)
[2022-01-07 00:06] VITALS: BP 110/42
[2022-01-07] MEDS: LACTULOSE 20Gm/30ML SOLN PO SCH ×3 (05:42→22:12)
[2022-01-07 06:10] VITALS: BP 115/64
[2022-01-07 09:00] VITALS: BP 136/80
[2022-01-07] MEDS: ARIPIPRAZOLE 10 MG TABLET PO SCH (09:45)
[2022-01-07] MEDS: PANTOPRAZOLE 40 MG/10 ML VIAL INJ IV SCH (09:45)
[2022-01-07] MEDS: PROPRANOLOL HCL 20 MG TAB PO SCH ×2 (09:46→22:13)
[2022-01-07] MEDS: MONTELUKAST SODIUM 10 MG TAB PO SCH (09:46)
[2022-01-07] MEDS: MAGNESIUM OXIDE 400 MG TAB PO SCH (09:46)
[2022-01-07] MEDS: ATORVASTATIN 20 MG TAB PO SCH (09:46)
[2022-01-07] MEDS: FLUoxetine HCL 10 MG CAP PO SCH (09:46)
[2022-01-07] MEDS: rifAXIMin 550 MG TAB PO SCH ×2 (09:47→22:12)
[2022-01-07 10:35] LABS: Anion Gap 8 (5-15); Calcium 7.2 mg/dL (8.5-10.1); Carbon Dioxide 18 mmol/L (21-32); Chloride 111 mmol/L (98-107); GFR African American 32 mL/min; GFR Non-African American 26 mL/min; Glucose 126 mg/dL (74-106); Potassium 3.4 mmol/L (3.5-5.1); Sodium 137 mmol/L (136-145)
[2022-01-07 10:48] LABS: BUN/Creatinine Ratio 10.3; Blood Urea Nitrogen 21 mg/dL (7-18)
[2022-01-07 13:00] VITALS: BP 106/69
[2022-01-07 17:00] VITALS: BP 116/55
[2022-01-07 21:47] VITALS: BP 116/66
[2022-01-07] MEDS: CIPROFLOXACIN 400MG/200ML 200 ML IV SCH (22:13)
[2022-01-08 05:37] VITALS: BP 132/65
[2022-01-08] MEDS: LACTULOSE 20Gm/30ML SOLN PO SCH ×2 (05:59→14:34)
[2022-01-08 07:23] LABS: Potassium 3.5 mmol/L (3.5-5.1)
[2022-01-08 07:33] LABS: BUN/Creatinine Ratio 12.3; Calcium 8.6 mg/dL (8.5-10.1)
[2022-01-08 09:00] VITALS: BP 125/60
[2022-01-08] MEDS: ARIPIPRAZOLE 10 MG TABLET PO SCH (10:00)
[2022-01-08] MEDS: MONTELUKAST SODIUM 10 MG TAB PO SCH (10:14)
[2022-01-08] MEDS: rifAXIMin 550 MG TAB PO SCH (10:14)
[2022-01-08] MEDS: PROPRANOLOL HCL 20 MG TAB PO SCH (10:15)
[2022-01-08] MEDS: MAGNESIUM OXIDE 400 MG TAB PO SCH (10:15)
[2022-01-08] MEDS: FLUoxetine HCL 10 MG CAP PO SCH (10:15)
[2022-01-08] MEDS: PANTOPRAZOLE 40 MG/10 ML VIAL INJ IV SCH (10:15)
[2022-01-08] MEDS: ATORVASTATIN 20 MG TAB PO SCH (10:21)
[2022-01-08 13:00] VITALS: BP 128/72
[2022-01-08 17:00] VITALS: BP 129/63
[2022-01-08 18:50] VITALS: BP 125/60
== END 2022-01-08 20:25 | DRG 442 ==
LOC: ER 09:27 → EDBD 09:27 → EAST 12:18 → TELE-EAST 14:27
PROVIDERS: ADMIT Nurse Practitioner; ATTEND Nurse Practitioner
DX: K72.90 Hepatic failure, unspecified without coma (principal); E44.0 Moderate protein-calorie malnutrition; N17.9 Acute kidney failure, unspecified; I13.0 Hypertensive heart and chronic kidney disease with heart failure and stage 1 through stage 4 chronic kidney disease, or unspecified chronic kidney disease; D64.9 Anemia, unspecified; D69.6 Thrombocytopenia, unspecified; E11.22 Type 2 diabetes mellitus with diabetic chronic kidney disease; G40.909 Epilepsy, unspecified, not intractable, without status epilepticus; K74.60 Unspecified cirrhosis of liver; N18.30 Chronic kidney disease, stage 3 unspecified; B19.20 Unspecified viral hepatitis C without hepatic coma; Z68.28 Body mass index [BMI] 28.0-28.9, adult; Z20.822 Contact with and (suspected) exposure to COVID-19; E78.5 Hyperlipidemia, unspecified; F17.210 Nicotine dependence, cigarettes, uncomplicated; I25.10 Atherosclerotic heart disease of native coronary artery without angina pectoris; F03.90 Unspecified dementia, unspecified severity, without behavioral disturbance, psychotic disturbance, mood disturbance, and anxiety; I48.91 Unspecified atrial fibrillation; F32.A Depression, unspecified; K21.9 Gastro-esophageal reflux disease without esophagitis; I50.9 Heart failure, unspecified; J44.9 Chronic obstructive pulmonary disease, unspecified; I25.2 Old myocardial infarction; Z79.899 Other long term (current) drug therapy; Z82.49 Family history of ischemic heart disease and other diseases of the circulatory system; Z83.3 Family history of diabetes mellitus; Z85.05 Personal history of malignant neoplasm of liver; Z86.19 Personal history of other infectious and parasitic diseases; Z86.711 Personal history of pulmonary embolism; Z86.73 Personal history of transient ischemic attack (TIA), and cerebral infarction without residual deficits; Z90.710 Acquired absence of both cervix and uterus; Z99.81 Dependence on supplemental oxygen; Z88.8 Allergy status to other drugs, medicaments and biological substances; Z91.14 Patient's other noncompliance with medication regimen
CPT/HCPCS: 36415; 70450; 70551; 71045; 80048; 80053; 80061; 80320; 82140; 82607; 82746; 83605; 83880; 84443; 84484; 85025; 85610; 85730; 87040; 87077; 87081; 87186; 92523; 92610; 93005; 93886; 95819; 96365; 96368; C9113; G0378; J0696; J3480; J3490

== ENCOUNTER 2022-01-14 10:10 | Inpatient (IN) | payer MEDICARE, MEDICAID ==
[~2022-01-14] VITALS: Ht 165.1 cm; Wt 91.2 kg
[~2022-01-14 10:10] MED LIST changes: -FURO1TAB33 PO; +QUET200T4 PO
[2022-01-14] MEDS ORDERED: SODIUM CHLORIDE 0.9% 1,000 ML IV ONE ×2 (11:00)
[2022-01-14 11:09] LABS: Mean Corpuscular Hgb Conc. 34.7 g/dL (32.0-36.0); White Blood Cell 2.8 10^3/uL (4.4-10.8)
[2022-01-14 11:11] LABS: Hematocrit 22.3 % (36.0-46.0); Hemoglobin 7.7 g/dL (12.2-16.2); Mean Corpuscular Hemoglobin 34.4 pg (28.0-32.0); Mean Corpuscular Volume 99.1 fL (80.0-100.0); Red Blood Cells 2.25 10^6/uL (4.0-5.20)
[2022-01-14 11:20] LABS: Urine Bacteria NONE SEEN /hpf (None Seen); Urine Blood 3+ /uL (Negative); Urine Hyaline Cast FEW /lpf (0 - 2); Urine Mucus FEW (None Seen); Urine Specific Gravity 1.013 (1.001-1.035); Urine WBC 11 /hpf (0 - 5)
[2022-01-14 11:24] LABS: Albumin 1.3 g/dL (3.4-5.0); Calcium 7.6 mg/dL (8.5-10.1)
[2022-01-14 11:27] LABS: Total Protein 5.7 g/dL (6.4-8.2)
[2022-01-14 11:33] LABS: Red Cell Distribution Width 20.4 % (11.8-14.3)
[2022-01-14 11:41] LABS: Band Neutrophils % (manual) 0; Blast Cells 0; Metamyelocytes % 0; Myelocytes % 0; Promyelocytes % 0; Reactive Lymphocytes 0
[2022-01-14] MEDS ORDERED: cefTRIAXone 1GM/50ML D5W 50 ML IV ONE (12:00)
[2022-01-14] MEDS ORDERED: AZITHROMYCIN 500MG/ 250ML 250 ML IV ONE (12:00)
[2022-01-14] MEDS: SODIUM CHLORIDE 0.9% 2,000 ML IV ONE ×2 (12:04→12:25)
[2022-01-14 12:08] LABS: Basophils % (manual) 1 (0.0-2.0); Eosinophils % (manual) 2 (0-7); Lymphocytes % (manual) 30 (10.0-50.0); Monocytes % (manual) 13 (0-12)
[2022-01-14 12:11] LABS: Potassium 2.9 mmol/L (3.5-5.1)
[2022-01-14] MEDS: POTASSIUM CHL 20MEQ/100ML 100 ML IV SCH ×2 (13:09→15:50)
[2022-01-14] MEDS ORDERED: NOREPINEPHRINE 8 MG/250ML KIT 250 ML IV ONE (13:42)
[2022-01-14] MEDS: NOREPINEPHRINE 8 MG/250ML KIT 250 ML IV SCH (13:53)
[2022-01-14] MEDS ORDERED: NITROGLYCERIN 0.4 MG SL TAB SL PRN (15:45)
[2022-01-14] MEDS ORDERED: MORPHINE SULFATE INJ 2 MG/ml SYRG IV PRN (15:45)
[2022-01-14] MEDS ORDERED: LORazepam 2MG/ML-1ML VIAL IV PRN ×2 (16:45→17:00)
[2022-01-14] MEDS ORDERED: MORPHINE SULFATE 4 MG/ML SYR/VIAL IV PRN (16:45)
[2022-01-14] MEDS ORDERED: VANCOMYCIN PER PHARMACY 1,000 MG IV SCH (16:45)
[2022-01-14] MEDS ORDERED: LACTULOSE 10g/15ml SOLN 473ML PR ONE (17:00)
[2022-01-14] MEDS ORDERED: IPRATROPIUM BROM 0.5 MG/2.5ML INH SOL NEB PRN (17:00)
[2022-01-14] MEDS ORDERED: ALBUMIN 25% 50 ML IV ONE (17:00)
[2022-01-14] MEDS ORDERED: DOCUSATE SOD 100 MG CAP PO PRN (17:00)
[2022-01-14] MEDS ORDERED: ONDANSETRON HCL 4 MG/2 ML VIAL IV PRN (17:00)
[2022-01-14] MEDS ORDERED: hydrALAZINE HCL 20 MG/ML VL IV PRN (17:00)
[2022-01-14 17:22] LABS: Magnesium 1.6 mg/dL (1.6-2.6); Phosphorus 3.2 mg/dL (2.5-4.90)
[2022-01-14] MEDS ORDERED: PIPERACILLIN-TAZOB 3.375GM 100 ML IV SCH (18:00)
[2022-01-14 18:02] VITALS: BP 108/62
[2022-01-14 18:17] VITALS: BP 110/54
[2022-01-14] MEDS ORDERED: VANCOMYCIN 1GM/250ML 250 ML IV ONE (18:30)
[2022-01-14 18:32] VITALS: BP 117/42
[2022-01-14] MEDS: LACTULOSE 20Gm/30ML SOLN PO SCH (19:23)
[2022-01-14 19:34] LABS: INR 1.48 (0.9-1.15); Partial Thromboplastin Time 31.5 sec (23.6-33.0)
[2022-01-14 19:50] VITALS: BP 114/76
[2022-01-14 20:53] LABS: Urine Bacteria FEW /hpf (None Seen); Urine Blood 3+ /uL (Negative); Urine Specific Gravity 1.011 (1.001-1.035); Urine WBC 2 /hpf (0 - 5)
[2022-01-14 21:56] VITALS: BP 122/35
[2022-01-15] MEDS: LACTULOSE 20Gm/30ML SOLN PO SCH ×7 (00:05→21:02)
[2022-01-15] MEDS: PANTOPRAZOLE 40 MG/10 ML VIAL INJ IV SCH ×3 (00:05→21:02)
[2022-01-15] MEDS: ATORVASTATIN 20 MG TAB PO SCH ×2 (00:06→21:03)
[2022-01-15] MEDS: MAGNESIUM OXIDE 400 MG TAB PO SCH ×3 (00:06→21:03)
[2022-01-15] MEDS: PIPERACILLIN-TAZOB 2.25GM 50 ML IV SCH ×2 (00:06→05:41)
[2022-01-15] MEDS: QUEtiapine FUMARATE 100 MG TAB PO SCH ×2 (00:06→21:03)
[2022-01-15] MEDS: ALBUMIN 25% 50 ML IV SCH ×3 (04:00→20:21)
[2022-01-15 08:15] LABS: Basophils # (auto) 0 10 ^3/uL (0-0.2); Eosinophils # (auto) 0.1 10 ^3/uL (0-0.8); Lymphocytes # (auto) 0.7 10 ^3/uL (0.4-5.4); Monocytes # (auto) 0.4 10 ^3/uL (0-1.3); Neutrophils # (auto) 1.4 10 ^3/uL (1.6-8.6); White Blood Cell 2.6 10^3/uL (4.4-10.8)
[2022-01-15 08:18] LABS: Basophils % (auto) 0.9 % (0.0-2.0); Eosinophils % (auto) 2.6 % (0.0-7.0); Hematocrit 22.7 % (36.0-46.0); Lymphocytes % (auto) 26.7 % (10.0-50.0); Mean Corpuscular Hemoglobin 34.2 pg (28.0-32.0); Mean Corpuscular Hgb Conc. 35.1 g/dL (32.0-36.0); Mean Corpuscular Volume 97.3 fL (80.0-100.0); Monocytes % (auto) 15.3 % (0.0-12.0); Neutrophils % (auto) 54.5 % (37.0-80.0); Nucleated Red Blood Cells % 0.9 %; Red Blood Cells 2.34 10^6/uL (4.0-5.20)
[2022-01-15 08:19] LABS: Red Cell Distribution Width 20.6 % (11.8-14.3)
[2022-01-15 08:36] LABS: Magnesium 1.7 mg/dL (1.6-2.6); Potassium 3.7 mmol/L (3.5-5.1)
[2022-01-15 08:46] LABS: BUN/Creatinine Ratio 11.2; Bilirubin, Total 1.5 mg/dL (0.2-1.0); CRP High Sensitivity 1.3 mg/dL (< 0.3); Phosphorus 3.8 mg/dL (2.5-4.90); Total Protein 6.8 g/dL (6.4-8.2)
[2022-01-15] MEDS: cefTRIAXone 1GM/50ML D5W 50 ML IV SCH (09:15)
[2022-01-15 09:19] LABS: Thyroid Stimulating Hormone 3.87 uIU/mL (0.358-3.74)
[2022-01-15 09:54] LABS: INR 1.57 (0.9-1.15); Partial Thromboplastin Time 36.7 sec (23.6-33.0)
[2022-01-15 10:59] LABS: Urine Bacteria MANY /hpf (None Seen); Urine Blood 3+ /uL (Negative); Urine Specific Gravity 1.008 (1.001-1.035); Urine WBC 4 /hpf (0 - 5)
[2022-01-15 11:20] LABS: Alcohol, Urine < 3.0 mg/dL (0-10); Amphetamine Screen, Urine NEGATIVE (NEGATIVE); Barbiturate Scree,Urine NEGATIVE (NEGATIVE); Benzodiazephine Screen, Urine NEGATIVE (NEGATIVE); Cannabinoid Screen, Urine NEGATIVE (NEGATIVE); Cocaine Screen, Urine NEGATIVE (NEGATIVE); Opiate Scree,Urine NEGATIVE (NEGATIVE); Phencyclidine Screen, Urine NEGATIVE (NEGATIVE); Protein, Urine 18.4 mg/dL (0.0-11.9)
[2022-01-15] MEDS: NOREPINEPHRINE 8 MG/250ML KIT 250 ML IV SCH (14:18)
[2022-01-16] VITALS (9 sets, daily range): BP systolic 104–124; BP diastolic 48–58
[2022-01-16] MEDS: LACTULOSE 20Gm/30ML SOLN PO SCH ×6 (01:12→22:00)
[2022-01-16 08:42] LABS: Hematocrit 21.1 % (36.0-46.0); Hemoglobin 7.3 g/dL (12.2-16.2); Mean Corpuscular Hemoglobin 34.1 pg (28.0-32.0); Mean Corpuscular Hgb Conc. 34.7 g/dL (32.0-36.0); Mean Corpuscular Volume 98.3 fL (80.0-100.0); Red Blood Cells 2.15 10^6/uL (4.0-5.20)
[2022-01-16 08:49] LABS: Red Cell Distribution Width 20.9 % (11.8-14.3); White Blood Cell 1.6 10^3/uL (4.4-10.8)
[2022-01-16 08:51] LABS: Band Neutrophils % (manual) 0; Blast Cells 0; Metamyelocytes % 0; Myelocytes % 0; Promyelocytes % 0; Reactive Lymphocytes 0
[2022-01-16 09:08] LABS: Basophils % (manual) 2 (0.0-2.0); Eosinophils % (manual) 2 (0-7); Lymphocytes % (manual) 41 (10.0-50.0); Monocytes % (manual) 5 (0-12)
[2022-01-16] MEDS: cefTRIAXone 1GM/50ML D5W 50 ML IV SCH (09:33)
[2022-01-16] MEDS: PANTOPRAZOLE 40 MG/10 ML VIAL INJ IV SCH ×2 (10:16→22:14)
[2022-01-16] MEDS: MAGNESIUM OXIDE 400 MG TAB PO SCH ×2 (10:21→22:21)
[2022-01-16] MEDS ORDERED: VANCOMYCIN 1GM/250ML 250 ML IV ONE (11:45)
[2022-01-16] MEDS: ATORVASTATIN 20 MG TAB PO SCH (22:15)
[2022-01-16] MEDS: QUEtiapine FUMARATE 100 MG TAB PO SCH (22:21)
[2022-01-17] VITALS (66 sets, daily range): BP systolic 89–141; BP diastolic 38–75
[2022-01-17] MEDS: LACTULOSE 20Gm/30ML SOLN PO SCH ×6 (02:00→23:19)
[2022-01-17] MEDS ORDERED: MOMLQ PO (02:27)
[2022-01-17] MEDS ORDERED: MONT-8 PO (02:28)
[2022-01-17] MEDS ORDERED: TEMA15CA PO (02:39)
[2022-01-17] MEDS ORDERED: VITA400T4 PO (02:41)
[2022-01-17] MEDS ORDERED: ASCO500T11 PO (02:41)
[2022-01-17] MEDS ORDERED: ZINC220C8 PO (02:44)
[2022-01-17] MEDS ORDERED: ONDA-144 PO (02:45)
[2022-01-17] MEDS ORDERED: ACET250T3 PO (02:47)
[2022-01-17] MEDS ORDERED: FAMO-12 PO (03:26)
[2022-01-17] MEDS ORDERED: FERR-20 PO (03:27)
[2022-01-17] MEDS ORDERED: HYDR10TA26 PO (03:28)
[2022-01-17] MEDS ORDERED: HYDR50TA69 PO (03:29)
[2022-01-17] MEDS ORDERED: FURO1TAB33 PO (03:31)
[2022-01-17] MEDS: NOREPINEPHRINE 8 MG/250ML KIT 250 ML IV SCH ×2 (03:49→13:45)
[2022-01-17] MEDS: MAGNESIUM OXIDE 400 MG TAB PO SCH ×2 (09:58→23:20)
[2022-01-17] MEDS: cefTRIAXone 1GM/50ML D5W 50 ML IV SCH (09:58)
[2022-01-17] MEDS: PANTOPRAZOLE 40 MG/10 ML VIAL INJ IV SCH ×2 (09:58→23:18)
[2022-01-17] MEDS ORDERED: VANCOMYCIN 1GM/250ML 250 ML IV ONE (12:00)
[2022-01-17] MEDS: methylPREDNISolone SOD SUCC 125 MG/2 ML VL IV SCH ×2 (14:15→23:18)
[2022-01-17 15:06] LABS: Basophils # (auto) 0 10 ^3/uL (0-0.2); Eosinophils # (auto) 0.1 10 ^3/uL (0-0.8); Hematocrit 23.4 % (36.0-46.0); Monocytes # (auto) 0.3 10 ^3/uL (0-1.3); Neutrophils # (auto) 1.1 10 ^3/uL (1.6-8.6); Red Blood Cells 2.34 10^6/uL (4.0-5.20); White Blood Cell 2.2 10^3/uL (4.4-10.8)
[2022-01-17 15:09] LABS: Basophils % (auto) 0.5 % (0.0-2.0); Eosinophils % (auto) 3.6 % (0.0-7.0); Lymphocytes # (auto) 0.7 10 ^3/uL (0.4-5.4); Lymphocytes % (auto) 30.2 % (10.0-50.0); Mean Corpuscular Hemoglobin 34.2 pg (28.0-32.0); Mean Corpuscular Hgb Conc. 34.2 g/dL (32.0-36.0); Mean Corpuscular Volume 100.1 fL (80.0-100.0); Monocytes % (auto) 14.6 % (0.0-12.0); Neutrophils % (auto) 51.1 % (37.0-80.0); Nucleated Red Blood Cells % 0.3 %; Red Cell Distribution Width 20.4 % (11.8-14.3)
[2022-01-17 15:32] LABS: Calcium 8.8 mg/dL (8.5-10.1); Potassium 4.2 mmol/L (3.5-5.1)
[2022-01-17 15:37] LABS: Bilirubin, Total 1.1 mg/dL (0.2-1.0); Total Protein 6.6 g/dL (6.4-8.2)
[2022-01-17] MEDS: FILGRASTIM(TBO) 480 MCG/0.8 ML SYRG SC SCH (17:04)
[2022-01-17] MEDS ORDERED: ALPRAZolam 0.25 MG TAB PO PRN (18:45)
[2022-01-17] MEDS: ATORVASTATIN 20 MG TAB PO SCH (23:19)
[2022-01-17] MEDS: QUEtiapine FUMARATE 100 MG TAB PO SCH (23:20)
[2022-01-17] MEDS: traZODone HCL 50 MG TAB PO SCH (23:21)
[2022-01-18] VITALS (9 sets, daily range): BP systolic 97–127; BP diastolic 36–68
[2022-01-18] MEDS: LACTULOSE 20Gm/30ML SOLN PO SCH ×6 (02:40→22:00)
[2022-01-18] MEDS: methylPREDNISolone SOD SUCC 125 MG/2 ML VL IV SCH ×3 (06:08→22:10)
[2022-01-18] MEDS: MAGNESIUM OXIDE 400 MG TAB PO SCH ×2 (09:19→22:13)
[2022-01-18] MEDS: PANTOPRAZOLE 40 MG/10 ML VIAL INJ IV SCH ×2 (09:20→22:11)
[2022-01-18] MEDS: cefTRIAXone 1GM/50ML D5W 50 ML IV SCH (09:20)
[2022-01-18] MEDS: FILGRASTIM(TBO) 480 MCG/0.8 ML SYRG SC SCH (10:16)
[2022-01-18 11:02] LABS: Basophils # (auto) 0.1 10 ^3/uL (0-0.2); Eosinophils # (auto) 0 10 ^3/uL (0-0.8); Hemoglobin 8.1 g/dL (12.2-16.2)
[2022-01-18 11:06] LABS: Basophils % (auto) 0.7 % (0.0-2.0); Eosinophils % (auto) 0.1 % (0.0-7.0); Hematocrit 23.4 % (36.0-46.0); Lymphocytes # (auto) 0.4 10 ^3/uL (0.4-5.4); Lymphocytes % (auto) 4.6 % (10.0-50.0); Mean Corpuscular Hemoglobin 34.7 pg (28.0-32.0); Mean Corpuscular Hgb Conc. 34.6 g/dL (32.0-36.0); Mean Corpuscular Volume 100.2 fL (80.0-100.0); Monocytes # (auto) 0.2 10 ^3/uL (0-1.3); Monocytes % (auto) 2.8 % (0.0-12.0); Neutrophils # (auto) 7.8 10 ^3/uL (1.6-8.6); Neutrophils % (auto) 91.8 % (37.0-80.0); Red Blood Cells 2.33 10^6/uL (4.0-5.20); White Blood Cell 8.5 10^3/uL (4.4-10.8)
[2022-01-18 12:41] LABS: Red Cell Distribution Width 20.3 % (11.8-14.3)
[2022-01-18] MEDS ORDERED: VANCOMYCIN 1GM/250ML 250 ML IV ONE (20:00)
[2022-01-18] MEDS: traZODone HCL 50 MG TAB PO SCH (22:11)
[2022-01-18] MEDS: ATORVASTATIN 20 MG TAB PO SCH (22:12)
[2022-01-18] MEDS: QUEtiapine FUMARATE 100 MG TAB PO SCH (22:15)
[2022-01-19] VITALS (12 sets, daily range): BP systolic 95–126; BP diastolic 47–65
[2022-01-19] MEDS: LACTULOSE 20Gm/30ML SOLN PO SCH ×6 (02:00→21:57)
[2022-01-19] MEDS: methylPREDNISolone SOD SUCC 125 MG/2 ML VL IV SCH ×3 (05:31→21:57)
[2022-01-19 07:03] LABS: Mean Corpuscular Hemoglobin 34.6 pg (28.0-32.0); Mean Corpuscular Hgb Conc. 34.5 g/dL (32.0-36.0)
[2022-01-19 07:08] LABS: Hematocrit 20.7 % (36.0-46.0); Hemoglobin 7.1 g/dL (12.2-16.2); Mean Corpuscular Volume 100.2 fL (80.0-100.0); Red Blood Cells 2.06 10^6/uL (4.0-5.20); White Blood Cell 7.9 10^3/uL (4.4-10.8)
[2022-01-19 07:14] LABS: Red Cell Distribution Width 20.1 % (11.8-14.3)
[2022-01-19 07:16] LABS: Basophils % (manual) 0 (0.0-2.0); Blast Cells 0; Eosinophils % (manual) 0 (0-7); Metamyelocytes % 0; Myelocytes % 0; Promyelocytes % 0; Reactive Lymphocytes 0
[2022-01-19 07:30] LABS: Albumin 1.8 g/dL (3.4-5.0); BUN/Creatinine Ratio 11.7; Calcium 8.7 mg/dL (8.5-10.1); Phosphorus 3.8 mg/dL (2.5-4.90); Potassium 4.9 mmol/L (3.5-5.1)
[2022-01-19] MEDS: cefTRIAXone 1GM/50ML D5W 50 ML IV SCH (08:17)
[2022-01-19] MEDS: MAGNESIUM OXIDE 400 MG TAB PO SCH ×2 (10:00→21:58)
[2022-01-19] MEDS: FILGRASTIM(TBO) 480 MCG/0.8 ML SYRG SC SCH (10:00)
[2022-01-19] MEDS: PANTOPRAZOLE 40 MG/10 ML VIAL INJ IV SCH ×2 (11:30→21:56)
[2022-01-19 14:48] LABS: Band Neutrophils % (manual) 8; Lymphocytes % (manual) 4 (10.0-50.0); Monocytes % (manual) 3 (0-12)
[2022-01-19] MEDS: rifAXIMin 550 MG TAB PO SCH (21:58)
[2022-01-19] MEDS: ATORVASTATIN 20 MG TAB PO SCH (21:58)
[2022-01-20] MEDS: LACTULOSE 20Gm/30ML SOLN PO SCH ×6 (02:17→22:28)
[2022-01-20 05:00] VITALS: BP 118/70
[2022-01-20] MEDS: methylPREDNISolone SOD SUCC 125 MG/2 ML VL IV SCH ×3 (05:43→22:28)
[2022-01-20] MEDS: cefTRIAXone 1GM/50ML D5W 50 ML IV SCH (08:37)
[2022-01-20 08:42] VITALS: BP 117/51
[2022-01-20] MEDS: MAGNESIUM OXIDE 400 MG TAB PO SCH ×2 (09:47→22:28)
[2022-01-20] MEDS: PANTOPRAZOLE 40 MG/10 ML VIAL INJ IV SCH ×2 (09:47→22:28)
[2022-01-20 09:52] LABS: Hepatitis B Surface Antibody Positive (Negative)
[2022-01-20] MEDS: rifAXIMin 550 MG TAB PO SCH ×2 (10:00→22:29)
[2022-01-20 11:28] LABS: Basophils # (auto) 0 10 ^3/uL (0-0.2); Basophils % (auto) 0.1 % (0.0-2.0); Eosinophils # (auto) 0 10 ^3/uL (0-0.8); Lymphocytes # (auto) 0.3 10 ^3/uL (0.4-5.4); Mean Corpuscular Hemoglobin 33.6 pg (28.0-32.0); Mean Corpuscular Volume 101.5 fL (80.0-100.0); Monocytes # (auto) 0.4 10 ^3/uL (0-1.3)
[2022-01-20 11:29] LABS: Hematocrit 24.4 % (36.0-46.0); Hemoglobin 8.1 g/dL (12.2-16.2); Lymphocytes % (auto) 2.2 % (10.0-50.0); Mean Corpuscular Hgb Conc. 33.1 g/dL (32.0-36.0); Monocytes % (auto) 2.9 % (0.0-12.0); Neutrophils # (auto) 13.1 10 ^3/uL (1.6-8.6); Neutrophils % (auto) 94.8 % (37.0-80.0); Nucleated Red Blood Cells % 0.2 %; Red Blood Cells 2.41 10^6/uL (4.0-5.20); White Blood Cell 13.8 10^3/uL (4.4-10.8)
[2022-01-20 11:30] LABS: Hepatitis A Total Antibody Positive (Negative)
[2022-01-20 11:49] LABS: Lactic Acid w/Reflex 3.3 mmol/L (0.4-2.0)
[2022-01-20 12:05] LABS: Red Cell Distribution Width 20.3 % (11.8-14.3)
[2022-01-20 12:06] LABS: Hepatitis C Antibody Positive (Negative)
[2022-01-20 13:00] VITALS: BP 135/54
[2022-01-20 16:51] VITALS: BP 122/56
[2022-01-20 22:00] VITALS: BP 107/62
[2022-01-20] MEDS: ATORVASTATIN 20 MG TAB PO SCH (22:28)
[2022-01-21] MEDS: LACTULOSE 20Gm/30ML SOLN PO SCH ×6 (02:00→22:35)
[2022-01-21 03:14] LABS: Folate (Folic Acid) 9.69 ng/mL (5.38-24)
[2022-01-21 05:00] VITALS: BP 117/65
[2022-01-21] MEDS: methylPREDNISolone SOD SUCC 125 MG/2 ML VL IV SCH (06:38)
[2022-01-21 08:46] LABS: Urine Bacteria NONE SEEN /hpf (None Seen); Urine Blood 3+ /uL (Negative); Urine Budding Yeast FEW /hpf (None Seen); Urine Mucus FEW (None Seen); Urine Specific Gravity 1.015 (1.001-1.035); Urine WBC 323 /hpf (0 - 5)
[2022-01-21 09:00] VITALS: BP 126/68
[2022-01-21 09:15] LABS: Basophils # (auto) 0 10 ^3/uL (0-0.2); Eosinophils # (auto) 0 10 ^3/uL (0-0.8); Lymphocytes # (auto) 0.4 10 ^3/uL (0.4-5.4); Monocytes # (auto) 0.5 10 ^3/uL (0-1.3)
[2022-01-21 09:18] LABS: Hematocrit 26.1 % (36.0-46.0); Hemoglobin 8.8 g/dL (12.2-16.2); Lymphocytes % (auto) 2.5 % (10.0-50.0); Mean Corpuscular Hemoglobin 33.7 pg (28.0-32.0); Mean Corpuscular Hgb Conc. 33.6 g/dL (32.0-36.0); Mean Corpuscular Volume 100.5 fL (80.0-100.0); Monocytes % (auto) 2.6 % (0.0-12.0); Neutrophils # (auto) 16.7 10 ^3/uL (1.6-8.6); Neutrophils % (auto) 94.9 % (37.0-80.0); Red Cell Distribution Width 19.6 % (11.8-14.3); White Blood Cell 17.6 10^3/uL (4.4-10.8)
[2022-01-21 09:31] LABS: Potassium 5.1 mmol/L (3.5-5.1)
[2022-01-21] MEDS: PANTOPRAZOLE 40 MG/10 ML VIAL INJ IV SCH ×2 (09:34→22:35)
[2022-01-21] MEDS: cefTRIAXone 1GM/50ML D5W 50 ML IV SCH (09:34)
[2022-01-21] MEDS: FUROSEMIDE 20 MG TAB PO SCH (09:35)
[2022-01-21] MEDS: MAGNESIUM OXIDE 400 MG TAB PO SCH ×2 (09:35→22:36)
[2022-01-21 09:37] LABS: BUN/Creatinine Ratio 14.3; Bilirubin, Total 0.8 mg/dL (0.2-1.0); Total Protein 7.7 g/dL (6.4-8.2)
[2022-01-21] MEDS ORDERED: CEFEPIME 2 GM in SODIUM CHL 0.9% 50 ML IV ONE (12:15)
[2022-01-21 13:00] VITALS: BP 114/67
[2022-01-21] MEDS: rifAXIMin 550 MG TAB PO SCH ×2 (13:04→22:54)
[2022-01-21] MEDS ORDERED: VANCOMYCIN 500 MG in D5W 5% 100 ML IV ONE (15:30)
[2022-01-21 16:30] VITALS: BP 127/64
[2022-01-21] MEDS ORDERED: FUROSEMIDE 100 MG/10ML VIAL IV ONE (18:15)
[2022-01-21] MEDS: ALBUMIN 25% 100 ML IV SCH (18:55)
[2022-01-21 22:00] VITALS: BP 132/70
[2022-01-21] MEDS: ATORVASTATIN 20 MG TAB PO SCH (22:35)
[2022-01-22] MEDS: ALBUMIN 25% 100 ML IV SCH ×2 (02:29→10:00)
[2022-01-22] MEDS: LACTULOSE 20Gm/30ML SOLN PO SCH ×6 (02:29→22:00)
[2022-01-22 05:00] VITALS: BP 146/86
[2022-01-22 09:00] VITALS: BP 136/78
[2022-01-22 09:08] LABS: Calcium 9.3 mg/dL (8.5-10.1); Potassium 4.6 mmol/L (3.5-5.1)
[2022-01-22] MEDS: PANTOPRAZOLE 40 MG/10 ML VIAL INJ IV SCH ×2 (09:51→22:08)
[2022-01-22] MEDS: MAGNESIUM OXIDE 400 MG TAB PO SCH ×2 (09:52→22:09)
[2022-01-22] MEDS: FUROSEMIDE 20 MG TAB PO SCH (09:52)
[2022-01-22] MEDS: rifAXIMin 550 MG TAB PO SCH ×2 (09:55→22:09)
[2022-01-22] MEDS ORDERED: CEFEPIME 2 GM in SODIUM CHL 0.9% 50 ML IV SCH (10:00)
[2022-01-22 12:52] LABS: Protein, Urine 47.7 mg/dL (0.0-11.9)
[2022-01-22 12:53] LABS: Creatinine, Urine 95 mg/dL (30.0-125.0); Sodium Urine 13 mmol/L (40-220)
[2022-01-22 17:00] VITALS: BP 136/67
[2022-01-22 22:00] VITALS: BP 133/55
[2022-01-22] MEDS: ATORVASTATIN 20 MG TAB PO SCH (22:09)
[2022-01-23] MEDS: LACTULOSE 20Gm/30ML SOLN PO SCH ×6 (02:00→21:50)
[2022-01-23 05:00] VITALS: BP 125/61
[2022-01-23 09:00] VITALS: BP 129/55
[2022-01-23] MEDS: PANTOPRAZOLE 40 MG/10 ML VIAL INJ IV SCH ×2 (10:50→21:50)
[2022-01-23] MEDS: FUROSEMIDE 20 MG TAB PO SCH (10:51)
[2022-01-23] MEDS: MAGNESIUM OXIDE 400 MG TAB PO SCH ×2 (10:51→21:50)
[2022-01-23] MEDS: rifAXIMin 550 MG TAB PO SCH ×2 (11:53→21:50)
[2022-01-23 13:00] VITALS: BP 142/74
[2022-01-23 16:28] VITALS: BP 138/77
[2022-01-23] MEDS: ATORVASTATIN 20 MG TAB PO SCH (21:50)
[2022-01-23 22:00] VITALS: BP 126/68
[2022-01-24] MEDS: LACTULOSE 20Gm/30ML SOLN PO SCH ×7 (02:33→21:34)
[2022-01-24 05:00] VITALS: BP 121/74
[2022-01-24 05:53] LABS: Basophils # (auto) 0 10 ^3/uL (0-0.2); Basophils % (auto) 0.1 % (0.0-2.0); Monocytes # (auto) 0.6 10 ^3/uL (0-1.3)
[2022-01-24 05:58] LABS: Eosinophils # (auto) 0.1 10 ^3/uL (0-0.8); Hematocrit 22.1 % (36.0-46.0); Hemoglobin 7.8 g/dL (12.2-16.2); Lymphocytes # (auto) 0.5 10 ^3/uL (0.4-5.4); Lymphocytes % (auto) 7.1 % (10.0-50.0); Mean Corpuscular Hemoglobin 35.3 pg (28.0-32.0); Mean Corpuscular Hgb Conc. 35.4 g/dL (32.0-36.0); Mean Corpuscular Volume 99.8 fL (80.0-100.0); Monocytes % (auto) 8.3 % (0.0-12.0); Neutrophils # (auto) 6.1 10 ^3/uL (1.6-8.6); Neutrophils % (auto) 82.5 % (37.0-80.0); Nucleated Red Blood Cells % 0.1 %; Red Blood Cells 2.22 10^6/uL (4.0-5.20); Red Cell Distribution Width 19.2 % (11.8-14.3); White Blood Cell 7.4 10^3/uL (4.4-10.8)
[2022-01-24 05:59] LABS: Potassium 3.9 mmol/L (3.5-5.1)
[2022-01-24 06:07] LABS: Albumin 2.7 g/dL (3.4-5.0); BUN/Creatinine Ratio 17.1; Bilirubin, Total 1.3 mg/dL (0.2-1.0); Calcium 8.9 mg/dL (8.5-10.1); Magnesium 2.5 mg/dL (1.6-2.6); Total Protein 6.8 g/dL (6.4-8.2)
[2022-01-24 08:00] VITALS: BP 138/78
[2022-01-24 08:05] VITALS: BP 138/78
[2022-01-24] MEDS: PANTOPRAZOLE 40 MG/10 ML VIAL INJ IV SCH ×2 (10:18→21:34)
[2022-01-24] MEDS: FUROSEMIDE 20 MG TAB PO SCH (10:19)
[2022-01-24] MEDS: MAGNESIUM OXIDE 400 MG TAB PO SCH ×2 (10:20→21:35)
[2022-01-24] MEDS: rifAXIMin 550 MG TAB PO SCH ×2 (10:20→21:35)
[2022-01-24 12:00] VITALS: BP 124/41
[2022-01-24 16:00] VITALS: BP 142/74
[2022-01-24] MEDS: ATORVASTATIN 20 MG TAB PO SCH (21:35)
[2022-01-24 22:00] VITALS: BP 129/66
[2022-01-25] VITALS (7 sets, daily range): BP systolic 108–137; BP diastolic 57–80
[2022-01-25] MEDS: LACTULOSE 20Gm/30ML SOLN PO SCH ×6 (02:18→22:37)
[2022-01-25] MEDS: PANTOPRAZOLE 40 MG/10 ML VIAL INJ IV SCH ×3 (10:32→22:38)
[2022-01-25] MEDS: FUROSEMIDE 20 MG TAB PO SCH (10:33)
[2022-01-25] MEDS: rifAXIMin 550 MG TAB PO SCH ×2 (10:34→23:02)
[2022-01-25] MEDS: MAGNESIUM OXIDE 400 MG TAB PO SCH ×2 (10:34→22:38)
[2022-01-25] MEDS: ATORVASTATIN 20 MG TAB PO SCH (22:38)
[2022-01-26] MEDS: LACTULOSE 20Gm/30ML SOLN PO SCH ×6 (02:15→21:33)
[2022-01-26 05:00] VITALS: BP 115/64
[2022-01-26 09:00] VITALS: BP 126/78
[2022-01-26] MEDS: PANTOPRAZOLE 40 MG/10 ML VIAL INJ IV SCH ×2 (10:00→21:33)
[2022-01-26] MEDS: MAGNESIUM OXIDE 400 MG TAB PO SCH ×2 (10:12→21:34)
[2022-01-26] MEDS: rifAXIMin 550 MG TAB PO SCH ×2 (10:12→21:34)
[2022-01-26] MEDS: FUROSEMIDE 20 MG TAB PO SCH (10:13)
[2022-01-26 13:00] VITALS: BP 136/67
[2022-01-26 17:00] VITALS: BP 134/72
[2022-01-26] MEDS: ATORVASTATIN 20 MG TAB PO SCH (21:34)
[2022-01-26 22:00] VITALS: BP 142/93
[2022-01-27] MEDS: LACTULOSE 20Gm/30ML SOLN PO SCH ×6 (01:47→21:30)
[2022-01-27 05:00] VITALS: BP 141/72
[2022-01-27 08:00] VITALS: BP 129/81
[2022-01-27] MEDS: rifAXIMin 550 MG TAB PO SCH ×2 (09:36→21:31)
[2022-01-27] MEDS: MAGNESIUM OXIDE 400 MG TAB PO SCH ×2 (09:36→21:31)
[2022-01-27] MEDS: PANTOPRAZOLE 40 MG/10 ML VIAL INJ IV SCH ×2 (09:37→21:30)
[2022-01-27] MEDS: FUROSEMIDE 20 MG TAB PO SCH (09:40)
[2022-01-27 09:49] LABS: Basophils # (auto) 0.1 10 ^3/uL (0-0.2); Mean Corpuscular Volume 99.1 fL (80.0-100.0); Monocytes # (auto) 0.8 10 ^3/uL (0-1.3); Red Cell Distribution Width 18.5 % (11.8-14.3)
[2022-01-27 09:51] LABS: Basophils % (auto) 0.6 % (0.0-2.0); Eosinophils # (auto) 0.3 10 ^3/uL (0-0.8); Eosinophils % (auto) 2.3 % (0.0-7.0); Hematocrit 23.4 % (36.0-46.0); Hemoglobin 8.1 g/dL (12.2-16.2); Lymphocytes % (auto) 8.2 % (10.0-50.0); Mean Corpuscular Hemoglobin 34.5 pg (28.0-32.0); Mean Corpuscular Hgb Conc. 34.8 g/dL (32.0-36.0); Monocytes % (auto) 6.5 % (0.0-12.0); Neutrophils # (auto) 10.1 10 ^3/uL (1.6-8.6); Neutrophils % (auto) 82.4 % (37.0-80.0); Red Blood Cells 2.36 10^6/uL (4.0-5.20); White Blood Cell 12.3 10^3/uL (4.4-10.8)
[2022-01-27 10:15] LABS: Calcium 9.1 mg/dL (8.5-10.1); Potassium 4.3 mmol/L (3.5-5.1)
[2022-01-27 10:17] LABS: BUN/Creatinine Ratio 16.3
[2022-01-27 12:00] VITALS: BP 117/67
[2022-01-27 15:04] LABS: Nucleated Red Blood Cells % 0.1 %
[2022-01-27 16:00] VITALS: BP 132/75
[2022-01-27] MEDS: ATORVASTATIN 20 MG TAB PO SCH (21:31)
[2022-01-27 22:00] VITALS: BP 126/82
[2022-01-28] MEDS: LACTULOSE 20Gm/30ML SOLN PO SCH ×5 (01:57→18:40)
[2022-01-28 05:00] VITALS: BP 140/75
[2022-01-28 09:00] VITALS: BP 125/61
[2022-01-28] MEDS: PANTOPRAZOLE 40 MG/10 ML VIAL INJ IV SCH (09:51)
[2022-01-28] MEDS: MAGNESIUM OXIDE 400 MG TAB PO SCH (09:51)
[2022-01-28] MEDS: rifAXIMin 550 MG TAB PO SCH (09:51)
[2022-01-28] MEDS: FUROSEMIDE 20 MG TAB PO SCH (09:52)
[2022-01-28 13:00] VITALS: BP 119/84
[2022-01-28 17:00] VITALS: BP 116/72
== END 2022-01-28 20:20 | DRG 871 ==
LOC: ER 10:10 → EDBD 10:10 → TELE 15:36 → ICU CENTRL 01-16 20:58 → TELE-EAST 01-17 21:45
PROVIDERS: ADMIT Hospitalist; ATTEND Internal Medicine
PROC: 30233R1 Transfusion of Nonautologous Platelets into Peripheral Vein, Percutaneous Approach (ICD-10-PCS; principal; 2022-01-14)
DX: A41.9 Sepsis, unspecified organism (principal); R65.21 Severe sepsis with septic shock; G93.41 Metabolic encephalopathy; N17.0 Acute kidney failure with tubular necrosis; J18.9 Pneumonia, unspecified organism; I50.23 Acute on chronic systolic (congestive) heart failure; D61.818 Other pancytopenia; N39.0 Urinary tract infection, site not specified; D68.4 Acquired coagulation factor deficiency; J44.0 Chronic obstructive pulmonary disease with (acute) lower respiratory infection; I13.0 Hypertensive heart and chronic kidney disease with heart failure and stage 1 through stage 4 chronic kidney disease, or unspecified chronic kidney disease; J44.1 Chronic obstructive pulmonary disease with (acute) exacerbation; Z68.42 Body mass index [BMI] 45.0-49.9, adult; E11.22 Type 2 diabetes mellitus with diabetic chronic kidney disease; E78.5 Hyperlipidemia, unspecified; F17.210 Nicotine dependence, cigarettes, uncomplicated; F41.9 Anxiety disorder, unspecified; I25.10 Atherosclerotic heart disease of native coronary artery without angina pectoris; F32.A Depression, unspecified; R27.8 Other lack of coordination; Z20.822 Contact with and (suspected) exposure to COVID-19; K74.60 Unspecified cirrhosis of liver; K80.70 Calculus of gallbladder and bile duct without cholecystitis without obstruction; K72.90 Hepatic failure, unspecified without coma; E87.6 Hypokalemia; F10.10 Alcohol abuse, uncomplicated; G40.909 Epilepsy, unspecified, not intractable, without status epilepticus; I48.0 Paroxysmal atrial fibrillation; D63.1 Anemia in chronic kidney disease; E11.65 Type 2 diabetes mellitus with hyperglycemia; E66.01 Morbid (severe) obesity due to excess calories; K21.9 Gastro-esophageal reflux disease without esophagitis; N18.9 Chronic kidney disease, unspecified; R29.6 Repeated falls; Z80.3 Family history of malignant neoplasm of breast; Z79.899 Other long term (current) drug therapy; I25.2 Old myocardial infarction; Z82.49 Family history of ischemic heart disease and other diseases of the circulatory system; Z83.3 Family history of diabetes mellitus; Z86.711 Personal history of pulmonary embolism; Z86.73 Personal history of transient ischemic attack (TIA), and cerebral infarction without residual deficits; Z90.710 Acquired absence of both cervix and uterus; Z88.8 Allergy status to other drugs, medicaments and biological substances; Z86.19 Personal history of other infectious and parasitic diseases
CPT/HCPCS: 36415; 36430; 36600; 70450; 71045; 74181; 76705; 76775; 80048; 80053; 80061; 80069; 80202; 80307; 81001; 82105; 82140; 82550; 82565; 82570; 82607; 82728; 82746; 82805; 82962; 83605; 83615; 83690; 83735; 83880; 83970; 84100; 84156; 84300; 84439; 84443; 84484; 84550; 85007; 85025; 85027; 85379; 85610; 85652; 85730; 86141; 86704; 86706; 86708; 86803; 86850; 86900; 86901; 87040; 87077; 87081; 87086; 87088; 87186; 87340; 93005; 93970; 95819; 96365; 96367; 96368; 97110; 97116; 97163; 97530; 99291; C9113; G0378; J0696; J1447; J2405; J2543; J3480; J7060; P9047

== ENCOUNTER 2022-02-06 14:00 | Inpatient (IN) | payer MEDICARE, MEDICAID ==
[~2022-02-06] VITALS: Ht 160 cm; Wt 95.8 kg
[~2022-02-06 14:00] MED LIST changes: -ARIP10TA29 PO; +ASCO500T11 PO; -ASPI-543 PO; +FERR-20 PO; +FURO1TAB33 PO; +HYDR50TA69 PO; +MOMLQ PO; +ONDA-144 PO; -PROP20TA73 PO; -QUET200T4 PO; +TEMA15CA PO; +VITA400T4 PO; +ZINC220C8 PO
[2022-02-06 14:50] LABS: Lymphocytes # (auto) 0.6 10 ^3/uL (0.4-5.4); Mean Corpuscular Hemoglobin 35.4 pg (28.0-32.0)
[2022-02-06 14:52] LABS: Basophils # (auto) 0 10 ^3/uL (0-0.2); Basophils % (auto) 0.4 % (0.0-2.0); Eosinophils # (auto) 0 10 ^3/uL (0-0.8); Eosinophils % (auto) 0.7 % (0.0-7.0); Hematocrit 21.5 % (36.0-46.0); Hemoglobin 7.3 g/dL (12.2-16.2); Lymphocytes % (auto) 9.2 % (10.0-50.0); Monocytes # (auto) 0.9 10 ^3/uL (0-1.3); Monocytes % (auto) 13.9 % (0.0-12.0); Neutrophils % (auto) 75.8 % (37.0-80.0); Nucleated Red Blood Cells % 0.2 %; Red Blood Cells 2.06 10^6/uL (4.0-5.20); White Blood Cell 6.6 10^3/uL (4.4-10.8)
[2022-02-06 15:00] LABS: Albumin 2.2 g/dL (3.4-5.0); BUN/Creatinine Ratio 24.3; Calcium 8.3 mg/dL (8.5-10.1); Magnesium 1.9 mg/dL (1.6-2.6); Potassium 3.5 mmol/L (3.5-5.1)
[2022-02-06 15:02] LABS: Bilirubin, Total 1.7 mg/dL (0.2-1.0); Total Protein 7.2 g/dL (6.4-8.2)
[2022-02-06 15:03] LABS: Lactic Acid w/Reflex 2.4 mmol/L (0.4-2.0)
[2022-02-06 16:57] LABS: Urine Bacteria NONE SEEN /hpf (None Seen); Urine Blood 3+ /uL (Negative); Urine Specific Gravity 1.012 (1.001-1.035); Urine WBC 57 /hpf (0 - 5)
[2022-02-06] MEDS ORDERED: NITROGLYCERIN 0.4 MG SL TAB SL PRN (17:30)
[2022-02-06] MEDS ORDERED: MORPHINE SULFATE INJ 2 MG/ml SYRG IV PRN (17:30)
[2022-02-06] MEDS: FERROUS SULFATE 325mg EC TAB PO SCH (18:44)
[2022-02-06] MEDS: LACTULOSE 20Gm/30ML SOLN PO SCH (22:57)
[2022-02-06] MEDS: rifAXIMin 550 MG TAB PO SCH (22:57)
[2022-02-07 05:23] VITALS: BP 109/37
[2022-02-07 06:16] LABS: Calcium 8.3 mg/dL (8.5-10.1); Potassium 3.4 mmol/L (3.5-5.1)
[2022-02-07 06:22] LABS: BUN/Creatinine Ratio 24.8; Bilirubin, Total 1.5 mg/dL (0.2-1.0); Total Protein 7.2 g/dL (6.4-8.2)
[2022-02-07 06:44] LABS: Hemoglobin 7.5 g/dL (12.2-16.2); Mean Corpuscular Hemoglobin 36.4 pg (28.0-32.0)
[2022-02-07 06:47] LABS: Hematocrit 22.1 % (36.0-46.0); Mean Corpuscular Hgb Conc. 34.1 g/dL (32.0-36.0); Mean Corpuscular Volume 106.9 fL (80.0-100.0); Red Blood Cells 2.07 10^6/uL (4.0-5.20); Red Cell Distribution Width 20.6 % (11.8-14.3); White Blood Cell 5.8 10^3/uL (4.4-10.8)
[2022-02-07 08:00] VITALS: BP 110/47
[2022-02-07 08:45] LABS: Basophils % (manual) 0 (0.0-2.0); Blast Cells 0; Promyelocytes % 0; Reactive Lymphocytes 0
[2022-02-07 08:47] LABS: Band Neutrophils % (manual) 12; Eosinophils % (manual) 1 (0-7); Lymphocytes % (manual) 15 (10.0-50.0); Metamyelocytes % 3; Monocytes % (manual) 15 (0-12); Myelocytes % 3
[2022-02-07] MEDS: LACTULOSE 20Gm/30ML SOLN PO SCH ×2 (09:20→22:59)
[2022-02-07] MEDS: FERROUS SULFATE 325mg EC TAB PO SCH ×2 (09:20→18:23)
[2022-02-07] MEDS: MAGNESIUM OXIDE 400 MG TAB PO SCH (09:20)
[2022-02-07] MEDS: FUROSEMIDE 20 MG TAB PO SCH (09:21)
[2022-02-07] MEDS: ALBUMIN 25% 50 ML IV SCH ×3 (11:34→23:46)
[2022-02-07] MEDS: rifAXIMin 550 MG TAB PO SCH ×2 (11:35→23:01)
[2022-02-07 12:00] VITALS: BP 128/65
[2022-02-07 13:29] LABS: INR 1.24 (0.9-1.15)
[2022-02-07] MEDS: OCTREOTIDE ACETATE 100 MCG/ML VL SUBCUT SCH ×2 (13:39→23:03)
[2022-02-07 16:00] VITALS: BP 122/62
[2022-02-07] MEDS: DAPTOmycin 250 MG in SODIUM CHL 0.9% 50 ML IV SCH (16:03)
[2022-02-07 19:03] LABS: Calcium 8.5 mg/dL (8.5-10.1); Potassium 3.6 mmol/L (3.5-5.1)
[2022-02-07 19:06] LABS: BUN/Creatinine Ratio 22.8
[2022-02-07 22:00] VITALS: BP 109/45
[2022-02-08 05:00] VITALS: BP 103/50
[2022-02-08] MEDS: OCTREOTIDE ACETATE 100 MCG/ML VL SUBCUT SCH ×3 (05:22→22:34)
[2022-02-08 06:58] LABS: % Iron Saturation 35.3 % (15-50)
[2022-02-08 07:08] LABS: Potassium 3.2 mmol/L (3.5-5.1)
[2022-02-08 07:18] LABS: BUN/Creatinine Ratio 26.6; Calcium 8.2 mg/dL (8.5-10.1)
[2022-02-08] MEDS: FERROUS SULFATE 325mg EC TAB PO SCH ×2 (08:56→19:37)
[2022-02-08 09:00] VITALS: BP 103/43
[2022-02-08] MEDS: rifAXIMin 550 MG TAB PO SCH ×2 (10:42→22:33)
[2022-02-08] MEDS: FUROSEMIDE 20 MG TAB PO SCH (10:42)
[2022-02-08] MEDS: LACTULOSE 20Gm/30ML SOLN PO SCH ×3 (10:42→22:33)
[2022-02-08] MEDS: MAGNESIUM OXIDE 400 MG TAB PO SCH (10:43)
[2022-02-08] MEDS: POTASSIUM CHL 20MEQ/100ML 100 ML IV SCH ×2 (12:00→16:02)
[2022-02-08 13:00] VITALS: BP 109/42
[2022-02-08] MEDS: HYDROcodone-ACET 5/325MG TAB PO PRN (16:38)
[2022-02-08 16:59] VITALS: BP 96/45
[2022-02-08 22:00] VITALS: BP 100/51
[2022-02-09] VITALS (10 sets, daily range): BP systolic 87–105; BP diastolic 30–58
[2022-02-09 06:06] LABS: Potassium 3.7 mmol/L (3.5-5.1)
[2022-02-09] MEDS: OCTREOTIDE ACETATE 100 MCG/ML VL SUBCUT SCH ×3 (06:40→22:41)
[2022-02-09] MEDS: LACTULOSE 20Gm/30ML SOLN PO SCH ×3 (06:40→22:41)
[2022-02-09] MEDS: FERROUS SULFATE 325mg EC TAB PO SCH ×2 (08:29→17:49)
[2022-02-09] MEDS: HYDROcodone-ACET 5/325MG TAB PO PRN (08:30)
[2022-02-09] MEDS: FUROSEMIDE 20 MG TAB PO SCH (10:00)
[2022-02-09] MEDS: MAGNESIUM OXIDE 400 MG TAB PO SCH (10:55)
[2022-02-09] MEDS: rifAXIMin 550 MG TAB PO SCH ×2 (10:55→22:41)
[2022-02-09] MEDS: DAPTOmycin 250 MG in SODIUM CHL 0.9% 50 ML IV SCH (15:12)
[2022-02-10] VITALS (7 sets, daily range): BP systolic 99–127; BP diastolic 47–58
[2022-02-10] MEDS: LACTULOSE 20Gm/30ML SOLN PO SCH ×3 (06:00→23:02)
[2022-02-10 06:20] LABS: BUN/Creatinine Ratio 26.7; Calcium 8.2 mg/dL (8.5-10.1); Potassium 3.5 mmol/L (3.5-5.1)
[2022-02-10] MEDS: OCTREOTIDE ACETATE 100 MCG/ML VL SUBCUT SCH ×3 (06:28→23:04)
[2022-02-10] MEDS: FERROUS SULFATE 325mg EC TAB PO SCH ×2 (09:03→17:36)
[2022-02-10] MEDS: HYDROcodone-ACET 5/325MG TAB PO PRN ×2 (09:04→15:50)
[2022-02-10] MEDS: MAGNESIUM OXIDE 400 MG TAB PO SCH (09:04)
[2022-02-10] MEDS: FUROSEMIDE 20 MG TAB PO SCH (09:04)
[2022-02-10] MEDS: rifAXIMin 550 MG TAB PO SCH ×2 (09:04→23:02)
[2022-02-11] VITALS (11 sets, daily range): BP systolic 98–117; BP diastolic 41–58
[2022-02-11] MEDS: LACTULOSE 20Gm/30ML SOLN PO SCH ×3 (05:39→23:24)
[2022-02-11] MEDS: OCTREOTIDE ACETATE 100 MCG/ML VL SUBCUT SCH ×3 (05:41→23:24)
[2022-02-11 09:07] LABS: Hematocrit 21.5 % (36.0-46.0); Mean Corpuscular Hemoglobin 35.5 pg (28.0-32.0); Mean Corpuscular Hgb Conc. 32.2 g/dL (32.0-36.0); Mean Corpuscular Volume 110.3 fL (80.0-100.0); Red Blood Cells 1.95 10^6/uL (4.0-5.20); White Blood Cell 5.3 10^3/uL (4.4-10.8)
[2022-02-11] MEDS: rifAXIMin 550 MG TAB PO SCH ×2 (09:08→23:24)
[2022-02-11] MEDS: MAGNESIUM OXIDE 400 MG TAB PO SCH (09:08)
[2022-02-11] MEDS: FERROUS SULFATE 325mg EC TAB PO SCH ×2 (09:08→18:25)
[2022-02-11] MEDS: PANTOPRAZOLE 40 MG TAB PO SCH (09:08)
[2022-02-11] MEDS: FUROSEMIDE 20 MG TAB PO SCH (09:28)
[2022-02-11 09:40] LABS: Hemoglobin 6.9 g/dL (12.2-16.2); Red Cell Distribution Width 21.1 % (11.8-14.3)
[2022-02-11 09:41] LABS: Basophils % (manual) 0 (0.0-2.0); Blast Cells 0; Metamyelocytes % 0; Myelocytes % 0; Promyelocytes % 0; Reactive Lymphocytes 0
[2022-02-11 12:15] LABS: Band Neutrophils % (manual) 4; Eosinophils % (manual) 2 (0-7); Lymphocytes % (manual) 13 (10.0-50.0); Monocytes % (manual) 16 (0-12)
[2022-02-11 14:19] LABS: INR 1.36 (0.9-1.15); Partial Thromboplastin Time 41.6 sec (23.6-33.0)
[2022-02-11] MEDS: HYDROcodone-ACET 5/325MG TAB PO PRN (16:00)
[2022-02-11] MEDS: DAPTOmycin 250 MG in SODIUM CHL 0.9% 50 ML IV SCH (23:25)
[2022-02-12 05:01] VITALS: BP 108/54
[2022-02-12] MEDS: OCTREOTIDE ACETATE 100 MCG/ML VL SUBCUT SCH ×3 (06:41→22:28)
[2022-02-12] MEDS: LACTULOSE 20Gm/30ML SOLN PO SCH ×3 (06:42→22:27)
[2022-02-12 08:46] VITALS: BP 111/57
[2022-02-12] MEDS: HYDROcodone-ACET 5/325MG TAB PO PRN ×2 (11:06→12:36)
[2022-02-12] MEDS: FERROUS SULFATE 325mg EC TAB PO SCH ×2 (11:26→18:17)
[2022-02-12] MEDS: PANTOPRAZOLE 40 MG TAB PO SCH (11:27)
[2022-02-12] MEDS: rifAXIMin 550 MG TAB PO SCH ×2 (11:27→22:27)
[2022-02-12] MEDS: FUROSEMIDE 20 MG TAB PO SCH (11:27)
[2022-02-12] MEDS: MAGNESIUM OXIDE 400 MG TAB PO SCH (11:27)
[2022-02-12 13:00] VITALS: BP 110/44
[2022-02-12 15:35] LABS: Hematocrit 23.2 % (36.0-46.0); Hemoglobin 7.7 g/dL (12.2-16.2); Mean Corpuscular Hemoglobin 33.1 pg (28.0-32.0); Mean Corpuscular Volume 100.4 fL (80.0-100.0); Red Blood Cells 2.31 10^6/uL (4.0-5.20); White Blood Cell 4.5 10^3/uL (4.4-10.8)
[2022-02-12 16:00] LABS: Red Cell Distribution Width 22.2 % (11.8-14.3)
[2022-02-12 16:04] LABS: Basophils % (manual) 0 (0.0-2.0); Monocytes % (manual) 0 (0-12); Myelocytes % 0; Reactive Lymphocytes 0
[2022-02-12 16:10] LABS: Band Neutrophils % (manual) 3; Lymphocytes % (manual) 14 (10.0-50.0)
[2022-02-12 16:11] LABS: Blast Cells 1; Eosinophils % (manual) 2 (0-7); Metamyelocytes % 4; Promyelocytes % 1
[2022-02-12 17:00] VITALS: BP 105/47
[2022-02-12 22:00] VITALS: BP 149/63
[2022-02-13 05:00] VITALS: BP 119/65
[2022-02-13] MEDS: LACTULOSE 20Gm/30ML SOLN PO SCH ×3 (05:25→22:37)
[2022-02-13] MEDS: HYDROcodone-ACET 5/325MG TAB PO PRN ×4 (05:26→22:35)
[2022-02-13] MEDS: OCTREOTIDE ACETATE 100 MCG/ML VL SUBCUT SCH ×3 (05:27→22:36)
[2022-02-13 06:30] LABS: Hemoglobin 7.7 g/dL (12.2-16.2); Mean Corpuscular Hemoglobin 34.8 pg (28.0-32.0); Red Cell Distribution Width 22.9 % (11.8-14.3); White Blood Cell 4.2 10^3/uL (4.4-10.8)
[2022-02-13 06:33] LABS: Hematocrit 22.9 % (36.0-46.0); Mean Corpuscular Hgb Conc. 33.5 g/dL (32.0-36.0); Mean Corpuscular Volume 103.9 fL (80.0-100.0); Red Blood Cells 2.21 10^6/uL (4.0-5.20)
[2022-02-13 06:49] LABS: BUN/Creatinine Ratio 28.6; Calcium 7.7 mg/dL (8.5-10.1); Potassium 3.5 mmol/L (3.5-5.1)
[2022-02-13 07:32] LABS: Basophils % (manual) 0 (0.0-2.0); Blast Cells 0; Eosinophils % (manual) 0 (0-7); Metamyelocytes % 0; Myelocytes % 0; Promyelocytes % 0; Reactive Lymphocytes 0
[2022-02-13 08:05] LABS: Band Neutrophils % (manual) 8; Lymphocytes % (manual) 25 (10.0-50.0); Monocytes % (manual) 12 (0-12)
[2022-02-13 08:35] VITALS: BP 111/50
[2022-02-13] MEDS: FUROSEMIDE 20 MG TAB PO SCH (08:54)
[2022-02-13] MEDS: FERROUS SULFATE 325mg EC TAB PO SCH ×2 (08:54→18:21)
[2022-02-13] MEDS: MAGNESIUM OXIDE 400 MG TAB PO SCH (08:54)
[2022-02-13] MEDS: PANTOPRAZOLE 40 MG TAB PO SCH (08:55)
[2022-02-13] MEDS: rifAXIMin 550 MG TAB PO SCH ×2 (08:55→22:35)
[2022-02-13 13:00] VITALS: BP 110/36
[2022-02-13 17:00] VITALS: BP 115/41
[2022-02-13] MEDS: DAPTOmycin 250 MG in SODIUM CHL 0.9% 50 ML IV SCH (18:21)
[2022-02-13 22:00] VITALS: BP 106/57
[2022-02-14 05:00] VITALS: BP 113/58
[2022-02-14] MEDS: LACTULOSE 20Gm/30ML SOLN PO SCH ×3 (05:34→21:57)
[2022-02-14] MEDS: OCTREOTIDE ACETATE 100 MCG/ML VL SUBCUT SCH ×3 (05:35→21:57)
[2022-02-14] MEDS: HYDROcodone-ACET 5/325MG TAB PO PRN ×2 (05:37→15:04)
[2022-02-14 09:00] VITALS: BP 93/60
[2022-02-14] MEDS: PANTOPRAZOLE 40 MG TAB PO SCH (09:08)
[2022-02-14] MEDS: MAGNESIUM OXIDE 400 MG TAB PO SCH (09:08)
[2022-02-14] MEDS: FUROSEMIDE 20 MG TAB PO SCH (09:09)
[2022-02-14] MEDS: FERROUS SULFATE 325mg EC TAB PO SCH ×2 (09:10→18:00)
[2022-02-14] MEDS: rifAXIMin 550 MG TAB PO SCH ×2 (09:10→21:57)
[2022-02-14 11:01] LABS: BUN/Creatinine Ratio 25.9; Calcium 7.6 mg/dL (8.5-10.1); Potassium 3.6 mmol/L (3.5-5.1)
[2022-02-14 13:00] VITALS: BP 142/71
[2022-02-14 15:16] LABS: Hemoglobin 7.9 g/dL (12.2-16.2); White Blood Cell 4.3 10^3/uL (4.4-10.8)
[2022-02-14 15:17] LABS: Hematocrit 23.6 % (36.0-46.0); Mean Corpuscular Hemoglobin 34.2 pg (28.0-32.0); Mean Corpuscular Hgb Conc. 33.6 g/dL (32.0-36.0); Mean Corpuscular Volume 101.6 fL (80.0-100.0); Red Blood Cells 2.32 10^6/uL (4.0-5.20)
[2022-02-14 15:37] LABS: Basophils % (manual) 0 (0.0-2.0); Blast Cells 0; Metamyelocytes % 0; Promyelocytes % 0; Reactive Lymphocytes 0; Red Cell Distribution Width 22.1 % (11.8-14.3)
[2022-02-14 16:32] LABS: Band Neutrophils % (manual) 15; Eosinophils % (manual) 1 (0-7); Lymphocytes % (manual) 19 (10.0-50.0); Monocytes % (manual) 9 (0-12); Myelocytes % 1
[2022-02-14 17:30] VITALS: BP 110/61
[2022-02-14 20:36] LABS: Urine Bacteria FEW /hpf (None Seen); Urine Blood 3+ /uL (Negative); Urine Budding Yeast MANY /hpf (None Seen); Urine Specific Gravity 1.013 (1.001-1.035); Urine WBC 31 /hpf (0 - 5)
[2022-02-14 20:52] LABS: Creatinine, Urine 87 mg/dL (30.0-125.0); Sodium Urine 7 mmol/L (40-220)
[2022-02-14 21:56] VITALS: BP 111/64
[2022-02-15 05:10] VITALS: BP 142/67
[2022-02-15] MEDS: OCTREOTIDE ACETATE 100 MCG/ML VL SUBCUT SCH ×3 (05:25→22:10)
[2022-02-15] MEDS: HYDROcodone-ACET 5/325MG TAB PO PRN ×3 (05:25→22:11)
[2022-02-15] MEDS: LACTULOSE 20Gm/30ML SOLN PO SCH ×3 (05:25→21:48)
[2022-02-15 08:00] VITALS: BP 106/62
[2022-02-15] MEDS: FUROSEMIDE 20 MG TAB PO SCH (10:02)
[2022-02-15] MEDS: PANTOPRAZOLE 40 MG TAB PO SCH (10:02)
[2022-02-15] MEDS: rifAXIMin 550 MG TAB PO SCH ×2 (10:03→21:48)
[2022-02-15] MEDS: FERROUS SULFATE 325mg EC TAB PO SCH ×2 (10:03→18:06)
[2022-02-15] MEDS: MAGNESIUM OXIDE 400 MG TAB PO SCH (10:03)
[2022-02-15 12:00] VITALS: BP 113/52
[2022-02-15 16:00] VITALS: BP 113/56
[2022-02-15] MEDS: DAPTOmycin 250 MG in SODIUM CHL 0.9% 50 ML IV SCH (16:15)
[2022-02-15] MEDS ORDERED: SODIUM CHLORIDE 0.9% 1,000 ML IV ONE (17:45)
[2022-02-15] MEDS: ALPRAZolam 0.5 MG TAB PO PRN (17:59)
[2022-02-15 22:00] VITALS: BP 111/56
[2022-02-16 05:00] VITALS: BP 112/55
[2022-02-16] MEDS: LACTULOSE 20Gm/30ML SOLN PO SCH ×3 (06:39→22:19)
[2022-02-16] MEDS: OCTREOTIDE ACETATE 100 MCG/ML VL SUBCUT SCH ×3 (06:52→22:19)
[2022-02-16 08:00] VITALS: BP 105/54
[2022-02-16] MEDS: PANTOPRAZOLE 40 MG TAB PO SCH (10:25)
[2022-02-16] MEDS: FERROUS SULFATE 325mg EC TAB PO SCH ×2 (10:25→18:00)
[2022-02-16] MEDS: HYDROcodone-ACET 5/325MG TAB PO PRN (10:25)
[2022-02-16] MEDS: rifAXIMin 550 MG TAB PO SCH ×2 (10:25→22:19)
[2022-02-16] MEDS: FUROSEMIDE 20 MG TAB PO SCH (10:25)
[2022-02-16] MEDS: MAGNESIUM OXIDE 400 MG TAB PO SCH (10:25)
[2022-02-16 12:00] VITALS: BP 108/57
[2022-02-16 16:00] VITALS: BP 93/38
[2022-02-16 22:00] VITALS: BP 105/50
[2022-02-17] VITALS (13 sets, daily range): BP systolic 94–126; BP diastolic 36–68
[2022-02-17] MEDS: HYDROcodone-ACET 5/325MG TAB PO PRN ×3 (03:50→20:01)
[2022-02-17] MEDS: LACTULOSE 20Gm/30ML SOLN PO SCH ×3 (06:11→22:58)
[2022-02-17] MEDS: OCTREOTIDE ACETATE 100 MCG/ML VL SUBCUT SCH ×3 (06:11→22:00)
[2022-02-17] MEDS: FERROUS SULFATE 325mg EC TAB PO SCH ×2 (08:05→17:47)
[2022-02-17 10:13] LABS: Basophils # (auto) 0 10 ^3/uL (0-0.2); Basophils % (auto) 0.2 % (0.0-2.0); Eosinophils # (auto) 0.1 10 ^3/uL (0-0.8); Hematocrit 19.5 % (36.0-46.0); Monocytes # (auto) 0.4 10 ^3/uL (0-1.3); Neutrophils # (auto) 3.5 10 ^3/uL (1.6-8.6); Nucleated Red Blood Cells % 0.2 %; White Blood Cell 4.5 10^3/uL (4.4-10.8)
[2022-02-17 10:15] LABS: Eosinophils % (auto) 1.4 % (0.0-7.0); Lymphocytes # (auto) 0.5 10 ^3/uL (0.4-5.4); Lymphocytes % (auto) 11.2 % (10.0-50.0); Mean Corpuscular Hemoglobin 34.5 pg (28.0-32.0); Mean Corpuscular Volume 101.6 fL (80.0-100.0); Monocytes % (auto) 9.9 % (0.0-12.0); Neutrophils % (auto) 77.3 % (37.0-80.0); Red Blood Cells 1.92 10^6/uL (4.0-5.20)
[2022-02-17 10:27] LABS: BUN/Creatinine Ratio 22.6; Calcium 7.5 mg/dL (8.5-10.1); Potassium 3.2 mmol/L (3.5-5.1)
[2022-02-17 10:56] LABS: Red Cell Distribution Width 21.9 % (11.8-14.3)
[2022-02-17 10:58] LABS: Hemoglobin 6.6 g/dL (12.2-16.2)
[2022-02-17] MEDS: PANTOPRAZOLE 40 MG TAB PO SCH (11:09)
[2022-02-17] MEDS: MAGNESIUM OXIDE 400 MG TAB PO SCH (11:09)
[2022-02-17] MEDS: FUROSEMIDE 20 MG TAB PO SCH (11:09)
[2022-02-17] MEDS: rifAXIMin 550 MG TAB PO SCH ×2 (11:09→22:58)
[2022-02-17] MEDS: ALPRAZolam 0.5 MG TAB PO PRN ×2 (12:07→22:02)
[2022-02-17] MEDS ORDERED: POTASSIUM CHL 20 Meq TABLET PO ONE (14:00)
[2022-02-17] MEDS: DAPTOmycin 250 MG in SODIUM CHL 0.9% 50 ML IV SCH (16:28)
[2022-02-17] MEDS ORDERED: SODIUM CHLORIDE 0.9% 1,000 ML IV ONE (17:30)
[2022-02-18 05:00] VITALS: BP 102/42
[2022-02-18] MEDS: OCTREOTIDE ACETATE 100 MCG/ML VL SUBCUT SCH ×3 (06:00→22:01)
[2022-02-18] MEDS: LACTULOSE 20Gm/30ML SOLN PO SCH ×3 (06:50→22:00)
[2022-02-18] MEDS: FERROUS SULFATE 325mg EC TAB PO SCH ×2 (08:31→18:48)
[2022-02-18 09:06] VITALS: BP 114/55
[2022-02-18 10:19] LABS: Basophils # (auto) 0 10 ^3/uL (0-0.2); Basophils % (auto) 0.4 % (0.0-2.0); Calcium 7.6 mg/dL (8.5-10.1); Eosinophils # (auto) 0.1 10 ^3/uL (0-0.8); Lymphocytes # (auto) 0.5 10 ^3/uL (0.4-5.4); Mean Corpuscular Hemoglobin 34.1 pg (28.0-32.0); Mean Corpuscular Hgb Conc. 34.3 g/dL (32.0-36.0); Monocytes # (auto) 0.3 10 ^3/uL (0-1.3); Potassium 3.6 mmol/L (3.5-5.1)
[2022-02-18 10:23] LABS: BUN/Creatinine Ratio 24.4; Eosinophils % (auto) 3.8 % (0.0-7.0); Hematocrit 24.1 % (36.0-46.0); Hemoglobin 8.2 g/dL (12.2-16.2); Lymphocytes % (auto) 13.3 % (10.0-50.0); Mean Corpuscular Volume 99.6 fL (80.0-100.0); Monocytes % (auto) 8.2 % (0.0-12.0); Neutrophils # (auto) 2.8 10 ^3/uL (1.6-8.6); Neutrophils % (auto) 74.3 % (37.0-80.0); Nucleated Red Blood Cells % 0.2 %; Red Blood Cells 2.42 10^6/uL (4.0-5.20); White Blood Cell 3.7 10^3/uL (4.4-10.8)
[2022-02-18 10:31] LABS: Red Cell Distribution Width 21.7 % (11.8-14.3)
[2022-02-18] MEDS: FUROSEMIDE 20 MG TAB PO SCH (10:58)
[2022-02-18] MEDS: MAGNESIUM OXIDE 400 MG TAB PO SCH (10:58)
[2022-02-18] MEDS: PANTOPRAZOLE 40 MG TAB PO SCH (10:58)
[2022-02-18] MEDS: rifAXIMin 550 MG TAB PO SCH ×2 (10:58→22:04)
[2022-02-18] MEDS: ALPRAZolam 0.5 MG TAB PO PRN ×2 (11:18→22:01)
[2022-02-18 13:00] VITALS: BP 132/81
[2022-02-18] MEDS: DOPamine 1600MCG/ML D5W 250 ML IV SCH (15:27)
[2022-02-18 17:00] VITALS: BP 142/71
[2022-02-18] MEDS: METOPROLOL TARTRATE 1MG/1ML-5ML VIAL IV PRN (17:57)
[2022-02-18] MEDS: MIDODRINE HCL 10 MG TAB PO SCH (18:48)
[2022-02-18 22:00] VITALS: BP 112/52
[2022-02-19] MEDS: METOPROLOL TARTRATE 1MG/1ML-5ML VIAL IV PRN (04:50)
[2022-02-19 05:00] VITALS: BP 141/40
[2022-02-19] MEDS: MIDODRINE HCL 10 MG TAB PO SCH ×3 (05:35→18:00)
[2022-02-19] MEDS: LACTULOSE 20Gm/30ML SOLN PO SCH ×3 (05:35→22:23)
[2022-02-19] MEDS: ALPRAZolam 0.5 MG TAB PO PRN (05:36)
[2022-02-19] MEDS: OCTREOTIDE ACETATE 100 MCG/ML VL SUBCUT SCH ×3 (05:36→22:24)
[2022-02-19 06:16] LABS: Basophils # (auto) 0 10 ^3/uL (0-0.2); Basophils % (auto) 0.5 % (0.0-2.0); Eosinophils # (auto) 0.1 10 ^3/uL (0-0.8); Eosinophils % (auto) 1.7 % (0.0-7.0); Monocytes # (auto) 0.3 10 ^3/uL (0-1.3); Nucleated Red Blood Cells % 0.1 %
[2022-02-19 06:18] LABS: Hemoglobin 9.9 g/dL (12.2-16.2); Lymphocytes # (auto) 0.7 10 ^3/uL (0.4-5.4); Lymphocytes % (auto) 12.1 % (10.0-50.0); Mean Corpuscular Hemoglobin 33.7 pg (28.0-32.0); Mean Corpuscular Hgb Conc. 34.1 g/dL (32.0-36.0); Mean Corpuscular Volume 98.7 fL (80.0-100.0); Monocytes % (auto) 6.1 % (0.0-12.0); Neutrophils # (auto) 4.3 10 ^3/uL (1.6-8.6); Neutrophils % (auto) 79.6 % (37.0-80.0); Red Blood Cells 2.94 10^6/uL (4.0-5.20); White Blood Cell 5.4 10^3/uL (4.4-10.8)
[2022-02-19 06:34] LABS: BUN/Creatinine Ratio 23.7; Calcium 8.5 mg/dL (8.5-10.1); Potassium 3.7 mmol/L (3.5-5.1)
[2022-02-19 08:30] VITALS: BP 118/71
[2022-02-19 09:00] VITALS: BP 118/71
[2022-02-19] MEDS: PANTOPRAZOLE 40 MG TAB PO SCH (09:19)
[2022-02-19] MEDS: MAGNESIUM OXIDE 400 MG TAB PO SCH (09:19)
[2022-02-19] MEDS: FERROUS SULFATE 325mg EC TAB PO SCH ×2 (09:19→18:25)
[2022-02-19] MEDS: rifAXIMin 550 MG TAB PO SCH ×2 (09:19→22:24)
[2022-02-19] MEDS: FUROSEMIDE 20 MG TAB PO SCH (09:20)
[2022-02-19] MEDS: DOPamine 1600MCG/ML D5W 250 ML IV SCH (12:30)
[2022-02-19] MEDS: DAPTOmycin 250 MG in SODIUM CHL 0.9% 50 ML IV SCH (16:13)
[2022-02-19 16:55] VITALS: BP 128/52
[2022-02-19 20:00] VITALS: BP 120/63
[2022-02-19 22:00] VITALS: BP 120/63
[2022-02-20] VITALS (53 sets, daily range): BP systolic 78–152; BP diastolic 41–71
[2022-02-20] MEDS: DOPamine 1600MCG/ML D5W 250 ML IV SCH (03:38)
[2022-02-20] MEDS: ALPRAZolam 0.5 MG TAB PO PRN (03:39)
[2022-02-20] MEDS: LACTULOSE 20Gm/30ML SOLN PO SCH ×3 (06:00→21:53)
[2022-02-20] MEDS ORDERED: ALBUMIN 25% 100 ML IV ONE ×2 (06:00→06:15)
[2022-02-20] MEDS: OCTREOTIDE ACETATE 100 MCG/ML VL SUBCUT SCH ×3 (06:00→22:20)
[2022-02-20] MEDS: MIDODRINE HCL 10 MG TAB PO SCH ×3 (06:00→17:18)
[2022-02-20] MEDS ORDERED: METOPROLOL TARTRATE 1MG/1ML-5ML VIAL IV ONE ×2 (06:08→06:15)
[2022-02-20] MEDS ORDERED: ADENOSINE 6 MG/2 ML INJ IV ONE (06:15)
[2022-02-20 06:21] LABS: Basophils # (auto) 0 10 ^3/uL (0-0.2); Eosinophils # (auto) 0.1 10 ^3/uL (0-0.8); Hematocrit 27.1 % (36.0-46.0); Monocytes # (auto) 0.6 10 ^3/uL (0-1.3)
[2022-02-20 06:22] LABS: Basophils % (auto) 0.3 % (0.0-2.0); Hemoglobin 9.3 g/dL (12.2-16.2); Lymphocytes % (auto) 11.7 % (10.0-50.0); Mean Corpuscular Hemoglobin 33.9 pg (28.0-32.0); Mean Corpuscular Hgb Conc. 34.4 g/dL (32.0-36.0); Mean Corpuscular Volume 98.3 fL (80.0-100.0); Monocytes % (auto) 7.2 % (0.0-12.0); Neutrophils # (auto) 7.2 10 ^3/uL (1.6-8.6); Neutrophils % (auto) 79.8 % (37.0-80.0); Red Blood Cells 2.76 10^6/uL (4.0-5.20)
[2022-02-20 06:37] LABS: Potassium 3.6 mmol/L (3.5-5.1)
[2022-02-20 06:39] LABS: BUN/Creatinine Ratio 23.7; Phosphorus 3.2 mg/dL (2.5-4.90)
[2022-02-20 06:40] LABS: Red Cell Distribution Width 21.2 % (11.8-14.3)
[2022-02-20] MEDS ORDERED: NOREPINEPHRINE 8 MG/250ML KIT 250 ML IV ONE (06:47)
[2022-02-20] MEDS: FERROUS SULFATE 325mg EC TAB PO SCH ×2 (08:00→17:17)
[2022-02-20 09:21] LABS: INR 1.46 (0.9-1.15)
[2022-02-20] MEDS: MAGNESIUM OXIDE 400 MG TAB PO SCH (10:00)
[2022-02-20] MEDS: rifAXIMin 550 MG TAB PO SCH ×2 (10:00→21:53)
[2022-02-20] MEDS ORDERED: FUROSEMIDE 20 MG/2 ML VIAL IV ONE (11:45)
[2022-02-20] MEDS ORDERED: PANTOPRAZOLE 40 MG/10 ML VIAL INJ IV ONE (11:45)
[2022-02-20] MEDS ORDERED: AMIODARONE 450mg/250ml AE 250 ML IV SCH (14:15)
[2022-02-20] MEDS: AMIODARONE 450mg/250ml AE 250 ML IV SCH (16:15)
[2022-02-20] MEDS: NOREPINEPHRINE 8 MG/250ML KIT 250 ML IV SCH (21:04)
[2022-02-20] MEDS: PANTOPRAZOLE 40 MG/10 ML VIAL INJ IV SCH (22:19)
[2022-02-21] VITALS (79 sets, daily range): BP systolic 83–145; BP diastolic 29–92
[2022-02-21] MEDS: LACTULOSE 20Gm/30ML SOLN PO SCH ×2 (06:14→22:12)
[2022-02-21] MEDS: MIDODRINE HCL 10 MG TAB PO SCH ×3 (06:14→18:23)
[2022-02-21] MEDS: OCTREOTIDE ACETATE 100 MCG/ML VL SUBCUT SCH ×3 (06:15→22:12)
[2022-02-21 06:33] LABS: BUN/Creatinine Ratio 25.6; Calcium 8.2 mg/dL (8.5-10.1); Potassium 3.7 mmol/L (3.5-5.1)
[2022-02-21 06:35] LABS: Basophils # (auto) 0 10 ^3/uL (0-0.2); Basophils % (auto) 0.5 % (0.0-2.0); Eosinophils # (auto) 0.3 10 ^3/uL (0-0.8); Mean Corpuscular Volume 100.7 fL (80.0-100.0); Monocytes # (auto) 0.4 10 ^3/uL (0-1.3)
[2022-02-21 06:40] LABS: Eosinophils % (auto) 3.6 % (0.0-7.0); Hematocrit 24.6 % (36.0-46.0); Hemoglobin 8.5 g/dL (12.2-16.2); Lymphocytes # (auto) 0.9 10 ^3/uL (0.4-5.4); Lymphocytes % (auto) 11.3 % (10.0-50.0); Mean Corpuscular Hemoglobin 34.6 pg (28.0-32.0); Mean Corpuscular Hgb Conc. 34.4 g/dL (32.0-36.0); Monocytes % (auto) 5.2 % (0.0-12.0); Neutrophils # (auto) 6.3 10 ^3/uL (1.6-8.6); Neutrophils % (auto) 79.4 % (37.0-80.0); Red Blood Cells 2.45 10^6/uL (4.0-5.20)
[2022-02-21 07:08] LABS: Red Cell Distribution Width 21.3 % (11.8-14.3)
[2022-02-21] MEDS: AMIODARONE 450mg/250ml AE 250 ML IV SCH ×2 (07:15→22:15)
[2022-02-21] MEDS: FERROUS SULFATE 325mg EC TAB PO SCH ×2 (08:00→18:23)
[2022-02-21] MEDS: FUROSEMIDE 20 MG/2 ML VIAL IV SCH (09:25)
[2022-02-21] MEDS: PANTOPRAZOLE 40 MG/10 ML VIAL INJ IV SCH ×2 (09:25→22:05)
[2022-02-21] MEDS: rifAXIMin 550 MG TAB PO SCH ×2 (10:00→22:12)
[2022-02-21] MEDS: MAGNESIUM OXIDE 400 MG TAB PO SCH (10:00)
[2022-02-21] MEDS: DOPamine 1600MCG/ML D5W 250 ML IV SCH (12:30)
[2022-02-21] MEDS: DAPTOmycin 250 MG in SODIUM CHL 0.9% 50 ML IV SCH (15:00)
[2022-02-21] MEDS: ALBUMIN 25% 50 ML IV SCH (18:00)
[2022-02-21] MEDS: NOREPINEPHRINE 8 MG/250ML KIT 250 ML IV SCH (22:15)
[2022-02-22] VITALS (61 sets, daily range): BP systolic 90–154; BP diastolic 38–79
[2022-02-22] MEDS: ALBUMIN 25% 50 ML IV SCH ×4 (01:54→18:21)
[2022-02-22 05:58] LABS: Calcium 8.3 mg/dL (8.5-10.1); Potassium 3.8 mmol/L (3.5-5.1)
[2022-02-22 06:01] LABS: BUN/Creatinine Ratio 24.9
[2022-02-22] MEDS: LACTULOSE 20Gm/30ML SOLN PO SCH ×3 (06:12→22:43)
[2022-02-22] MEDS: MIDODRINE HCL 10 MG TAB PO SCH ×3 (06:12→18:22)
[2022-02-22] MEDS: OCTREOTIDE ACETATE 100 MCG/ML VL SUBCUT SCH ×3 (06:13→23:02)
[2022-02-22] MEDS: FERROUS SULFATE 325mg EC TAB PO SCH ×2 (08:00→18:27)
[2022-02-22] MEDS: rifAXIMin 550 MG TAB PO SCH ×2 (10:00→23:07)
[2022-02-22] MEDS: FUROSEMIDE 20 MG/2 ML VIAL IV SCH (10:29)
[2022-02-22] MEDS: PANTOPRAZOLE 40 MG/10 ML VIAL INJ IV SCH ×2 (10:29→22:43)
[2022-02-22] MEDS: MAGNESIUM OXIDE 400 MG TAB PO SCH (10:29)
[2022-02-22] MEDS: ALPRAZolam 0.5 MG TAB PO PRN (22:43)
[2022-02-23] VITALS (60 sets, daily range): BP systolic 87–133; BP diastolic 37–91
[2022-02-23] MEDS: ALBUMIN 25% 50 ML IV SCH (02:42)
[2022-02-23] MEDS: AMIODARONE 450mg/250ml AE 250 ML IV SCH (04:15)
[2022-02-23] MEDS: LACTULOSE 20Gm/30ML SOLN PO SCH ×3 (06:00→22:11)
[2022-02-23] MEDS: OCTREOTIDE ACETATE 100 MCG/ML VL SUBCUT SCH ×3 (06:54→22:25)
[2022-02-23] MEDS: ALPRAZolam 0.5 MG TAB PO PRN ×2 (06:54→22:10)
[2022-02-23] MEDS: MIDODRINE HCL 10 MG TAB PO SCH ×3 (06:54→18:08)
[2022-02-23 07:54] LABS: Hemoglobin 7.4 g/dL (12.2-16.2); White Blood Cell 2.8 10^3/uL (4.4-10.8)
[2022-02-23 07:57] LABS: Hematocrit 21.8 % (36.0-46.0); Mean Corpuscular Hemoglobin 33.7 pg (28.0-32.0); Mean Corpuscular Hgb Conc. 33.9 g/dL (32.0-36.0); Mean Corpuscular Volume 99.2 fL (80.0-100.0)
[2022-02-23 08:05] LABS: Calcium 8.3 mg/dL (8.5-10.1); Potassium 3.6 mmol/L (3.5-5.1)
[2022-02-23 08:07] LABS: BUN/Creatinine Ratio 22.4
[2022-02-23 08:18] LABS: Red Cell Distribution Width 21.2 % (11.8-14.3)
[2022-02-23 08:20] LABS: Band Neutrophils % (manual) 0; Basophils % (manual) 0 (0.0-2.0); Blast Cells 0; Metamyelocytes % 0; Myelocytes % 0; Promyelocytes % 0; Reactive Lymphocytes 0
[2022-02-23 09:21] LABS: Eosinophils % (manual) 3 (0-7); Lymphocytes % (manual) 17 (10.0-50.0); Monocytes % (manual) 5 (0-12)
[2022-02-23] MEDS: FERROUS SULFATE 325mg EC TAB PO SCH ×2 (10:00→18:08)
[2022-02-23] MEDS: FUROSEMIDE 20 MG/2 ML VIAL IV SCH (10:00)
[2022-02-23] MEDS: MAGNESIUM OXIDE 400 MG TAB PO SCH (10:01)
[2022-02-23] MEDS: PANTOPRAZOLE 40 MG/10 ML VIAL INJ IV SCH ×2 (10:01→22:11)
[2022-02-23] MEDS ORDERED: MORPHINE SULFATE INJ 2 MG/ml SYRG IV PRN (11:15)
[2022-02-23] MEDS: rifAXIMin 550 MG TAB PO SCH ×2 (11:37→22:11)
[2022-02-23] MEDS: DOPamine 1600MCG/ML D5W 250 ML IV SCH (12:30)
[2022-02-23] MEDS: DAPTOmycin 250 MG in SODIUM CHL 0.9% 50 ML IV SCH (17:29)
[2022-02-24 04:36] LABS: Basophils # (auto) 0 10 ^3/uL (0-0.2); Eosinophils # (auto) 0.2 10 ^3/uL (0-0.8); Hemoglobin 7.4 g/dL (12.2-16.2); Lymphocytes # (auto) 0.5 10 ^3/uL (0.4-5.4); Monocytes # (auto) 0.3 10 ^3/uL (0-1.3); Neutrophils # (auto) 2.6 10 ^3/uL (1.6-8.6); White Blood Cell 3.6 10^3/uL (4.4-10.8)
[2022-02-24 04:39] LABS: Basophils % (auto) 0.6 % (0.0-2.0); Eosinophils % (auto) 5.1 % (0.0-7.0); Hematocrit 21.7 % (36.0-46.0); Lymphocytes % (auto) 13.3 % (10.0-50.0); Mean Corpuscular Hemoglobin 34.3 pg (28.0-32.0); Mean Corpuscular Hgb Conc. 34.2 g/dL (32.0-36.0); Mean Corpuscular Volume 100.3 fL (80.0-100.0); Monocytes % (auto) 8.5 % (0.0-12.0); Neutrophils % (auto) 72.5 % (37.0-80.0); Nucleated Red Blood Cells % 0.1 %; Red Blood Cells 2.16 10^6/uL (4.0-5.20)
[2022-02-24 04:45] LABS: BUN/Creatinine Ratio 21.6; Calcium 7.9 mg/dL (8.5-10.1); Potassium 3.5 mmol/L (3.5-5.1)
[2022-02-24 04:57] VITALS: BP 106/62
[2022-02-24] MEDS: OCTREOTIDE ACETATE 100 MCG/ML VL SUBCUT SCH ×3 (05:56→22:43)
[2022-02-24] MEDS: MIDODRINE HCL 10 MG TAB PO SCH ×3 (05:56→18:05)
[2022-02-24] MEDS: LACTULOSE 20Gm/30ML SOLN PO SCH ×3 (05:56→22:42)
[2022-02-24 09:00] VITALS: BP 110/45
[2022-02-24] MEDS: FUROSEMIDE 20 MG/2 ML VIAL IV SCH (10:55)
[2022-02-24] MEDS: PANTOPRAZOLE 40 MG/10 ML VIAL INJ IV SCH ×2 (10:55→22:00)
[2022-02-24] MEDS: FERROUS SULFATE 325mg EC TAB PO SCH ×2 (10:56→18:05)
[2022-02-24] MEDS: rifAXIMin 550 MG TAB PO SCH ×2 (10:56→22:43)
[2022-02-24] MEDS: MAGNESIUM OXIDE 400 MG TAB PO SCH (10:56)
[2022-02-24 13:00] VITALS: BP 111/56
[2022-02-24 17:00] VITALS: BP 104/50
[2022-02-24] MEDS: ALPRAZolam 0.5 MG TAB PO PRN (18:52)
[2022-02-24 22:00] VITALS: BP 113/42
[2022-02-25] MEDS: ALPRAZolam 0.5 MG TAB PO PRN ×2 (03:09→12:24)
[2022-02-25 05:00] VITALS: BP 107/48
[2022-02-25] MEDS: LACTULOSE 20Gm/30ML SOLN PO SCH ×2 (05:53→13:56)
[2022-02-25] MEDS: MIDODRINE HCL 10 MG TAB PO SCH ×2 (05:53→12:24)
[2022-02-25] MEDS: OCTREOTIDE ACETATE 100 MCG/ML VL SUBCUT SCH ×2 (05:53→13:56)
[2022-02-25] MEDS: FUROSEMIDE 20 MG/2 ML VIAL IV SCH (10:00)
[2022-02-25] MEDS: PANTOPRAZOLE 40 MG/10 ML VIAL INJ IV SCH (10:00)
[2022-02-25] MEDS: FERROUS SULFATE 325mg EC TAB PO SCH (11:00)
[2022-02-25] MEDS: MAGNESIUM OXIDE 400 MG TAB PO SCH (11:01)
[2022-02-25 13:00] VITALS: BP 103/53
[2022-02-25] MEDS: DAPTOmycin 250 MG in SODIUM CHL 0.9% 50 ML IV SCH (14:55)
== END 2022-02-25 16:05 | DRG 432 ==
LOC: ER 14:00 → EDBD 14:00 → EDUNIT# 14:00 → TELE 17:19 → TELE-EAST 20:45 → DOU IN ICU 02-20 07:56 → TELE-WESTW 02-23 19:02
PROVIDERS: ADMIT Nurse Practitioner; ATTEND Nurse Practitioner
PROC: 30233R1 Transfusion of Nonautologous Platelets into Peripheral Vein, Percutaneous Approach (ICD-10-PCS; principal; 2022-02-09)
PROC: 30233N1 Transfusion of Nonautologous Red Blood Cells into Peripheral Vein, Percutaneous Approach (ICD-10-PCS; 2022-02-11)
PROC: 05H933Z Insertion of Infusion Device into Right Brachial Vein, Percutaneous Approach (ICD-10-PCS; 2022-02-17)
PROC: B54MZZA Ultrasonography of Right Upper Extremity Veins, Guidance (ICD-10-PCS; 2022-02-17)
DX: K70.31 Alcoholic cirrhosis of liver with ascites (principal); E43 Unspecified severe protein-calorie malnutrition; U07.1 COVID-19; J12.82 Pneumonia due to coronavirus disease 2019; G93.41 Metabolic encephalopathy; N17.0 Acute kidney failure with tubular necrosis; D61.818 Other pancytopenia; D68.9 Coagulation defect, unspecified; I13.0 Hypertensive heart and chronic kidney disease with heart failure and stage 1 through stage 4 chronic kidney disease, or unspecified chronic kidney disease; J44.0 Chronic obstructive pulmonary disease with (acute) lower respiratory infection; N18.4 Chronic kidney disease, stage 4 (severe); N39.0 Urinary tract infection, site not specified; Z68.42 Body mass index [BMI] 45.0-49.9, adult; K72.10 Chronic hepatic failure without coma; I48.91 Unspecified atrial fibrillation; D63.8 Anemia in other chronic diseases classified elsewhere; E11.22 Type 2 diabetes mellitus with diabetic chronic kidney disease; Z66 Do not resuscitate; E66.01 Morbid (severe) obesity due to excess calories; F32.A Depression, unspecified; K21.9 Gastro-esophageal reflux disease without esophagitis; I95.9 Hypotension, unspecified; F03.90 Unspecified dementia, unspecified severity, without behavioral disturbance, psychotic disturbance, mood disturbance, and anxiety; I50.9 Heart failure, unspecified; M32.9 Systemic lupus erythematosus, unspecified; R56.9 Unspecified convulsions; E88.09 Other disorders of plasma-protein metabolism, not elsewhere classified; I27.20 Pulmonary hypertension, unspecified; Z79.899 Other long term (current) drug therapy; Z99.81 Dependence on supplemental oxygen; Z88.8 Allergy status to other drugs, medicaments and biological substances; Z86.73 Personal history of transient ischemic attack (TIA), and cerebral infarction without residual deficits; Z90.710 Acquired absence of both cervix and uterus; Z83.3 Family history of diabetes mellitus; Z82.49 Family history of ischemic heart disease and other diseases of the circulatory system; Z86.19 Personal history of other infectious and parasitic diseases
CPT/HCPCS: 36415; 71045; 74176; 76705; 80048; 80053; 81001; 82140; 82570; 82728; 83540; 83550; 83605; 83735; 83880; 84100; 84300; 84443; 84484; 85007; 85025; 85027; 85049; 85379; 85610; 85730; 86850; 86860; 86870; 86880; 86900; 86901; 86906; 86920; 86971; 87040; 87081; 93005; 93970; 97110; 97116; 97163; 97530; 99291; C9113; G0378; J0153; J1642; J3480; P9047